=== PATIENT | female | born 1940 | race Caucasian/White ===

== ENCOUNTER 2018-01-09 10:56 | Inpatient (IN) | payer MEDICARE, OTHER ==
[2018-01-09] MEDS: Lactated Ringers 1,000 ML IV SCH ×2 (11:30→17:55)
--- NOTE | 2018-01-09 11:47 | PCM.PREANE ---
Preanesthetic Assessment - Anesthesia/Transfusion/Family Hx Anesthesia History: Prior Anesthesia Without Reaction Family History of Anesthesia Reaction: No Transfusion History: No Prior Transfusion(s) - Review of Systems General: No Symptoms Pulmonary: No Symptoms Cardiovascular: No Symptoms Gastrointestinal: No Symptoms Neurological: No Symptoms Other: Reports: None - Physical Assessment NPO Status Date: 01/08/18 Height: 1.55 m Weight: 71.668 kg ASA Class: 3 Mental Status: Alert & Oriented x3 Airway Class: Mallampati = 1 Dentition: Reports: Dentures ROM/Head Extension: Full Lungs: Clear to Auscultation, Normal Respiratory Effort Cardiovascular: Regular Rate, Regular Rhythm - Allergies Allergies/Adverse Reactions: Allergies Allergy/AdvReac Type Severity Reaction Status Date / Time amoxicillin trihydrate Allergy Rash Verified 01/02/18 15:57 [From Augmentin] ciprofloxacin [From Cipro] Allergy Rash Verified 01/02/18 15:57 ciprofloxacin HCl Allergy Rash Verified 01/02/18 15:57 [From Cipro] potassium clavulanate Allergy Rash Verified 01/02/18 15:57 [From Augmentin] Sulfa (Sulfonamide Allergy Rash Verified 01/02/18 15:57 Antibiotics) - Anesthesia Plan Pre-Op Medication Ordered: None - Acknowledgements Anesthesia Type Planned: MAC Pt an Appropriate Candidate for the Planned Anesthesia: Yes Alternatives and Risks of Anesthesia Discussed w Pt/Guardian: Yes Pt/Guardian Understands and Agrees with Anesthesia Plan: Yes Additional Comments: PMH:s/p R subclavian art stent 5-7 yr ago, on plavix, stopped6 days ago, hx of CVA, gout, HLD PreAnesthesia Questionnaire HEENT History: Reports: Cataract, Other (See Below) Other HEENT History: wears glasses, has upper and lower dentures Cardiovascular History: Reports: High Cholesterol, Hypertension Respiratory History: Reports: None Gastrointestinal History: Reports: Colon Polyp, Diverticulosis FLOORLEADER History: Reports: None Musculoskeletal History: Reports: Arthritis, Fracture, Gout Other Musculoskeletal History: hx of fx right wrist Neurological History: Reports: None Psychiatric History: Reports: None Endocrine/Metabolic History: Reports: None Hematologic History: Reports: Anticoagulation Therapy Immunologic History: Reports: None Oncologic (Cancer) History: Reports: Uterine Dermatologic History: Reports: None - Past Surgical History Head Surgeries/Procedures: Reports: None HEENT Surgical History: Reports: Cataract Surgery, Tonsillectomy Cardiovascular Surgical History: Reports: Other (See Below) Other Cardiovascular Surgeries/Procedures: has vascular stent in right upper arm GI Surgical History: Reports: Colonoscopy Female Surgical History: Reports: Hysterectomy Oncologic Surgical History: Reports: Other (See Below) Other Oncologic Surgeries/Procedures: hysterectomy - SUBSTANCE USE Smoking Status *Q: Former Smoker Tobacco Use Within Last Twelve Months: No Recreational Drug Use History: No - HOME MEDS Home Medications: Home Meds Clopidogrel [Plavix] 75 mg PO DAILY 10/20/15 [History] Simvastatin [Zocor] 20 mg PO BEDTIME 10/20/15 [History] Aspirin [Adult Low Dose Aspirin EC] 81 mg PO DAILY 01/02/18 [History] Losartan/Hydrochlorothiazide [Losartan-HCTZ 50-12.5 MG] 1 tab PO DAILY 01/02/18 [History] - CURRENT (IN HOUSE) MEDS Current Meds: Current Medications Lactated Ringer's (Ringers, Lactated) 1,000 mls @ 125 mls/hr IV ASDIRECTED [facility]
[2018-01-09] MEDS ORDERED: Ondansetron 4 MG/2 ML SDV ONE (12:46)
[2018-01-09] MEDS ORDERED: Propofol 200 MG/20 ML SDV ONE (12:46)
[2018-01-09] MEDS ORDERED: Midazolam 1 MG/ML 2 ML SDV ONE (12:46)
[2018-01-09] MEDS ORDERED: fentaNYL 100 MCG/2 ML SDV ONE ×2 (12:46→13:28)
[2018-01-09] MEDS ORDERED: Rocuronium 10 MG/ML 10 ML Syringe ONE (13:27)
[2018-01-09] MEDS ORDERED: HYDROmorphone 2 MG/ML SDV ONE (13:31)
[2018-01-09] MEDS ORDERED: Bupivacaine 0.5% 30 ML SDV ONE (13:41)
[2018-01-09] MEDS ORDERED: ceFAZolin 1 GM Vial ONE (14:17)
[2018-01-09] MEDS ORDERED: Hetastarch in NS 500 ML ONE (14:23)
[2018-01-09] MEDS ORDERED: Sugammadex Sodium 200 MG/2 ML VIAL ONE (14:52)
[2018-01-09] MEDS ORDERED: Ondansetron 4 MG/2 ML SDV IVPUSH PRN (15:30)
[2018-01-09] MEDS ORDERED: Morphine PF 30 MG/30 ML PCA Vial IV SCH ×2 (15:30→21:00)
[2018-01-09] MEDS ORDERED: Acetaminophen 325 MG Supp RECTAL PRN (15:33)
--- NOTE | 2018-01-09 15:42 | PCM.OPNOTE ---
- General Post-Op/Procedure Note Date of Surgery/Procedure: 01/09/18 Operative Procedure(s): Colonoscopy. Repair of iatrogenic colon perforation Findings: Rectosigmoid perforation Pancolonic diverticulosis Pre Op Diagnosis: Hx of colon polyps. Change in bowel habits. Decreased stool caliber. Iatrogenic perforation of rectosigmoid Post-Op Diagnosis: Pancolonic diverticulosis. Rectosigmoid perforation Anesthesia Technique: General ET Tube (ASA IIIE) Primary Surgeon: Luis Smith Haul Driver: Diane Velasquez Reason Haul Driver Was Necessary: Exposure and facilitate efficiency of procedure Fluid Replacement, Intraop: 1,100 (1100 crystalloid, 400 Hespan) Output, Urine Amount: 220 EBL in mLs: 100 Condition: Good Free Text/Narrative:: DICTATION 090766/[id number] CPT CODE 66711/00951
--- NOTE | 2018-01-09 15:47 | PCM.POSTAN ---
POST ANESTHESIA ASSESSMENT - MENTAL STATUS Mental Status: Alert, Oriented - RESPIRATORY Respiratory Status: Respiratory Rate WNL, Airway Patent, O2 Saturation Stable - CARDIOVASCULAR CV Status: Pulse Rate WNL, Blood Pressure Stable - GASTROINTESTINAL GI Status: No Symptoms - PAIN Pain Score: 3 - POST OP HYDRATION Hydration Status: Adequate & Stable
[2018-01-09] MEDS ORDERED: Morphine 4 MG/ML Syringe IVPUSH PRN (16:28)
[2018-01-09] MEDS ORDERED: Lactated Ringers 1,000 ML IV SCH (17:00)
[2018-01-09] MEDS: cefOXitin 1 GM in Premix Bag 1 BAG IV SCH ×2 (17:02→21:50)
[2018-01-09] MEDS: Metoclopramide 10 MG/2 ML SDV IV SCH ×2 (17:41→21:50)
[2018-01-09] MEDS ORDERED: LORazepam 2 MG/ML SDV IVPUSH ONE (20:18)
--- NOTE | 2018-01-09 20:37 | PCM.SN ---
- Free Text/Narrative Note: Awake and alert. c/o incisional pain only. 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 Wants to know when she can eat. Lungs clear. Ht RRR. BP 110-110 with HR 60's. Lungs clear. Abdomen soft and nontender. Minimal BS. ASSESSMENT: Stable post-op course to date. Labs ordered for am.
--- NOTE | 2018-01-09 22:00 | OR ---
SURGEON: Luis Smith M.D. DATE OF PROCEDURE: 01/09/2018 OPERATION PERFORMED: Colonoscopy to the cecum. ANESTHESIA: MAC. ASA CLASSIFICATION: III. PREOPERATIVE DIAGNOSIS: Personal history of colon polyps with change in bowel habits and decreased stool caliber. POSTOPERATIVE DIAGNOSES: 1. Mild pancolonic diverticulosis. 2. Colonoscopic perforation. DESCRIPTION OF PROCEDURE: The patient was taken to the endoscopy room and positioned on the endoscopy table in the left lateral decubitus position. Time-out was called for appropriate identification of the patient and procedure. Monitored anesthesia care was provided. The colonoscope was inserted into the rectum and was advanced to the cecum with minimal difficulty. There was no undue pressure, nor did there appear to be any loop or twist in the colon as the colonoscope was advanced. Despite multiple maneuvers, I was not able to retroflex the colonoscope in the cecum, and therefore, the colonoscope was slowly withdrawn. The patient did have mild diverticular changes scattered throughout the entire length of the colon. The cecum, ascending colon, hepatic flexure, transverse colon, splenic flexure, and descending colon showed no tumors, polyps, diverticula, or inflammatory bowel disease. As the colonoscope was further withdrawn through the sigmoid into the rectosigmoid, it was apparent that we were outside of the lumen. The procedure was then rapidly terminated, and the patient taken to the operating room for laparotomy and repair. While the patient was being prepped for surgery, consent was obtained from her . JORGE TANG /[id number]
[2018-01-10] MEDS ORDERED: Lactated Ringers 500 ML IV ONE (01:46)
[2018-01-10] MEDS: Metoclopramide 10 MG/2 ML SDV IV SCH ×4 (02:53→22:00)
[2018-01-10] MEDS: cefOXitin 1 GM in Premix Bag 1 BAG IV SCH ×2 (02:54→09:17)
[2018-01-10] MEDS ORDERED: Lactated Ringers 500 ML IV SCH ×2 (03:45→04:00)
[2018-01-10] MEDS: Lactated Ringers 1,000 ML IV SCH ×4 (04:46→17:54)
--- NOTE | 2018-01-10 08:14 | PCM.SURGPN ---
- General Info Date of Service: 01/10/18 POD#: 1 Post-Op Diagnosis: Iatrogenic colon perforation Functional Status: Reports: Pain Controlled, Ambulating - Review of Systems General: Reports: Fatigue. Denies: Fever, Weakness, Malaise, Chills HEENT: Reports: No Symptoms Pulmonary: Denies: Shortness of Breath, Cough Cardiovascular: Denies: Chest Pain Gastrointestinal: Reports: Abdominal Pain (incisional). Denies: Diarrhea, Difficulty Swallowing, Flatus, Nausea, Vomiting Genitourinary: Reports: No Symptoms Musculoskeletal: Denies: Neck Pain, Shoulder Pain Skin: Reports: No Symptoms Neurological: Denies: Confusion, Dizziness, Headache Psychiatric: Reports: No Symptoms - Patient Data Vitals - Most Recent: Last Vital Signs Temp 98.1 F 01/10/18 04:00 Pulse 58 L 01/09/18 18:00 Resp 24 H 01/10/18 07:00 BP 94/54 L 01/10/18 07:00 Pulse Ox 95 01/10/18 07:00 Weight - Most Recent: 164 lb 3.91 oz I&O - Last 24 Hours: Intake & Output 01/09/18 01/10/18 01/10/18 19:59 03:59 11:59 Intake Total 3600 1518 560 Output Total 220 240 Balance 3380 1518 320 Lab Results Last 24 Hrs: Laboratory Results - last 24 hr 01/10/18 01/10/18 Range/Units 06:18 06:18 WBC 6.84 (4.0-11.0) K/uL RBC 3.84 L (4.30-5.90) M/uL Hgb 12.0 (12.0-16.0) g/dL Hct 36.5 (36.0-46.0) % MCV 95.1 (80.0-98.0) fL MCH 31.3 (27.0-32.0) pg MCHC 32.9 (31.0-37.0) g/dL RDW Std Deviation 47.4 (28.0-62.0) fl RDW Coeff of Nilo 14 (11.0-15.0) % Plt Count 191 (150-400) K/uL MPV 11.10 (7.40-12.00) fL Neut % (Auto) 91.7 H (48.0-80.0) % Lymph % (Auto) 3.2 L (16.0-40.0) % [place] % (Auto) 5.1 (0.0-15.0) % Eos % (Auto) 0.0 (0.0-7.0) % Baso % (Auto) 0.0 (0.0-1.5) % Neut # (Auto) 6.3 H (1.4-5.7) K/uL Lymph # (Auto) 0.2 L (0.6-2.4) K/uL [place] # (Auto) 0.4 (0.0-0.8) K/uL Eos # (Auto) 0.0 (0.0-0.7) K/uL Baso # (Auto) 0.0 (0.0-0.1) K/uL Nucleated RBC % 0.0 /100WBC Nucleated RBCs # 0 K/uL Sodium 135 L (136-145) mmol/L Potassium 4.1 (3.5-5.1) mmol/L Chloride 104 (98-107) mmol/L Carbon Dioxide 27.7 (21.0-32.0) mmol/L BUN 16 (7.0-18.0) mg/dL Creatinine 1.3 H (0.6-1.0) mg/dL Est Cr Clr Drug Dosing 27.35 mL/min Estimated GFR (MDRD) 39.7 ml/min Glucose 131 H (74-106) mg/dL Calcium 8.2 L (8.5-10.1) mg/dL Med Orders - Current: Current Medications Acetaminophen (Tylenol) 325 mg RECTAL Q4H PRN PRN Reason: Temperature Cefoxitin Sodium 1 gm/ Premix 50 mls @ 100 mls/hr IV Q6H [facility] Stop: 01/10/18 09:59 Last Admin: 01/10/18 02:54 Dose: 100 mls/hr Lactated Ringer's (Ringers, Lactated) 1,000 mls @ 150 mls/hr IV ASDIRECTED [facility] Last Admin: 01/10/18 04:47 Dose: 125 mls/hr Lactated Ringer's (Ringers, Lactated) 1,000 mls @ 625 mls/hr IV ASDIRECTED [facility] Metoclopramide HCl (Reglan) 10 mg IV Q6H [facility] Last Admin: 01/10/18 02:53 Dose: 10 mg Morphine Sulfate (Morphine) 0 mg IVPUSH Q1H PRN PRN Reason: Pain (severe 7-10) Morphine Sulfate (Morphine Supervisor Forming Department 30 Mg In 30 Ml) 30 mg IV ASDIRECTED [facility]; Protocol Last Admin: 01/09/18 21:09 Dose: 30 mg Ondansetron HCl (Zofran) 4 mg IVPUSH Q6H PRN PRN Reason: Nausea/Vomiting Discontinued Medications Bupivacaine HCl (Marcaine 0.5%) Confirm Administered Dose 120 ml .ROUTE .STK- MED ONE Stop: 01/09/18 13:42 Cefazolin Sodium (Ancef) Confirm Administered Dose 1 gm .ROUTE .STK-MED ONE Stop: 01/09/18 14:18 Fentanyl (Sublimaze) Confirm Administered Dose 100 mcg .ROUTE .STK-MED ONE Stop: 01/09/18 12:47 Fentanyl (Sublimaze) Confirm Administered Dose 100 mcg .ROUTE .STK-MED ONE Stop: 01/09/18 13:29 Hydromorphone HCl (Dilaudid) Confirm Administered Dose 2 mg .ROUTE .STK-MED ONE Stop: 01/09/18 13:32 Lactated Ringer's (Ringers, Lactated) 1,000 mls @ 125 mls/hr IV ASDIRECTED [facility] Last Infusion: 01/10/18 01:55 Dose: Infused Hetastarch/Sodium Chloride (Hetastarch 6% In Normal Saline) Confirm Administered Dose 500 mls @ as directed .ROUTE .STK-MED ONE Stop: 01/09/18 14:24 Acetaminophen (Ofirmev) Confirm Administered Dose 100 mls @ as directed IV .STK- MED ONE Stop: 01/09/18 14:53 Lactated Ringer's (Ringers, Lactated) 500 mls @ 500 mls/hr IV .BOLUS ONE Stop: 01/10/18 02:45 Last Admin: 01/10/18 02:01 Dose: 500 mls/hr Lactated Ringer's (Ringers, Lactated) 500 mls @ 500 mls/hr IV BOLUS [facility] Stop: 01/10/18 04:45 Lactated Ringer's (Ringers, Lactated) 500 mls @ 500 mls/hr IV .BOLUS [facility] Stop: 01/10/18 05:01 Last Admin: 01/10/18 03:45 Dose: 500 mls/hr Lorazepam (Ativan) 0.5 mg IVPUSH ONETIME ONE Stop: 01/09/18 20:19 Last Admin: 01/09/18 20:36 Dose: Not Given Midazolam HCl (Versed 1 Mg/Ml) Confirm Administered Dose 2 mg .ROUTE .STK-MED ONE Stop: 01/09/18 12:47 Morphine Sulfate (Morphine Supervisor Forming Department 30 Mg In 30 Ml) 30 mg IV SEECOMMENT [facility] Ondansetron HCl (Zofran) Confirm Administered Dose 4 mg .ROUTE .STK-MED ONE Stop: 01/09/18 12:47 Propofol (Diprivan 20 Ml) Confirm Administered Dose 400 mg .ROUTE .STK-MED ONE Stop: 01/09/18 12:47 Rocuronium Randall (Zemuron) Confirm Administered Dose 100 mg .ROUTE .STK-MED ONE Stop: 01/09/18 13:28 Sugammadex Sodium (Bridion) Confirm Administered Dose 200 mg .ROUTE .STK-MED ONE Stop: 01/09/18 14:53 - Exam Wound/Incisions: Dressing Dry and Intact (On-Q in place) Quality Assessment: Supplemental Oxygen, Urine Catheter (clear yellow urine, > 20ml/hr) General: Cooperative, No Acute Distress HEENT: Pupils Equal, Pupils Reactive. No: Scleral Icterus Neck: Supple, Trachea Midline Lungs: Clear to Auscultation, Normal Respiratory Effort. No: Crackles, Rales Cardiovascular: Regular Rate, Regular Rhythm. No: Tachycardia GI/Abdominal Exam: Soft, Non-Tender, No Distention, Abnormal Bowel Sounds ( hypoactive but present). No: Guarding, Rigid, Rebound Extremities: Normal Inspection Skin: Warm, Dry, Intact Neurological: No New Focal Deficit Psy/Mental Status: Alert, Normal Affect, Normal Mood - Problem List & Annotations (1) Large bowel perforation SNOMED Code(s): 326100046 Code(s): K63.1 - PERFORATION OF INTESTINE (NONTRAUMATIC) Status: Acute Priority: High Current Visit: Yes - Problem List Review Problem List Initiated/Reviewed/Updated: Yes - My Orders Last 24 Hours: Active Orders 24 hr Category Date Time Status Admission Status [Patient Status] [ADT] Routine ADT 01/09/18 15:28 Active Leahy Catheter Insertion [Insert Urinary Catheter] [OM. Care 01/09/18 15:30 Ordered PC] Q24H Intake and Output [RC] Q12H Care 01/09/18 15:27 Active Oxygen Therapy [RC] PRN Care 01/09/18 08:00 Active Oxygen Therapy [RC] PRN Care 01/09/18 15:27 Active Pulse Oximetry [RC] INTERMITTENT Care 01/09/18 15:28 Active RT Incentive Spirometry [RC] Q1HWA Care 01/09/18 15:27 Active Up ad Lidia [RC] PER UNIT ROUTINE Care 01/09/18 15:27 Active Urinary Catheter Assessment [RC] Q4H Care 01/09/18 15:31 Active Vital Signs [RC] PER UNIT ROUTINE Care 01/09/18 15:27 Active Vital Signs [RC] Q1H Care 01/09/18 08:00 Active Nothing Per Oral Diet [DIET] Diet 01/09/18 Lunch Active Acetaminophen [Tylenol] Med 01/09/18 15:33 Active 325 mg RECTAL Q4H PRN Lactated Ringers [Ringers, Lactated] 1,000 ml Med 01/09/18 15:30 Active IV ASDIRECTED Lactated Ringers [Ringers, Lactated] 1,000 ml Med 01/09/18 17:00 Active IV ASDIRECTED Metoclopramide [Reglan] Med 01/09/18 15:30 Active 10 mg IV Q6H Morphine Med 01/09/18 16:28 Active See Dose Instructions IVPUSH Q1H PRN Morphine PF [Morphine PC ANALYST 30 MG in 30 ML] Med 01/09/18 21:00 Active 30 mg IV ASDIRECTED Ondansetron [Zofran] Med 01/09/18 15:30 Active 4 mg IVPUSH Q6H PRN cefOXitin [Mefoxin in Dextrose,Iso-Osm 1 GM/50 ML] 1 gm Med 01/09/18 15:30 Active Premix Bag 1 bag IV Q6H Antiembolic Hose [OM.PC] PER UNIT ROUTINE Oth 01/10/18 06:00 Ordered Sequential Compression Device [OM.PC] Routine Oth 01/09/18 15:28 Ordered Medication Orders Acetaminophen (Tylenol) 325 mg RECTAL Q4H PRN PRN Reason: Temperature Cefoxitin Sodium 1 gm/ Premix 50 mls @ 100 mls/hr IV Q6H [facility] Stop: 01/10/18 09:59 Last Admin: 01/10/18 02:54 Dose: 100 mls/hr Infusion: 01/09/18 22:20 Dose: 100 mls/hr Admin: 01/09/18 21:50 Dose: 100 mls/hr Admin: 01/09/18 17:02 Dose: Lactated Ringer's (Ringers, Lactated) 1,000 mls @ 150 mls/hr IV ASDIRECTED [facility] Last Admin: 01/10/18 04:47 Dose: 125 mls/hr Lactated Ringer's (Ringers, Lactated) 1,000 mls @ 625 mls/hr IV ASDIRECTED [facility] Metoclopramide HCl (Reglan) 10 mg IV Q6H [facility] Last Admin: 01/10/18 02:53 Dose: 10 mg Admin: 01/09/18 21:50 Dose: 10 mg Admin: 01/09/18 17:41 Dose: 10 mg Morphine Sulfate (Morphine) 0 mg IVPUSH Q1H PRN PRN Reason: Pain (severe 7-10) Morphine Sulfate (Morphine Supervisor Forming Department 30 Mg In 30 Ml) 30 mg IV ASDIRECTED [facility]; Protocol Last Admin: 01/09/18 21:09 Dose: 30 mg Ondansetron HCl (Zofran) 4 mg IVPUSH Q6H PRN PRN Reason: Nausea/Vomiting - Assessment Assessment (Free Text/Narrative):: Patient has had a good night. c/o incisional pain that is mild and back pain. No N/V. Hemodynamically stable--BP fluctuates from mid 80's to 110. Pulse 80's. Lungs clear to auscultation. Abdomen is soft with hypoactive BS. Labs reviewed. Overall patient has had a good night and is stable. Will increase activity today, leave Leahy in and keep her in ICU. - Plan Plan (Free Text/Narrative):: Increase activity today. Leave Leahy in. Keep in ICU today.
--- NOTE | 2018-01-10 18:49 | PCM48HPAN ---
Post Anesthesia Note - EVALUATION WITHIN 48HRS OF ANESTHETIC Vital Signs in Normal Range: Yes Patient Participated in Evaluation: No Respiratory Function Stable: Yes Airway Patent: Yes Cardiovascular Function Stable: Yes Hydration Status Stable: Yes Pain Control Satisfactory: Yes (Remains on BUYER TOBACCO HEAD but not using much medication according to RN) Nausea and Vomiting Control Satisfactory: Yes Mental Status Recovered: Yes Resp Rate: 25 - COMMENTS/OBSERVATIONS Free Text/Narrative:: BP still on the low side but ok for patient due to her low baseline according to RN. Dr. Smith has increased her fluids. Patient has been up walking 3 times today.
--- NOTE | 2018-01-10 19:11 | PCM.SN ---
- Free Text/Narrative Note: Patient has had a good day. Ambulated in ICU X3. No N/V. Incisional pain only. No flatus. OBJECTIVE: Tmax 99.9 Lungs clear. Ht RRR--101 now. BP fluctuates from 80s'- 110's. UO > 20ml/hr. Abdomen soft. Incisional tenderness. Minimal BS. Dressings dry and intact. IMPRESSION: Patient is hemodynamically stable. UO acceptable given age. Will continue in ICU tonight and possible transfer tomorrow. Possible d/c Leahy in morning.
[2018-01-11] MEDS: Lactated Ringers 1,000 ML IV SCH ×2 (00:20→06:36)
[2018-01-11] MEDS: Metoclopramide 10 MG/2 ML SDV IV SCH ×4 (04:41→22:10)
--- NOTE | 2018-01-11 08:15 | PCM.SURGPN ---
- General Info Date of Service: 01/11/18 Date of Surgery/Procedure: 01/09/18 POD#: 2 Post-Op Diagnosis: iatrogenic colon perforation at time of colonoscopy Functional Status: Reports: Pain Controlled, Ambulating - Review of Systems General: Reports: Fatigue. Denies: Fever, Weakness, Malaise, Chills HEENT: Reports: No Symptoms Pulmonary: Denies: Shortness of Breath, Cough, Wheezing Cardiovascular: Denies: Chest Pain Gastrointestinal: Reports: Abdominal Pain (incisional). Denies: Diarrhea, Flatus, Nausea, Vomiting Genitourinary: Reports: Other (Leahy in, will remove today). Denies: Dysuria, Frequency, Burning Musculoskeletal: Denies: Neck Pain, Shoulder Pain Skin: Denies: Cyanosis, Jaundice, Mottled Neurological: Reports: No Symptoms Psychiatric: Denies: Confusion, Depression, Mood Lability, Anxiety - Patient Data Vitals - Most Recent: Last Vital Signs Temp 99.0 F 01/11/18 04:00 Pulse 101 H 01/11/18 07:00 Resp 21 H 01/11/18 07:00 BP 115/55 L 01/11/18 07:00 Pulse Ox 94 L 01/11/18 07:00 Weight - Most Recent: 171 lb 15.369 oz I&O - Last 24 Hours: Intake & Output 01/10/18 01/11/18 01/11/18 19:59 03:59 11:59 Intake Total 1649 965 898 Output Total 170 135 190 Balance 1479 830 708 Med Orders - Current: Current Medications Acetaminophen (Tylenol) 325 mg RECTAL Q4H PRN PRN Reason: Temperature Lactated Ringer's (Ringers, Lactated) 1,000 mls @ 125 mls/hr IV ASDIRECTED [facility] Last Admin: 01/11/18 06:36 Dose: 150 mls/hr Lactated Ringer's (Ringers, Lactated) 1,000 mls @ 625 mls/hr IV ASDIRECTED [facility] Metoclopramide HCl (Reglan) 10 mg IV Q6H [facility] Last Admin: 01/11/18 04:41 Dose: 10 mg Morphine Sulfate (Morphine) 0 mg IVPUSH Q1H PRN PRN Reason: Pain (severe 7-10) Morphine Sulfate (Morphine Saw Man 30 Mg In 30 Ml) 30 mg IV ASDIRECTED [facility]; Protocol Last Admin: 01/09/18 21:09 Dose: 30 mg Ondansetron HCl (Zofran) 4 mg IVPUSH Q6H PRN PRN Reason: Nausea/Vomiting Discontinued Medications Bupivacaine HCl (Marcaine 0.5%) Confirm Administered Dose 120 ml .ROUTE .STK- MED ONE Stop: 01/09/18 13:42 Cefazolin Sodium (Ancef) Confirm Administered Dose 1 gm .ROUTE .STK-MED ONE Stop: 01/09/18 14:18 Fentanyl (Sublimaze) Confirm Administered Dose 100 mcg .ROUTE .STK-MED ONE Stop: 01/09/18 12:47 Fentanyl (Sublimaze) Confirm Administered Dose 100 mcg .ROUTE .STK-MED ONE Stop: 01/09/18 13:29 Hydromorphone HCl (Dilaudid) Confirm Administered Dose 2 mg .ROUTE .STK-MED ONE Stop: 01/09/18 13:32 Lactated Ringer's (Ringers, Lactated) 1,000 mls @ 125 mls/hr IV ASDIRECTED [facility] Last Infusion: 01/10/18 01:55 Dose: Infused Hetastarch/Sodium Chloride (Hetastarch 6% In Normal Saline) Confirm Administered Dose 500 mls @ as directed .ROUTE .STK-MED ONE Stop: 01/09/18 14:24 Acetaminophen (Ofirmev) Confirm Administered Dose 100 mls @ as directed IV .STK- MED ONE Stop: 01/09/18 14:53 Cefoxitin Sodium 1 gm/ Premix 50 mls @ 100 mls/hr IV Q6H [facility] Stop: 01/10/18 09:59 Last Admin: 01/10/18 09:17 Dose: 100 mls/hr Lactated Ringer's (Ringers, Lactated) 500 mls @ 500 mls/hr IV .BOLUS ONE Stop: 01/10/18 02:45 Last Admin: 01/10/18 02:01 Dose: 500 mls/hr Lactated Ringer's (Ringers, Lactated) 500 mls @ 500 mls/hr IV BOLUS [facility] Stop: 01/10/18 04:45 Lactated Ringer's (Ringers, Lactated) 500 mls @ 500 mls/hr IV .BOLUS [facility] Stop: 01/10/18 05:01 Last Admin: 01/10/18 03:45 Dose: 500 mls/hr Lorazepam (Ativan) 0.5 mg IVPUSH ONETIME ONE Stop: 01/09/18 20:19 Last Admin: 01/09/18 20:36 Dose: Not Given Midazolam HCl (Versed 1 Mg/Ml) Confirm Administered Dose 2 mg .ROUTE .STK-MED ONE Stop: 01/09/18 12:47 Morphine Sulfate (Morphine Saw Man 30 Mg In 30 Ml) 30 mg IV [facility]ECOMMENT [facility] Ondansetron HCl (Zofran) Confirm Administered Dose 4 mg .ROUTE .STK-MED ONE Stop: 01/09/18 12:47 Propofol (Diprivan 20 Ml) Confirm Administered Dose 400 mg .ROUTE .STK-MED ONE Stop: 01/09/18 12:47 Rocuronium [place] (Zemuron) Confirm Administered Dose 100 mg .ROUTE .STK-MED ONE Stop: 01/09/18 13:28 Sugammadex Sodium (Bridion) Confirm Administered Dose 200 mg .ROUTE .STK-MED ONE Stop: 01/09/18 14:53 - Exam Wound/Incisions: Healing Well (Dressing removed, incision clean & dry.), No Drainage Quality Assessment: Supplemental Oxygen (2L NC), Urine Catheter (remove today), DVT Prophylaxis (TEDS, SCDs) General: Alert, Oriented, Cooperative, No Acute Distress HEENT: Pupils Equal, Pupils Reactive, EOMI Neck: Supple, Trachea Midline, No JVD Lungs: Clear to Auscultation, Normal Respiratory Effort Cardiovascular: Regular Rate, Regular Rhythm (intermittent low grade tachycardia , BP 90s-110s) GI/Abdominal Exam: Soft, Non-Tender, No Distention, No Mass, Abnormal Bowel Sounds (hypoactive). No: Guarding, Rigid, Rebound Extremities: Normal Inspection, Normal Range of Motion, No Pedal Edema, Normal Capillary Refill Skin: Warm, Dry, Intact Neurological: No New Focal Deficit Psy/Mental Status: Alert, Normal Affect, Normal Mood - Problem List & Annotations (1) Large bowel perforation SNOMED Code(s): 277133211 Code(s): K63.1 - PERFORATION OF INTESTINE (NONTRAUMATIC) Status: Acute Priority: High Current Visit: Yes - Problem List Review Problem List Initiated/Reviewed/Updated: Yes - My Orders Last 24 Hours: Active Orders 24 hr Category Date Time Status Transfer Patient (Change bed) [ADT] Routine ADT 01/11/18 08:08 Ordered Up ad Lidia [RC] ASDIRECTED Care 01/10/18 08:15 Active BASIC METABOLIC PANEL,BMP [CHEM] AM Lab 01/12/18 05:11 Ordered CBC WITH AUTO DIFF [HEME] AM Lab 01/12/18 05:11 Ordered Medication Orders Acetaminophen (Tylenol) 325 mg RECTAL Q4H PRN PRN Reason: Temperature Lactated Ringer's (Ringers, Lactated) 1,000 mls @ 125 mls/hr IV ASDIRECTED [facility] Last Admin: 01/11/18 06:36 Dose: 150 mls/hr Infusion: 01/11/18 06:36 Dose: 150 mls/hr Admin: 01/11/18 00:20 Dose: 150 mls/hr Infusion: 01/11/18 00:20 Dose: 150 mls/hr Admin: 01/10/18 17:54 Dose: 150 mls/hr Infusion: 01/10/18 17:34 Dose: 150 mls/hr Infusion: 01/10/18 13:55 Dose: 150 mls/hr Infusion: 01/10/18 12:55 Dose: 400 mls/hr Admin: 01/10/18 12:34 Dose: 150 mls/hr Infusion: 01/10/18 12:00 Dose: 150 mls/hr Infusion: 01/10/18 08:00 Dose: 150 mls/hr Admin: 01/10/18 04:47 Dose: 125 mls/hr Lactated Ringer's (Ringers, Lactated) 1,000 mls @ 625 mls/hr IV ASDIRECTED [facility] Metoclopramide HCl (Reglan) 10 mg IV Q6H [facility] Last Admin: 01/11/18 04:41 Dose: 10 mg Admin: 01/10/18 22:00 Dose: 10 mg Admin: 01/10/18 15:37 Dose: 10 mg Admin: 01/10/18 09:17 Dose: 10 mg Admin: 01/10/18 02:53 Dose: 10 mg Admin: 01/09/18 21:50 Dose: 10 mg Admin: 01/09/18 17:41 Dose: 10 mg Morphine Sulfate (Morphine) 0 mg IVPUSH Q1H PRN PRN Reason: Pain (severe 7-10) Morphine Sulfate (Morphine Saw Man 30 Mg In 30 Ml) 30 mg IV ASDIRECTED [facility]; Protocol Last Admin: 01/09/18 21:09 Dose: 30 mg Ondansetron HCl (Zofran) 4 mg IVPUSH Q6H PRN PRN Reason: Nausea/Vomiting - Assessment Assessment (Free Text/Narrative):: Patient remains hemodynamically stable. Tmax 99.9. No flatus yet. BP still mildly labile. UO averaging about 20mls/hr. Dressing removed. Incision clean and dry. On-Q still infusing. - Plan Plan (Free Text/Narrative):: Transfer to Med-Surg. D/C Armond. Increase activity. Will remove ON-Q on rounds this evening. Recheck labs in am.
[2018-01-11] MEDS ORDERED: Lactated Ringers 1,000 ML IV SCH ×2 (13:30→13:41)
[2018-01-11] MEDS ORDERED: Albuterol/Ipratropium 3.0-0.5 MG/3 ML Neb Soln ONE (14:08)
[2018-01-11] MEDS ORDERED: Albuterol/Ipratropium 3.0-0.5 MG/3 ML Neb Soln NEB ONE (14:24)
[2018-01-11] MEDS ORDERED: Diltiazem 25 MG/5 ML SDV IVPUSH ONE (15:09)
[2018-01-11] MEDS ORDERED: Aspirin 325 MG Tab PO ONE (16:17)
[2018-01-11] MEDS ORDERED: Magnesium Sulfate/Water 2 GM in Premix Bag 1 BAG IV ONE (16:19)
--- NOTE | 2018-01-11 16:25 | PCM.CONS ---
H&P History of Present Illness - General Date of Service: 01/11/18 Admit Problem/Dx: Admission Diagnosis/Problem Admission Diagnosis/Problem Perforation of intestine - History of Present Illness Initial Comments - Free Text/Narative: 77 yo female with pmh of HTN, hyperlipidemia and is on plavix for stent in right arm who was admitted following perforation of intestine due to colonoscopy. Patient has been doing relatively well post op. She was given fluids yesterday with improvement in her urine output. She developed tachycardia with heart rate inthe 140s-80s with atrial fibrillation. She denies any history of heart disease, heart failure, or arrythmias. She does admit to a history of a murmer. She denies any chest pain or palpitations. Incisional Pain Score (Numeric/FACES): 4 - Related Data Allergies/Adverse Reactions: Allergies Allergy/AdvReac Type Severity Reaction Status Date / Time amoxicillin trihydrate Allergy Rash Verified 01/02/18 15:57 [From Augmentin] ciprofloxacin [From Cipro] Allergy Rash Verified 01/02/18 15:57 ciprofloxacin HCl Allergy Rash Verified 01/02/18 15:57 [From Cipro] potassium clavulanate Allergy Rash Verified 01/02/18 15:57 [From Augmentin] Sulfa (Sulfonamide Allergy Rash Verified 01/02/18 15:57 Antibiotics) Home Medications: Home Meds Clopidogrel [Plavix] 75 mg PO DAILY 10/20/15 [History] Simvastatin [Zocor] 20 mg PO BEDTIME 10/20/15 [History] Aspirin [Adult Low Dose Aspirin EC] 81 mg PO DAILY 01/02/18 [History] Losartan/Hydrochlorothiazide [Losartan-HCTZ 50-12.5 MG] 1 tab PO DAILY 01/02/18 [History] Past Medical History HEENT History: Reports: Cataract, Other (See Below) Other HEENT History: wears glasses, has upper and lower dentures Cardiovascular History: Reports: High Cholesterol, Hypertension Respiratory History: Reports: None Gastrointestinal History: Reports: Colon Polyp, Diverticulosis 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 Musculoskeletal History: Reports: Arthritis, Fracture, Gout Other Musculoskeletal History: hx of fx right wrist Neurological History: Reports: None Psychiatric History: Reports: None Endocrine/Metabolic History: Reports: None Hematologic History: Reports: Anticoagulation Therapy Immunologic History: Reports: None Oncologic (Cancer) History: Reports: Uterine Dermatologic History: Reports: None - Infectious Disease History Infectious Disease History: Reports: Chicken Pox - Past Surgical History Head Surgeries/Procedures: Reports: None HEENT Surgical History: Reports: Cataract Surgery, Tonsillectomy Cardiovascular Surgical History: Reports: Other (See Below) Other Cardiovascular Surgeries/Procedures: has vascular stent in right upper arm GI Surgical History: Reports: Colonoscopy Female Surgical History: Reports: Hysterectomy Oncologic Surgical History: Reports: Other (See Below) Other Oncologic Surgeries/Procedures: hysterectomy Social & Family History - Family History Family Medical History: Noncontributory - Tobacco Use Smoking Status *Q: Former Smoker Years of Tobacco use: 35 Packs/Tins Daily: 1 Tobacco Use Comment: quit 8 years ago - Recreational Drug Use Recreational Drug Use: No Drug Use in Last 12 Months: No H&P Review of Systems - Review of Systems: Review Of Systems: ROS reveals no pertinent complaints other than HPI. Exam - Exam Exam: See Below - Vital Signs Vital Signs: Last Vital Signs Temp 37.1 C 01/11/18 12:00 Pulse 94 01/11/18 08:00 Resp 25 H 01/11/18 12:00 BP 124/56 L 01/11/18 08:00 Pulse Ox 98 01/11/18 15:00 Weight: 78 kg - Exam General: Alert, Oriented HEENT: Mucosa Moist & [place] Lungs: Clear to Auscultation, Normal Respiratory Effort Cardiovascular: Irregular Rhythm, Tachycardia. No: Systolic Murmur, Diastolic Murmur GI/Abdominal Exam: Soft, Non-Tender Extremities: Non-Tender, No Pedal Edema Skin: Warm, Dry, Intact - Patient Data Lab Results Last 24 hrs: Laboratory Results - last 24 hr 01/11/18 01/11/18 Range/Units 14:27 14:27 WBC 14.39 H (4.0-11.0) K/uL RBC 3.75 L (4.30-5.90) M/uL Hgb 11.8 L (12.0-16.0) g/dL Hct 35.4 L (36.0-46.0) % MCV 94.4 (80.0-98.0) fL MCH 31.5 (27.0-32.0) pg MCHC 33.3 (31.0-37.0) g/dL RDW Std Deviation 48.8 (28.0-62.0) fl RDW Coeff of Nilo 14 (11.0-15.0) % Plt Count 176 (150-400) K/uL MPV 10.60 (7.40-12.00) fL Add Manual Diff YES Neutrophils % (Manual) 76 (48.0-80.0) % Band Neutrophils % 16 % Lymphocytes % (Manual) 4 L (16.0-40.0) % Monocytes % (Manual) 4 (0.0-15.0) % Nucleated RBC % 0.0 /100WBC Absolute Seg Neuts 10.9 H (1.4-5.7) Band Neutrophils # 2.3 Lymphocytes # (Manual) 0.6 (0.6-2.4) Monocytes # (Manual) 0.6 (0.0-0.8) Nucleated RBCs # 0 K/uL Sodium 135 L (136-145) mmol/L Potassium 4.5 (3.5-5.1) mmol/L Chloride 102 (98-107) mmol/L Carbon Dioxide 27.3 (21.0-32.0) mmol/L BUN 22 H (7.0-18.0) mg/dL Creatinine 1.3 H (0.6-1.0) mg/dL Est Cr Clr Drug Dosing 27.35 mL/min Estimated GFR (MDRD) 39.7 ml/min Glucose 95 (74-106) mg/dL Calcium 8.4 L (8.5-10.1) mg/dL Magnesium 1.5 L (1.8-2.4) mg/dL Total Bilirubin 0.6 (0.2-1.0) mg/dL AST 22 (15-37) IU/L ALT 16 (14-63) IU/L Alkaline Phosphatase 69 (46-116) U/L Troponin I 0.221 H* (0.000-0.056) ng/mL Total Protein 5.7 L (6.4-8.2) g/dL Albumin 2.3 L (3.4-5.0) g/dL Globulin 3.4 (2.0-3.5) g/dL Albumin/Globulin Ratio 0.7 L (1.3-2.8) Result Diagrams: 01/13/18 09:15 01/13/18 09:15 Consult PN Assessment/Plan Procedures: Procedures ASSAY THYROID STIM HORMONE (01/18/14) COMPLETE CBC W/AUTO DIFF WBC (01/18/14) COMPREHEN METABOLIC PANEL (01/18/14) EMERGENCY DEPT VISIT (10/20/15) LIPID PANEL (01/18/14) OFFICE/OUTPATIENT VISIT EST (01/18/14) OT EVALUATION (12/04/15) OT RE-EVALUATION (12/19/15) ROUTINE VENIPUNCTURE (01/18/14) THERAPEUTIC EXERCISES (12/19/15) URINALYSIS AUTO W/SCOPE (01/18/14) X-RAY EXAM OF WRIST (12/28/15) Problem List Initiated/Reviewed/Updated: Yes My Orders Last 24 Hours: My Active Orders 01/11/18 15:14 Transfer Patient (Change bed) [ADT] Routine 01/11/18 16:17 Aspirin 325 mg PO ONETIME ONE 01/11/18 16:19 Magnesium Sulfate/Water [Magnesium Sulfate 2 GM in Water 50 ML] 2 gm Premix Bag 1 bag IV ONETIME 01/11/18 16:30 Diltiazem 125 mg Sodium Chloride 0.9% [Normal Saline] 100 ml IV NOW 01/11/18 20:30 TROPONIN I [CHEM] Routine 01/12/18 02:30 TROPONIN I [CHEM] Routine Plan: 77 yo female s/p intestinal repair who has developed atrial fibrillation post op. Patient's troponin is mildly elevated but patient denies any chest pain and EKG does not show signs of ischemia. We will continue to trend troponin. Will place on diltiazem drip for better rate control. Will replace magnesium. CXR shows infiltrate and WBC is elevated so will place on vancomycin and cefepime for possible pneumonia.
[2018-01-11] MEDS: Diltiazem 125 MG in Sodium Chloride 0.9% 100 ML IV SCH (16:38)
[2018-01-11] MEDS: Cefepime 1 GM in Premix Bag 1 BAG IV SCH (16:54)
[2018-01-11] MEDS ORDERED: Aspirin 325 MG Tab ONE (16:57)
[2018-01-11] MEDS ORDERED: Digoxin 500 MCG/2 ML Amp IVPUSH ONE (17:02)
[2018-01-11] MEDS: Pantoprazole 40 MG Vial IVPUSH SCH (17:24)
--- NOTE | 2018-01-11 18:47 | PCM.SN ---
- Free Text/Narrative Note: Events of today reviewed. Patient appears to have intermittent atrial fibrillation. May partly be related to volume resuscitation. Denies chest pain or shortness of breath. SaO2 mid 90s on 2L nasal cannula O2. EXAMINATION: HEENT: PERRLA, no scleral icterus. CARDIORESPIRATORY: Lungs clear, Ht RRR tonight. Pulse 90s to low 100s. ABDOMEN: Abdomen is soft with minimal BS. Incision clean and dry. On-Q removed without incident. EXTREMITIES: No pedal edema. Strong pedal pulses. TEDS and SCDS in place. ASSESSMENT: New onset atrial fibrillation--may be partly related to volume resuscitation. GI tract appears stable. Note leucocytosis with normal lactate. May be pulmonary in origin as abdomen is soft and nontender. PLAN: Will continue to monitor in ICU and telemetry. Appreciate Dr. Valerio', Dr. Darby ' and EICU support. Recheck in am.
[2018-01-11] MEDS ORDERED: Furosemide 20 MG/2 ML VIAL IVPUSH ONE (21:50)
[2018-01-11] MEDS: Enoxaparin 30 MG/0.3 ML Syringe SUBCUT SCH (22:58)
[2018-01-12] MEDS: Cefepime 1 GM in Premix Bag 1 BAG IV SCH ×3 (01:12→18:09)
[2018-01-12] MEDS ORDERED: Furosemide 40 MG/4 ML VIAL IVPUSH ONE (02:20)
[2018-01-12] MEDS: Metoclopramide 10 MG/2 ML SDV IV SCH ×3 (03:26→18:05)
[2018-01-12] MEDS: Diltiazem 125 MG in Sodium Chloride 0.9% 100 ML IV SCH ×2 (03:30→14:14)
--- NOTE | 2018-01-12 08:06 | PCM.SURGPN ---
- General Info Date of Service: 01/12/18 Date of Surgery/Procedure: 01/09/18 POD#: 3 Post-Op Diagnosis: iatrogenic colon perforation Functional Status: Reports: Pain Controlled, Ambulating, Urinating, Incentive Spirometry - Review of Systems General: Reports: Appetite. Denies: Fever, Weakness, Fatigue, Malaise, Chills, Night Sweats HEENT: Reports: No Symptoms Pulmonary: Denies: Shortness of Breath, Cough, Sputum Cardiovascular: Reports: Other (paroxysmal atrial fibrillation). Denies: Chest Pain, Orthopnea, PND, Edema Gastrointestinal: Reports: Abdominal Pain (incisional). Denies: Decreased Appetite, Diarrhea, Difficulty Swallowing, Flatus, Nausea, Vomiting Genitourinary: Denies: Dysuria, Frequency, Burning, Pain, Urgency Musculoskeletal: Reports: No Symptoms Skin: Denies: Cyanosis, Jaundice, Mottled Neurological: Denies: Confusion, Dizziness Psychiatric: Denies: Depression, Anxiety - Patient Data Vitals - Most Recent: Last Vital Signs Temp 98.4 F 01/12/18 04:00 Pulse 102 H 01/12/18 07:00 Resp 17 01/12/18 07:00 BP 107/84 01/12/18 07:00 Pulse Ox 94 L 01/12/18 07:00 Weight - Most Recent: 173 lb 1.006 oz I&O - Last 24 Hours: Intake & Output 01/11/18 01/12/18 01/12/18 19:59 03:59 11:59 Intake Total 150 340 20 Output Total 350 400 950 Balance -200 -60 -930 Lab Results Last 24 Hrs: Laboratory Results - last 24 hr 01/11/18 01/11/18 01/11/18 Range/Units 14:27 14:27 17:25 WBC 14.39 H (4.0-11.0) K/uL RBC 3.75 L (4.30-5.90) M/uL Hgb 11.8 L (12.0-16.0) g/dL Hct 35.4 L (36.0-46.0) % MCV 94.4 (80.0-98.0) fL MCH 31.5 (27.0-32.0) pg MCHC 33.3 (31.0-37.0) g/dL RDW Std Deviation 48.8 (28.0-62.0) fl RDW Coeff of Nilo 14 (11.0-15.0) % Plt Count 176 (150-400) K/uL MPV 10.60 (7.40-12.00) fL Add Manual Diff YES Neutrophils % (Manual) 76 (48.0-80.0) % Band Neutrophils % 16 % Lymphocytes % (Manual) 4 L (16.0-40.0) % Monocytes % (Manual) 4 (0.0-15.0) % Eosinophils % (Manual) (0.0-7.0) % Nucleated RBC % 0.0 /100WBC Absolute Seg Neuts 10.9 H (1.4-5.7) Band Neutrophils # 2.3 Lymphocytes # (Manual) 0.6 (0.6-2.4) Monocytes # (Manual) 0.6 (0.0-0.8) Eosinophils # (Manual) (0.0-0.7) Nucleated RBCs # 0 K/uL Lactate (0.20-2.00) mmol/L Sodium 135 L (136-145) mmol/L Potassium 4.5 (3.5-5.1) mmol/L Chloride 102 (98-107) mmol/L Carbon Dioxide 27.3 (21.0-32.0) mmol/L BUN 22 H (7.0-18.0) mg/dL Creatinine 1.3 H (0.6-1.0) mg/dL Est Cr Clr Drug Dosing 27.35 mL/min Estimated GFR (MDRD) 39.7 ml/min Glucose 95 (74-106) mg/dL Calcium 8.4 L (8.5-10.1) mg/dL Magnesium 1.5 L (1.8-2.4) mg/dL Total Bilirubin 0.6 (0.2-1.0) mg/dL AST 22 (15-37) IU/L ALT 16 (14-63) IU/L Alkaline Phosphatase 69 (46-116) U/L Troponin I 0.221 H* 0.259 H* (0.000-0.056) ng/mL Total Protein 5.7 L (6.4-8.2) g/dL Albumin 2.3 L (3.4-5.0) g/dL Globulin 3.4 (2.0-3.5) g/dL Albumin/Globulin Ratio 0.7 L (1.3-2.8) Free T4 (0.76-1.46) ng/dL TSH 3rd Generation (0.36-3.74) uIU/mL 01/11/18 01/11/18 01/12/18 Range/Units 17:25 17:25 02:28 WBC 13.90 H (4.0-11.0) K/uL RBC 3.44 L (4.30-5.90) M/uL Hgb 10.9 L (12.0-16.0) g/dL Hct 32.7 L (36.0-46.0) % MCV 95.1 (80.0-98.0) fL MCH 31.7 (27.0-32.0) pg MCHC 33.3 (31.0-37.0) g/dL RDW Std Deviation 49.5 (28.0-62.0) fl RDW Coeff of Nilo 14 (11.0-15.0) % Plt Count 171 (150-400) K/uL MPV 10.40 (7.40-12.00) fL Add Manual Diff YES Neutrophils % (Manual) 80 (48.0-80.0) % Band Neutrophils % 12 % Lymphocytes % (Manual) 7 L (16.0-40.0) % Monocytes % (Manual) (0.0-15.0) % Eosinophils % (Manual) 1 (0.0-7.0) % Nucleated RBC % 0.0 /100WBC Absolute Seg Neuts 11.1 H (1.4-5.7) Band Neutrophils # 1.7 Lymphocytes # (Manual) 1.0 (0.6-2.4) Monocytes # (Manual) (0.0-0.8) Eosinophils # (Manual) 0.1 (0.0-0.7) Nucleated RBCs # 0 K/uL Lactate 1.1 (0.20-2.00) mmol/L Sodium (136-145) mmol/L Potassium (3.5-5.1) mmol/L Chloride (98-107) mmol/L Carbon Dioxide (21.0-32.0) mmol/L BUN (7.0-18.0) mg/dL Creatinine (0.6-1.0) mg/dL Est Cr Clr Drug Dosing mL/min Estimated GFR (MDRD) ml/min Glucose (74-106) mg/dL Calcium (8.5-10.1) mg/dL Magnesium (1.8-2.4) mg/dL Total Bilirubin (0.2-1.0) mg/dL AST (15-37) IU/L ALT (14-63) IU/L Alkaline Phosphatase (46-116) U/L Troponin I (0.000-0.056) ng/mL Total Protein (6.4-8.2) g/dL Albumin (3.4-5.0) g/dL Globulin (2.0-3.5) g/dL Albumin/Globulin Ratio (1.3-2.8) Free T4 1.23 (0.76-1.46) ng/dL TSH 3rd Generation 1.65 (0.36-3.74) uIU/mL 01/12/18 01/12/18 Range/Units 02:28 02:28 WBC (4.0-11.0) K/uL RBC (4.30-5.90) M/uL Hgb (12.0-16.0) g/dL Hct (36.0-46.0) % MCV (80.0-98.0) fL MCH (27.0-32.0) pg MCHC (31.0-37.0) g/dL RDW Std Deviation (28.0-62.0) fl RDW Coeff of Nilo (11.0-15.0) % Plt Count (150-400) K/uL MPV (7.40-12.00) fL Add Manual Diff Neutrophils % (Manual) (48.0-80.0) % Band Neutrophils % % Lymphocytes % (Manual) (16.0-40.0) % Monocytes % (Manual) (0.0-15.0) % Eosinophils % (Manual) (0.0-7.0) % Nucleated RBC % /100WBC Absolute Seg Neuts (1.4-5.7) Band Neutrophils # Lymphocytes # (Manual) (0.6-2.4) Monocytes # (Manual) (0.0-0.8) Eosinophils # (Manual) (0.0-0.7) Nucleated RBCs # K/uL Lactate (0.20-2.00) mmol/L Sodium 135 L (136-145) mmol/L Potassium 3.9 (3.5-5.1) mmol/L Chloride 102 (98-107) mmol/L Carbon Dioxide 25.2 (21.0-32.0) mmol/L BUN 24 H (7.0-18.0) mg/dL Creatinine 1.3 H (0.6-1.0) mg/dL Est Cr Clr Drug Dosing 27.35 mL/min Estimated GFR (MDRD) 39.7 ml/min Glucose 102 (74-106) mg/dL Calcium 8.6 (8.5-10.1) mg/dL Magnesium (1.8-2.4) mg/dL Total Bilirubin (0.2-1.0) mg/dL AST (15-37) IU/L ALT (14-63) IU/L Alkaline Phosphatase (46-116) U/L Troponin I 0.274 H* (0.000-0.056) ng/mL Total Protein (6.4-8.2) g/dL Albumin (3.4-5.0) g/dL Globulin (2.0-3.5) g/dL Albumin/Globulin Ratio (1.3-2.8) Free T4 (0.76-1.46) ng/dL TSH 3rd Generation (0.36-3.74) uIU/mL Med Orders - Current: Current Medications Acetaminophen (Tylenol) 325 mg RECTAL Q4H PRN PRN Reason: Temperature Enoxaparin Sodium (Lovenox) 30 mg SUBCUT Q24H [facility] Last Admin: 01/11/18 22:58 Dose: 30 mg Furosemide (Lasix) 20 mg IVPUSH Q8H [facility] Stop: 01/13/18 09:01 Diltiazem HCl 125 mg/ Sodium (Chloride) 125 mls @ 5 mls/hr IV ASDIRECTED [facility]; Protocol Last Titration: 01/12/18 04:30 Dose: 10 mg/hr, 10 mls/hr Cefepime HCl 1 gm/ Premix 50 mls @ 100 mls/hr IV Q8H [facility] Last Admin: 01/12/18 01:12 Dose: 100 mls/hr Vancomycin HCl 1 gm/ Sodium (Chloride) 250 mls @ 250 mls/hr IV Q24H [facility] Last Admin: 09/02/18 19:08 Dose: 250 mls/hr Metoclopramide HCl (Reglan) 10 mg IV Q6H [facility] Last Admin: 01/12/18 03:26 Dose: 10 mg Morphine Sulfate (Morphine) 0 mg IVPUSH Q1H PRN PRN Reason: Pain (severe 7-10) Morphine Sulfate (Morphine Media Reporter 30 Mg In 30 Ml) 30 mg IV ASDIRECTED [facility]; Protocol Last Admin: 01/09/18 21:09 Dose: 30 mg Ondansetron HCl (Zofran) 4 mg IVPUSH Q6H PRN PRN Reason: Nausea/Vomiting Pantoprazole Sodium (Protonix Iv) 40 mg IVPUSH DAILY [facility] Last Admin: 01/11/18 17:24 Dose: 40 mg Vancomycin HCl (Pharmacy To Dose - Vancomycin) 1 dose .XX ASDIRECTED [facility] Discontinued Medications Albuterol/Ipratropium (Duoneb 3.0-0.5 Mg/3 Ml) Confirm Administered Dose 3 ml .ROUTE .STK-MED ONE Stop: 01/11/18 14:09 Last Admin: 01/11/18 14:33 Dose: Not Given Albuterol/Ipratropium (Duoneb 3.0-0.5 Mg/3 Ml) 3 ml NEB ONETIME ONE Stop: 01/11/18 14:25 Last Admin: 01/11/18 15:46 Dose: Not Given Aspirin (Aspirin) 325 mg PO ONETIME ONE Stop: 01/11/18 16:18 Last Admin: 01/11/18 16:58 Dose: 325 mg Aspirin (Aspirin) Confirm Administered Dose 325 mg .ROUTE .STK-MED ONE Stop: 01/11/18 16:58 Last Admin: 01/11/18 17:03 Dose: Not Given Bupivacaine HCl (Marcaine 0.5%) Confirm Administered Dose 120 ml .ROUTE .STK- MED ONE Stop: 01/09/18 13:42 Cefazolin Sodium (Ancef) Confirm Administered Dose 1 gm .ROUTE .STK-MED ONE Stop: 01/09/18 14:18 Digoxin (Lanoxin) 250 mcg IVPUSH ONETIME ONE Stop: 01/11/18 17:03 Last Admin: 01/11/18 17:24 Dose: 250 mcg Diltiazem HCl (Diltiazem) 10 mg IVPUSH ONETIME ONE Stop: 01/11/18 15:10 Last Admin: 01/11/18 15:56 Dose: 10 mg Fentanyl (Sublimaze) Confirm Administered Dose 100 mcg .ROUTE .[facility] ONE Stop: 01/09/18 12:47 Fentanyl (Sublimaze) Confirm Administered Dose 100 mcg .ROUTE .[facility] ONE Stop: 01/09/18 13:29 Furosemide (Lasix) 20 mg IVPUSH NOW ONE Stop: 01/11/18 21:51 Last Admin: 01/11/18 22:14 Dose: 20 mg Furosemide (Lasix) 40 mg IVPUSH NOW ONE Stop: 01/12/18 02:21 Last Admin: 01/12/18 02:41 Dose: 40 mg Hydromorphone HCl (Dilaudid) Confirm Administered Dose 2 mg .ROUTE .[facility] ONE Stop: 01/09/18 13:32 Lactated Ringer's (Ringers, Lactated) 1,000 mls @ 125 mls/hr IV ASDIRECTED [facility] Last Infusion: 01/10/18 01:55 Dose: Infused Hetastarch/Sodium Chloride (Hetastarch 6% In Normal Saline) Confirm Administered Dose 500 mls @ as directed .ROUTE .[facility] ONE Stop: 01/09/18 14:24 Acetaminophen (Ofirmev) Confirm Administered Dose 100 mls @ as directed IV .[facility] ONE Stop: 01/09/18 14:53 Cefoxitin Sodium 1 gm/ Premix 50 mls @ 100 mls/hr IV Q6H [facility] Stop: 01/10/18 09:59 Last Admin: 01/10/18 09:17 Dose: 100 mls/hr Lactated Ringer's (Ringers, Lactated) 1,000 mls @ 125 mls/hr IV ASDIRECTED [facility] Last Infusion: 01/11/18 18:00 Dose: Infused Lactated Ringer's (Ringers, Lactated) 1,000 mls @ 625 mls/hr IV ASDIRECTED [facility] Lactated Ringer's (Ringers, Lactated) 500 mls @ 500 mls/hr IV .BOLUS ONE Stop: 01/10/18 02:45 Last Admin: 01/10/18 02:01 Dose: 500 mls/hr Lactated Ringer's (Ringers, Lactated) 500 mls @ 500 mls/hr IV BOLUS [facility] Stop: 01/10/18 04:45 Lactated Ringer's (Ringers, Lactated) 500 mls @ 500 mls/hr IV .BOLUS [facility] Stop: 01/10/18 05:01 Last Admin: 01/10/18 03:45 Dose: 500 mls/hr Lactated Ringer's (Ringers, Lactated) 1,000 mls @ 75 mls/hr IV ASDIRECTED [facility] Lactated Ringer's (Ringers, Lactated) 1,000 mls @ 50 mls/hr IV ASDIRECTED [facility] Magnesium Sulfate 2 gm/ Premix 50 mls @ 50 mls/hr IV ONETIME ONE Stop: 01/11/18 17:18 Last Admin: 01/11/18 16:39 Dose: 50 mls/hr Lorazepam (Ativan) 0.5 mg IVPUSH ONETIME ONE Stop: 01/09/18 20:19 Last Admin: 01/09/18 20:36 Dose: Not Given Midazolam HCl (Versed 1 Mg/Ml) Confirm Administered Dose 2 mg .ROUTE .STK-MED ONE Stop: 01/09/18 12:47 Morphine Sulfate (Morphine Media Reporter 30 Mg In 30 Ml) 30 mg IV SEECOMMENT [facility] Ondansetron HCl (Zofran) Confirm Administered Dose 4 mg .ROUTE .STK-MED ONE Stop: 01/09/18 12:47 Propofol (Diprivan 20 Ml) Confirm Administered Dose 400 mg .ROUTE .STK-MED ONE Stop: 01/09/18 12:47 Rocuronium [place] (Zemuron) Confirm Administered Dose 100 mg .ROUTE .STK-MED ONE Stop: 01/09/18 13:28 Sugammadex Sodium (Bridion) Confirm Administered Dose 200 mg .ROUTE .STK-MED ONE Stop: 01/09/18 14:53 - Exam Wound/Incisions: Healing Well. No: Erythema Quality Assessment: Supplemental Oxygen, DVT Prophylaxis General: Alert, Oriented, Cooperative, No Acute Distress HEENT: Pupils Equal, Pupils Reactive. No: Scleral Icterus Neck: Supple, No JVD, +2 Carotid Pulse wo Bruit Lungs: Clear to Auscultation, Crackles (scatterred in both bases). No: Rales, Wheezing Cardiovascular: No Murmurs, Irregular Rhythm (atrial fibrillation, rate controlled on Cardizem drip) GI/Abdominal Exam: Soft, Non-Tender, No Distention, No Mass, Abnormal Bowel Sounds (hypoactive but improving). No: Guarding, Rigid, Rebound Extremities: Normal Inspection, No Pedal Edema Skin: Warm, Dry, Intact Neurological: No New Focal Deficit Psy/Mental Status: Alert, Normal Affect, Normal Mood - Problem List & Annotations (1) Large bowel perforation SNOMED Code(s): 824333904 Code(s): K63.1 - PERFORATION OF INTESTINE (NONTRAUMATIC) Status: Acute Priority: High Current Visit: Yes (2) Atrial fibrillation SNOMED Code(s): 23743151 Code(s): I48.91 - UNSPECIFIED ATRIAL FIBRILLATION Status: Acute Priority : Medium Current Visit: Yes Qualifiers: Atrial fibrillation type: paroxysmal Qualified Code(s): I48.0 - Paroxysmal atrial fibrillation - Problem List Review Problem List Initiated/Reviewed/Updated: Yes - My Orders Last 24 Hours: Active Orders 24 hr Category Date Time Status Transfer Patient (Change bed) [ADT] Routine ADT 01/11/18 08:08 Ordered Transfer Patient (Change bed) [ADT] Routine ADT 01/11/18 15:14 Ordered Ambulate [RC] ASDIRECTED Care 01/11/18 08:16 Active EKG 12 Lead [EKG Documentation Completion] [RC] Care 01/12/18 08:00 Active ASDIRECTED RT Aerosol Therapy [RC] ASDIRECTED Care 01/11/18 14:24 Active Telemetry Monitoring [Cardiac Monitoring] [RC] Q8H Care 01/11/18 08:08 Active Consult to Physician [CONS] Routine Cons 01/11/18 14:22 Active Clear Liquid Diet [DIET] Diet 01/12/18 Lunch Ordered CXR [Chest 1V Frontal] [CR] Routine Exams 01/11/18 14:21 Taken Echo 2D wo Cont [US] Routine Exams 01/11/18 16:35 Ordered Venous Doppler Lwr Ext Bi [US] Routine Exams 01/11/18 19:52 Taken CULTURE BLOOD [BC] Stat Lab 01/11/18 17:25 Received CULTURE BLOOD [BC] Stat Lab 01/11/18 17:25 Received VANCOMYCIN TROUGH [CHEM] Routine Lab 01/14/18 17:00 Ordered Cefepime [Maxipime in D5W 1 GM/50 ML] 1 gm Med 01/11/18 16:30 Active Premix Bag 1 bag IV Q8H Diltiazem 125 mg Med 01/11/18 16:30 Active Sodium Chloride 0.9% [Normal Saline] 100 ml IV ASDIRECTED Enoxaparin [Lovenox] Med 01/11/18 22:00 Active 30 mg SUBCUT Q24H Furosemide [Lasix] Med 01/12/18 09:00 Active 20 mg IVPUSH Q8H Pantoprazole [ProTONIX IV] Med 01/11/18 17:30 Active 40 mg IVPUSH DAILY Vancomycin Pharmacy to Dose [Pharmacy to Dose - Med 01/11/18 16:30 Active Vancomycin] 1 dose .XX ASDIRECTED Vancomycin [Vancocin] 1 gm Med 01/11/18 18:00 Active Sodium Chloride 0.9% [Normal Saline] 250 ml IV Q24H Blood Culture x2 Reflex Set [OM.PC] Stat Oth 01/11/18 17:14 Ordered Medication Orders Acetaminophen (Tylenol) 325 mg RECTAL Q4H PRN PRN Reason: Temperature Enoxaparin Sodium (Lovenox) 30 mg SUBCUT Q24H [facility] Last Admin: 01/11/18 22:58 Dose: 30 mg Furosemide (Lasix) 20 mg IVPUSH Q8H [facility] Stop: 01/13/18 09:01 Diltiazem HCl 125 mg/ Sodium (Chloride) 125 mls @ 5 mls/hr IV ASDIRECTED [facility]; Protocol Last Titration: 01/12/18 04:30 Dose: 10 mg/hr, 10 mls/hr Admin: 01/12/18 03:30 Dose: 5 mg/hr, 5 mls/hr Cefepime HCl 1 gm/ Premix 50 mls @ 100 mls/hr IV Q8H [facility] Last Admin: 01/12/18 01:12 Dose: 100 mls/hr Infusion: 01/11/18 17:24 Dose: 100 mls/hr Admin: 01/11/18 16:54 Dose: 100 mls/hr Vancomycin HCl 1 gm/ Sodium (Chloride) 250 mls @ 250 mls/hr IV Q24H [facility] Last Admin: 01/11/18 19:08 Dose: 250 mls/hr Metoclopramide HCl (Reglan) 10 mg IV Q6H [facility] Last Admin: 01/12/18 03:26 Dose: 10 mg Admin: 01/11/18 22:10 Dose: 10 mg Admin: 01/11/18 16:38 Dose: 10 mg Admin: 01/11/18 10:00 Dose: 10 mg Admin: 01/11/18 04:41 Dose: 10 mg Admin: 01/10/18 22:00 Dose: 10 mg Admin: 01/10/18 15:37 Dose: 10 mg Admin: 01/10/18 09:17 Dose: 10 mg Admin: 01/10/18 02:53 Dose: 10 mg Admin: 01/09/18 21:50 Dose: 10 mg Admin: 01/09/18 17:41 Dose: 10 mg Morphine Sulfate (Morphine) 0 mg IVPUSH Q1H PRN PRN Reason: Pain (severe 7-10) Morphine Sulfate (Morphine Media Reporter 30 Mg In 30 Ml) 30 mg IV ASDIRECTED [facility]; Protocol Last Admin: 01/09/18 21:09 Dose: 30 mg Ondansetron HCl (Zofran) 4 mg IVPUSH Q6H PRN PRN Reason: Nausea/Vomiting Pantoprazole Sodium (Protonix Iv) 40 mg IVPUSH DAILY [facility] Last Admin: 01/11/18 17:24 Dose: 40 mg Vancomycin HCl (Pharmacy To Dose - Vancomycin) 1 dose .XX ASDIRECTED [facility] CARLOS - Assessment Assessment (Free Text/Narrative):: Patient continues to make slow progress. Being diuresed with Lasix. On Cardizem drip for atrial fibrillation rate control. Lungs with a few fine crackles in both bases. No rales or wheezing. Heart irregularly irregular. Abdominal incision clean and dry. Hypoactive bowel sounds but improving. - Plan Plan (Free Text/Narrative):: Appreciate IM and EICU support. Will start clear liquids today.
[2018-01-12] MEDS: Pantoprazole 40 MG Vial IVPUSH SCH (08:19)
[2018-01-12] MEDS: Furosemide 20 MG/2 ML VIAL IVPUSH SCH ×2 (08:23→18:00)
--- NOTE | 2018-01-12 13:58 | CR ---
EXAM DATE: 01/09/18 PATIENT'S AGE: 77 Patient: LALI CLEMENS Facility: [place], [place] Site . Site : 1940 Study: XRay Chest [id number] 2:43:59 PM Ordering Physician: Luis Smith Final Report: INDICATION: tachycardia TECHNIQUE: AP semi-upright portable chest film submitted. COMPARISON: None. FINDINGS: Small left pleural effusion with associated atelectasis at the left lung base. Minimal atelectasis at the right lung base and possible slight blunting of the right costophrenic angle. Heart size and pulmonary vasculature within normal limits. IMPRESSION: Mild bibasilar atelectasis, left greater than right. Small left pleural effusion and possible trace right pleural effusion. Borderline CHF would be a consideration. Pneumonitis cannot be excluded, particularly at the left base. Dictated by Pratik Loya MD @ 01/11/2018 2:54:39 PM Dictated by: Pratik Loya MD @ 01/11/2018 14:54:45 (Electronic Signature) Report Signed by Proxy. [facility]
[2018-01-12] MEDS: Metoprolol Tartrate 25 MG Tab PO SCH (14:06)
--- NOTE | 2018-01-12 14:15 | US ---
EXAM DATE: 01/09/18 PATIENT'S AGE: 77 Patient: LALI CLEMENS Facility: [place], [place] Site . Site : 1940 Study: US Lower Extremity Bilateral [id number]/2/[id number] 10:18:09 PM Ordering Physician: Luis Smith Final Report: INDICATION: RT LEG PAIN, PT DENIES SWELLING OR LT LEG PAIN TECHNIQUE: Ultrasound venous duplex lower extremity bilateral. Compression venous exam was performed using naranjo scale, color Doppler, and spectral Doppler imaging. COMPARISON: None. FINDINGS: Sonographic imaging demonstrates the common femoral, deep femoral, superficial femoral, popliteal, posterior tibial and greater saphenous veins to be fully compressible with normal color Doppler blood flow in both lower extremities. IMPRESSION: Normal bilateral lower extremity venous ultrasound, no sign of deep venous thrombosis. Dictated by: Yousuf Mendoza MD @ 01/11/2018 22:51:17 (Electronic Signature) Report Signed by Proxy. MIGUEL ANGEL
[2018-01-12] MEDS: Albuterol/Ipratropium 3.0-0.5 MG/3 ML Neb Soln NEB PRN (17:55)
[2018-01-12] MEDS: Enoxaparin 30 MG/0.3 ML Syringe SUBCUT SCH (22:58)
[2018-01-13] MEDS: Metoclopramide 10 MG/2 ML SDV IV SCH ×4 (01:15→18:20)
[2018-01-13] MEDS: Furosemide 20 MG/2 ML VIAL IVPUSH SCH ×2 (01:18→08:06)
[2018-01-13] MEDS: Metoprolol Tartrate 25 MG Tab PO SCH ×2 (01:31→12:30)
[2018-01-13] MEDS ORDERED: Cefepime 1 GM in Premix Bag 1 BAG IV SCH (02:00)
[2018-01-13] MEDS: Pantoprazole 40 MG Vial IVPUSH SCH (08:06)
--- NOTE | 2018-01-13 08:47 | PCM.SURGPN ---
- General Info Date of Service: 01/13/18 POD#: 4 Post-Op Diagnosis: colon perforation Functional Status: Reports: Pain Controlled, Tolerating Diet, Ambulating, Urinating, Incentive Spirometry - Review of Systems General: Denies: Fever, Weakness, Fatigue HEENT: Reports: No Symptoms Pulmonary: Denies: Shortness of Breath, Pleuritic Chest Pain, Cough Cardiovascular: Denies: Chest Pain Gastrointestinal: Reports: Abdominal Pain (incisional), Flatus. Denies: Diarrhea, Melena, Nausea, Vomiting Genitourinary: Denies: Dysuria, Frequency, Burning Musculoskeletal: Reports: No Symptoms Skin: Denies: Cyanosis, Jaundice Neurological: Reports: No Symptoms Psychiatric: Reports: No Symptoms - Patient Data Vitals - Most Recent: Last Vital Signs Temp 98.2 F 01/13/18 08:00 Pulse 91 01/13/18 07:00 Resp 20 01/13/18 08:00 BP 99/53 L 01/13/18 08:00 Pulse Ox 94 L 01/13/18 08:00 Weight - Most Recent: 175 lb 0.752 oz I&O - Last 24 Hours: Intake & Output 01/12/18 01/13/18 01/13/18 19:59 03:59 11:59 Intake Total 820 130 Output Total 300 450 Balance 520 -320 Lab Results Last 24 Hrs: Laboratory Results - last 24 hr 01/12/18 01/12/18 Range/Units 02:25 16:48 Magnesium 2.2 (1.8-2.4) mg/dL Troponin I 0.279 H* (0.000-0.056) ng/mL Shailesh Results Last 24 Hrs: Microbiology 01/11/18 17:25 Aerobic Blood Culture - Preliminary Blood - Venous - Lab Draw NO GROWTH AFTER 1 DAY Anaerobic Blood Culture - Preliminary NO GROWTH AFTER 1 DAY 01/11/18 17:25 Aerobic Blood Culture - Preliminary Blood - Venous NO GROWTH AFTER 1 DAY Anaerobic Blood Culture - Preliminary NO GROWTH AFTER 1 DAY Med Orders - Current: Current Medications Acetaminophen (Tylenol) 325 mg RECTAL Q4H PRN PRN Reason: Temperature Albuterol/Ipratropium (Duoneb 3.0-0.5 Mg/3 Ml) 3 ml NEB Q4HRRT PRN PRN Reason: SOB/wheezing Last Admin: 01/12/18 17:55 Dose: 3 ml Enoxaparin Sodium (Lovenox) 30 mg SUBCUT Q24H [facility] Last Admin: 01/12/18 22:58 Dose: 30 mg Furosemide (Lasix) 20 mg IVPUSH Q8H [facility] Stop: 01/13/18 09:01 Last Admin: 01/13/18 08:06 Dose: 20 mg Diltiazem HCl 125 mg/ Sodium (Chloride) 125 mls @ 5 mls/hr IV ASDIRECTED [facility]; Protocol Last Titration: 01/12/18 15:45 Dose: 0 mg/hr, 0 mls/hr Vancomycin HCl 1 gm/ Sodium (Chloride) 250 mls @ 250 mls/hr IV Q24H [facility] Cefepime HCl 2 gm/ Premix 50 mls @ 100 mls/hr IV Q24H [facility] Metoclopramide HCl (Reglan) 10 mg IV Q6H [facility] Last Admin: 01/13/18 06:34 Dose: 10 mg Metoprolol Tartrate (Lopressor) 25 mg PO Q12H [facility] Last Admin: 01/13/18 01:31 Dose: 25 mg Morphine Sulfate (Morphine) 0 mg IVPUSH Q1H PRN PRN Reason: Pain (severe 7-10) Morphine Sulfate (Morphine [employer] 30 Mg In 30 Ml) 30 mg IV ASDIRECTED [facility]; Protocol Last Admin: 01/09/18 21:09 Dose: 30 mg Ondansetron HCl (Zofran) 4 mg IVPUSH Q6H PRN PRN Reason: Nausea/Vomiting Pantoprazole Sodium (Protonix Iv) 40 mg IVPUSH DAILY [facility] Last Admin: 01/13/18 08:06 Dose: 40 mg Vancomycin HCl (Pharmacy To Dose - Vancomycin) 1 dose .XX ASDIRECTED [facility] Discontinued Medications Albuterol/Ipratropium (Duoneb 3.0-0.5 Mg/3 Ml) Confirm Administered Dose 3 ml .ROUTE .STK-MED ONE Stop: 01/11/18 14:09 Last Admin: 01/11/18 14:33 Dose: Not Given Albuterol/Ipratropium (Duoneb 3.0-0.5 Mg/3 Ml) 3 ml NEB ONETIME ONE Stop: 01/11/18 14:25 Last Admin: 01/11/18 15:46 Dose: Not Given Aspirin (Aspirin) 325 mg PO ONETIME ONE Stop: 01/11/18 16:18 Last Admin: 01/11/18 16:58 Dose: 325 mg Aspirin (Aspirin) Confirm Administered Dose 325 mg .ROUTE .STK-MED ONE Stop: 01/11/18 16:58 Last Admin: 01/11/18 17:03 Dose: Not Given Bupivacaine HCl (Marcaine 0.5%) Confirm Administered Dose 120 ml .ROUTE .STK- MED ONE Stop: 01/09/18 13:42 Cefazolin Sodium (Ancef) Confirm Administered Dose 1 gm .ROUTE .STK-MED ONE Stop: 01/09/18 14:18 Digoxin (Lanoxin) 250 mcg IVPUSH ONETIME ONE Stop: 01/11/18 17:03 Last Admin: 01/11/18 17:24 Dose: 250 mcg Diltiazem HCl (Diltiazem) 10 mg IVPUSH ONETIME ONE Stop: 01/11/18 15:10 Last Admin: 01/11/18 15:56 Dose: 10 mg Fentanyl (Sublimaze) Confirm Administered Dose 100 mcg .ROUTE .STK-MED ONE Stop: 01/09/18 12:47 Fentanyl (Sublimaze) Confirm Administered Dose 100 mcg .ROUTE .STK-MED ONE Stop: 01/09/18 13:29 Furosemide (Lasix) 20 mg IVPUSH NOW ONE Stop: 01/11/18 21:51 Last Admin: 01/11/18 22:14 Dose: 20 mg Furosemide (Lasix) 40 mg IVPUSH NOW ONE Stop: 01/12/18 02:21 Last Admin: 01/12/18 02:41 Dose: 40 mg Hydromorphone HCl (Dilaudid) Confirm Administered Dose 2 mg .ROUTE .STK-MED ONE Stop: 01/09/18 13:32 Lactated Ringer's (Ringers, Lactated) 1,000 mls @ 125 mls/hr IV ASDIRECTED [facility] Last Infusion: 01/10/18 01:55 Dose: Infused Hetastarch/Sodium Chloride (Hetastarch 6% In Normal Saline) Confirm Administered Dose 500 mls @ as directed .ROUTE .STK-MED ONE Stop: 01/09/18 14:24 Acetaminophen (Ofirmev) Confirm Administered Dose 100 mls @ as directed IV .STK- MED ONE Stop: 01/09/18 14:53 Cefoxitin Sodium 1 gm/ Premix 50 mls @ 100 mls/hr IV Q6H [facility] Stop: 01/10/18 09:59 Last Admin: 01/10/18 09:17 Dose: 100 mls/hr Lactated Ringer's (Ringers, Lactated) 1,000 mls @ 125 mls/hr IV ASDIRECTED [facility] Last Infusion: 01/11/18 18:00 Dose: Infused Lactated Ringer's (Ringers, Lactated) 1,000 mls @ 625 mls/hr IV ASDIRECTED [facility] Lactated Ringer's (Ringers, Lactated) 500 mls @ 500 mls/hr IV .BOLUS ONE Stop: 01/10/18 02:45 Last Admin: 01/10/18 02:01 Dose: 500 mls/hr Lactated Ringer's (Ringers, Lactated) 500 mls @ 500 mls/hr IV BOLUS [facility] Stop: 01/10/18 04:45 Lactated Ringer's (Ringers, Lactated) 500 mls @ 500 mls/hr IV .BOLUS [facility] Stop: 01/10/18 05:01 Last Admin: 01/10/18 03:45 Dose: 500 mls/hr Lactated Ringer's (Ringers, Lactated) 1,000 mls @ 75 mls/hr IV ASDIRECTED [facility] Lactated Ringer's (Ringers, Lactated) 1,000 mls @ 50 mls/hr IV ASDIRECTED [facility] Magnesium Sulfate 2 gm/ Premix 50 mls @ 50 mls/hr IV ONETIME ONE Stop: 01/11/18 17:18 Last Admin: 01/11/18 16:39 Dose: 50 mls/hr Cefepime HCl 1 gm/ Premix 50 mls @ 100 mls/hr IV Q8H [facility] Last Admin: 01/12/18 18:09 Dose: 100 mls/hr Vancomycin HCl 1 gm/ Sodium (Chloride) 250 mls @ 250 mls/hr IV Q24H [facility] Last Admin: 01/12/18 19:34 Dose: 250 mls/hr Cefepime HCl 1 gm/ Premix 50 mls @ 100 mls/hr IV Q8H [facility] Last Admin: 01/13/18 01:25 Dose: 100 mls/hr Lorazepam (Ativan) 0.5 mg IVPUSH ONETIME ONE Stop: 01/09/18 20:19 Last Admin: 01/09/18 20:36 Dose: Not Given Metoclopramide HCl (Reglan) 10 mg IV Q6H [facility] Last Admin: 01/12/18 18:05 Dose: 10 mg Midazolam HCl (Versed 1 Mg/Ml) Confirm Administered Dose 2 mg .ROUTE .STK-MED ONE Stop: 01/09/18 12:47 Morphine Sulfate (Morphine Education [employer]st 30 Mg In 30 Ml) 30 mg IV SEECOMMENT [facility] Ondansetron HCl (Zofran) Confirm Administered Dose 4 mg .ROUTE .STK-MED ONE Stop: 01/09/18 12:47 Propofol (Diprivan 20 Ml) Confirm Administered Dose 400 mg .ROUTE .STK-MED ONE Stop: 01/09/18 12:47 Rocuronium [place] (Zemuron) Confirm Administered Dose 100 mg .ROUTE .STK-MED ONE Stop: 01/09/18 13:28 Sugammadex Sodium (Bridion) Confirm Administered Dose 200 mg .ROUTE .STK-MED ONE Stop: 01/09/18 14:53 - Exam Wound/Incisions: Healing Well, No Drainage Quality Assessment: Supplemental Oxygen, DVT Prophylaxis. No: Central Line/PICC , Urine Catheter, Restraints General: Alert, Oriented, Cooperative, No Acute Distress HEENT: Pupils Equal, Pupils Reactive, EOMI. No: Scleral Icterus Neck: Supple Lungs: Clear to Auscultation, Normal Respiratory Effort. No: Crackles, Rales, Rhonchi Cardiovascular: Irregular Rhythm (atrial fibrillation, rate controlled). No: Bradycardia, Tachycardia, Murmurs GI/Abdominal Exam: Normal Bowel Sounds, Soft, Non-Tender, No Distention. No: Guarding, Rigid, Rebound Extremities: Normal Inspection, Non-Tender, No Pedal Edema Skin: Warm, Dry, Intact Neurological: No New Focal Deficit Psy/Mental Status: Alert, Normal Affect, Normal Mood - Problem List & Annotations (1) Large bowel perforation SNOMED Code(s): 625034449 Code(s): K63.1 - PERFORATION OF INTESTINE (NONTRAUMATIC) Status: Acute Priority: High Current Visit: Yes (2) Atrial fibrillation SNOMED Code(s): 08046650 Code(s): I48.91 - UNSPECIFIED ATRIAL FIBRILLATION Status: Acute Priority : Medium Current Visit: Yes Qualifiers: Atrial fibrillation type: paroxysmal Qualified Code(s): I48.0 - Paroxysmal atrial fibrillation - Problem List Review Problem List Initiated/Reviewed/Updated: Yes - My Orders Last 24 Hours: Active Orders 24 hr Category Date Time Status Transfer Patient (Change bed) [ADT] Routine ADT 01/13/18 08:42 Ordered RT Aerosol Therapy [RC] ASDIRECTED Care 01/12/18 17:30 Active Clear Liquid Diet [DIET] Diet 01/12/18 Lunch Active Full Liquid Diet [DIET] Diet 01/13/18 Lunch Ordered Echo Comp wo Cont [US] Routine Exams 01/13/18 16:35 Ordered VANCOMYCIN TROUGH [CHEM] Routine Lab 01/14/18 18:30 Ordered Albuterol/Ipratropium [DuoNeb 3.0-0.5 MG/3 ML] Med 01/12/18 17:29 Active 3 ml NEB Q4HRRT PRN Cefepime [Maxipime in D5W 2 GM/50 ML] 2 gm Med 01/13/18 14:00 Active Premix Bag 1 bag IV Q24H Furosemide [Lasix] Med 01/12/18 09:00 Active 20 mg IVPUSH Q8H Metoclopramide [Reglan] Med 01/13/18 00:00 Active 10 mg IV Q6H Metoprolol Tartrate [Lopressor] Med 01/12/18 13:30 Active 25 mg PO Q12H Vancomycin [Vancocin] 1 gm Med 01/13/18 19:30 Active Sodium Chloride 0.9% [Normal Saline] 250 ml IV Q24H Antiembolic Hose [OM.PC] PER UNIT ROUTINE Oth 01/14/18 06:00 Ordered Antiembolic Hose [OM.PC] PER UNIT ROUTINE Oth 01/15/18 06:00 Ordered Medication Orders Acetaminophen (Tylenol) 325 mg RECTAL Q4H PRN PRN Reason: Temperature Albuterol/Ipratropium (Duoneb 3.0-0.5 Mg/3 Ml) 3 ml NEB Q4HRRT PRN PRN Reason: SOB/wheezing Last Admin: 01/12/18 17:55 Dose: 3 ml Enoxaparin Sodium (Lovenox) 30 mg SUBCUT Q24H [facility] Last Admin: 01/12/18 22:58 Dose: 30 mg Admin: 01/11/18 22:58 Dose: 30 mg Furosemide (Lasix) 20 mg IVPUSH Q8H [facility] Stop: 01/13/18 09:01 Last Admin: 01/13/18 08:06 Dose: 20 mg Admin: 01/13/18 01:18 Dose: 20 mg Admin: 01/12/18 18:00 Dose: 20 mg Admin: 01/12/18 08:23 Dose: 20 mg Diltiazem HCl 125 mg/ Sodium (Chloride) 125 mls @ 5 mls/hr IV ASDIRECTED [facility]; Protocol Last Titration: 01/12/18 15:45 Dose: 0 mg/hr, 0 mls/hr Titration: 01/12/18 15:33 Dose: 5 mg/hr, 5 mls/hr Admin: 01/12/18 14:14 Dose: 10 mg/hr, 10 mls/hr Titration: 01/12/18 14:14 Dose: 10 mg/hr, 10 mls/hr Titration: 01/12/18 09:26 Dose: 10 mg/hr, 10 mls/hr Titration: 01/12/18 08:41 Dose: 5 mg/hr, 5 mls/hr Titration: 01/12/18 04:30 Dose: 10 mg/hr, 10 mls/hr Admin: 01/12/18 03:30 Dose: 5 mg/hr, 5 mls/hr Vancomycin HCl 1 gm/ Sodium (Chloride) 250 mls @ 250 mls/hr IV Q24H [facility] Cefepime HCl 2 gm/ Premix 50 mls @ 100 mls/hr IV Q24H [facility] Metoclopramide HCl (Reglan) 10 mg IV Q6H [facility] Last Admin: 01/13/18 06:34 Dose: 10 mg Admin: 01/13/18 01:15 Dose: 10 mg Metoprolol Tartrate (Lopressor) 25 mg PO Q12H [facility] Last Admin: 01/13/18 01:31 Dose: 25 mg Admin: 01/12/18 14:06 Dose: 25 mg Morphine Sulfate (Morphine) 0 mg IVPUSH Q1H PRN PRN Reason: Pain (severe 7-10) Morphine Sulfate (Morphine Education [employer]st 30 Mg In 30 Ml) 30 mg IV ASDIRECTED [facility]; Protocol Last Admin: 01/09/18 21:09 Dose: 30 mg Ondansetron HCl (Zofran) 4 mg IVPUSH Q6H PRN PRN Reason: Nausea/Vomiting Pantoprazole Sodium (Protonix Iv) 40 mg IVPUSH DAILY [facility] Last Admin: 01/13/18 08:06 Dose: 40 mg Admin: 01/12/18 08:19 Dose: 40 mg Admin: 01/11/18 17:24 Dose: 40 mg Vancomycin HCl (Pharmacy To Dose - Vancomycin) 1 dose .XX ASDIRECTED [facility] - Assessment Assessment (Free Text/Narrative):: Patient has had a good night. She has passed flatus and had a small bowel movement. LUNGS are clear to auscultation bilaterally. HEART is irregularly irregular with rate controlled atrial fibrillation. ABDOMEN is soft and nontender. Bowel sounds continue to improve. The midline incision is clean and dry, and shows no early hernia formation or infection. - Plan Plan (Free Text/Narrative):: Patient will be transferred to [facility] telemetry unit today. Her activity level will be increased. Her diet will be increased to full liquids.
--- NOTE | 2018-01-13 10:30 | OR ---
SURGEON: Luis Smith M.D. DATE OF PROCEDURE: 01/09/2018 OPERATION PERFORMED: Exploratory laparotomy with limited rectosigmoid resection and primary anastomosis. GAMBLING SUPERVISOR: Diane Velasquez MD ANESTHESIA: General endotracheal. ASA CLASSIFICATION: III E. PREOPERATIVE DIAGNOSIS: Perforated colon during colonoscopy. POSTOPERATIVE DIAGNOSIS: Perforated rectosigmoid during colonoscopy. ESTIMATED BLOOD LOSS: 100 mL. INTRAOPERATIVE FLUID REPLACEMENT: 1100 mL of crystalloid and 400 mL of Hespan. DESCRIPTION OF PROCEDURE: The patient was taken to the operating room emergently and placed on the operating table in the supine position. It was obvious she had a large pneumoperitoneum. Consent had been obtained from her . Time-out was called for appropriate identification of the patient and procedure. Thigh-high TEDs and sequential compression boots were placed. Following satisfactory attainment of general endotracheal anesthesia, a Leahy catheter was placed in the patient's urinary bladder. The abdomen was prepped with DuraPrep solution and sterile drapes were applied. The skin incision was marked out for possible colostomy in the right upper quadrant. Midline incision was then made and deepened through the subcutaneous tissue, obtaining hemostasis with the use of electrocautery. Using electrocautery, dissection was carried down to the fascia, which was opened sharply. There was prompt egress of a large amount of air. The midline incision was then extended from just above the umbilicus down to the symphysis pubis. With that accomplished, exploration of the abdomen revealed a large, more than 50% circumferential tear in the rectosigmoid with a smaller perforation approximately 3 inches above that. This area was nicely isolated and our attention was turned to the pelvis. No other pathology was identified. The small bowel was then packed out of the way and the skin and fascia retracted with the 6 bladed Ami. With that accomplished, the rectosigmoid colon was mobilized almost to the splenic flexure. This allowed for plenty of redundancy in the colon. With that accomplished, appropriate sites for resection, proximal and distal to the perforation were identified. The colon was then mobilized and noncrushing bowel clamps were placed proximal and distal to the injury site. The colon was then transected in the mesentery, taken down with the Harmonic scalpel. Small bleeding sites were electrocoagulated. Once that was accomplished, the injured specimen was removed. The wound was inspected for hemostasis and no further bleeding was noted from the colonic mesentery. There was good bleeding from both ends of the anastomosis. A standard 2-layer anastomosis was completed with a posterior row of interrupted 3-0 silk. Next layer was a posterior mucosal stitch with 3-0 Vicryl as a running locked stitch on the posterior row and then continued as a Gita suture along the anterior border. The clamps were then removed and the anastomosis completed with an anterior row of interrupted 3-0 silk sutures. Once that was accomplished, the anastomosis admitted my index finger tip and thumb. The wound was then inspected for hemostasis and small bleeding sites were electrocoagulated. Gloves were changed by all members of the operating team. The colonic mesentery was then reapproximated with interrupted 2-0 Vicryl. The wound was inspected for hemostasis, no other bleeding was noted. The pelvis was irrigated with 2 L of 1% Ancef solution and all fluid was aspirated. The colon was then returned to its anatomic location. The abdomen was then generally explored and no other pathology was noted. With that accomplished, closure of the abdomen was effected in the following fashion. The fascia was reapproximated with #1 looped PDS. On-Q catheter was placed in the subcutaneous tissue and the subcu was closed with running 3-0 Vicryl. The skin edges were reapproximated with skin clips. The On-Q catheter had been brought out through the left upper quadrant and this was secured with a Tegaderm. The incision was then dressed with 4 x 4s and ABDs, taped in place with Mefix. Sponge, needle, and instrument counts were all correct. The patient tolerated the procedure well and was taken to recovery room in stable condition. She will be transferred to the intensive care unit [facility] for further monitoring. JORGE / KITTY /[id number] MIGUEL ANGEL
--- NOTE | 2018-01-13 11:17 | PCM.CONSN ---
- General Info Date of Service: 01/13/18 Subjective Update: Patient appears to be stable from atrial fibrillation standpoint her rate is controlled. Patient did not complain of any breathing difficulties today. Patient was receiving a echocardiogram 1 assessment occurred. - Patient Data Vitals - Most Recent: Last Vital Signs Temp 36.8 C 01/13/18 08:00 Pulse 91 01/13/18 07:00 Resp 20 01/13/18 08:00 BP 99/53 L 01/13/18 08:00 Pulse Ox 94 L 01/13/18 08:00 Weight - Most Recent: 79.4 kg I&O - Last 24 Hours: Intake & Output 01/12/18 01/13/18 01/13/18 22:59 06:59 14:59 Intake Total 870 80 360 Output Total 450 300 350 Balance 420 -220 10 Lab Results Last 24 Hours: Laboratory Results - last 24 hr 01/12/18 01/12/18 01/13/18 Range/Units 02:25 16:48 09:15 WBC (4.0-11.0) K/uL RBC (4.30-5.90) M/uL Hgb (12.0-16.0) g/dL Hct (36.0-46.0) % MCV (80.0-98.0) fL MCH (27.0-32.0) pg MCHC (31.0-37.0) g/dL RDW Std Deviation (28.0-62.0) fl RDW Coeff of Nilo (11.0-15.0) % Plt Count (150-400) K/uL MPV (7.40-12.00) fL Neut % (Auto) (48.0-80.0) % Lymph % (Auto) (16.0-40.0) % [place] % (Auto) (0.0-15.0) % Eos % (Auto) (0.0-7.0) % Baso % (Auto) (0.0-1.5) % Neut # (Auto) (1.4-5.7) K/uL Lymph # (Auto) (0.6-2.4) K/uL [place] # (Auto) (0.0-0.8) K/uL Eos # (Auto) (0.0-0.7) K/uL Baso # (Auto) (0.0-0.1) K/uL Nucleated RBC % /100WBC Nucleated RBCs # K/uL Sodium (136-145) mmol/L Potassium (3.5-5.1) mmol/L Chloride (98-107) mmol/L Carbon Dioxide (21.0-32.0) mmol/L BUN (7.0-18.0) mg/dL Creatinine (0.6-1.0) mg/dL Est Cr Clr Drug Dosing mL/min Estimated GFR (MDRD) ml/min Glucose (74-106) mg/dL Calcium (8.5-10.1) mg/dL Magnesium 2.2 2.1 (1.8-2.4) mg/dL Total Bilirubin (0.2-1.0) mg/dL AST (15-37) IU/L ALT (14-63) IU/L Alkaline Phosphatase (46-116) U/L Troponin I 0.279 H* 0.211 H* (0.000-0.056) ng/mL Total Protein (6.4-8.2) g/dL Albumin (3.4-5.0) g/dL Globulin (2.0-3.5) g/dL Albumin/Globulin Ratio (1.3-2.8) 01/13/18 01/13/18 Range/Units 09:15 09:15 WBC 15.69 H (4.0-11.0) K/uL RBC 3.73 L (4.30-5.90) M/uL Hgb 11.7 L (12.0-16.0) g/dL Hct 35.0 L (36.0-46.0) % MCV 93.8 (80.0-98.0) fL MCH 31.4 (27.0-32.0) pg MCHC 33.4 (31.0-37.0) g/dL RDW Std Deviation 48.9 (28.0-62.0) fl RDW Coeff of Nilo 14 (11.0-15.0) % Plt Count 219 (150-400) K/uL MPV 10.20 (7.40-12.00) fL Neut % (Auto) 91.8 H (48.0-80.0) % Lymph % (Auto) 4.0 L (16.0-40.0) % [place] % (Auto) 3.3 (0.0-15.0) % Eos % (Auto) 0.8 (0.0-7.0) % Baso % (Auto) 0.1 (0.0-1.5) % Neut # (Auto) 14.4 H (1.4-5.7) K/uL Lymph # (Auto) 0.6 (0.6-2.4) K/uL [place] # (Auto) 0.5 (0.0-0.8) K/uL Eos # (Auto) 0.1 (0.0-0.7) K/uL Baso # (Auto) 0.0 (0.0-0.1) K/uL Nucleated RBC % 0.0 /100WBC Nucleated RBCs # 0 K/uL Sodium 139 (136-145) mmol/L Potassium 3.6 (3.5-5.1) mmol/L Chloride 103 (98-107) mmol/L Carbon Dioxide 26.3 (21.0-32.0) mmol/L BUN 34 H (7.0-18.0) mg/dL Creatinine 1.5 H (0.6-1.0) mg/dL Est Cr Clr Drug Dosing 23.70 mL/min Estimated GFR (MDRD) 33.7 ml/min Glucose 112 H (74-106) mg/dL Calcium 8.3 L (8.5-10.1) mg/dL Magnesium (1.8-2.4) mg/dL Total Bilirubin 0.4 (0.2-1.0) mg/dL AST 12 L (15-37) IU/L ALT 14 (14-63) IU/L Alkaline Phosphatase 81 (46-116) U/L Troponin I (0.000-0.056) ng/mL Total Protein 4.9 L (6.4-8.2) g/dL Albumin 1.9 L (3.4-5.0) g/dL Globulin 3.0 (2.0-3.5) g/dL Albumin/Globulin Ratio 0.6 L (1.3-2.8) Shailesh Results Last 24 Hours: Microbiology 01/11/18 17:25 Aerobic Blood Culture - Preliminary Blood - Venous - Lab Draw NO GROWTH AFTER 1 DAY Anaerobic Blood Culture - Preliminary NO GROWTH AFTER 1 DAY 01/11/18 17:25 Aerobic Blood Culture - Preliminary Blood - Venous NO GROWTH AFTER 1 DAY Anaerobic Blood Culture - Preliminary NO GROWTH AFTER 1 DAY Med Orders - Current: Current Medications Acetaminophen (Tylenol) 325 mg RECTAL Q4H PRN PRN Reason: Temperature Albuterol/Ipratropium (Duoneb 3.0-0.5 Mg/3 Ml) 3 ml NEB Q4HRRT PRN PRN Reason: SOB/wheezing Last Admin: 01/12/18 17:55 Dose: 3 ml Enoxaparin Sodium (Lovenox) 30 mg SUBCUT Q24H [facility] Last Admin: 01/12/18 22:58 Dose: 30 mg Diltiazem HCl 125 mg/ Sodium (Chloride) 125 mls @ 5 mls/hr IV ASDIRECTED [facility]; Protocol Last Titration: 01/12/18 15:45 Dose: 0 mg/hr, 0 mls/hr Vancomycin HCl 1 gm/ Sodium (Chloride) 250 mls @ 250 mls/hr IV Q24H [facility] Cefepime HCl 2 gm/ Premix 50 mls @ 100 mls/hr IV Q24H [facility] Metoclopramide HCl (Reglan) 10 mg IV Q6H [facility] Last Admin: 01/13/18 06:34 Dose: 10 mg Metoprolol Tartrate (Lopressor) 25 mg PO Q12H [facility] Last Admin: 01/13/18 01:31 Dose: 25 mg Morphine Sulfate (Morphine) 0 mg IVPUSH Q1H PRN PRN Reason: Pain (severe 7-10) Morphine Sulfate (Morphine Production Machinist 30 Mg In 30 Ml) 30 mg IV ASDIRECTED [facility]; Protocol Last Admin: 01/09/18 21:09 Dose: 30 mg Ondansetron HCl (Zofran) 4 mg IVPUSH Q6H PRN PRN Reason: Nausea/Vomiting Pantoprazole Sodium (Protonix Iv) 40 mg IVPUSH DAILY [facility] Last Admin: 01/13/18 08:06 Dose: 40 mg Vancomycin HCl (Pharmacy To Dose - Vancomycin) 1 dose .XX ASDIRECTED [facility] Discontinued Medications Albuterol/Ipratropium (Duoneb 3.0-0.5 Mg/3 Ml) Confirm Administered Dose 3 ml .ROUTE .STK-MED ONE Stop: 01/11/18 14:09 Last Admin: 01/11/18 14:33 Dose: Not Given Albuterol/Ipratropium (Duoneb 3.0-0.5 Mg/3 Ml) 3 ml NEB ONETIME ONE Stop: 01/11/18 14:25 Last Admin: 01/11/18 15:46 Dose: Not Given Aspirin (Aspirin) 325 mg PO ONETIME ONE Stop: 01/11/18 16:18 Last Admin: 01/11/18 16:58 Dose: 325 mg Aspirin (Aspirin) Confirm Administered Dose 325 mg .ROUTE .STK-MED ONE Stop: 01/11/18 16:58 Last Admin: 01/11/18 17:03 Dose: Not Given Bupivacaine HCl (Marcaine 0.5%) Confirm Administered Dose 120 ml .ROUTE .STK- MED ONE Stop: 01/09/18 13:42 Cefazolin Sodium (Ancef) Confirm Administered Dose 1 gm .ROUTE .STK-MED ONE Stop: 01/09/18 14:18 Digoxin (Lanoxin) 250 mcg IVPUSH ONETIME ONE Stop: 01/11/18 17:03 Last Admin: 01/11/18 17:24 Dose: 250 mcg Diltiazem HCl (Diltiazem) 10 mg IVPUSH ONETIME ONE Stop: 01/11/18 15:10 Last Admin: 01/11/18 15:56 Dose: 10 mg Fentanyl (Sublimaze) Confirm Administered Dose 100 mcg .ROUTE .STK-MED ONE Stop: 01/09/18 12:47 Fentanyl (Sublimaze) Confirm Administered Dose 100 mcg .ROUTE .STK-MED ONE Stop: 01/09/18 13:29 Furosemide (Lasix) 20 mg IVPUSH NOW ONE Stop: 01/11/18 21:51 Last Admin: 01/11/18 22:14 Dose: 20 mg Furosemide (Lasix) 40 mg IVPUSH NOW ONE Stop: 01/12/18 02:21 Last Admin: 01/12/18 02:41 Dose: 40 mg Furosemide (Lasix) 20 mg IVPUSH Q8H [facility] Stop: 01/13/18 09:01 Last Admin: 01/13/18 08:06 Dose: 20 mg Hydromorphone HCl (Dilaudid) Confirm Administered Dose 2 mg .ROUTE .STK-MED ONE Stop: 01/09/18 13:32 Lactated Ringer's (Ringers, Lactated) 1,000 mls @ 125 mls/hr IV ASDIRECTED [facility] Last Infusion: 01/10/18 01:55 Dose: Infused Hetastarch/Sodium Chloride (Hetastarch 6% In Normal Saline) Confirm Administered Dose 500 mls @ as directed .ROUTE .STK-MED ONE Stop: 01/09/18 14:24 Acetaminophen (Ofirmev) Confirm Administered Dose 100 mls @ as directed IV .STK- MED ONE Stop: 01/09/18 14:53 Cefoxitin Sodium 1 gm/ Premix 50 mls @ 100 mls/hr IV Q6H [facility] Stop: 01/10/18 09:59 Last Admin: 01/10/18 09:17 Dose: 100 mls/hr Lactated Ringer's (Ringers, Lactated) 1,000 mls @ 125 mls/hr IV ASDIRECTED [facility] Last Infusion: 01/11/18 18:00 Dose: Infused Lactated Ringer's (Ringers, Lactated) 1,000 mls @ 625 mls/hr IV ASDIRECTED [facility] Lactated Ringer's (Ringers, Lactated) 500 mls @ 500 mls/hr IV .BOLUS ONE Stop: 01/10/18 02:45 Last Admin: 01/10/18 02:01 Dose: 500 mls/hr Lactated Ringer's (Ringers, Lactated) 500 mls @ 500 mls/hr IV BOLUS [facility] Stop: 01/10/18 04:45 Lactated Ringer's (Ringers, Lactated) 500 mls @ 500 mls/hr IV .BOLUS [facility] Stop: 01/10/18 05:01 Last Admin: 01/10/18 03:45 Dose: 500 mls/hr Lactated Ringer's (Ringers, Lactated) 1,000 mls @ 75 mls/hr IV ASDIRECTED [facility] Lactated Ringer's (Ringers, Lactated) 1,000 mls @ 50 mls/hr IV ASDIRECTED [facility] Magnesium Sulfate 2 gm/ Premix 50 mls @ 50 mls/hr IV ONETIME ONE Stop: 01/11/18 17:18 Last Admin: 01/11/18 16:39 Dose: 50 mls/hr Cefepime HCl 1 gm/ Premix 50 mls @ 100 mls/hr IV Q8H [facility] Last Admin: 01/12/18 18:09 Dose: 100 mls/hr Vancomycin HCl 1 gm/ Sodium (Chloride) 250 mls @ 250 mls/hr IV Q24H [facility] Last Admin: 01/12/18 19:34 Dose: 250 mls/hr Cefepime HCl 1 gm/ Premix 50 mls @ 100 mls/hr IV Q8H [facility] Last Admin: 01/13/18 01:25 Dose: 100 mls/hr Lorazepam (Ativan) 0.5 mg IVPUSH ONETIME ONE Stop: 01/09/18 20:19 Last Admin: 01/09/18 20:36 Dose: Not Given Metoclopramide HCl (Reglan) 10 mg IV Q6H [facility] Last Admin: 01/12/18 18:05 Dose: 10 mg Midazolam HCl (Versed 1 Mg/Ml) Confirm Administered Dose 2 mg .ROUTE .STK-MED ONE Stop: 01/09/18 12:47 Morphine Sulfate (Morphine Production Machinist 30 Mg In 30 Ml) 30 mg IV SEECOMMENT [facility] Ondansetron HCl (Zofran) Confirm Administered Dose 4 mg .ROUTE .STK-MED ONE Stop: 01/09/18 12:47 Propofol (Diprivan 20 Ml) Confirm Administered Dose 400 mg .ROUTE .STK-MED ONE Stop: 01/09/18 12:47 Rocuronium [place] (Zemuron) Confirm Administered Dose 100 mg .ROUTE .STK-MED ONE Stop: 01/09/18 13:28 Sugammadex Sodium (Bridion) Confirm Administered Dose 200 mg .ROUTE .STK-MED ONE Stop: 01/09/18 14:53 - Exam General: Alert, Oriented, Cooperative Lungs: Clear to Auscultation, Normal Respiratory Effort Cardiovascular: Irregular Rhythm Consult PN Assessment/Plan Procedures: Procedures ASSAY THYROID STIM HORMONE (01/18/14) COMPLETE CBC W/AUTO DIFF WBC (01/18/14) COMPREHEN METABOLIC PANEL (01/18/14) EMERGENCY DEPT VISIT (10/20/15) LIPID PANEL (01/18/14) OFFICE/OUTPATIENT VISIT EST (01/18/14) OT EVALUATION (12/04/15) OT RE-EVALUATION (12/19/15) ROUTINE VENIPUNCTURE (01/18/14) THERAPEUTIC EXERCISES (12/19/15) URINALYSIS AUTO W/SCOPE (01/18/14) X-RAY EXAM OF WRIST (12/28/15) Problem List Initiated/Reviewed/Updated: Yes Plan: [id number] female admitted under Gen. surgery for intestinal perforation for which we have been consulted for assessment of her atrial fibrillation medical management. -Patient's A. fib is under control from a rate standpoint, she still is in A. fib but her rate is in the 70s to 90s, continue with medical management with Lopressor. -We'll need to touch base with Gen. surgery in terms of starting the patient on aspirin and Plavix From a possible pneumonia standpoint based on chest x-ray done yesterday patient does not appear to have a pneumonia type infection will need to touch his with general surgery in regards to antibiotic coverage and de-escalation of antibiotics.
[2018-01-13] MEDS: Cefepime 2 GM in Premix Bag 1 BAG IV SCH (13:11)
[2018-01-13] MEDS: Albuterol/Ipratropium 3.0-0.5 MG/3 ML Neb Soln NEB PRN (13:59)
--- NOTE | 2018-01-13 17:52 | PCM.SN ---
- Free Text/Narrative Note: Patient has had a relatively good day. More tired today but has been up walking. Patient remains afebrile with stable vital signs. Still in rate controlled atrial fibrillation. No N/V. Denies abdominal pain other than incisional. Did pass gas and have a small BM earlier today. EXAMINATION: Lungs are clear to auscultation. Ht irreg irreg. Abdomen is slightly distended with hypoactive BS. Incision remain clean and dry. Mild erythema inferiorly. Labs reviewed--note WBC 15K today. ASSESSMENT: Patient continues to show slow but steady improvement. Will continue to trend WBC. Okay to start Aspirin but would prefer Plavix be held until discharge.
--- NOTE | 2018-01-13 18:32 | PCM.SN ---
- Free Text/Narrative Note: update: After speaking with Dr. Smith this afternoon, he has stated that he is all right with the patient receiving aspirin however he would like for Plavix to be held up until the patient is discharged. From a antibiotic standpoint he would asked that we continue the current regimen as the patient'sleukocytosis did come slightly back up from yesterday and since it is still elevated he would like for the antibiotics to be continued.
[2018-01-13] MEDS ORDERED: Furosemide 20 MG/2 ML VIAL IVPUSH ONE (19:48)
[2018-01-13] MEDS: Enoxaparin 30 MG/0.3 ML Syringe SUBCUT SCH (21:15)
[2018-01-14] MEDS: Metoclopramide 10 MG/2 ML SDV IV SCH ×5 (00:05→23:56)
[2018-01-14] MEDS: Metoprolol Tartrate 25 MG Tab PO SCH ×2 (00:37→21:17)
[2018-01-14] MEDS: Pantoprazole 40 MG Vial IVPUSH SCH (08:05)
--- NOTE | 2018-01-14 08:14 | PCM.SURGPN ---
- General Info Date of Service: 01/14/18 POD#: 5 Functional Status: Reports: Pain Controlled, Tolerating Diet, Ambulating, Urinating, Incentive Spirometry. Denies: New Symptoms - Review of Systems General: Reports: Weakness, Fatigue, Appetite. Denies: Fever, Malaise, Chills, Night Sweats HEENT: Reports: No Symptoms Pulmonary: Reports: Wheezing. Denies: Shortness of Breath, Cough Cardiovascular: Denies: Chest Pain Gastrointestinal: Reports: Flatus. Denies: Abdominal Pain, Constipation, Decreased Appetite, Diarrhea, Nausea, Vomiting Genitourinary: Reports: No Symptoms Musculoskeletal: Reports: No Symptoms Skin: Denies: Cyanosis, Jaundice, Pallor, Diaphoresis Neurological: Denies: Confusion, Dizziness, Headache Psychiatric: Denies: Confusion, Depression, Anxiety - Patient Data Vitals - Most Recent: Last Vital Signs Temp 98.6 F 01/14/18 04:00 Pulse 98 01/14/18 04:00 Resp 19 01/14/18 04:00 BP 109/58 L 01/14/18 04:00 Pulse Ox 95 01/14/18 04:00 Weight - Most Recent: 169 lb 1.513 oz I&O - Last 24 Hours: Intake & Output 01/13/18 01/14/18 01/14/18 19:59 03:59 11:59 Intake Total 290 250 250 Output Total 325 550 Balance -35 -300 250 Lab Results Last 24 Hrs: Laboratory Results - last 24 hr 01/13/18 01/13/18 01/13/18 Range/Units 09:15 09:15 09:15 WBC 15.69 H (4.0-11.0) K/uL RBC 3.73 L (4.30-5.90) M/uL Hgb 11.7 L (12.0-16.0) g/dL Hct 35.0 L (36.0-46.0) % MCV 93.8 (80.0-98.0) fL MCH 31.4 (27.0-32.0) pg MCHC 33.4 (31.0-37.0) g/dL RDW Std Deviation 48.9 (28.0-62.0) fl RDW Coeff of Nilo 14 (11.0-15.0) % Plt Count 219 (150-400) K/uL MPV 10.20 (7.40-12.00) fL Neut % (Auto) 91.8 H (48.0-80.0) % Lymph % (Auto) 4.0 L (16.0-40.0) % Lamar % (Auto) 3.3 (0.0-15.0) % Eos % (Auto) 0.8 (0.0-7.0) % Baso % (Auto) 0.1 (0.0-1.5) % Neut # (Auto) 14.4 H (1.4-5.7) K/uL Lymph # (Auto) 0.6 (0.6-2.4) K/uL Lamar # (Auto) 0.5 (0.0-0.8) K/uL Eos # (Auto) 0.1 (0.0-0.7) K/uL Baso # (Auto) 0.0 (0.0-0.1) K/uL Nucleated RBC % 0.0 /100WBC Nucleated RBCs # 0 K/uL Sodium 139 (136-145) mmol/L Potassium 3.6 (3.5-5.1) mmol/L Chloride 103 (98-107) mmol/L Carbon Dioxide 26.3 (21.0-32.0) mmol/L BUN 34 H (7.0-18.0) mg/dL Creatinine 1.5 H (0.6-1.0) mg/dL Est Cr Clr Drug Dosing 23.70 mL/min Estimated GFR (MDRD) 33.7 ml/min Glucose 112 H (74-106) mg/dL Calcium 8.3 L (8.5-10.1) mg/dL Magnesium 2.1 (1.8-2.4) mg/dL Total Bilirubin 0.4 (0.2-1.0) mg/dL AST 12 L (15-37) IU/L ALT 14 (14-63) IU/L Alkaline Phosphatase 81 (46-116) U/L Troponin I 0.211 H* (0.000-0.056) ng/mL Total Protein 4.9 L (6.4-8.2) g/dL Albumin 1.9 L (3.4-5.0) g/dL Globulin 3.0 (2.0-3.5) g/dL Albumin/Globulin Ratio 0.6 L (1.3-2.8) 01/14/18 01/14/18 Range/Units 04:35 04:35 WBC 9.78 (4.0-11.0) K/uL RBC 3.65 L (4.30-5.90) M/uL Hgb 11.3 L (12.0-16.0) g/dL Hct 34.1 L (36.0-46.0) % MCV 93.4 (80.0-98.0) fL MCH 31.0 (27.0-32.0) pg MCHC 33.1 (31.0-37.0) g/dL RDW Std Deviation 48.9 (28.0-62.0) fl RDW Coeff of Nilo 14 (11.0-15.0) % Plt Count 235 (150-400) K/uL MPV 10.40 (7.40-12.00) fL Neut % (Auto) 85.3 H (48.0-80.0) % Lymph % (Auto) 5.5 L (16.0-40.0) % Lamar % (Auto) 7.3 (0.0-15.0) % Eos % (Auto) 1.7 (0.0-7.0) % Baso % (Auto) 0.2 (0.0-1.5) % Neut # (Auto) 8.3 H (1.4-5.7) K/uL Lymph # (Auto) 0.5 L (0.6-2.4) K/uL Lamar # (Auto) 0.7 (0.0-0.8) K/uL Eos # (Auto) 0.2 (0.0-0.7) K/uL Baso # (Auto) 0.0 (0.0-0.1) K/uL Nucleated RBC % 0.0 /100WBC Nucleated RBCs # 0 K/uL Sodium 139 (136-145) mmol/L Potassium 3.6 (3.5-5.1) mmol/L Chloride 105 (98-107) mmol/L Carbon Dioxide 30.2 (21.0-32.0) mmol/L BUN 32 H (7.0-18.0) mg/dL Creatinine 1.2 H (0.6-1.0) mg/dL Est Cr Clr Drug Dosing 29.63 mL/min Estimated GFR (MDRD) 43.6 ml/min Glucose 98 (74-106) mg/dL Calcium 8.2 L (8.5-10.1) mg/dL Magnesium (1.8-2.4) mg/dL Total Bilirubin 0.3 (0.2-1.0) mg/dL AST 8 L (15-37) IU/L ALT 10 L (14-63) IU/L Alkaline Phosphatase 73 (46-116) U/L Troponin I (0.000-0.056) ng/mL Total Protein 5.1 L (6.4-8.2) g/dL Albumin 1.6 L (3.4-5.0) g/dL Globulin 3.5 (2.0-3.5) g/dL Albumin/Globulin Ratio 0.5 L (1.3-2.8) Shailesh Results Last 24 Hrs: Microbiology 01/11/18 17:25 Aerobic Blood Culture - Preliminary Blood - Venous - Lab Draw NO GROWTH AFTER 2 DAYS Anaerobic Blood Culture - Preliminary NO GROWTH AFTER 2 DAYS 01/11/18 17:25 Aerobic Blood Culture - Preliminary Blood - Venous NO GROWTH AFTER 2 DAYS Anaerobic Blood Culture - Preliminary NO GROWTH AFTER 2 DAYS Med Orders - Current: Current Medications Acetaminophen (Tylenol) 325 mg RECTAL Q4H PRN PRN Reason: Temperature Albuterol/Ipratropium (Duoneb 3.0-0.5 Mg/3 Ml) 3 ml NEB Q4HRRT PRN PRN Reason: SOB/wheezing Last Admin: 01/13/18 13:59 Dose: 3 ml Enoxaparin Sodium (Lovenox) 30 mg SUBCUT Q24H [facility] Last Admin: 01/13/18 21:15 Dose: 30 mg Diltiazem HCl 125 mg/ Sodium (Chloride) 125 mls @ 5 mls/hr IV ASDIRECTED [facility]; Protocol Last Titration: 01/12/18 15:45 Dose: 0 mg/hr, 0 mls/hr Vancomycin HCl 1 gm/ Sodium (Chloride) 250 mls @ 250 mls/hr IV Q24H [facility] Last Admin: 01/13/18 19:44 Dose: 250 mls/hr Cefepime HCl 2 gm/ Premix 50 mls @ 100 mls/hr IV Q24H [facility] Last Admin: 01/13/18 13:11 Dose: 100 mls/hr Metoclopramide HCl (Reglan) 10 mg IV Q6H [facility] Last Admin: 01/14/18 06:21 Dose: 10 mg Metoprolol Tartrate (Lopressor) 25 mg PO Q12H [facility] Last Admin: 01/14/18 00:37 Dose: 25 mg Morphine Sulfate (Morphine) 0 mg IVPUSH Q1H PRN PRN Reason: Pain (severe 7-10) Ondansetron HCl (Zofran) 4 mg IVPUSH Q6H PRN PRN Reason: Nausea/Vomiting Pantoprazole Sodium (Protonix Iv) 40 mg IVPUSH DAILY [facility] Last Admin: 01/14/18 08:05 Dose: 40 mg Vancomycin HCl (Pharmacy To Dose - Vancomycin) 1 dose .XX ASDIRECTED [facility] Discontinued Medications Albuterol/Ipratropium (Duoneb 3.0-0.5 Mg/3 Ml) Confirm Administered Dose 3 ml .ROUTE .STK-MED ONE Stop: 01/11/18 14:09 Last Admin: 01/11/18 14:33 Dose: Not Given Albuterol/Ipratropium (Duoneb 3.0-0.5 Mg/3 Ml) 3 ml NEB ONETIME ONE Stop: 01/11/18 14:25 Last Admin: 01/11/18 15:46 Dose: Not Given Aspirin (Aspirin) 325 mg PO ONETIME ONE Stop: 01/11/18 16:18 Last Admin: 01/11/18 16:58 Dose: 325 mg Aspirin (Aspirin) Confirm Administered Dose 325 mg .ROUTE .STK-MED ONE Stop: 01/11/18 16:58 Last Admin: 01/11/18 17:03 Dose: Not Given Bupivacaine HCl (Marcaine 0.5%) Confirm Administered Dose 120 ml .ROUTE .STK- MED ONE Stop: 01/09/18 13:42 Cefazolin Sodium (Ancef) Confirm Administered Dose 1 gm .ROUTE .STK-MED ONE Stop: 01/09/18 14:18 Digoxin (Lanoxin) 250 mcg IVPUSH ONETIME ONE Stop: 01/11/18 17:03 Last Admin: 01/11/18 17:24 Dose: 250 mcg Diltiazem HCl (Diltiazem) 10 mg IVPUSH ONETIME ONE Stop: 01/11/18 15:10 Last Admin: 01/11/18 15:56 Dose: 10 mg Fentanyl (Sublimaze) Confirm Administered Dose 100 mcg .ROUTE .[facility] ONE Stop: 01/09/18 12:47 Fentanyl (Sublimaze) Confirm Administered Dose 100 mcg .ROUTE .[facility] ONE Stop: 01/09/18 13:29 Furosemide (Lasix) 20 mg IVPUSH NOW ONE Stop: 01/11/18 21:51 Last Admin: 01/11/18 22:14 Dose: 20 mg Furosemide (Lasix) 40 mg IVPUSH NOW ONE Stop: 01/12/18 02:21 Last Admin: 01/12/18 02:41 Dose: 40 mg Furosemide (Lasix) 20 mg IVPUSH Q8H [facility] Stop: 01/13/18 09:01 Last Admin: 01/13/18 08:06 Dose: 20 mg Furosemide (Lasix) 20 mg IVPUSH NOW ONE Stop: 01/13/18 19:49 Last Admin: 01/13/18 19:55 Dose: Not Given Hydromorphone HCl (Dilaudid) Confirm Administered Dose 2 mg .ROUTE .[facility] ONE Stop: 01/09/18 13:32 Lactated Ringer's (Ringers, Lactated) 1,000 mls @ 125 mls/hr IV ASDIRECTED [facility] Last Infusion: 01/10/18 01:55 Dose: Infused Hetastarch/Sodium Chloride (Hetastarch 6% In Normal Saline) Confirm Administered Dose 500 mls @ as directed .ROUTE .[facility] ONE Stop: 01/09/18 14:24 Acetaminophen (Ofirmev) Confirm Administered Dose 100 mls @ as directed IV .[facility] ONE Stop: 01/09/18 14:53 Cefoxitin Sodium 1 gm/ Premix 50 mls @ 100 mls/hr IV Q6H [facility] Stop: 01/10/18 09:59 Last Admin: 01/10/18 09:17 Dose: 100 mls/hr Lactated Ringer's (Ringers, Lactated) 1,000 mls @ 125 mls/hr IV ASDIRECTED [facility] Last Infusion: 01/11/18 18:00 Dose: Infused Lactated Ringer's (Ringers, Lactated) 1,000 mls @ 625 mls/hr IV ASDIRECTED [facility] Lactated Ringer's (Ringers, Lactated) 500 mls @ 500 mls/hr IV .[facility] ONE Stop: 01/10/18 02:45 Last Admin: 01/10/18 02:01 Dose: 500 mls/hr Lactated Ringer's (Ringers, Lactated) 500 mls @ 500 mls/hr IV [facility] Stop: 01/10/18 04:45 Lactated Ringer's (Ringers, Lactated) 500 mls @ 500 mls/hr IV .[facility] Stop: 01/10/18 05:01 Last Admin: 01/10/18 03:45 Dose: 500 mls/hr Lactated Ringer's (Ringers, Lactated) 1,000 mls @ 75 mls/hr IV ASDIRECTED [facility] Lactated Ringer's (Ringers, Lactated) 1,000 mls @ 50 mls/hr IV ASDIRECTED [facility] Magnesium Sulfate 2 gm/ Premix 50 mls @ 50 mls/hr IV ONETIME ONE Stop: 01/11/18 17:18 Last Admin: 01/11/18 16:39 Dose: 50 mls/hr Cefepime HCl 1 gm/ Premix 50 mls @ 100 mls/hr IV Q8H [facility] Last Admin: 01/12/18 18:09 Dose: 100 mls/hr Vancomycin HCl 1 gm/ Sodium (Chloride) 250 mls @ 250 mls/hr IV Q24H [facility] Last Admin: 01/12/18 19:34 Dose: 250 mls/hr Cefepime HCl 1 gm/ Premix 50 mls @ 100 mls/hr IV Q8H [facility] Last Admin: 01/13/18 01:25 Dose: 100 mls/hr Lorazepam (Ativan) 0.5 mg IVPUSH ONETIME ONE Stop: 01/09/18 20:19 Last Admin: 01/09/18 20:36 Dose: Not Given Metoclopramide HCl (Reglan) 10 mg IV Q6H [facility] Last Admin: 01/12/18 18:05 Dose: 10 mg Midazolam HCl (Versed 1 Mg/Ml) Confirm Administered Dose 2 mg .ROUTE .STK-MED ONE Stop: 01/09/18 12:47 Morphine Sulfate (Morphine Concentrator Operator 30 Mg In 30 Ml) 30 mg IV SEECOMMENT [facility] Morphine Sulfate (Morphine Concentrator Operator 30 Mg In 30 Ml) 30 mg IV ASDIRECTED [facility]; Protocol Last Admin: 01/09/18 21:09 Dose: 30 mg Ondansetron HCl (Zofran) Confirm Administered Dose 4 mg .ROUTE .STK-MED ONE Stop: 01/09/18 12:47 Propofol (Diprivan 20 Ml) Confirm Administered Dose 400 mg .ROUTE .STK-MED ONE Stop: 01/09/18 12:47 Rocuronium [place] (Zemuron) Confirm Administered Dose 100 mg .ROUTE .STK-MED ONE Stop: 01/09/18 13:28 Sugammadex Sodium (Bridion) Confirm Administered Dose 200 mg .ROUTE .STK-MED ONE Stop: 01/09/18 14:53 - Exam Wound/Incisions: Healing Well, No Drainage, Erythema Quality Assessment: Supplemental Oxygen, DVT Prophylaxis. No: Central Line/PICC , Urine Catheter, Skin Breakdown General: Alert, Oriented, Cooperative, No Acute Distress HEENT: Pupils Equal, Pupils Reactive, EOMI. No: Scleral Icterus Neck: Supple, Trachea Midline Lungs: Clear to Auscultation, Normal Respiratory Effort, Wheezing. No: Crackles , Rales Cardiovascular: No Murmurs, Irregular Rhythm GI/Abdominal Exam: Normal Bowel Sounds, Soft, Non-Tender. No: Guarding, Rigid, Rebound Extremities: Normal Inspection, Normal Range of Motion, Non-Tender, No Pedal Edema Skin: Warm, Dry, Intact Neurological: No New Focal Deficit Psy/Mental Status: Alert, Normal Affect, Normal Mood - Problem List & Annotations (1) Large bowel perforation SNOMED Code(s): 905499317 Code(s): K63.1 - PERFORATION OF INTESTINE (NONTRAUMATIC) Status: Acute Priority: High Current Visit: Yes (2) Atrial fibrillation SNOMED Code(s): 47942707 Code(s): I48.91 - UNSPECIFIED ATRIAL FIBRILLATION Status: Acute Priority : Medium Current Visit: Yes Qualifiers: Atrial fibrillation type: paroxysmal Qualified Code(s): I48.0 - Paroxysmal atrial fibrillation - Problem List Review Problem List Initiated/Reviewed/Updated: Yes - My Orders Last 24 Hours: Active Orders 24 hr Category Date Time Status Transfer Patient (Change bed) [ADT] Routine ADT 01/13/18 08:42 Ordered Consult to Land Leasing Information Clerk [CONS] Routine Cons 01/14/18 08:09 Ordered Full Liquid Diet [DIET] Diet 01/13/18 Lunch Active Echo Comp wo Cont [US] Routine Exams 01/13/18 16:35 Taken VANCOMYCIN TROUGH [CHEM] Routine Lab 01/14/18 18:30 Ordered Cefepime [Maxipime in D5W 2 GM/50 ML] 2 gm Med 01/13/18 14:00 Active Premix Bag 1 bag IV Q24H Vancomycin [Vancocin] 1 gm Med 01/13/18 19:30 Active Sodium Chloride 0.9% [Normal Saline] 250 ml IV Q24H Antiembolic Hose [OM.PC] PER UNIT ROUTINE Oth 01/14/18 06:00 Ordered Antiembolic Hose [OM.PC] PER UNIT ROUTINE Oth 01/15/18 06:00 Ordered Medication Orders Acetaminophen (Tylenol) 325 mg RECTAL Q4H PRN PRN Reason: Temperature Albuterol/Ipratropium (Duoneb 3.0-0.5 Mg/3 Ml) 3 ml NEB Q4HRRT PRN PRN Reason: SOB/wheezing Last Admin: 01/13/18 13:59 Dose: 3 ml Admin: 01/12/18 17:55 Dose: 3 ml Enoxaparin Sodium (Lovenox) 30 mg SUBCUT Q24H [facility] Last Admin: 01/13/18 21:15 Dose: 30 mg Admin: 01/12/18 22:58 Dose: 30 mg Admin: 01/11/18 22:58 Dose: 30 mg Diltiazem HCl 125 mg/ Sodium (Chloride) 125 mls @ 5 mls/hr IV ASDIRECTED [facility]; Protocol Last Titration: 01/12/18 15:45 Dose: 0 mg/hr, 0 mls/hr Titration: 01/12/18 15:33 Dose: 5 mg/hr, 5 mls/hr Admin: 01/12/18 14:14 Dose: 10 mg/hr, 10 mls/hr Titration: 01/12/18 14:14 Dose: 10 mg/hr, 10 mls/hr Titration: 01/12/18 09:26 Dose: 10 mg/hr, 10 mls/hr Titration: 01/12/18 08:41 Dose: 5 mg/hr, 5 mls/hr Titration: 01/12/18 04:30 Dose: 10 mg/hr, 10 mls/hr Admin: 01/12/18 03:30 Dose: 5 mg/hr, 5 mls/hr Vancomycin HCl 1 gm/ Sodium (Chloride) 250 mls @ 250 mls/hr IV Q24H [facility] Last Admin: 01/13/18 19:44 Dose: 250 mls/hr Cefepime HCl 2 gm/ Premix 50 mls @ 100 mls/hr IV Q24H [facility] Last Admin: 01/13/18 13:11 Dose: 100 mls/hr Metoclopramide HCl (Reglan) 10 mg IV Q6H [facility] Last Admin: 01/14/18 06:21 Dose: 10 mg Admin: 01/14/18 00:05 Dose: 10 mg Admin: 01/13/18 18:20 Dose: 10 mg Admin: 01/13/18 12:29 Dose: 10 mg Admin: 01/13/18 06:34 Dose: 10 mg Admin: 01/13/18 01:15 Dose: 10 mg Metoprolol Tartrate (Lopressor) 25 mg PO Q12H [facility] Last Admin: 01/14/18 00:37 Dose: 25 mg Admin: 01/13/18 12:30 Dose: 25 mg Admin: 01/13/18 01:31 Dose: 25 mg Admin: 01/12/18 14:06 Dose: 25 mg Morphine Sulfate (Morphine) 0 mg IVPUSH Q1H PRN PRN Reason: Pain (severe 7-10) Ondansetron HCl (Zofran) 4 mg IVPUSH Q6H PRN PRN Reason: Nausea/Vomiting Pantoprazole Sodium (Protonix Iv) 40 mg IVPUSH DAILY [facility] Last Admin: 01/14/18 08:05 Dose: 40 mg Admin: 01/13/18 08:06 Dose: 40 mg Admin: 01/12/18 08:19 Dose: 40 mg Admin: 01/11/18 17:24 Dose: 40 mg Vancomycin HCl (Pharmacy To Dose - Vancomycin) 1 dose .XX ASDIRECTED [facility] - Assessment Assessment (Free Text/Narrative):: Patient continues to improve. Energy level improving. Requesting more to eat. Passing flatus. - Plan Plan (Free Text/Narrative):: Increase activity. Soft diet with protein supplements. D/C TRAINING MGR and telemetry.
[2018-01-14] MEDS ORDERED: Morphine 2 MG/ML Syringe IVPUSH PRN (08:15)
--- NOTE | 2018-01-14 08:43 | PCM.PN ---
- General Info Date of Service: 01/14/18 Subjective Update: Patient is improving, no major complaints, shall be progressing diet to soft. WBC trending downwards and Afib rate controlled. - Patient Data Vitals - Most Recent: Last Vital Signs Temp 36.7 C 01/14/18 08:00 Pulse 98 01/14/18 04:00 Resp 18 01/14/18 08:00 BP 115/68 01/14/18 08:00 Pulse Ox 94 L 01/14/18 08:00 Weight - Most Recent: 76.7 kg I&O - Last 24 Hours: Intake & Output 01/13/18 01/14/18 01/14/18 22:59 06:59 14:59 Intake Total 250 250 Output Total 250 300 Balance 0 -50 Lab Results Last 24 Hours: Laboratory Results - last 24 hr 01/13/18 01/13/18 01/13/18 Range/Units 09:15 09:15 09:15 WBC 15.69 H (4.0-11.0) K/uL RBC 3.73 L (4.30-5.90) M/uL Hgb 11.7 L (12.0-16.0) g/dL Hct 35.0 L (36.0-46.0) % MCV 93.8 (80.0-98.0) fL MCH 31.4 (27.0-32.0) pg MCHC 33.4 (31.0-37.0) g/dL RDW Std Deviation 48.9 (28.0-62.0) fl RDW Coeff of Niol 14 (11.0-15.0) % Plt Count 219 (150-400) K/uL MPV 10.20 (7.40-12.00) fL Neut % (Auto) 91.8 H (48.0-80.0) % Lymph % (Auto) 4.0 L (16.0-40.0) % Chambers % (Auto) 3.3 (0.0-15.0) % Eos % (Auto) 0.8 (0.0-7.0) % Baso % (Auto) 0.1 (0.0-1.5) % Neut # (Auto) 14.4 H (1.4-5.7) K/uL Lymph # (Auto) 0.6 (0.6-2.4) K/uL Chambers # (Auto) 0.5 (0.0-0.8) K/uL Eos # (Auto) 0.1 (0.0-0.7) K/uL Baso # (Auto) 0.0 (0.0-0.1) K/uL Nucleated RBC % 0.0 /100WBC Nucleated RBCs # 0 K/uL Sodium 139 (136-145) mmol/L Potassium 3.6 (3.5-5.1) mmol/L Chloride 103 (98-107) mmol/L Carbon Dioxide 26.3 (21.0-32.0) mmol/L BUN 34 H (7.0-18.0) mg/dL Creatinine 1.5 H (0.6-1.0) mg/dL Est Cr Clr Drug Dosing 23.70 mL/min Estimated GFR (MDRD) 33.7 ml/min Glucose 112 H (74-106) mg/dL Calcium 8.3 L (8.5-10.1) mg/dL Magnesium 2.1 (1.8-2.4) mg/dL Total Bilirubin 0.4 (0.2-1.0) mg/dL AST 12 L (15-37) IU/L ALT 14 (14-63) IU/L Alkaline Phosphatase 81 (46-116) U/L Troponin I 0.211 H* (0.000-0.056) ng/mL Total Protein 4.9 L (6.4-8.2) g/dL Albumin 1.9 L (3.4-5.0) g/dL Globulin 3.0 (2.0-3.5) g/dL Albumin/Globulin Ratio 0.6 L (1.3-2.8) 01/14/18 01/14/18 Range/Units 04:35 04:35 WBC 9.78 (4.0-11.0) K/uL RBC 3.65 L (4.30-5.90) M/uL Hgb 11.3 L (12.0-16.0) g/dL Hct 34.1 L (36.0-46.0) % MCV 93.4 (80.0-98.0) fL MCH 31.0 (27.0-32.0) pg MCHC 33.1 (31.0-37.0) g/dL RDW Std Deviation 48.9 (28.0-62.0) fl RDW Coeff of Nilo 14 (11.0-15.0) % Plt Count 235 (150-400) K/uL MPV 10.40 (7.40-12.00) fL Neut % (Auto) 85.3 H (48.0-80.0) % Lymph % (Auto) 5.5 L (16.0-40.0) % Chambers % (Auto) 7.3 (0.0-15.0) % Eos % (Auto) 1.7 (0.0-7.0) % Baso % (Auto) 0.2 (0.0-1.5) % Neut # (Auto) 8.3 H (1.4-5.7) K/uL Lymph # (Auto) 0.5 L (0.6-2.4) K/uL Chambers # (Auto) 0.7 (0.0-0.8) K/uL Eos # (Auto) 0.2 (0.0-0.7) K/uL Baso # (Auto) 0.0 (0.0-0.1) K/uL Nucleated RBC % 0.0 /100WBC Nucleated RBCs # 0 K/uL Sodium 139 (136-145) mmol/L Potassium 3.6 (3.5-5.1) mmol/L Chloride 105 (98-107) mmol/L Carbon Dioxide 30.2 (21.0-32.0) mmol/L BUN 32 H (7.0-18.0) mg/dL Creatinine 1.2 H (0.6-1.0) mg/dL Est Cr Clr Drug Dosing 29.63 mL/min Estimated GFR (MDRD) 43.6 ml/min Glucose 98 (74-106) mg/dL Calcium 8.2 L (8.5-10.1) mg/dL Magnesium (1.8-2.4) mg/dL Total Bilirubin 0.3 (0.2-1.0) mg/dL AST 8 L (15-37) IU/L ALT 10 L (14-63) IU/L Alkaline Phosphatase 73 (46-116) U/L Troponin I (0.000-0.056) ng/mL Total Protein 5.1 L (6.4-8.2) g/dL Albumin 1.6 L (3.4-5.0) g/dL Globulin 3.5 (2.0-3.5) g/dL Albumin/Globulin Ratio 0.5 L (1.3-2.8) Shailesh Results Last 24 Hours: Microbiology 01/11/18 17:25 Aerobic Blood Culture - Preliminary Blood - Venous - Lab Draw NO GROWTH AFTER 2 DAYS Anaerobic Blood Culture - Preliminary NO GROWTH AFTER 2 DAYS 01/11/18 17:25 Aerobic Blood Culture - Preliminary Blood - Venous NO GROWTH AFTER 2 DAYS Anaerobic Blood Culture - Preliminary NO GROWTH AFTER 2 DAYS Med Orders - Current: Current Medications Acetaminophen (Tylenol) 325 mg RECTAL Q4H PRN PRN Reason: Temperature Hydrocodone Bitart/Acetaminophen ([place] 325-5 Mg) 1 tab PO Q6H PRN PRN Reason: Pain (moderate 4-6) Albuterol/Ipratropium (Duoneb 3.0-0.5 Mg/3 Ml) 3 ml NEB Q4HRRT PRN PRN Reason: SOB/wheezing Last Admin: 01/13/18 13:59 Dose: 3 ml Enoxaparin Sodium (Lovenox) 30 mg SUBCUT Q24H [facility] Last Admin: 01/13/18 21:15 Dose: 30 mg Diltiazem HCl 125 mg/ Sodium (Chloride) 125 mls @ 5 mls/hr IV ASDIRECTED [facility]; Protocol Last Titration: 01/12/18 15:45 Dose: 0 mg/hr, 0 mls/hr Vancomycin HCl 1 gm/ Sodium (Chloride) 250 mls @ 250 mls/hr IV Q24H [facility] Last Admin: 01/13/18 19:44 Dose: 250 mls/hr Cefepime HCl 2 gm/ Premix 50 mls @ 100 mls/hr IV Q24H [facility] Last Admin: 01/13/18 13:11 Dose: 100 mls/hr Metoclopramide HCl (Reglan) 10 mg IV Q6H [facility] Last Admin: 01/14/18 06:21 Dose: 10 mg Metoprolol Tartrate (Lopressor) 25 mg PO Q12H [facility] Last Admin: 01/14/18 00:37 Dose: 25 mg Morphine Sulfate (Morphine) 0 mg IVPUSH Q1H PRN PRN Reason: Pain (severe 7-10) Morphine Sulfate (Morphine) 0 mg IVPUSH Q1H PRN PRN Reason: Pain (severe 7-10) Ondansetron HCl (Zofran) 4 mg IVPUSH Q6H PRN PRN Reason: Nausea/Vomiting Pantoprazole Sodium (Protonix Iv) 40 mg IVPUSH DAILY [facility] Last Admin: 01/14/18 08:05 Dose: 40 mg Vancomycin HCl (Pharmacy To Dose - Vancomycin) 1 dose .XX ASDIRECTED [facility] Discontinued Medications Albuterol/Ipratropium (Duoneb 3.0-0.5 Mg/3 Ml) Confirm Administered Dose 3 ml .ROUTE .STK-MED ONE Stop: 01/11/18 14:09 Last Admin: 01/11/18 14:33 Dose: Not Given Albuterol/Ipratropium (Duoneb 3.0-0.5 Mg/3 Ml) 3 ml NEB ONETIME ONE Stop: 01/11/18 14:25 Last Admin: 01/11/18 15:46 Dose: Not Given Aspirin (Aspirin) 325 mg PO ONETIME ONE Stop: 01/11/18 16:18 Last Admin: 01/11/18 16:58 Dose: 325 mg Aspirin (Aspirin) Confirm Administered Dose 325 mg .ROUTE .STK-MED ONE Stop: 01/11/18 16:58 Last Admin: 01/11/18 17:03 Dose: Not Given Bupivacaine HCl (Marcaine 0.5%) Confirm Administered Dose 120 ml .ROUTE .STK- MED ONE Stop: 01/09/18 13:42 Cefazolin Sodium (Ancef) Confirm Administered Dose 1 gm .ROUTE .STK-MED ONE Stop: 01/09/18 14:18 Digoxin (Lanoxin) 250 mcg IVPUSH ONETIME ONE Stop: 01/11/18 17:03 Last Admin: 01/11/18 17:24 Dose: 250 mcg Diltiazem HCl (Diltiazem) 10 mg IVPUSH ONETIME ONE Stop: 01/11/18 15:10 Last Admin: 01/11/18 15:56 Dose: 10 mg Fentanyl (Sublimaze) Confirm Administered Dose 100 mcg .ROUTE .STK-MED ONE Stop: 01/09/18 12:47 Fentanyl (Sublimaze) Confirm Administered Dose 100 mcg .ROUTE .STK-MED ONE Stop: 01/09/18 13:29 Furosemide (Lasix) 20 mg IVPUSH NOW ONE Stop: 01/11/18 21:51 Last Admin: 01/11/18 22:14 Dose: 20 mg Furosemide (Lasix) 40 mg IVPUSH NOW ONE Stop: 01/12/18 02:21 Last Admin: 01/12/18 02:41 Dose: 40 mg Furosemide (Lasix) 20 mg IVPUSH Q8H [facility] Stop: 01/13/18 09:01 Last Admin: 01/13/18 08:06 Dose: 20 mg Furosemide (Lasix) 20 mg IVPUSH NOW ONE Stop: 01/13/18 19:49 Last Admin: 01/13/18 19:55 Dose: Not Given Hydromorphone HCl (Dilaudid) Confirm Administered Dose 2 mg .ROUTE .STK-MED ONE Stop: 01/09/18 13:32 Lactated Ringer's (Ringers, Lactated) 1,000 mls @ 125 mls/hr IV ASDIRECTED [facility] Last Infusion: 01/10/18 01:55 Dose: Infused Hetastarch/Sodium Chloride (Hetastarch 6% In Normal Saline) Confirm Administered Dose 500 mls @ as directed .ROUTE .STK-MED ONE Stop: 01/09/18 14:24 Acetaminophen (Ofirmev) Confirm Administered Dose 100 mls @ as directed IV .STK- MED ONE Stop: 01/09/18 14:53 Cefoxitin Sodium 1 gm/ Premix 50 mls @ 100 mls/hr IV Q6H [facility] Stop: 01/10/18 09:59 Last Admin: 01/10/18 09:17 Dose: 100 mls/hr Lactated Ringer's (Ringers, Lactated) 1,000 mls @ 125 mls/hr IV ASDIRECTED [facility] Last Infusion: 01/11/18 18:00 Dose: Infused Lactated Ringer's (Ringers, Lactated) 1,000 mls @ 625 mls/hr IV ASDIRECTED [facility] Lactated Ringer's (Ringers, Lactated) 500 mls @ 500 mls/hr IV .BOLUS ONE Stop: 01/10/18 02:45 Last Admin: 01/10/18 02:01 Dose: 500 mls/hr Lactated Ringer's (Ringers, Lactated) 500 mls @ 500 mls/hr IV BOLUS [facility] Stop: 01/10/18 04:45 Lactated Ringer's (Ringers, Lactated) 500 mls @ 500 mls/hr IV .BOLUS [facility] Stop: 01/10/18 05:01 Last Admin: 01/10/18 03:45 Dose: 500 mls/hr Lactated Ringer's (Ringers, Lactated) 1,000 mls @ 75 mls/hr IV ASDIRECTED [facility] Lactated Ringer's (Ringers, Lactated) 1,000 mls @ 50 mls/hr IV ASDIRECTED [facility] Magnesium Sulfate 2 gm/ Premix 50 mls @ 50 mls/hr IV ONETIME ONE Stop: 01/11/18 17:18 Last Admin: 01/11/18 16:39 Dose: 50 mls/hr Cefepime HCl 1 gm/ Premix 50 mls @ 100 mls/hr IV Q8H [facility] Last Admin: 01/12/18 18:09 Dose: 100 mls/hr Vancomycin HCl 1 gm/ Sodium (Chloride) 250 mls @ 250 mls/hr IV Q24H [facility] Last Admin: 01/12/18 19:34 Dose: 250 mls/hr Cefepime HCl 1 gm/ Premix 50 mls @ 100 mls/hr IV Q8H [facility] Last Admin: 01/13/18 01:25 Dose: 100 mls/hr Lorazepam (Ativan) 0.5 mg IVPUSH ONETIME ONE Stop: 01/09/18 20:19 Last Admin: 01/09/18 20:36 Dose: Not Given Metoclopramide HCl (Reglan) 10 mg IV Q6H [facility] Last Admin: 01/12/18 18:05 Dose: 10 mg Midazolam HCl (Versed 1 Mg/Ml) Confirm Administered Dose 2 mg .ROUTE .STK-MED ONE Stop: 01/09/18 12:47 Morphine Sulfate (Morphine Elevated [employer] Platform [employer] 30 Mg In 30 Ml) 30 mg IV SEECOMMENT [facility] Morphine Sulfate (Morphine Elevated Work Platform Operator 30 Mg In 30 Ml) 30 mg IV ASDIRECTED [facility]; Protocol Last Admin: 01/09/18 21:09 Dose: 30 mg Ondansetron HCl (Zofran) Confirm Administered Dose 4 mg .ROUTE .STK-MED ONE Stop: 01/09/18 12:47 Propofol (Diprivan 20 Ml) Confirm Administered Dose 400 mg .ROUTE .STK-MED ONE Stop: 01/09/18 12:47 Rocuronium [place] (Zemuron) Confirm Administered Dose 100 mg .ROUTE .STK-MED ONE Stop: 01/09/18 13:28 Sugammadex Sodium (Bridion) Confirm Administered Dose 200 mg .ROUTE .STK-MED ONE Stop: 01/09/18 14:53 - Exam General: Alert, Oriented, Cooperative HEENT: Pupils Equal Lungs: Rales, Rhonchi, Wheezing Cardiovascular: Irregular Rhythm - Problem List Review Problem List Initiated/Reviewed/Updated: Yes - My Orders Last 24 Hours: My Active Orders 01/14/18 08:39 TROPONIN I [CHEM] Stat - Assessment Assessment:: #1 Afib- Controlled via rate control medications, stable patient on ASA. #2. WBC coming down, shall leave antibiotic regimen to Gen Surgery. #3. Rales and Ronchi likely due to fluid retention in lungs -20mg Lasix iv dose and shall reevaluated.
[2018-01-14] MEDS ORDERED: Furosemide 20 MG/2 ML VIAL IVPUSH ONE (08:55)
[2018-01-14] MEDS: Acetaminophen/HYDROcodone 325-5 MG Tab PO PRN ×2 (09:52→17:00)
[2018-01-14] MEDS ORDERED: Metoprolol Tartrate 25 MG Tab PO SCH (12:00)
[2018-01-14] MEDS: Cefepime 2 GM in Premix Bag 1 BAG IV SCH (13:06)
[2018-01-14] MEDS ORDERED: Vancomycin 1.5 GM in Sodium Chloride 0.9% 500 ML IV SCH (21:00)
[2018-01-14] MEDS: Enoxaparin 30 MG/0.3 ML Syringe SUBCUT SCH (21:16)
[2018-01-15] MEDS: Metoclopramide 10 MG/2 ML SDV IV SCH ×4 (06:46→23:33)
[2018-01-15] MEDS: Metoprolol Tartrate 25 MG Tab PO SCH (08:00)
[2018-01-15] MEDS: Pantoprazole 40 MG Vial IVPUSH SCH (08:02)
[2018-01-15] MEDS: Acetaminophen/HYDROcodone 325-5 MG Tab PO PRN ×3 (08:03→23:40)
[2018-01-15] MEDS: Albuterol/Ipratropium 3.0-0.5 MG/3 ML Neb Soln NEB PRN (08:16)
[2018-01-15] MEDS: Furosemide 20 MG Tab PO SCH ×2 (08:42→13:01)
--- NOTE | 2018-01-15 09:04 | PCM.SURGPN ---
- General Info Date of Service: 01/15/18 POD#: 6 Functional Status: Reports: Pain Controlled, Tolerating Diet, Ambulating, Urinating, Incentive Spirometry - Review of Systems General: Reports: Weakness, Fatigue. Denies: Fever, Malaise, Chills HEENT: Reports: No Symptoms Pulmonary: Reports: Wheezing. Denies: Shortness of Breath, Cough Cardiovascular: Denies: Chest Pain, Palpitations Gastrointestinal: Reports: Flatus. Denies: Abdominal Pain, Nausea, Vomiting Genitourinary: Denies: Dysuria, Frequency, Burning Musculoskeletal: Reports: No Symptoms Skin: Denies: Cyanosis, Jaundice Neurological: Denies: Confusion, Dizziness Psychiatric: Denies: Depression, Anxiety - Patient Data Vitals - Most Recent: Last Vital Signs Temp 97.0 F 01/15/18 08:00 Pulse 130 H 01/15/18 08:00 Resp 20 01/15/18 08:00 BP 112/59 L 01/15/18 08:00 Pulse Ox 93 L 01/15/18 08:00 Weight - Most Recent: 166 lb 3.657 oz I&O - Last 24 Hours: Intake & Output 01/14/18 01/15/18 01/15/18 19:59 03:59 11:59 Intake Total 470 700 Output Total 375 300 250 Balance 95 400 -250 Lab Results Last 24 Hrs: Laboratory Results - last 24 hr 01/14/18 01/14/18 01/15/18 Range/Units 04:35 18:36 04:55 WBC 8.85 (4.0-11.0) K/uL RBC 3.63 L (4.30-5.90) M/uL Hgb 11.1 L (12.0-16.0) g/dL Hct 34.0 L (36.0-46.0) % MCV 93.7 (80.0-98.0) fL MCH 30.6 (27.0-32.0) pg MCHC 32.6 (31.0-37.0) g/dL RDW Std Deviation 49.7 (28.0-62.0) fl RDW Coeff of Nilo 14 (11.0-15.0) % Plt Count 232 (150-400) K/uL MPV 10.10 (7.40-12.00) fL Neut % (Auto) 83.4 H (48.0-80.0) % Lymph % (Auto) 7.6 L (16.0-40.0) % Warren % (Auto) 7.7 (0.0-15.0) % Eos % (Auto) 1.1 (0.0-7.0) % Baso % (Auto) 0.2 (0.0-1.5) % Neut # (Auto) 7.4 H (1.4-5.7) K/uL Lymph # (Auto) 0.7 (0.6-2.4) K/uL Warren # (Auto) 0.7 (0.0-0.8) K/uL Eos # (Auto) 0.1 (0.0-0.7) K/uL Baso # (Auto) 0.0 (0.0-0.1) K/uL Nucleated RBC % 0.0 /100WBC Nucleated RBCs # 0 K/uL Sodium (136-145) mmol/L Potassium (3.5-5.1) mmol/L Chloride (98-107) mmol/L Carbon Dioxide (21.0-32.0) mmol/L BUN (7.0-18.0) mg/dL Creatinine (0.6-1.0) mg/dL Est Cr Clr Drug Dosing mL/min Estimated GFR (MDRD) ml/min Glucose (74-106) mg/dL Calcium (8.5-10.1) mg/dL Troponin I 0.150 H* (0.000-0.056) ng/mL Vancomycin Trough 6.6 (5.0-10.0) ug/mL 01/15/18 Range/Units 04:55 WBC (4.0-11.0) K/uL RBC (4.30-5.90) M/uL Hgb (12.0-16.0) g/dL Hct (36.0-46.0) % MCV (80.0-98.0) fL MCH (27.0-32.0) pg MCHC (31.0-37.0) g/dL RDW Std Deviation (28.0-62.0) fl RDW Coeff of Nilo (11.0-15.0) % Plt Count (150-400) K/uL MPV (7.40-12.00) fL Neut % (Auto) (48.0-80.0) % Lymph % (Auto) (16.0-40.0) % Warren % (Auto) (0.0-15.0) % Eos % (Auto) (0.0-7.0) % Baso % (Auto) (0.0-1.5) % Neut # (Auto) (1.4-5.7) K/uL Lymph # (Auto) (0.6-2.4) K/uL Warren # (Auto) (0.0-0.8) K/uL Eos # (Auto) (0.0-0.7) K/uL Baso # (Auto) (0.0-0.1) K/uL Nucleated RBC % /100WBC Nucleated RBCs # K/uL Sodium 140 (136-145) mmol/L Potassium 3.7 (3.5-5.1) mmol/L Chloride 106 (98-107) mmol/L Carbon Dioxide 30.1 (21.0-32.0) mmol/L BUN 31 H (7.0-18.0) mg/dL Creatinine 1.1 H (0.6-1.0) mg/dL Est Cr Clr Drug Dosing 32.32 mL/min Estimated GFR (MDRD) 48.2 ml/min Glucose 106 (74-106) mg/dL Calcium 8.6 (8.5-10.1) mg/dL Troponin I (0.000-0.056) ng/mL Vancomycin Trough (5.0-10.0) ug/mL Shailesh Results Last 24 Hrs: Microbiology 01/11/18 17:25 Aerobic Blood Culture - Preliminary Blood - Venous - Lab Draw NO GROWTH AFTER 3 DAYS Anaerobic Blood Culture - Preliminary NO GROWTH AFTER 3 DAYS 01/11/18 17:25 Aerobic Blood Culture - Preliminary Blood - Venous NO GROWTH AFTER 3 DAYS Anaerobic Blood Culture - Preliminary NO GROWTH AFTER 3 DAYS Med Orders - Current: Current Medications Acetaminophen (Tylenol) 325 mg RECTAL Q4H PRN PRN Reason: Temperature Hydrocodone Bitart/Acetaminophen ([place] 325-5 Mg) 1 tab PO Q6H PRN PRN Reason: Pain (moderate 4-6) Last Admin: 01/15/18 08:03 Dose: 1 tab Albuterol/Ipratropium (Duoneb 3.0-0.5 Mg/3 Ml) 3 ml NEB Q4HRRT PRN PRN Reason: SOB/wheezing Last Admin: 01/15/18 08:16 Dose: 3 ml Enoxaparin Sodium (Lovenox) 30 mg SUBCUT Q24H [facility] Last Admin: 01/14/18 21:16 Dose: 30 mg Furosemide (Lasix) 20 mg PO BIDDIURETIC [facility] Last Admin: 01/15/18 08:42 Dose: 20 mg Diltiazem HCl 125 mg/ Sodium (Chloride) 125 mls @ 5 mls/hr IV ASDIRECTED [facility]; Protocol Last Titration: 01/12/18 15:45 Dose: 0 mg/hr, 0 mls/hr Cefepime HCl 2 gm/ Premix 50 mls @ 100 mls/hr IV Q24H [facility] Last Admin: 01/14/18 13:06 Dose: 100 mls/hr Vancomycin HCl 1.5 gm/ Sodium (Chloride) 500 mls @ 333.333 mls/hr IV Q24H [facility] Last Admin: 01/14/18 21:17 Dose: 333.333 mls/hr Metoclopramide HCl (Reglan) 10 mg IV Q6H [facility] Last Admin: 01/15/18 06:46 Dose: 10 mg Metoprolol Tartrate (Lopressor) 25 mg PO Q12H [facility] Last Admin: 01/15/18 08:00 Dose: 25 mg Morphine Sulfate (Morphine) 0 mg IVPUSH Q1H PRN PRN Reason: Pain (severe 7-10) Morphine Sulfate (Morphine) 0 mg IVPUSH Q1H PRN PRN Reason: Pain (severe 7-10) Ondansetron HCl (Zofran) 4 mg IVPUSH Q6H PRN PRN Reason: Nausea/Vomiting Pantoprazole Sodium (Protonix Iv) 40 mg IVPUSH DAILY [facility] Last Admin: 01/15/18 08:02 Dose: 40 mg Vancomycin HCl (Pharmacy To Dose - Vancomycin) 1 dose .XX ASDIRECTED [facility] Discontinued Medications Albuterol/Ipratropium (Duoneb 3.0-0.5 Mg/3 Ml) Confirm Administered Dose 3 ml .ROUTE .STK-MED ONE Stop: 01/11/18 14:09 Last Admin: 01/11/18 14:33 Dose: Not Given Albuterol/Ipratropium (Duoneb 3.0-0.5 Mg/3 Ml) 3 ml NEB ONETIME ONE Stop: 01/11/18 14:25 Last Admin: 01/11/18 15:46 Dose: Not Given Aspirin (Aspirin) 325 mg PO ONETIME ONE Stop: 01/11/18 16:18 Last Admin: 01/11/18 16:58 Dose: 325 mg Aspirin (Aspirin) Confirm Administered Dose 325 mg .ROUTE .STK-MED ONE Stop: 01/11/18 16:58 Last Admin: 01/11/18 17:03 Dose: Not Given Bupivacaine HCl (Marcaine 0.5%) Confirm Administered Dose 120 ml .ROUTE .STK- MED ONE Stop: 01/09/18 13:42 Cefazolin Sodium (Ancef) Confirm Administered Dose 1 gm .ROUTE .STK-MED ONE Stop: 01/09/18 14:18 Digoxin (Lanoxin) 250 mcg IVPUSH ONETIME ONE Stop: 01/11/18 17:03 Last Admin: 01/11/18 17:24 Dose: 250 mcg Diltiazem HCl (Diltiazem) 10 mg IVPUSH ONETIME ONE Stop: 01/11/18 15:10 Last Admin: 01/11/18 15:56 Dose: 10 mg Fentanyl (Sublimaze) Confirm Administered Dose 100 mcg .ROUTE .STK-MED ONE Stop: 01/09/18 12:47 Fentanyl (Sublimaze) Confirm Administered Dose 100 mcg .ROUTE .STK-MED ONE Stop: 01/09/18 13:29 Furosemide (Lasix) 20 mg IVPUSH NOW ONE Stop: 01/11/18 21:51 Last Admin: 01/11/18 22:14 Dose: 20 mg Furosemide (Lasix) 40 mg IVPUSH NOW ONE Stop: 01/12/18 02:21 Last Admin: 01/12/18 02:41 Dose: 40 mg Furosemide (Lasix) 20 mg IVPUSH Q8H [facility] Stop: 01/13/18 09:01 Last Admin: 01/13/18 08:06 Dose: 20 mg Furosemide (Lasix) 20 mg IVPUSH NOW ONE Stop: 01/13/18 19:49 Last Admin: 01/13/18 19:55 Dose: Not Given Furosemide (Lasix) 20 mg IVPUSH NOW ONE Stop: 01/14/18 08:56 Last Admin: 01/14/18 09:14 Dose: 20 mg Hydromorphone HCl (Dilaudid) Confirm Administered Dose 2 mg .ROUTE .STK-MED ONE Stop: 01/09/18 13:32 Lactated Ringer's (Ringers, Lactated) 1,000 mls @ 125 mls/hr IV ASDIRECTED [facility] Last Infusion: 01/10/18 01:55 Dose: Infused Hetastarch/Sodium Chloride (Hetastarch 6% In Normal Saline) Confirm Administered Dose 500 mls @ as directed .ROUTE .STK-MED ONE Stop: 01/09/18 14:24 Acetaminophen (Ofirmev) Confirm Administered Dose 100 mls @ as directed IV .STK- MED ONE Stop: 01/09/18 14:53 Cefoxitin Sodium 1 gm/ Premix 50 mls @ 100 mls/hr IV Q6H [facility] Stop: 01/10/18 09:59 Last Admin: 01/10/18 09:17 Dose: 100 mls/hr Lactated Ringer's (Ringers, Lactated) 1,000 mls @ 125 mls/hr IV ASDIRECTED [facility] Last Infusion: 01/11/18 18:00 Dose: Infused Lactated Ringer's (Ringers, Lactated) 1,000 mls @ 625 mls/hr IV ASDIRECTED [facility] Lactated Ringer's (Ringers, Lactated) 500 mls @ 500 mls/hr IV .BOLUS ONE Stop: 01/10/18 02:45 Last Admin: 01/10/18 02:01 Dose: 500 mls/hr Lactated Ringer's (Ringers, Lactated) 500 mls @ 500 mls/hr IV BOLUS [facility] Stop: 01/10/18 04:45 Lactated Ringer's (Ringers, Lactated) 500 mls @ 500 mls/hr IV .BOLUS [facility] Stop: 01/10/18 05:01 Last Admin: 01/10/18 03:45 Dose: 500 mls/hr Lactated Ringer's (Ringers, Lactated) 1,000 mls @ 75 mls/hr IV ASDIRECTED [facility] Lactated Ringer's (Ringers, Lactated) 1,000 mls @ 50 mls/hr IV ASDIRECTED [facility] Magnesium Sulfate 2 gm/ Premix 50 mls @ 50 mls/hr IV ONETIME ONE Stop: 01/11/18 17:18 Last Admin: 01/11/18 16:39 Dose: 50 mls/hr Cefepime HCl 1 gm/ Premix 50 mls @ 100 mls/hr IV Q8H [facility] Last Admin: 01/12/18 18:09 Dose: 100 mls/hr Vancomycin HCl 1 gm/ Sodium (Chloride) 250 mls @ 250 mls/hr IV Q24H [facility] Last Admin: 01/12/18 19:34 Dose: 250 mls/hr Cefepime HCl 1 gm/ Premix 50 mls @ 100 mls/hr IV Q8H [facility] Last Admin: 01/13/18 01:25 Dose: 100 mls/hr Vancomycin HCl 1 gm/ Sodium (Chloride) 250 mls @ 250 mls/hr IV Q24H [facility] Last Admin: 01/14/18 20:56 Dose: Not Given Lorazepam (Ativan) 0.5 mg IVPUSH ONETIME ONE Stop: 01/09/18 20:19 Last Admin: 01/09/18 20:36 Dose: Not Given Metoclopramide HCl (Reglan) 10 mg IV Q6H [facility] Last Admin: 01/12/18 18:05 Dose: 10 mg Metoprolol Tartrate (Lopressor) 25 mg PO Q12H [facility] Last Admin: 01/14/18 00:37 Dose: 25 mg Metoprolol Tartrate (Lopressor) 25 mg PO Q12H [facility] Last Admin: 01/14/18 12:01 Dose: 25 mg Midazolam HCl (Versed 1 Mg/Ml) Confirm Administered Dose 2 mg .ROUTE .STK-MED ONE Stop: 01/09/18 12:47 Morphine Sulfate (Morphine [employer] 30 Mg In 30 Ml) 30 mg IV SEECOMMENT [facility] Morphine Sulfate (Morphine [employer] 30 Mg In 30 Ml) 30 mg IV ASDIRECTED [facility]; Protocol Last Admin: 01/09/18 21:09 Dose: 30 mg Ondansetron HCl (Zofran) Confirm Administered Dose 4 mg .ROUTE .STK-MED ONE Stop: 01/09/18 12:47 Propofol (Diprivan 20 Ml) Confirm Administered Dose 400 mg .ROUTE .STK-MED ONE Stop: 01/09/18 12:47 Rocuronium [place] (Zemuron) Confirm Administered Dose 100 mg .ROUTE .STK-MED ONE Stop: 01/09/18 13:28 Sugammadex Sodium (Bridion) Confirm Administered Dose 200 mg .ROUTE .STK-MED ONE Stop: 01/09/18 14:53 - Exam Wound/Incisions: Healing Well, No Drainage, Erythema Quality Assessment: Supplemental Oxygen, DVT Prophylaxis. No: Central Line/PICC , Urine Catheter, Skin Breakdown General: Alert, Oriented, Cooperative, No Acute Distress HEENT: Pupils Equal, Pupils Reactive. No: Scleral Icterus Neck: Supple, Trachea Midline Lungs: Normal Respiratory Effort, Crackles, Wheezing Cardiovascular: Irregular Rhythm, Tachycardia. No: Murmurs, Gallops, Rubs GI/Abdominal Exam: Normal Bowel Sounds, Soft, Non-Tender, No Mass. No: Guarding , Rigid, Rebound Extremities: Normal Inspection, Non-Tender. No: Pedal Edema, Kevin's Sign Skin: Warm, Dry, Intact Neurological: No New Focal Deficit Psy/Mental Status: Alert, Normal Affect, Normal Mood - Problem List & Annotations (1) Large bowel perforation SNOMED Code(s): 641568484 Code(s): K63.1 - PERFORATION OF INTESTINE (NONTRAUMATIC) Status: Acute Priority: High Current Visit: Yes (2) Atrial fibrillation SNOMED Code(s): 42459638 Code(s): I48.91 - UNSPECIFIED ATRIAL FIBRILLATION Status: Acute Priority : Medium Current Visit: Yes Qualifiers: Atrial fibrillation type: paroxysmal Qualified Code(s): I48.0 - Paroxysmal atrial fibrillation - Problem List Review Problem List Initiated/Reviewed/Updated: Yes - My Orders Last 24 Hours: Active Orders 24 hr Category Date Time 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 [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] Routine Cons 01/14/18 08:09 Active Soft Diet [DIET] Diet 01/14/18 Lunch Active VANCOMYCIN TROUGH [CHEM] Timed Lab 01/17/18 20:30 Ordered Acetaminophen/HYDROcodone [[place] 325-5 MG] Med 01/14/18 08:15 Active 1 tab PO Q6H PRN Furosemide [Lasix] Med 01/15/18 09:00 Active 20 mg PO BIDDIURETIC Metoprolol Tartrate [Lopressor] Med 01/14/18 21:00 Active 25 mg PO Q12H Morphine Med 01/14/18 08:15 Active See Dose Instructions IVPUSH Q1H PRN Vancomycin 1.5 gm Med 01/14/18 21:00 Active Sodium Chloride 0.9% [Normal Saline] 500 ml IV Q24H Antiembolic Hose [OM.PC] PER UNIT ROUTINE Oth 01/15/18 06:00 Ordered Medication Orders Acetaminophen (Tylenol) 325 mg RECTAL Q4H PRN PRN Reason: Temperature Hydrocodone Bitart/Acetaminophen ([place] 325-5 Mg) 1 tab PO Q6H PRN PRN Reason: Pain (moderate 4-6) Last Admin: 01/15/18 08:03 Dose: 1 tab Admin: 01/14/18 17:00 Dose: 1 tab Admin: 01/14/18 09:52 Dose: 1 tab Albuterol/Ipratropium (Duoneb 3.0-0.5 Mg/3 Ml) 3 ml NEB Q4HRRT PRN PRN Reason: SOB/wheezing Last Admin: 01/15/18 08:16 Dose: 3 ml Admin: 01/13/18 13:59 Dose: 3 ml Admin: 01/12/18 17:55 Dose: 3 ml Enoxaparin Sodium (Lovenox) 30 mg SUBCUT Q24H [facility] Last Admin: 01/14/18 21:16 Dose: 30 mg Admin: 01/13/18 21:15 Dose: 30 mg Admin: 01/12/18 22:58 Dose: 30 mg Admin: 01/11/18 22:58 Dose: 30 mg Furosemide (Lasix) 20 mg PO BIDDIURETIC [facility] Last Admin: 01/15/18 08:42 Dose: 20 mg Diltiazem HCl 125 mg/ Sodium (Chloride) 125 mls @ 5 mls/hr IV ASDIRECTED [facility]; Protocol Last Titration: 01/12/18 15:45 Dose: 0 mg/hr, 0 mls/hr Titration: 01/12/18 15:33 Dose: 5 mg/hr, 5 mls/hr Admin: 01/12/18 14:14 Dose: 10 mg/hr, 10 mls/hr Titration: 01/12/18 14:14 Dose: 10 mg/hr, 10 mls/hr Titration: 01/12/18 09:26 Dose: 10 mg/hr, 10 mls/hr Titration: 01/12/18 08:41 Dose: 5 mg/hr, 5 mls/hr Titration: 01/12/18 04:30 Dose: 10 mg/hr, 10 mls/hr Admin: 01/12/18 03:30 Dose: 5 mg/hr, 5 mls/hr Cefepime HCl 2 gm/ Premix 50 mls @ 100 mls/hr IV Q24H [facility] Last Admin: 01/14/18 13:06 Dose: 100 mls/hr Infusion: 01/13/18 13:41 Dose: 100 mls/hr Admin: 01/13/18 13:11 Dose: 100 mls/hr Vancomycin HCl 1.5 gm/ Sodium (Chloride) 500 mls @ 333.333 mls/hr IV Q24H [facility] Last Admin: 01/14/18 21:17 Dose: 333.333 mls/hr Metoclopramide HCl (Reglan) 10 mg IV Q6H [facility] Last Admin: 01/15/18 06:46 Dose: 10 mg Admin: 01/14/18 23:56 Dose: 10 mg Admin: 01/14/18 17:00 Dose: 10 mg Admin: 01/14/18 12:13 Dose: 10 mg Admin: 01/14/18 06:21 Dose: 10 mg Admin: 01/14/18 00:05 Dose: 10 mg Admin: 01/13/18 18:20 Dose: 10 mg Admin: 01/13/18 12:29 Dose: 10 mg Admin: 01/13/18 06:34 Dose: 10 mg Admin: 01/13/18 01:15 Dose: 10 mg Metoprolol Tartrate (Lopressor) 25 mg PO Q12H [facility] Last Admin: 01/15/18 08:00 Dose: 25 mg Admin: 01/14/18 21:17 Dose: 25 mg Morphine Sulfate (Morphine) 0 mg IVPUSH Q1H PRN PRN Reason: Pain (severe 7-10) Morphine Sulfate (Morphine) 0 mg IVPUSH Q1H PRN PRN Reason: Pain (severe 7-10) Ondansetron HCl (Zofran) 4 mg IVPUSH Q6H PRN PRN Reason: Nausea/Vomiting Pantoprazole Sodium (Protonix Iv) 40 mg IVPUSH DAILY [facility] Last Admin: 01/15/18 08:02 Dose: 40 mg Admin: 01/14/18 08:05 Dose: 40 mg Admin: 01/13/18 08:06 Dose: 40 mg Admin: 01/12/18 08:19 Dose: 40 mg Admin: 01/11/18 17:24 Dose: 40 mg Vancomycin HCl (Pharmacy To Dose - Vancomycin) 1 dose .XX ASDIRECTED [facility] - Assessment Assessment (Free Text/Narrative):: Continues to be in atrial fibrillation. HR as high as 140 during the night. Now 100-120s. Lungs with few crackles and wheezes. Abdomen is soft with hypoactive BS. Continues to pass flatus. No BM today. Tolerating po diet-- comfortable with a soft diet. - Plan Plan (Free Text/Narrative):: When cardiac status is stable per hospitalist service, patient can be discharged. Will defer decisions on diuretics to hospitalist service.
[2018-01-15] MEDS ORDERED: Metoprolol Tartrate 25 MG Tab PO ONE (09:18)
--- NOTE | 2018-01-15 10:09 | PCM.CONSN ---
- General Info Date of Service: 01/15/18 Subjective Update: Patient is improving, no major complaints, tolerating soft diet. WBC normal. Is having my breathing issues shall require small dose of lasix and Afib rate now in the 130-140s this am shall increase rate control medication. - Patient Data Vitals - Most Recent: Last Vital Signs Temp 36.1 C 01/15/18 08:00 Pulse 121 H 01/15/18 09:25 Resp 20 01/15/18 08:00 BP 116/47 L 01/15/18 09:25 Pulse Ox 93 L 01/15/18 08:00 Weight - Most Recent: 75.4 kg I&O - Last 24 Hours: Intake & Output 01/14/18 01/15/18 01/15/18 22:59 06:59 14:59 Intake Total 860 200 Output Total 300 250 Balance 860 -100 -250 Lab Results Last 24 Hours: Laboratory Results - last 24 hr 01/14/18 01/15/18 01/15/18 Range/Units 18:36 04:55 04:55 WBC 8.85 (4.0-11.0) K/uL RBC 3.63 L (4.30-5.90) M/uL Hgb 11.1 L (12.0-16.0) g/dL Hct 34.0 L (36.0-46.0) % MCV 93.7 (80.0-98.0) fL MCH 30.6 (27.0-32.0) pg MCHC 32.6 (31.0-37.0) g/dL RDW Std Deviation 49.7 (28.0-62.0) fl RDW Coeff of Nilo 14 (11.0-15.0) % Plt Count 232 (150-400) K/uL MPV 10.10 (7.40-12.00) fL Neut % (Auto) 83.4 H (48.0-80.0) % Lymph % (Auto) 7.6 L (16.0-40.0) % [place] % (Auto) 7.7 (0.0-15.0) % Eos % (Auto) 1.1 (0.0-7.0) % Baso % (Auto) 0.2 (0.0-1.5) % Neut # (Auto) 7.4 H (1.4-5.7) K/uL Lymph # (Auto) 0.7 (0.6-2.4) K/uL [place] # (Auto) 0.7 (0.0-0.8) K/uL Eos # (Auto) 0.1 (0.0-0.7) K/uL Baso # (Auto) 0.0 (0.0-0.1) K/uL Nucleated RBC % 0.0 /100WBC Nucleated RBCs # 0 K/uL Sodium 140 (136-145) mmol/L Potassium 3.7 (3.5-5.1) mmol/L Chloride 106 (98-107) mmol/L Carbon Dioxide 30.1 (21.0-32.0) mmol/L BUN 31 H (7.0-18.0) mg/dL Creatinine 1.1 H (0.6-1.0) mg/dL Est Cr Clr Drug Dosing 32.32 mL/min Estimated GFR (MDRD) 48.2 ml/min Glucose 106 (74-106) mg/dL Calcium 8.6 (8.5-10.1) mg/dL Vancomycin Trough 6.6 (5.0-10.0) ug/mL Shailesh Results Last 24 Hours: Microbiology 01/11/18 17:25 Aerobic Blood Culture - Preliminary Blood - Venous - Lab Draw NO GROWTH AFTER 3 DAYS Anaerobic Blood Culture - Preliminary NO GROWTH AFTER 3 DAYS 01/11/18 17:25 Aerobic Blood Culture - Preliminary Blood - Venous NO GROWTH AFTER 3 DAYS Anaerobic Blood Culture - Preliminary NO GROWTH AFTER 3 DAYS Med Orders - Current: Current Medications Acetaminophen (Tylenol) 325 mg RECTAL Q4H PRN PRN Reason: Temperature Hydrocodone Bitart/Acetaminophen ([place] 325-5 Mg) 1 tab PO Q6H PRN PRN Reason: Pain (moderate 4-6) Last Admin: 01/15/18 08:03 Dose: 1 tab Albuterol/Ipratropium (Duoneb 3.0-0.5 Mg/3 Ml) 3 ml NEB Q4HRRT PRN PRN Reason: SOB/wheezing Last Admin: 01/15/18 08:16 Dose: 3 ml Enoxaparin Sodium (Lovenox) 30 mg SUBCUT Q24H [facility] Last Admin: 01/14/18 21:16 Dose: 30 mg Furosemide (Lasix) 20 mg PO BIDDIURETIC [facility] Last Admin: 01/15/18 08:42 Dose: 20 mg Diltiazem HCl 125 mg/ Sodium (Chloride) 125 mls @ 5 mls/hr IV ASDIRECTED [facility]; Protocol Last Titration: 01/12/18 15:45 Dose: 0 mg/hr, 0 mls/hr Cefepime HCl 2 gm/ Premix 50 mls @ 100 mls/hr IV Q24H [facility] Last Admin: 01/14/18 13:06 Dose: 100 mls/hr Vancomycin HCl 1.5 gm/ Sodium (Chloride) 500 mls @ 333.333 mls/hr IV Q24H [facility] Last Admin: 01/14/18 21:17 Dose: 333.333 mls/hr Metoclopramide HCl (Reglan) 10 mg IV Q6H [facility] Last Admin: 01/15/18 06:46 Dose: 10 mg Metoprolol Tartrate (Lopressor) 50 mg PO Q12H [facility] Morphine Sulfate (Morphine) 0 mg IVPUSH Q1H PRN PRN Reason: Pain (severe 7-10) Morphine Sulfate (Morphine) 0 mg IVPUSH Q1H PRN PRN Reason: Pain (severe 7-10) Ondansetron HCl (Zofran) 4 mg IVPUSH Q6H PRN PRN Reason: Nausea/Vomiting Pantoprazole Sodium (Protonix Iv) 40 mg IVPUSH DAILY [facility] Last Admin: 01/15/18 08:02 Dose: 40 mg Vancomycin HCl (Pharmacy To Dose - Vancomycin) 1 dose .XX ASDIRECTED [facility] Discontinued Medications Albuterol/Ipratropium (Duoneb 3.0-0.5 Mg/3 Ml) Confirm Administered Dose 3 ml .ROUTE .STK-MED ONE Stop: 01/11/18 14:09 Last Admin: 01/11/18 14:33 Dose: Not Given Albuterol/Ipratropium (Duoneb 3.0-0.5 Mg/3 Ml) 3 ml NEB ONETIME ONE Stop: 01/11/18 14:25 Last Admin: 01/11/18 15:46 Dose: Not Given Aspirin (Aspirin) 325 mg PO ONETIME ONE Stop: 01/11/18 16:18 Last Admin: 01/11/18 16:58 Dose: 325 mg Aspirin (Aspirin) Confirm Administered Dose 325 mg .ROUTE .STK-MED ONE Stop: 01/11/18 16:58 Last Admin: 01/11/18 17:03 Dose: Not Given Bupivacaine HCl (Marcaine 0.5%) Confirm Administered Dose 120 ml .ROUTE .STK- MED ONE Stop: 01/09/18 13:42 Cefazolin Sodium (Ancef) Confirm Administered Dose 1 gm .ROUTE .STK-MED ONE Stop: 01/09/18 14:18 Digoxin (Lanoxin) 250 mcg IVPUSH ONETIME ONE Stop: 01/11/18 17:03 Last Admin: 01/11/18 17:24 Dose: 250 mcg Diltiazem HCl (Diltiazem) 10 mg IVPUSH ONETIME ONE Stop: 01/11/18 15:10 Last Admin: 01/11/18 15:56 Dose: 10 mg Fentanyl (Sublimaze) Confirm Administered Dose 100 mcg .ROUTE .STK-MED ONE Stop: 01/09/18 12:47 Fentanyl (Sublimaze) Confirm Administered Dose 100 mcg .ROUTE .[facility]-MED ONE Stop: 01/09/18 13:29 Furosemide (Lasix) 20 mg IVPUSH NOW ONE Stop: 01/11/18 21:51 Last Admin: 01/11/18 22:14 Dose: 20 mg Furosemide (Lasix) 40 mg IVPUSH NOW ONE Stop: 01/12/18 02:21 Last Admin: 01/12/18 02:41 Dose: 40 mg Furosemide (Lasix) 20 mg IVPUSH Q8H [facility] Stop: 01/13/18 09:01 Last Admin: 01/13/18 08:06 Dose: 20 mg Furosemide (Lasix) 20 mg IVPUSH NOW ONE Stop: 01/13/18 19:49 Last Admin: 01/13/18 19:55 Dose: Not Given Furosemide (Lasix) 20 mg IVPUSH NOW ONE Stop: 01/14/18 08:56 Last Admin: 01/14/18 09:14 Dose: 20 mg Hydromorphone HCl (Dilaudid) Confirm Administered Dose 2 mg .ROUTE .STK-MED ONE Stop: 01/09/18 13:32 Lactated Ringer's (Ringers, Lactated) 1,000 mls @ 125 mls/hr IV ASDIRECTED [facility] Last Infusion: 01/10/18 01:55 Dose: Infused Hetastarch/Sodium Chloride (Hetastarch 6% In Normal Saline) Confirm Administered Dose 500 mls @ as directed .ROUTE .STK-MED ONE Stop: 01/09/18 14:24 Acetaminophen (Ofirmev) Confirm Administered Dose 100 mls @ as directed IV .STK- MED ONE Stop: 01/09/18 14:53 Cefoxitin Sodium 1 gm/ Premix 50 mls @ 100 mls/hr IV Q6H [facility] Stop: 01/10/18 09:59 Last Admin: 01/10/18 09:17 Dose: 100 mls/hr Lactated Ringer's (Ringers, Lactated) 1,000 mls @ 125 mls/hr IV ASDIRECTED [facility] Last Infusion: 01/11/18 18:00 Dose: Infused Lactated Ringer's (Ringers, Lactated) 1,000 mls @ 625 mls/hr IV ASDIRECTED [facility] Lactated Ringer's (Ringers, Lactated) 500 mls @ 500 mls/hr IV .BOLUS ONE Stop: 01/10/18 02:45 Last Admin: 01/10/18 02:01 Dose: 500 mls/hr Lactated Ringer's (Ringers, Lactated) 500 mls @ 500 mls/hr IV BOLUS [facility] Stop: 01/10/18 04:45 Lactated Ringer's (Ringers, Lactated) 500 mls @ 500 mls/hr IV .BOLUS [facility] Stop: 01/10/18 05:01 Last Admin: 01/10/18 03:45 Dose: 500 mls/hr Lactated Ringer's (Ringers, Lactated) 1,000 mls @ 75 mls/hr IV ASDIRECTED [facility] Lactated Ringer's (Ringers, Lactated) 1,000 mls @ 50 mls/hr IV ASDIRECTED [facility] Magnesium Sulfate 2 gm/ Premix 50 mls @ 50 mls/hr IV ONETIME ONE Stop: 01/11/18 17:18 Last Admin: 01/11/18 16:39 Dose: 50 mls/hr Cefepime HCl 1 gm/ Premix 50 mls @ 100 mls/hr IV Q8H [facility] Last Admin: 01/12/18 18:09 Dose: 100 mls/hr Vancomycin HCl 1 gm/ Sodium (Chloride) 250 mls @ 250 mls/hr IV Q24H [facility] Last Admin: 01/12/18 19:34 Dose: 250 mls/hr Cefepime HCl 1 gm/ Premix 50 mls @ 100 mls/hr IV Q8H [facility] Last Admin: 01/13/18 01:25 Dose: 100 mls/hr Vancomycin HCl 1 gm/ Sodium (Chloride) 250 mls @ 250 mls/hr IV Q24H [facility] Last Admin: 01/14/18 20:56 Dose: Not Given Lorazepam (Ativan) 0.5 mg IVPUSH ONETIME ONE Stop: 01/09/18 20:19 Last Admin: 01/09/18 20:36 Dose: Not Given Metoclopramide HCl (Reglan) 10 mg IV Q6H [facility] Last Admin: 01/12/18 18:05 Dose: 10 mg Metoprolol Tartrate (Lopressor) 25 mg PO Q12H [facility] Last Admin: 01/14/18 00:37 Dose: 25 mg Metoprolol Tartrate (Lopressor) 25 mg PO Q12H [facility] Last Admin: 01/14/18 12:01 Dose: 25 mg Metoprolol Tartrate (Lopressor) 25 mg PO Q12H [facility] Last Admin: 01/15/18 08:00 Dose: 25 mg Metoprolol Tartrate (Lopressor) 25 mg PO ONETIME ONE Stop: 01/15/18 09:19 Last Admin: 01/15/18 09:25 Dose: 25 mg Midazolam HCl (Versed 1 Mg/Ml) Confirm Administered Dose 2 mg .ROUTE .STK-MED ONE Stop: 01/09/18 12:47 Morphine Sulfate (Morphine Director Of Publications 30 Mg In 30 Ml) 30 mg IV SEECOMMENT [facility] Morphine Sulfate (Morphine Director Of Publications 30 Mg In 30 Ml) 30 mg IV ASDIRECTED [facility]; Protocol Last Admin: 01/09/18 21:09 Dose: 30 mg Ondansetron HCl (Zofran) Confirm Administered Dose 4 mg .ROUTE .STK-MED ONE Stop: 01/09/18 12:47 Propofol (Diprivan 20 Ml) Confirm Administered Dose 400 mg .ROUTE .STK-MED ONE Stop: 01/09/18 12:47 Rocuronium [place] (Zemuron) Confirm Administered Dose 100 mg .ROUTE .STK-MED ONE Stop: 01/09/18 13:28 Sugammadex Sodium (Bridion) Confirm Administered Dose 200 mg .ROUTE .STK-MED ONE Stop: 01/09/18 14:53 - Exam Quality Assessment: Supplemental Oxygen General: Alert, Oriented, Cooperative HEENT: Pupils Equal Neck: Supple Lungs: Normal Respiratory Effort, Crackles, Rales Cardiovascular: Irregular Rhythm, Tachycardia GI/Abdominal Exam: Normal Bowel Sounds Extremities: Non-Tender Consult PN Assessment/Plan Procedures: Procedures ASSAY THYROID STIM HORMONE (01/18/14) COMPLETE CBC W/AUTO DIFF WBC (01/18/14) COMPREHEN METABOLIC PANEL (01/18/14) EMERGENCY DEPT VISIT (10/20/15) LIPID PANEL (01/18/14) OFFICE/OUTPATIENT VISIT EST (01/18/14) OT EVALUATION (12/04/15) OT RE-EVALUATION (12/19/15) ROUTINE VENIPUNCTURE (01/18/14) THERAPEUTIC EXERCISES (12/19/15) URINALYSIS AUTO W/SCOPE (01/18/14) X-RAY EXAM OF WRIST (12/28/15) Problem List Initiated/Reviewed/Updated: Yes My Orders Last 24 Hours: My Active Orders 01/15/18 09:00 Furosemide [Lasix] 20 mg PO BIDDIURETIC 01/15/18 21:00 Metoprolol Tartrate [Lopressor] 50 mg PO Q12H Plan: 77-year-old female admitted under Gen. surgery for intestinal perforation for which we have been consulted for assessment of her atrial fibrillation medical management. -Patient's A. fib is currently in the 130's we shall increase her Metropolol to 50mg bid and see if this controls her rate, if not shall consider dig. -Patients WBC has normalized for past 2 days and is stable shall D/c antibotics - Patient has wet sounding lungs shall give Lasix 20mg IV bid to help with SOB aspect. -Shall keep overnight to ensure Afib under better control. -Patient shall require apt with Cardiology outpatient. -Continue with ASA and hold plavix till D/c.
[2018-01-15] MEDS: Aspirin 81 MG Tab.Chew PO SCH (13:01)
[2018-01-15] MEDS ORDERED: Digoxin 500 MCG/2 ML Amp IVPUSH ONE (19:04)
[2018-01-15] MEDS ORDERED: Metoprolol Tartrate 25 MG Tab PO SCH (21:00)
[2018-01-15] MEDS: Enoxaparin 30 MG/0.3 ML Syringe SUBCUT SCH (21:18)
[2018-01-16] MEDS: Metoclopramide 10 MG/2 ML SDV IV SCH ×3 (06:24→17:43)
[2018-01-16] MEDS: Acetaminophen/HYDROcodone 325-5 MG Tab PO PRN ×3 (07:30→21:54)
[2018-01-16] MEDS: Aspirin 81 MG Tab.Chew PO SCH (08:24)
[2018-01-16] MEDS: Furosemide 20 MG Tab PO SCH ×2 (08:25→13:13)
[2018-01-16] MEDS ORDERED: Digoxin 500 MCG/2 ML Amp IVPUSH ONE (08:42)
[2018-01-16] MEDS: Pantoprazole 40 MG Tab.CR PO SCH (08:52)
[2018-01-16] MEDS: Metoprolol Tartrate 50 MG Tab PO SCH ×2 (10:07→17:47)
--- NOTE | 2018-01-16 11:59 | PCM.CONSN ---
- General Info Date of Service: 01/16/18 Subjective Update: Patient currently stable, we have not gotten her CBC back as of yet, her atrial fibrillation is still in the 130s to 140s, we will digitalize her again and give her repeat dose of metoprolol 50 mg. - Patient Data Vitals - Most Recent: Last Vital Signs Temp 36.7 C 01/16/18 08:00 Pulse 97 01/16/18 10:00 Resp 20 01/16/18 08:00 BP 87/45 L 01/16/18 10:00 Pulse Ox 93 L 01/16/18 08:00 Weight - Most Recent: 75.2 kg I&O - Last 24 Hours: Intake & Output 01/15/18 01/16/18 01/16/18 22:59 06:59 14:59 Intake Total 240 400 Output Total 525 Balance -285 400 Lab Results Last 24 Hours: Laboratory Results - last 24 hr 01/16/18 01/16/18 Range/Units 09:30 09:30 WBC 13.08 H (4.0-11.0) K/uL RBC 3.61 L (4.30-5.90) M/uL Hgb 11.2 L (12.0-16.0) g/dL Hct 33.7 L (36.0-46.0) % MCV 93.4 (80.0-98.0) fL MCH 31.0 (27.0-32.0) pg MCHC 33.2 (31.0-37.0) g/dL RDW Std Deviation 50.0 (28.0-62.0) fl RDW Coeff of Nilo 15 (11.0-15.0) % Plt Count 247 (150-400) K/uL MPV 9.70 (7.40-12.00) fL Add Manual Diff YES Neutrophils % (Manual) 66 (48.0-80.0) % Band Neutrophils % 21 % Lymphocytes % (Manual) 7 L (16.0-40.0) % Monocytes % (Manual) 1 (0.0-15.0) % Eosinophils % (Manual) 3 (0.0-7.0) % Basophils % (Manual) 2 H (0.0-1.5) % Nucleated RBC % 0.0 /100WBC Absolute Seg Neuts 8.6 H (1.4-5.7) Band Neutrophils # 2.7 Lymphocytes # (Manual) 0.9 (0.6-2.4) Monocytes # (Manual) 0.1 (0.0-0.8) Eosinophils # (Manual) 0.4 (0.0-0.7) Basophils # (Manual) 0.3 H (0.0-0.1) Nucleated RBCs # 0 K/uL Sodium 138 (136-145) mmol/L Potassium 3.5 (3.5-5.1) mmol/L Chloride 103 (98-107) mmol/L Carbon Dioxide 30.1 (21.0-32.0) mmol/L BUN 32 H (7.0-18.0) mg/dL Creatinine 1.2 H (0.6-1.0) mg/dL Est Cr Clr Drug Dosing 29.63 mL/min Estimated GFR (MDRD) 43.6 ml/min Glucose 139 H (74-106) mg/dL Calcium 8.7 (8.5-10.1) mg/dL Total Bilirubin 0.3 (0.2-1.0) mg/dL AST 10 L (15-37) IU/L ALT 11 L (14-63) IU/L Alkaline Phosphatase 70 (46-116) U/L Total Protein 5.5 L (6.4-8.2) g/dL Albumin 1.7 L (3.4-5.0) g/dL Globulin 3.8 H (2.0-3.5) g/dL Albumin/Globulin Ratio 0.5 L (1.3-2.8) Shailesh Results Last 24 Hours: Microbiology 01/11/18 17:25 Aerobic Blood Culture - Preliminary Blood - Venous - Lab Draw NO GROWTH AFTER 4 DAYS Anaerobic Blood Culture - Preliminary NO GROWTH AFTER 4 DAYS 01/11/18 17:25 Aerobic Blood Culture - Preliminary Blood - Venous NO GROWTH AFTER 4 DAYS Anaerobic Blood Culture - Preliminary NO GROWTH AFTER 4 DAYS Med Orders - Current: Current Medications Acetaminophen (Tylenol) 325 mg RECTAL Q4H PRN PRN Reason: Temperature Hydrocodone Bitart/Acetaminophen ([place] 325-5 Mg) 1 tab PO Q6H PRN PRN Reason: Pain (moderate 4-6) Last Admin: 01/16/18 07:30 Dose: 1 tab Albuterol/Ipratropium (Duoneb 3.0-0.5 Mg/3 Ml) 3 ml NEB Q4HRRT PRN PRN Reason: SOB/wheezing Last Admin: 01/15/18 08:16 Dose: 3 ml Aspirin (Aspirin) 81 mg PO DAILY [facility] Last Admin: 01/16/18 08:24 Dose: 81 mg Enoxaparin Sodium (Lovenox) 30 mg SUBCUT Q24H [facility] Last Admin: 01/15/18 21:18 Dose: 30 mg Furosemide (Lasix) 20 mg PO BIDDIURETIC [facility] Last Admin: 01/16/18 08:25 Dose: 20 mg Metoclopramide HCl (Reglan) 10 mg IV Q6H [facility] Last Admin: 01/16/18 06:24 Dose: 10 mg Metoprolol Tartrate (Lopressor) 50 mg PO BIDMEALS [facility] Last Admin: 01/16/18 10:07 Dose: Not Given Morphine Sulfate (Morphine) 0 mg IVPUSH Q1H PRN PRN Reason: Pain (severe 7-10) Morphine Sulfate (Morphine) 0 mg IVPUSH Q1H PRN PRN Reason: Pain (severe 7-10) Ondansetron HCl (Zofran) 4 mg IVPUSH Q6H PRN PRN Reason: Nausea/Vomiting Pantoprazole Sodium (Protonix) 40 mg PO DAILY [facility] Last Admin: 01/16/18 08:52 Dose: 40 mg Discontinued Medications Albuterol/Ipratropium (Duoneb 3.0-0.5 Mg/3 Ml) Confirm Administered Dose 3 ml .ROUTE .STK-MED ONE Stop: 01/11/18 14:09 Last Admin: 01/11/18 14:33 Dose: Not Given Albuterol/Ipratropium (Duoneb 3.0-0.5 Mg/3 Ml) 3 ml NEB ONETIME ONE Stop: 01/11/18 14:25 Last Admin: 01/11/18 15:46 Dose: Not Given Aspirin (Aspirin) 325 mg PO ONETIME ONE Stop: 01/11/18 16:18 Last Admin: 01/11/18 16:58 Dose: 325 mg Aspirin (Aspirin) Confirm Administered Dose 325 mg .ROUTE .STK-MED ONE Stop: 01/11/18 16:58 Last Admin: 01/11/18 17:03 Dose: Not Given Bupivacaine HCl (Marcaine 0.5%) Confirm Administered Dose 120 ml .ROUTE .STK- MED ONE Stop: 01/09/18 13:42 Cefazolin Sodium (Ancef) Confirm Administered Dose 1 gm .ROUTE .STK-MED ONE Stop: 01/09/18 14:18 Digoxin (Lanoxin) 250 mcg IVPUSH ONETIME ONE Stop: 01/11/18 17:03 Last Admin: 01/11/18 17:24 Dose: 250 mcg Digoxin (Lanoxin) 250 mcg IVPUSH ONETIME ONE Stop: 01/15/18 19:05 Last Admin: 01/15/18 19:11 Dose: 250 mcg Digoxin (Lanoxin) 250 mcg IVPUSH ONETIME ONE Stop: 01/16/18 08:43 Last Admin: 01/16/18 08:51 Dose: 250 mcg Diltiazem HCl (Diltiazem) 10 mg IVPUSH ONETIME ONE Stop: 01/11/18 15:10 Last Admin: 01/11/18 15:56 Dose: 10 mg Fentanyl (Sublimaze) Confirm Administered Dose 100 mcg .ROUTE .STK-MED ONE Stop: 01/09/18 12:47 Fentanyl (Sublimaze) Confirm Administered Dose 100 mcg .ROUTE .STK-MED ONE Stop: 01/09/18 13:29 Furosemide (Lasix) 20 mg IVPUSH NOW ONE Stop: 01/11/18 21:51 Last Admin: 01/11/18 22:14 Dose: 20 mg Furosemide (Lasix) 40 mg IVPUSH NOW ONE Stop: 01/12/18 02:21 Last Admin: 01/12/18 02:41 Dose: 40 mg Furosemide (Lasix) 20 mg IVPUSH Q8H [facility] Stop: 01/13/18 09:01 Last Admin: 01/13/18 08:06 Dose: 20 mg Furosemide (Lasix) 20 mg IVPUSH NOW ONE Stop: 01/13/18 19:49 Last Admin: 01/13/18 19:55 Dose: Not Given Furosemide (Lasix) 20 mg IVPUSH NOW ONE Stop: 01/14/18 08:56 Last Admin: 01/14/18 09:14 Dose: 20 mg Hydromorphone HCl (Dilaudid) Confirm Administered Dose 2 mg .ROUTE .STK-MED ONE Stop: 01/09/18 13:32 Lactated Ringer's (Ringers, Lactated) 1,000 mls @ 125 mls/hr IV ASDIRECTED [facility] Last Infusion: 01/10/18 01:55 Dose: Infused Hetastarch/Sodium Chloride (Hetastarch 6% In Normal Saline) Confirm Administered Dose 500 mls @ as directed .ROUTE .STK-MED ONE Stop: 01/09/18 14:24 Acetaminophen (Ofirmev) Confirm Administered Dose 100 mls @ as directed IV .STK- MED ONE Stop: 01/09/18 14:53 Cefoxitin Sodium 1 gm/ Premix 50 mls @ 100 mls/hr IV Q6H [facility] Stop: 01/10/18 09:59 Last Admin: 01/10/18 09:17 Dose: 100 mls/hr Lactated Ringer's (Ringers, Lactated) 1,000 mls @ 125 mls/hr IV ASDIRECTED [facility] Last Infusion: 01/11/18 18:00 Dose: Infused Lactated Ringer's (Ringers, Lactated) 1,000 mls @ 625 mls/hr IV ASDIRECTED [facility] Lactated Ringer's (Ringers, Lactated) 500 mls @ 500 mls/hr IV .BOLUS ONE Stop: 01/10/18 02:45 Last Admin: 01/10/18 02:01 Dose: 500 mls/hr Lactated Ringer's (Ringers, Lactated) 500 mls @ 500 mls/hr IV BOLUS [facility] Stop: 01/10/18 04:45 Lactated Ringer's (Ringers, Lactated) 500 mls @ 500 mls/hr IV .BOLUS [facility] Stop: 01/10/18 05:01 Last Admin: 01/10/18 03:45 Dose: 500 mls/hr Lactated Ringer's (Ringers, Lactated) 1,000 mls @ 75 mls/hr IV ASDIRECTED [facility] Lactated Ringer's (Ringers, Lactated) 1,000 mls @ 50 mls/hr IV ASDIRECTED [facility] Diltiazem HCl 125 mg/ Sodium (Chloride) 125 mls @ 5 mls/hr IV ASDIRECTED [facility]; Protocol Last Titration: 01/12/18 15:45 Dose: 0 mg/hr, 0 mls/hr Magnesium Sulfate 2 gm/ Premix 50 mls @ 50 mls/hr IV ONETIME ONE Stop: 01/11/18 17:18 Last Admin: 01/11/18 16:39 Dose: 50 mls/hr Cefepime HCl 1 gm/ Premix 50 mls @ 100 mls/hr IV Q8H [facility] Last Admin: 01/12/18 18:09 Dose: 100 mls/hr Vancomycin HCl 1 gm/ Sodium (Chloride) 250 mls @ 250 mls/hr IV Q24H [facility] Last Admin: 01/12/18 19:34 Dose: 250 mls/hr Cefepime HCl 1 gm/ Premix 50 mls @ 100 mls/hr IV Q8H [facility] Last Admin: 01/13/18 01:25 Dose: 100 mls/hr Vancomycin HCl 1 gm/ Sodium (Chloride) 250 mls @ 250 mls/hr IV Q24H [facility] Last Admin: 01/14/18 20:56 Dose: Not Given Cefepime HCl 2 gm/ Premix 50 mls @ 100 mls/hr IV Q24H [facility] Last Admin: 01/14/18 13:06 Dose: 100 mls/hr Vancomycin HCl 1.5 gm/ Sodium (Chloride) 500 mls @ 333.333 mls/hr IV Q24H [facility] Last Admin: 01/14/18 21:17 Dose: 333.333 mls/hr Lorazepam (Ativan) 0.5 mg IVPUSH ONETIME ONE Stop: 01/09/18 20:19 Last Admin: 01/09/18 20:36 Dose: Not Given Metoclopramide HCl (Reglan) 10 mg IV Q6H [facility] Last Admin: 01/12/18 18:05 Dose: 10 mg Metoprolol Tartrate (Lopressor) 25 mg PO Q12H [facility] Last Admin: 01/14/18 00:37 Dose: 25 mg Metoprolol Tartrate (Lopressor) 25 mg PO Q12H [facility] Last Admin: 01/14/18 12:01 Dose: 25 mg Metoprolol Tartrate (Lopressor) 25 mg PO Q12H [facility] Last Admin: 01/15/18 08:00 Dose: 25 mg Metoprolol Tartrate (Lopressor) 25 mg PO ONETIME ONE Stop: 01/15/18 09:19 Last Admin: 01/15/18 09:25 Dose: 25 mg Metoprolol Tartrate (Lopressor) 50 mg PO Q12H [facility] Last Admin: 01/15/18 20:05 Dose: 50 mg Midazolam HCl (Versed 1 Mg/Ml) Confirm Administered Dose 2 mg .ROUTE .STK-MED ONE Stop: 01/09/18 12:47 Morphine Sulfate (Morphine Locomotive Oiler 30 Mg In 30 Ml) 30 mg IV SEECOMMENT [facility] Morphine Sulfate (Morphine Locomotive Oiler 30 Mg In 30 Ml) 30 mg IV ASDIRECTED [facility]; Protocol Last Admin: 01/09/18 21:09 Dose: 30 mg Ondansetron HCl (Zofran) Confirm Administered Dose 4 mg .ROUTE .STK-MED ONE Stop: 01/09/18 12:47 Pantoprazole Sodium (Protonix Iv) 40 mg IVPUSH DAILY [facility] Last Admin: 01/15/18 08:02 Dose: 40 mg Propofol (Diprivan 20 Ml) Confirm Administered Dose 400 mg .ROUTE .STK-MED ONE Stop: 01/09/18 12:47 Rocuronium [place] (Zemuron) Confirm Administered Dose 100 mg .ROUTE .STK-MED ONE Stop: 01/09/18 13:28 Sugammadex Sodium ([place]) Confirm Administered Dose 200 mg .ROUTE .STK-MED ONE Stop: 01/09/18 14:53 Vancomycin HCl (Pharmacy To Dose - Vancomycin) 1 dose .XX ASDIRECTED ROBERTO CARLOS - Exam Quality Assessment: Supplemental Oxygen General: Alert, Oriented, Cooperative, Mild Distress Lungs: Crackles, Rales Cardiovascular: Irregular Rhythm, Tachycardia Consult PN Assessment/Plan Procedures: Procedures ASSAY THYROID STIM HORMONE (01/18/14) COMPLETE CBC W/AUTO DIFF WBC (01/18/14) COMPREHEN METABOLIC PANEL (01/18/14) EMERGENCY DEPT VISIT (10/20/15) LIPID PANEL (01/18/14) OFFICE/OUTPATIENT VISIT EST (01/18/14) OT EVALUATION (12/04/15) OT RE-EVALUATION (12/19/15) ROUTINE VENIPUNCTURE (01/18/14) THERAPEUTIC EXERCISES (12/19/15) URINALYSIS AUTO W/SCOPE (01/18/14) X-RAY EXAM OF WRIST (12/28/15) Problem List Initiated/Reviewed/Updated: Yes My Orders Last 24 Hours: My Active Orders 01/15/18 13:00 Aspirin 81 mg PO DAILY 01/16/18 08:00 Metoprolol Tartrate [Lopressor] 50 mg PO BIDMEALS 01/16/18 09:00 Pantoprazole [ProTONIX] 40 mg PO DAILY Plan: 77-year-old female admitted under Gen. surgery for intestinal perforation for which we have been consulted for assessment of her atrial fibrillation medical management. -Patient's A. fib is currently in the 130's to 140s Metroprolol is at 50 mg twice a day, patient shall be digitized with a dose of 0.25 g and shall reassess the patient in the evening to see if her rate is controlled -Patients awaiting patient's WBC/CBC results - Patient still having mild crackles in the lungs continue with the Lasix 20 mg by mouth twice a day -Shall get in touch with Gen. surgery for discharge planning of this patient. -Patient shall require apt with Cardiology outpatient. -Continue with ASA and hold plavix till D/c.
[2018-01-16] MEDS: Albuterol/Ipratropium 3.0-0.5 MG/3 ML Neb Soln NEB PRN ×2 (12:09→17:45)
--- NOTE | 2018-01-16 14:18 | PCM.SURGPN ---
- General Info Date of Service: 01/16/18 Date of Surgery/Procedure: 01/09/18 POD#: 7 Post-Op Diagnosis: Colon perforation. Wound abscess Functional Status: Reports: Pain Controlled, Tolerating Diet, Ambulating - Review of Systems General: Reports: Weakness, Fatigue. Denies: Fever, Malaise, Chills HEENT: Reports: No Symptoms Pulmonary: Denies: Shortness of Breath, Pleuritic Chest Pain, Cough Cardiovascular: Reports: Palpitations. Denies: Chest Pain, Dyspnea on Exertion , Orthopnea, PND, Edema Gastrointestinal: Reports: Abdominal Pain (Incisional), Flatus. Denies: Constipation, Diarrhea, Nausea, Vomiting Genitourinary: Denies: Dysuria, Frequency, Burning Musculoskeletal: Reports: No Symptoms Skin: Denies: Cyanosis, Jaundice Neurological: Denies: Confusion, Dizziness Psychiatric: Reports: No Symptoms - Patient Data Vitals - Most Recent: Last Vital Signs Temp 98.1 F 01/16/18 12:00 Pulse 87 01/16/18 12:00 Resp 20 01/16/18 12:00 BP 92/44 L 01/16/18 12:00 Pulse Ox 94 L 01/16/18 12:00 Weight - Most Recent: 165 lb 12.602 oz I&O - Last 24 Hours: Intake & Output 01/16/18 01/16/18 01/16/18 03:59 11:59 19:59 Intake Total 400 Output Total 275 Balance -275 400 Lab Results Last 24 Hrs: Laboratory Results - last 24 hr 01/16/18 01/16/18 Range/Units 09:30 09:30 WBC 13.08 H (4.0-11.0) K/uL RBC 3.61 L (4.30-5.90) M/uL Hgb 11.2 L (12.0-16.0) g/dL Hct 33.7 L (36.0-46.0) % MCV 93.4 (80.0-98.0) fL MCH 31.0 (27.0-32.0) pg MCHC 33.2 (31.0-37.0) g/dL RDW Std Deviation 50.0 (28.0-62.0) fl RDW Coeff of Nilo 15 (11.0-15.0) % Plt Count 247 (150-400) K/uL MPV 9.70 (7.40-12.00) fL Add Manual Diff YES Neutrophils % (Manual) 66 (48.0-80.0) % Band Neutrophils % 21 % Lymphocytes % (Manual) 7 L (16.0-40.0) % Monocytes % (Manual) 1 (0.0-15.0) % Eosinophils % (Manual) 3 (0.0-7.0) % Basophils % (Manual) 2 H (0.0-1.5) % Nucleated RBC % 0.0 /100WBC Absolute Seg Neuts 8.6 H (1.4-5.7) Band Neutrophils # 2.7 Lymphocytes # (Manual) 0.9 (0.6-2.4) Monocytes # (Manual) 0.1 (0.0-0.8) Eosinophils # (Manual) 0.4 (0.0-0.7) Basophils # (Manual) 0.3 H (0.0-0.1) Nucleated RBCs # 0 K/uL Sodium 138 (136-145) mmol/L Potassium 3.5 (3.5-5.1) mmol/L Chloride 103 (98-107) mmol/L Carbon Dioxide 30.1 (21.0-32.0) mmol/L BUN 32 H (7.0-18.0) mg/dL Creatinine 1.2 H (0.6-1.0) mg/dL Est Cr Clr Drug Dosing 29.63 mL/min Estimated GFR (MDRD) 43.6 ml/min Glucose 139 H (74-106) mg/dL Calcium 8.7 (8.5-10.1) mg/dL Total Bilirubin 0.3 (0.2-1.0) mg/dL AST 10 L (15-37) IU/L ALT 11 L (14-63) IU/L Alkaline Phosphatase 70 (46-116) U/L Total Protein 5.5 L (6.4-8.2) g/dL Albumin 1.7 L (3.4-5.0) g/dL Globulin 3.8 H (2.0-3.5) g/dL Albumin/Globulin Ratio 0.5 L (1.3-2.8) Shailesh Results Last 24 Hrs: Microbiology 01/11/18 17:25 Aerobic Blood Culture - Preliminary Blood - Venous - Lab Draw NO GROWTH AFTER 4 DAYS Anaerobic Blood Culture - Preliminary NO GROWTH AFTER 4 DAYS 01/11/18 17:25 Aerobic Blood Culture - Preliminary Blood - Venous NO GROWTH AFTER 4 DAYS Anaerobic Blood Culture - Preliminary NO GROWTH AFTER 4 DAYS Med Orders - Current: Current Medications Acetaminophen (Tylenol) 325 mg RECTAL Q4H PRN PRN Reason: Temperature Hydrocodone Bitart/Acetaminophen ([place] 325-5 Mg) 1 tab PO Q6H PRN PRN Reason: Pain (moderate 4-6) Last Admin: 01/16/18 13:14 Dose: 1 tab Albuterol/Ipratropium (Duoneb 3.0-0.5 Mg/3 Ml) 3 ml NEB Q4HRRT PRN PRN Reason: SOB/wheezing Last Admin: 01/16/18 12:09 Dose: 3 ml Aspirin (Aspirin) 81 mg PO DAILY [facility] Last Admin: 01/16/18 08:24 Dose: 81 mg Enoxaparin Sodium (Lovenox) 30 mg SUBCUT Q24H [facility] Last Admin: 01/15/18 21:18 Dose: 30 mg Furosemide (Lasix) 20 mg PO BIDDIURETIC [facility] Last Admin: 01/16/18 13:13 Dose: 20 mg Metoclopramide HCl (Reglan) 10 mg IV Q6H [facility] Last Admin: 01/16/18 12:09 Dose: 10 mg Metoprolol Tartrate (Lopressor) 50 mg PO BIDMEALS [facility] Last Admin: 01/16/18 10:07 Dose: Not Given Morphine Sulfate (Morphine) 0 mg IVPUSH Q1H PRN PRN Reason: Pain (severe 7-10) Morphine Sulfate (Morphine) 0 mg IVPUSH Q1H PRN PRN Reason: Pain (severe 7-10) Ondansetron HCl (Zofran) 4 mg IVPUSH Q6H PRN PRN Reason: Nausea/Vomiting Pantoprazole Sodium (Protonix) 40 mg PO DAILY [facility] Last Admin: 01/16/18 08:52 Dose: 40 mg Discontinued Medications Albuterol/Ipratropium (Duoneb 3.0-0.5 Mg/3 Ml) Confirm Administered Dose 3 ml .ROUTE .STK-MED ONE Stop: 01/11/18 14:09 Last Admin: 01/11/18 14:33 Dose: Not Given Albuterol/Ipratropium (Duoneb 3.0-0.5 Mg/3 Ml) 3 ml NEB ONETIME ONE Stop: 01/11/18 14:25 Last Admin: 01/11/18 15:46 Dose: Not Given Aspirin (Aspirin) 325 mg PO ONETIME ONE Stop: 01/11/18 16:18 Last Admin: 01/11/18 16:58 Dose: 325 mg Aspirin (Aspirin) Confirm Administered Dose 325 mg .ROUTE .STK-MED ONE Stop: 01/11/18 16:58 Last Admin: 01/11/18 17:03 Dose: Not Given Bupivacaine HCl (Marcaine 0.5%) Confirm Administered Dose 120 ml .ROUTE .STK- MED ONE Stop: 01/09/18 13:42 Cefazolin Sodium (Ancef) Confirm Administered Dose 1 gm .ROUTE .STK-MED ONE Stop: 01/09/18 14:18 Digoxin (Lanoxin) 250 mcg IVPUSH ONETIME ONE Stop: 01/11/18 17:03 Last Admin: 01/11/18 17:24 Dose: 250 mcg Digoxin (Lanoxin) 250 mcg IVPUSH ONETIME ONE Stop: 01/15/18 19:05 Last Admin: 01/15/18 19:11 Dose: 250 mcg Digoxin (Lanoxin) 250 mcg IVPUSH ONETIME ONE Stop: 01/16/18 08:43 Last Admin: 01/16/18 08:51 Dose: 250 mcg Diltiazem HCl (Diltiazem) 10 mg IVPUSH ONETIME ONE Stop: 01/11/18 15:10 Last Admin: 01/11/18 15:56 Dose: 10 mg Fentanyl (Sublimaze) Confirm Administered Dose 100 mcg .ROUTE .STK-MED ONE Stop: 01/09/18 12:47 Fentanyl (Sublimaze) Confirm Administered Dose 100 mcg .ROUTE .STK-MED ONE Stop: 01/09/18 13:29 Furosemide (Lasix) 20 mg IVPUSH NOW ONE Stop: 01/11/18 21:51 Last Admin: 01/11/18 22:14 Dose: 20 mg Furosemide (Lasix) 40 mg IVPUSH NOW ONE Stop: 01/12/18 02:21 Last Admin: 01/12/18 02:41 Dose: 40 mg Furosemide (Lasix) 20 mg IVPUSH Q8H [facility] Stop: 01/13/18 09:01 Last Admin: 01/13/18 08:06 Dose: 20 mg Furosemide (Lasix) 20 mg IVPUSH NOW ONE Stop: 01/13/18 19:49 Last Admin: 01/13/18 19:55 Dose: Not Given Furosemide (Lasix) 20 mg IVPUSH NOW ONE Stop: 01/14/18 08:56 Last Admin: 01/14/18 09:14 Dose: 20 mg Hydromorphone HCl (Dilaudid) Confirm Administered Dose 2 mg .ROUTE .STK-MED ONE Stop: 01/09/18 13:32 Lactated Ringer's (Ringers, Lactated) 1,000 mls @ 125 mls/hr IV ASDIRECTED [facility] Last Infusion: 01/10/18 01:55 Dose: Infused Hetastarch/Sodium Chloride (Hetastarch 6% In Normal Saline) Confirm Administered Dose 500 mls @ as directed .ROUTE .STK-MED ONE Stop: 01/09/18 14:24 Acetaminophen (Ofirmev) Confirm Administered Dose 100 mls @ as directed IV .STK- MED ONE Stop: 01/09/18 14:53 Cefoxitin Sodium 1 gm/ Premix 50 mls @ 100 mls/hr IV Q6H [facility] Stop: 01/10/18 09:59 Last Admin: 01/10/18 09:17 Dose: 100 mls/hr Lactated Ringer's (Ringers, Lactated) 1,000 mls @ 125 mls/hr IV ASDIRECTED [facility] Last Infusion: 01/11/18 18:00 Dose: Infused Lactated Ringer's (Ringers, Lactated) 1,000 mls @ 625 mls/hr IV ASDIRECTED [facility] Lactated Ringer's (Ringers, Lactated) 500 mls @ 500 mls/hr IV .BOLUS ONE Stop: 01/10/18 02:45 Last Admin: 01/10/18 02:01 Dose: 500 mls/hr Lactated Ringer's (Ringers, Lactated) 500 mls @ 500 mls/hr IV BOLUS [facility] Stop: 01/10/18 04:45 Lactated Ringer's (Ringers, Lactated) 500 mls @ 500 mls/hr IV .BOLUS [facility] Stop: 01/10/18 05:01 Last Admin: 01/10/18 03:45 Dose: 500 mls/hr Lactated Ringer's (Ringers, Lactated) 1,000 mls @ 75 mls/hr IV ASDIRECTED [facility] Lactated Ringer's (Ringers, Lactated) 1,000 mls @ 50 mls/hr IV ASDIRECTED [facility] Diltiazem HCl 125 mg/ Sodium (Chloride) 125 mls @ 5 mls/hr IV ASDIRECTED [facility]; Protocol Last Titration: 01/12/18 15:45 Dose: 0 mg/hr, 0 mls/hr Magnesium Sulfate 2 gm/ Premix 50 mls @ 50 mls/hr IV ONETIME ONE Stop: 01/11/18 17:18 Last Admin: 01/11/18 16:39 Dose: 50 mls/hr Cefepime HCl 1 gm/ Premix 50 mls @ 100 mls/hr IV Q8H [facility] Last Admin: 01/12/18 18:09 Dose: 100 mls/hr Vancomycin HCl 1 gm/ Sodium (Chloride) 250 mls @ 250 mls/hr IV Q24H [facility] Last Admin: 01/12/18 19:34 Dose: 250 mls/hr Cefepime HCl 1 gm/ Premix 50 mls @ 100 mls/hr IV Q8H [facility] Last Admin: 01/13/18 01:25 Dose: 100 mls/hr Vancomycin HCl 1 gm/ Sodium (Chloride) 250 mls @ 250 mls/hr IV Q24H [facility] Last Admin: 01/14/18 20:56 Dose: Not Given Cefepime HCl 2 gm/ Premix 50 mls @ 100 mls/hr IV Q24H [facility] Last Admin: 01/14/18 13:06 Dose: 100 mls/hr Vancomycin HCl 1.5 gm/ Sodium (Chloride) 500 mls @ 333.333 mls/hr IV Q24H [facility] Last Admin: 01/14/18 21:17 Dose: 333.333 mls/hr Lorazepam (Ativan) 0.5 mg IVPUSH ONETIME ONE Stop: 01/09/18 20:19 Last Admin: 01/09/18 20:36 Dose: Not Given Metoclopramide HCl (Reglan) 10 mg IV Q6H [facility] Last Admin: 01/12/18 18:05 Dose: 10 mg Metoprolol Tartrate (Lopressor) 25 mg PO Q12H [facility] Last Admin: 01/14/18 00:37 Dose: 25 mg Metoprolol Tartrate (Lopressor) 25 mg PO Q12H [facility] Last Admin: 01/14/18 12:01 Dose: 25 mg Metoprolol Tartrate (Lopressor) 25 mg PO Q12H [facility] Last Admin: 01/15/18 08:00 Dose: 25 mg Metoprolol Tartrate (Lopressor) 25 mg PO ONETIME ONE Stop: 01/15/18 09:19 Last Admin: 01/15/18 09:25 Dose: 25 mg Metoprolol Tartrate (Lopressor) 50 mg PO Q12H [facility] Last Admin: 01/15/18 20:05 Dose: 50 mg Midazolam HCl (Versed 1 Mg/Ml) Confirm Administered Dose 2 mg .ROUTE .STK-MED ONE Stop: 01/09/18 12:47 Morphine Sulfate (Morphine [employer] 30 Mg In 30 Ml) 30 mg IV SEECOMMENT [facility] Morphine Sulfate (Morphine [employer] 30 Mg In 30 Ml) 30 mg IV ASDIRECTED [facility]; Protocol Last Admin: 01/09/18 21:09 Dose: 30 mg Ondansetron HCl (Zofran) Confirm Administered Dose 4 mg .ROUTE .STK-MED ONE Stop: 01/09/18 12:47 Pantoprazole Sodium (Protonix Iv) 40 mg IVPUSH DAILY [facility] Last Admin: 01/15/18 08:02 Dose: 40 mg Propofol (Diprivan 20 Ml) Confirm Administered Dose 400 mg .ROUTE .STK-MED ONE Stop: 01/09/18 12:47 Rocuronium [place] (Zemuron) Confirm Administered Dose 100 mg .ROUTE .K-MED ONE Stop: 01/09/18 13:28 Sugammadex Sodium ([place]) Confirm Administered Dose 200 mg .ROUTE .K-MED ONE Stop: 01/09/18 14:53 Vancomycin HCl (Pharmacy To Dose - Vancomycin) 1 dose .XX ASDIRECTED [facility] - Exam Wound/Incisions: Drainage, Erythema, Other (Wound has become more erythematous in the last 12 hours. Spontaneous drainage today. Incision opened with approximately 75 ml of purulent fluid. Cultures obtained. Wound packed open with sterile saline moistened gauze.) Quality Assessment: Supplemental Oxygen, DVT Prophylaxis. No: Central Line/PICC , Urine Catheter, Skin Breakdown General: Alert, Oriented, Cooperative, No Acute Distress HEENT: Pupils Equal, Pupils Reactive. No: Scleral Icterus Neck: Supple, Trachea Midline Lungs: Clear to Auscultation Cardiovascular: Irregular Rhythm. No: Murmurs GI/Abdominal Exam: Normal Bowel Sounds, Soft, No Distention, Other (Wound abscess lower portion of midline incision. Packed open today.). No: Guarding, Rigid, Rebound Extremities: Normal Inspection, Normal Range of Motion Skin: Warm, Dry, Intact Neurological: No New Focal Deficit Psy/Mental Status: Alert, Normal Affect, Normal Mood - Problem List & Annotations (1) Large bowel perforation SNOMED Code(s): 100812944 Code(s): K63.1 - PERFORATION OF INTESTINE (NONTRAUMATIC) Status: Acute Priority: High Current Visit: Yes (2) Atrial fibrillation SNOMED Code(s): 59530537 Code(s): I48.91 - UNSPECIFIED ATRIAL FIBRILLATION Status: Acute Priority : Medium Current Visit: Yes Qualifiers: Atrial fibrillation type: paroxysmal Qualified Code(s): I48.0 - Paroxysmal atrial fibrillation (3) Abscess of postoperative wound of abdominal wall SNOMED Code(s): 522735570 Code(s): T81.4XXA - INFECTION FOLLOWING A PROCEDURE, INITIAL ENCOUNTER Status: Acute Priority: High Current Visit: Yes Qualifiers: Encounter type: initial encounter Qualified Code(s): T81.4XXA - Infection following a procedure, initial encounter - Problem List Review Problem List Initiated/Reviewed/Updated: Yes - My Orders Last 24 Hours: Active Orders 24 hr Category Date Time Status Dressing Change [Wound Care] [RC] DAILY Care 01/16/18 13:29 Active CULTURE WOUND [RM] Routine Lab 01/16/18 13:25 Received VANCOMYCIN TROUGH [CHEM] Timed Lab 01/17/18 20:30 Ordered Metoprolol Tartrate [Lopressor] Med 01/16/18 08:00 Active 50 mg PO BIDMEALS Pantoprazole [ProTONIX] Med 01/16/18 09:00 Active 40 mg PO DAILY Medication Orders Acetaminophen (Tylenol) 325 mg RECTAL Q4H PRN PRN Reason: Temperature Hydrocodone Bitart/Acetaminophen ([place] 325-5 Mg) 1 tab PO Q6H PRN PRN Reason: Pain (moderate 4-6) Last Admin: 01/16/18 13:14 Dose: 1 tab Admin: 01/16/18 07:30 Dose: 1 tab Admin: 01/15/18 23:40 Dose: 1 tab Admin: 01/15/18 16:33 Dose: 1 tab Admin: 01/15/18 08:03 Dose: 1 tab Admin: 01/14/18 17:00 Dose: 1 tab Admin: 01/14/18 09:52 Dose: 1 tab Albuterol/Ipratropium (Duoneb 3.0-0.5 Mg/3 Ml) 3 ml NEB Q4HRRT PRN PRN Reason: SOB/wheezing Last Admin: 01/16/18 12:09 Dose: 3 ml Admin: 01/15/18 08:16 Dose: 3 ml Admin: 01/13/18 13:59 Dose: 3 ml Admin: 01/12/18 17:55 Dose: 3 ml Aspirin (Aspirin) 81 mg PO DAILY [facility] Last Admin: 01/16/18 08:24 Dose: 81 mg Admin: 01/15/18 13:01 Dose: 81 mg Enoxaparin Sodium (Lovenox) 30 mg SUBCUT Q24H [facility] Last Admin: 01/15/18 21:18 Dose: 30 mg Admin: 01/14/18 21:16 Dose: 30 mg Admin: 01/13/18 21:15 Dose: 30 mg Admin: 01/12/18 22:58 Dose: 30 mg Admin: 01/11/18 22:58 Dose: 30 mg Furosemide (Lasix) 20 mg PO BIDDIURETIC [facility] Last Admin: 01/16/18 13:13 Dose: 20 mg Admin: 01/16/18 08:25 Dose: 20 mg Admin: 01/15/18 13:01 Dose: 20 mg Admin: 01/15/18 08:42 Dose: 20 mg Metoclopramide HCl (Reglan) 10 mg IV Q6H [facility] Last Admin: 01/16/18 12:09 Dose: 10 mg Admin: 01/16/18 06:24 Dose: 10 mg Admin: 01/15/18 23:33 Dose: 10 mg Admin: 01/15/18 17:23 Dose: 10 mg Admin: 01/15/18 11:52 Dose: 10 mg Admin: 01/15/18 06:46 Dose: 10 mg Admin: 01/14/18 23:56 Dose: 10 mg Admin: 01/14/18 17:00 Dose: 10 mg Admin: 01/14/18 12:13 Dose: 10 mg Admin: 01/14/18 06:21 Dose: 10 mg Admin: 01/14/18 00:05 Dose: 10 mg Admin: 01/13/18 18:20 Dose: 10 mg Admin: 01/13/18 12:29 Dose: 10 mg Admin: 01/13/18 06:34 Dose: 10 mg Admin: 01/13/18 01:15 Dose: 10 mg Metoprolol Tartrate (Lopressor) 50 mg PO BIDMEALS [facility] Last Admin: 01/16/18 10:07 Dose: Not Given Morphine Sulfate (Morphine) 0 mg IVPUSH Q1H PRN PRN Reason: Pain (severe 7-10) Morphine Sulfate (Morphine) 0 mg IVPUSH Q1H PRN PRN Reason: Pain (severe 7-10) Ondansetron HCl (Zofran) 4 mg IVPUSH Q6H PRN PRN Reason: Nausea/Vomiting Pantoprazole Sodium (Protonix) 40 mg PO DAILY [facility] Last Admin: 01/16/18 08:52 Dose: 40 mg - Assessment Assessment (Free Text/Narrative):: Patient has developed an abscess in the midline incision. The clips were removed, the abscess drained and culture and sensitivity obtained. The incision was packed open. - Plan Plan (Free Text/Narrative):: BID packing changes with NS moistened Henry. Continue po diet. Recheck labs in am. Continue in hospital today.
[2018-01-16] MEDS ORDERED: Metoprolol Tartrate 5 MG in Sodium Chloride 0.9% 50 ML IV STA (18:42)
[2018-01-16] MEDS ORDERED: Metoprolol Tartrate 5 MG/5 ML SDV IVPUSH ONE (18:46)
[2018-01-16] MEDS: Enoxaparin 30 MG/0.3 ML Syringe SUBCUT SCH (21:47)
[2018-01-17] MEDS: Metoclopramide 10 MG/2 ML SDV IV SCH ×4 (00:07→17:32)
--- NOTE | 2018-01-17 09:12 | PCM.SURGPN ---
- General Info Date of Service: 01/17/18 Date of Surgery/Procedure: 01/09/18 POD#: 8 Functional Status: Reports: Pain Controlled, Tolerating Diet, Ambulating, Urinating. Denies: New Symptoms - Review of Systems General: Reports: Weakness, Fatigue, Appetite. Denies: Fever, Malaise, Chills, Night Sweats HEENT: Reports: No Symptoms Pulmonary: Denies: Shortness of Breath, Pleuritic Chest Pain Cardiovascular: Denies: Chest Pain, Palpitations Gastrointestinal: Reports: Abdominal Pain, Flatus. Denies: Nausea, Vomiting Genitourinary: Reports: No Symptoms Musculoskeletal: Denies: Neck Pain, Shoulder Pain, Arm Pain Skin: Denies: Cyanosis, Jaundice Neurological: Denies: Confusion, Dizziness Psychiatric: Denies: Confusion, Depression - Patient Data Vitals - Most Recent: Last Vital Signs Temp 97.9 F 01/17/18 04:00 Pulse 78 01/17/18 04:00 Resp 17 01/17/18 04:00 BP 91/39 L 01/17/18 04:00 Pulse Ox 93 L 01/17/18 04:00 Weight - Most Recent: 168 lb 3.403 oz I&O - Last 24 Hours: Intake & Output 01/16/18 01/17/18 01/17/18 19:59 03:59 11:59 Intake Total 600 100 150 Output Total 450 200 Balance 150 -100 150 Lab Results Last 24 Hrs: Laboratory Results - last 24 hr 01/16/18 01/16/18 01/16/18 Range/Units 09:30 09:30 18:30 WBC 13.08 H (4.0-11.0) K/uL RBC 3.61 L (4.30-5.90) M/uL Hgb 11.2 L (12.0-16.0) g/dL Hct 33.7 L (36.0-46.0) % MCV 93.4 (80.0-98.0) fL MCH 31.0 (27.0-32.0) pg MCHC 33.2 (31.0-37.0) g/dL RDW Std Deviation 50.0 (28.0-62.0) fl RDW Coeff of Nilo 15 (11.0-15.0) % Plt Count 247 (150-400) K/uL MPV 9.70 (7.40-12.00) fL Add Manual Diff YES Neutrophils % (Manual) 66 (48.0-80.0) % Band Neutrophils % 21 % Lymphocytes % (Manual) 7 L (16.0-40.0) % Monocytes % (Manual) 1 (0.0-15.0) % Eosinophils % (Manual) 3 (0.0-7.0) % Basophils % (Manual) 2 H (0.0-1.5) % Nucleated RBC % 0.0 /100WBC Absolute Seg Neuts 8.6 H (1.4-5.7) Band Neutrophils # 2.7 Lymphocytes # (Manual) 0.9 (0.6-2.4) Monocytes # (Manual) 0.1 (0.0-0.8) Eosinophils # (Manual) 0.4 (0.0-0.7) Basophils # (Manual) 0.3 H (0.0-0.1) Nucleated RBCs # 0 K/uL VBG pH 7.45 H (7.31-7.41) VBG pCO2 48 H (35-45) mmHG VBG pO2 17 L (30-40) mmHG VBG HCO3 33 H (22-30) mEq/L VBG Total CO2 31 L (41-51) mmol/L VBG Base Excess 8.0 H (-3.0-3.0) Lactate (0.20-2.00) mmol/L Sodium 138 (136-145) mmol/L Potassium 3.5 (3.5-5.1) mmol/L Chloride 103 (98-107) mmol/L Carbon Dioxide 30.1 (21.0-32.0) mmol/L BUN 32 H (7.0-18.0) mg/dL Creatinine 1.2 H (0.6-1.0) mg/dL Est Cr Clr Drug Dosing 29.63 mL/min Estimated GFR (MDRD) 43.6 ml/min Glucose 139 H (74-106) mg/dL Calcium 8.7 (8.5-10.1) mg/dL Total Bilirubin 0.3 (0.2-1.0) mg/dL AST 10 L (15-37) IU/L ALT 11 L (14-63) IU/L Alkaline Phosphatase 70 (46-116) U/L Total Protein 5.5 L (6.4-8.2) g/dL Albumin 1.7 L (3.4-5.0) g/dL Globulin 3.8 H (2.0-3.5) g/dL Albumin/Globulin Ratio 0.5 L (1.3-2.8) 01/16/18 01/16/18 01/17/18 Range/Units 18:30 18:30 05:53 WBC 14.34 H 13.97 H (4.0-11.0) K/uL RBC 3.62 L 3.24 L (4.30-5.90) M/uL Hgb 11.4 L 10.0 L (12.0-16.0) g/dL Hct 33.8 L 30.0 L (36.0-46.0) % MCV 93.4 92.6 (80.0-98.0) fL MCH 31.5 30.9 (27.0-32.0) pg MCHC 33.7 33.3 (31.0-37.0) g/dL RDW Std Deviation 50.6 50.0 (28.0-62.0) fl RDW Coeff of Nilo 15 15 (11.0-15.0) % Plt Count 246 251 (150-400) K/uL MPV 9.50 9.50 (7.40-12.00) fL Add Manual Diff Neutrophils % (Manual) 75 73 (48.0-80.0) % Band Neutrophils % 19 14 % Lymphocytes % (Manual) 5 L 10 L (16.0-40.0) % Monocytes % (Manual) 1 2 (0.0-15.0) % Eosinophils % (Manual) 1 (0.0-7.0) % Basophils % (Manual) (0.0-1.5) % Nucleated RBC % 0.0 0.0 /100WBC Absolute Seg Neuts 10.8 H 10.2 H (1.4-5.7) Band Neutrophils # 2.7 2.0 Lymphocytes # (Manual) 0.7 1.4 (0.6-2.4) Monocytes # (Manual) 0.1 0.3 (0.0-0.8) Eosinophils # (Manual) 0.1 0.1 (0.0-0.7) Basophils # (Manual) (0.0-0.1) Nucleated RBCs # K/uL VBG pH (7.31-7.41) VBG pCO2 (35-45) mmHG VBG pO2 (30-40) mmHG VBG HCO3 (22-30) mEq/L VBG Total CO2 (41-51) mmol/L VBG Base Excess (-3.0-3.0) Lactate 1.2 (0.20-2.00) mmol/L Sodium (136-145) mmol/L Potassium (3.5-5.1) mmol/L Chloride (98-107) mmol/L Carbon Dioxide (21.0-32.0) mmol/L BUN (7.0-18.0) mg/dL Creatinine (0.6-1.0) mg/dL Est Cr Clr Drug Dosing mL/min Estimated GFR (MDRD) ml/min Glucose (74-106) mg/dL Calcium (8.5-10.1) mg/dL Total Bilirubin (0.2-1.0) mg/dL AST (15-37) IU/L ALT (14-63) IU/L Alkaline Phosphatase (46-116) U/L Total Protein (6.4-8.2) g/dL Albumin (3.4-5.0) g/dL Globulin (2.0-3.5) g/dL Albumin/Globulin Ratio (1.3-2.8) 01/17/18 Range/Units 05:53 WBC (4.0-11.0) K/uL RBC (4.30-5.90) M/uL Hgb (12.0-16.0) g/dL Hct (36.0-46.0) % MCV (80.0-98.0) fL MCH (27.0-32.0) pg MCHC (31.0-37.0) g/dL RDW Std Deviation (28.0-62.0) fl RDW Coeff of Nilo (11.0-15.0) % Plt Count (150-400) K/uL MPV (7.40-12.00) fL Add Manual Diff Neutrophils % (Manual) (48.0-80.0) % Band Neutrophils % % Lymphocytes % (Manual) (16.0-40.0) % Monocytes % (Manual) (0.0-15.0) % Eosinophils % (Manual) (0.0-7.0) % Basophils % (Manual) (0.0-1.5) % Nucleated RBC % /100WBC Absolute Seg Neuts (1.4-5.7) Band Neutrophils # Lymphocytes # (Manual) (0.6-2.4) Monocytes # (Manual) (0.0-0.8) Eosinophils # (Manual) (0.0-0.7) Basophils # (Manual) (0.0-0.1) Nucleated RBCs # K/uL VBG pH (7.31-7.41) VBG pCO2 (35-45) mmHG VBG pO2 (30-40) mmHG VBG HCO3 (22-30) mEq/L VBG Total CO2 (41-51) mmol/L VBG Base Excess (-3.0-3.0) Lactate (0.20-2.00) mmol/L Sodium 139 (136-145) mmol/L Potassium 3.6 (3.5-5.1) mmol/L Chloride 102 (98-107) mmol/L Carbon Dioxide 29.4 (21.0-32.0) mmol/L BUN 35 H (7.0-18.0) mg/dL Creatinine 1.3 H (0.6-1.0) mg/dL Est Cr Clr Drug Dosing 27.35 mL/min Estimated GFR (MDRD) 39.7 ml/min Glucose 96 (74-106) mg/dL Calcium 8.5 (8.5-10.1) mg/dL Total Bilirubin 0.3 (0.2-1.0) mg/dL AST 12 L (15-37) IU/L ALT 14 (14-63) IU/L Alkaline Phosphatase 70 (46-116) U/L Total Protein 5.1 L (6.4-8.2) g/dL Albumin 1.5 L (3.4-5.0) g/dL Globulin 3.6 H (2.0-3.5) g/dL Albumin/Globulin Ratio 0.4 L (1.3-2.8) Shailesh Results Last 24 Hrs: Microbiology 01/11/18 17:25 Aerobic Blood Culture - Final Blood - Venous - Lab Draw NO GROWTH AFTER 5 DAYS Anaerobic Blood Culture - Final NO GROWTH AFTER 5 DAYS 01/11/18 17:25 Aerobic Blood Culture - Final Blood - Venous NO GROWTH AFTER 5 DAYS Anaerobic Blood Culture - Final NO GROWTH AFTER 5 DAYS Med Orders - Current: Current Medications Acetaminophen (Tylenol) 325 mg RECTAL Q4H PRN PRN Reason: Temperature Hydrocodone Bitart/Acetaminophen (Carney 325-5 Mg) 1 tab PO Q6H PRN PRN Reason: Pain (moderate 4-6) Last Admin: 01/16/18 21:54 Dose: 1 tab Albuterol/Ipratropium (Duoneb 3.0-0.5 Mg/3 Ml) 3 ml NEB Q4HRRT PRN PRN Reason: SOB/wheezing Last Admin: 01/16/18 17:45 Dose: 3 ml Aspirin (Aspirin) 81 mg PO DAILY [facility] Last Admin: 01/16/18 08:24 Dose: 81 mg Enoxaparin Sodium (Lovenox) 30 mg SUBCUT Q24H [facility] Last Admin: 01/16/18 21:47 Dose: 30 mg Furosemide (Lasix) 20 mg PO BIDDIURETIC [facility] Last Admin: 01/16/18 13:13 Dose: 20 mg Metoclopramide HCl (Reglan) 10 mg IV Q6H [facility] Last Admin: 01/17/18 05:18 Dose: 10 mg Metoprolol Tartrate (Lopressor) 50 mg PO BIDMEALS [facility] Last Admin: 01/16/18 17:47 Dose: Not Given Morphine Sulfate (Morphine) 0 mg IVPUSH Q1H PRN PRN Reason: Pain (severe 7-10) Morphine Sulfate (Morphine) 0 mg IVPUSH Q1H PRN PRN Reason: Pain (severe 7-10) Ondansetron HCl (Zofran) 4 mg IVPUSH Q6H PRN PRN Reason: Nausea/Vomiting Pantoprazole Sodium (Protonix) 40 mg PO DAILY [facility] Last Admin: 01/16/18 08:52 Dose: 40 mg Discontinued Medications Albuterol/Ipratropium (Duoneb 3.0-0.5 Mg/3 Ml) Confirm Administered Dose 3 ml .ROUTE .STK-MED ONE Stop: 01/11/18 14:09 Last Admin: 01/11/18 14:33 Dose: Not Given Albuterol/Ipratropium (Duoneb 3.0-0.5 Mg/3 Ml) 3 ml NEB ONETIME ONE Stop: 01/11/18 14:25 Last Admin: 01/11/18 15:46 Dose: Not Given Aspirin (Aspirin) 325 mg PO ONETIME ONE Stop: 01/11/18 16:18 Last Admin: 01/11/18 16:58 Dose: 325 mg Aspirin (Aspirin) Confirm Administered Dose 325 mg .ROUTE .STK-MED ONE Stop: 01/11/18 16:58 Last Admin: 01/11/18 17:03 Dose: Not Given Bupivacaine HCl (Marcaine 0.5%) Confirm Administered Dose 120 ml .ROUTE .STK- MED ONE Stop: 01/09/18 13:42 Cefazolin Sodium (Ancef) Confirm Administered Dose 1 gm .ROUTE .STK-MED ONE Stop: 01/09/18 14:18 Digoxin (Lanoxin) 250 mcg IVPUSH ONETIME ONE Stop: 01/11/18 17:03 Last Admin: 01/11/18 17:24 Dose: 250 mcg Digoxin (Lanoxin) 250 mcg IVPUSH ONETIME ONE Stop: 01/15/18 19:05 Last Admin: 01/15/18 19:11 Dose: 250 mcg Digoxin (Lanoxin) 250 mcg IVPUSH ONETIME ONE Stop: 01/16/18 08:43 Last Admin: 01/16/18 08:51 Dose: 250 mcg Diltiazem HCl (Diltiazem) 10 mg IVPUSH ONETIME ONE Stop: 01/11/18 15:10 Last Admin: 01/11/18 15:56 Dose: 10 mg Fentanyl (Sublimaze) Confirm Administered Dose 100 mcg .ROUTE .STK-MED ONE Stop: 01/09/18 12:47 Fentanyl (Sublimaze) Confirm Administered Dose 100 mcg .ROUTE .STK-MED ONE Stop: 01/09/18 13:29 Furosemide (Lasix) 20 mg IVPUSH NOW ONE Stop: 01/11/18 21:51 Last Admin: 01/11/18 22:14 Dose: 20 mg Furosemide (Lasix) 40 mg IVPUSH NOW ONE Stop: 01/12/18 02:21 Last Admin: 01/12/18 02:41 Dose: 40 mg Furosemide (Lasix) 20 mg IVPUSH Q8H [facility] Stop: 01/13/18 09:01 Last Admin: 01/13/18 08:06 Dose: 20 mg Furosemide (Lasix) 20 mg IVPUSH NOW ONE Stop: 01/13/18 19:49 Last Admin: 01/13/18 19:55 Dose: Not Given Furosemide (Lasix) 20 mg IVPUSH NOW ONE Stop: 01/14/18 08:56 Last Admin: 01/14/18 09:14 Dose: 20 mg Hydromorphone HCl (Dilaudid) Confirm Administered Dose 2 mg .ROUTE .[facility] ONE Stop: 01/09/18 13:32 Lactated Ringer's (Ringers, Lactated) 1,000 mls @ 125 mls/hr IV ASDIRECTED [facility] Last Infusion: 01/10/18 01:55 Dose: Infused Hetastarch/Sodium Chloride (Hetastarch 6% In Normal Saline) Confirm Administered Dose 500 mls @ as directed .ROUTE .[facility] ONE Stop: 01/09/18 14:24 Acetaminophen (Ofirmev) Confirm Administered Dose 100 mls @ as directed IV .[facility] ONE Stop: 01/09/18 14:53 Cefoxitin Sodium 1 gm/ Premix 50 mls @ 100 mls/hr IV Q6H [facility] Stop: 01/10/18 09:59 Last Admin: 01/10/18 09:17 Dose: 100 mls/hr Lactated Ringer's (Ringers, Lactated) 1,000 mls @ 125 mls/hr IV ASDIRECTED [facility] Last Infusion: 01/11/18 18:00 Dose: Infused Lactated Ringer's (Ringers, Lactated) 1,000 mls @ 625 mls/hr IV ASDIRECTED [facility] Lactated Ringer's (Ringers, Lactated) 500 mls @ 500 mls/hr IV .BOLUS ONE Stop: 01/10/18 02:45 Last Admin: 01/10/18 02:01 Dose: 500 mls/hr Lactated Ringer's (Ringers, Lactated) 500 mls @ 500 mls/hr IV BOLUS [facility] Stop: 01/10/18 04:45 Lactated Ringer's (Ringers, Lactated) 500 mls @ 500 mls/hr IV .BOLUS [facility] Stop: 01/10/18 05:01 Last Admin: 01/10/18 03:45 Dose: 500 mls/hr Lactated Ringer's (Ringers, Lactated) 1,000 mls @ 75 mls/hr IV ASDIRECTED [facility] Lactated Ringer's (Ringers, Lactated) 1,000 mls @ 50 mls/hr IV ASDIRECTED [facility] Diltiazem HCl 125 mg/ Sodium (Chloride) 125 mls @ 5 mls/hr IV ASDIRECTED [facility]; Protocol Last Titration: 01/12/18 15:45 Dose: 0 mg/hr, 0 mls/hr Magnesium Sulfate 2 gm/ Premix 50 mls @ 50 mls/hr IV ONETIME ONE Stop: 01/11/18 17:18 Last Admin: 01/11/18 16:39 Dose: 50 mls/hr Cefepime HCl 1 gm/ Premix 50 mls @ 100 mls/hr IV Q8H [facility] Last Admin: 01/12/18 18:09 Dose: 100 mls/hr Vancomycin HCl 1 gm/ Sodium (Chloride) 250 mls @ 250 mls/hr IV Q24H [facility] Last Admin: 01/12/18 19:34 Dose: 250 mls/hr Cefepime HCl 1 gm/ Premix 50 mls @ 100 mls/hr IV Q8H [facility] Last Admin: 01/13/18 01:25 Dose: 100 mls/hr Vancomycin HCl 1 gm/ Sodium (Chloride) 250 mls @ 250 mls/hr IV Q24H [facility] Last Admin: 01/14/18 20:56 Dose: Not Given Cefepime HCl 2 gm/ Premix 50 mls @ 100 mls/hr IV Q24H [facility] Last Admin: 01/14/18 13:06 Dose: 100 mls/hr Vancomycin HCl 1.5 gm/ Sodium (Chloride) 500 mls @ 333.333 mls/hr IV Q24H [facility] Last Admin: 01/14/18 21:17 Dose: 333.333 mls/hr Lorazepam (Ativan) 0.5 mg IVPUSH ONETIME ONE Stop: 01/09/18 20:19 Last Admin: 01/09/18 20:36 Dose: Not Given Metoclopramide HCl (Reglan) 10 mg IV Q6H [facility] Last Admin: 01/12/18 18:05 Dose: 10 mg Metoprolol Tartrate (Lopressor) 25 mg PO Q12H [facility] Last Admin: 01/14/18 00:37 Dose: 25 mg Metoprolol Tartrate (Lopressor) 25 mg PO Q12H [facility] Last Admin: 01/14/18 12:01 Dose: 25 mg Metoprolol Tartrate (Lopressor) 25 mg PO Q12H [facility] Last Admin: 01/15/18 08:00 Dose: 25 mg Metoprolol Tartrate (Lopressor) 25 mg PO ONETIME ONE Stop: 01/15/18 09:19 Last Admin: 01/15/18 09:25 Dose: 25 mg Metoprolol Tartrate (Lopressor) 50 mg PO Q12H [facility] Last Admin: 01/15/18 20:05 Dose: 50 mg Metoprolol Tartrate (Lopressor) 5 mg IVPUSH ONETIME ONE Stop: 01/16/18 18:47 Last Admin: 01/16/18 19:04 Dose: 5 mg Midazolam HCl (Versed 1 Mg/Ml) Confirm Administered Dose 2 mg .ROUTE .STK-MED ONE Stop: 01/09/18 12:47 Morphine Sulfate (Morphine Print Inspector 30 Mg In 30 Ml) 30 mg IV SEECOMMENT [facility] Morphine Sulfate (Morphine Print Inspector 30 Mg In 30 Ml) 30 mg IV ASDIRECTED [facility]; Protocol Last Admin: 01/09/18 21:09 Dose: 30 mg Ondansetron HCl (Zofran) Confirm Administered Dose 4 mg .ROUTE .STK-MED ONE Stop: 01/09/18 12:47 Pantoprazole Sodium (Protonix Iv) 40 mg IVPUSH DAILY [facility] Last Admin: 01/15/18 08:02 Dose: 40 mg Propofol (Diprivan 20 Ml) Confirm Administered Dose 400 mg .ROUTE .STK-MED ONE Stop: 01/09/18 12:47 Rocuronium Laporte (Zemuron) Confirm Administered Dose 100 mg .ROUTE .STK-MED ONE Stop: 01/09/18 13:28 Sugammadex Sodium (Bridion) Confirm Administered Dose 200 mg .ROUTE .STK-MED ONE Stop: 01/09/18 14:53 Vancomycin HCl (Pharmacy To Dose - Vancomycin) 1 dose .XX ASDIRECTED [facility] - Exam Wound/Incisions: Drainage, Erythema Improving, Other (still some purulent drainage from lowest portion of incision.) Quality Assessment: Supplemental Oxygen General: Alert, Oriented, Cooperative, No Acute Distress HEENT: Pupils Equal, Pupils Reactive. No: Scleral Icterus Neck: Supple Lungs: Clear to Auscultation, Normal Respiratory Effort Cardiovascular: Regular Rate, Regular Rhythm. No: Tachycardia GI/Abdominal Exam: Normal Bowel Sounds, Soft, Non-Tender, No Distention. No: Guarding, Rigid, Rebound, Hernia Extremities: Normal Inspection. No: Pedal Edema Skin: Warm, Dry, Intact Neurological: No New Focal Deficit Psy/Mental Status: Alert, Normal Affect, Normal Mood - Problem List & Annotations (1) Large bowel perforation SNOMED Code(s): 256538726 Code(s): K63.1 - PERFORATION OF INTESTINE (NONTRAUMATIC) Status: Acute Priority: High Current Visit: Yes (2) Atrial fibrillation SNOMED Code(s): 64636710 Code(s): I48.91 - UNSPECIFIED ATRIAL FIBRILLATION Status: Acute Priority : Medium Current Visit: Yes Qualifiers: Atrial fibrillation type: paroxysmal Qualified Code(s): I48.0 - Paroxysmal atrial fibrillation (3) Abscess of postoperative wound of abdominal wall SNOMED Code(s): 761508003 Code(s): T81.4XXA - INFECTION FOLLOWING A PROCEDURE, INITIAL ENCOUNTER Status: Acute Priority: High Current Visit: Yes Qualifiers: Encounter type: subsequent encounter Qualified Code(s): T81.4XXD - Infection following a procedure, subsequent encounter - Problem List Review Problem List Initiated/Reviewed/Updated: Yes - My Orders Last 24 Hours: Active Orders 24 hr Category Date Time Status Dressing Change [Wound Care] [RC] Q12H Care 01/16/18 14:20 Active CULTURE WOUND [RM] Routine Lab 01/16/18 13:25 Received VANCOMYCIN TROUGH [CHEM] Routine Lab 01/17/18 20:30 Ordered Pantoprazole [ProTONIX] Med 01/16/18 09:00 Active 40 mg PO DAILY Medication Orders Acetaminophen (Tylenol) 325 mg RECTAL Q4H PRN PRN Reason: Temperature Hydrocodone Bitart/Acetaminophen (Carney 325-5 Mg) 1 tab PO Q6H PRN PRN Reason: Pain (moderate 4-6) Last Admin: 01/16/18 21:54 Dose: 1 tab Admin: 01/16/18 13:14 Dose: 1 tab Admin: 01/16/18 07:30 Dose: 1 tab Admin: 01/15/18 23:40 Dose: 1 tab Admin: 01/15/18 16:33 Dose: 1 tab Admin: 01/15/18 08:03 Dose: 1 tab Admin: 01/14/18 17:00 Dose: 1 tab Admin: 01/14/18 09:52 Dose: 1 tab Albuterol/Ipratropium (Duoneb 3.0-0.5 Mg/3 Ml) 3 ml NEB Q4HRRT PRN PRN Reason: SOB/wheezing Last Admin: 01/16/18 17:45 Dose: 3 ml Admin: 01/16/18 12:09 Dose: 3 ml Admin: 01/15/18 08:16 Dose: 3 ml Admin: 01/13/18 13:59 Dose: 3 ml Admin: 01/12/18 17:55 Dose: 3 ml Aspirin (Aspirin) 81 mg PO DAILY [facility] Last Admin: 01/16/18 08:24 Dose: 81 mg Admin: 01/15/18 13:01 Dose: 81 mg Enoxaparin Sodium (Lovenox) 30 mg SUBCUT Q24H [facility] Last Admin: 01/16/18 21:47 Dose: 30 mg Admin: 01/15/18 21:18 Dose: 30 mg Admin: 01/14/18 21:16 Dose: 30 mg Admin: 01/13/18 21:15 Dose: 30 mg Admin: 01/12/18 22:58 Dose: 30 mg Admin: 01/11/18 22:58 Dose: 30 mg Furosemide (Lasix) 20 mg PO BIDDIURETIC [facility] Last Admin: 01/16/18 13:13 Dose: 20 mg Admin: 01/16/18 08:25 Dose: 20 mg Admin: 01/15/18 13:01 Dose: 20 mg Admin: 01/15/18 08:42 Dose: 20 mg Metoclopramide HCl (Reglan) 10 mg IV Q6H [facility] Last Admin: 01/17/18 05:18 Dose: 10 mg Admin: 01/17/18 00:07 Dose: 10 mg Admin: 01/16/18 17:43 Dose: 10 mg Admin: 01/16/18 12:09 Dose: 10 mg Admin: 01/16/18 06:24 Dose: 10 mg Admin: 01/15/18 23:33 Dose: 10 mg Admin: 01/15/18 17:23 Dose: 10 mg Admin: 01/15/18 11:52 Dose: 10 mg Admin: 01/15/18 06:46 Dose: 10 mg Admin: 01/14/18 23:56 Dose: 10 mg Admin: 01/14/18 17:00 Dose: 10 mg Admin: 01/14/18 12:13 Dose: 10 mg Admin: 01/14/18 06:21 Dose: 10 mg Admin: 01/14/18 00:05 Dose: 10 mg Admin: 01/13/18 18:20 Dose: 10 mg Admin: 01/13/18 12:29 Dose: 10 mg Admin: 01/13/18 06:34 Dose: 10 mg Admin: 01/13/18 01:15 Dose: 10 mg Metoprolol Tartrate (Lopressor) 50 mg PO BIDMEALS [facility] Last Admin: 01/16/18 17:47 Dose: Not Given Admin: 01/16/18 10:07 Dose: Not Given Morphine Sulfate (Morphine) 0 mg IVPUSH Q1H PRN PRN Reason: Pain (severe 7-10) Morphine Sulfate (Morphine) 0 mg IVPUSH Q1H PRN PRN Reason: Pain (severe 7-10) Ondansetron HCl (Zofran) 4 mg IVPUSH Q6H PRN PRN Reason: Nausea/Vomiting Pantoprazole Sodium (Protonix) 40 mg PO DAILY [facility] Last Admin: 01/16/18 08:52 Dose: 40 mg - Assessment Assessment (Free Text/Narrative):: Still has a small amount of drainage from the lowest portion of the incision. Erythema improving. Tolerating po diet well. - Plan Plan (Free Text/Narrative):: Continue BID packing changes. Awaiting culture reports. Will hold on antibiotics until reports are back. May need Home Health on discharge.
[2018-01-17] MEDS: Aspirin 81 MG Tab.Chew PO SCH (09:33)
[2018-01-17] MEDS: Furosemide 20 MG Tab PO SCH ×2 (09:33→13:42)
[2018-01-17] MEDS: Pantoprazole 40 MG Tab.CR PO SCH (09:33)
[2018-01-17] MEDS: Metoprolol Tartrate 50 MG Tab PO SCH ×2 (09:34→17:32)
[2018-01-17] MEDS: Acetaminophen/HYDROcodone 325-5 MG Tab PO PRN ×3 (09:35→21:54)
--- NOTE | 2018-01-17 16:13 | PCM.CONSN ---
- General Info Date of Service: 01/17/18 Subjective Update: Patient is hemodynamically stable, her rate has not converted to normal sinus rhythm. Not complaining of respiratory difficulty at the present moment. - Patient Data Vitals - Most Recent: Last Vital Signs Temp 36.6 C 01/17/18 13:00 Pulse 70 01/17/18 13:00 Resp 20 01/17/18 13:00 BP 119/46 L 01/17/18 13:00 Pulse Ox 94 L 01/17/18 14:28 Weight - Most Recent: 76.3 kg I&O - Last 24 Hours: Intake & Output 01/17/18 01/17/18 01/17/18 06:59 14:59 22:59 Intake Total 250 Output Total 200 Balance 50 Lab Results Last 24 Hours: Laboratory Results - last 24 hr 01/16/18 01/16/18 01/16/18 Range/Units 18:30 18:30 18:30 WBC 14.34 H (4.0-11.0) K/uL RBC 3.62 L (4.30-5.90) M/uL Hgb 11.4 L (12.0-16.0) g/dL Hct 33.8 L (36.0-46.0) % MCV 93.4 (80.0-98.0) fL MCH 31.5 (27.0-32.0) pg MCHC 33.7 (31.0-37.0) g/dL RDW Std Deviation 50.6 (28.0-62.0) fl RDW Coeff of Nilo 15 (11.0-15.0) % Plt Count 246 (150-400) K/uL MPV 9.50 (7.40-12.00) fL Neutrophils % (Manual) 75 (48.0-80.0) % Band Neutrophils % 19 % Lymphocytes % (Manual) 5 L (16.0-40.0) % Monocytes % (Manual) 1 (0.0-15.0) % Eosinophils % (Manual) (0.0-7.0) % Nucleated RBC % 0.0 /100WBC Absolute Seg Neuts 10.8 H (1.4-5.7) Band Neutrophils # 2.7 Lymphocytes # (Manual) 0.7 (0.6-2.4) Monocytes # (Manual) 0.1 (0.0-0.8) Eosinophils # (Manual) 0.1 (0.0-0.7) VBG pH 7.45 H (7.31-7.41) VBG pCO2 48 H (35-45) mmHG VBG pO2 17 L (30-40) mmHG VBG HCO3 33 H (22-30) mEq/L VBG Total CO2 31 L (41-51) mmol/L VBG Base Excess 8.0 H (-3.0-3.0) Lactate 1.2 (0.20-2.00) mmol/L Sodium (136-145) mmol/L Potassium (3.5-5.1) mmol/L Chloride (98-107) mmol/L Carbon Dioxide (21.0-32.0) mmol/L BUN (7.0-18.0) mg/dL Creatinine (0.6-1.0) mg/dL Est Cr Clr Drug Dosing mL/min Estimated GFR (MDRD) ml/min Glucose (74-106) mg/dL Calcium (8.5-10.1) mg/dL Total Bilirubin (0.2-1.0) mg/dL AST (15-37) IU/L ALT (14-63) IU/L Alkaline Phosphatase (46-116) U/L Total Protein (6.4-8.2) g/dL Albumin (3.4-5.0) g/dL Globulin (2.0-3.5) g/dL Albumin/Globulin Ratio (1.3-2.8) 01/17/18 01/17/18 Range/Units 05:53 05:53 WBC 13.97 H (4.0-11.0) K/uL RBC 3.24 L (4.30-5.90) M/uL Hgb 10.0 L (12.0-16.0) g/dL Hct 30.0 L (36.0-46.0) % MCV 92.6 (80.0-98.0) fL MCH 30.9 (27.0-32.0) pg MCHC 33.3 (31.0-37.0) g/dL RDW Std Deviation 50.0 (28.0-62.0) fl RDW Coeff of Nilo 15 (11.0-15.0) % Plt Count 251 (150-400) K/uL MPV 9.50 (7.40-12.00) fL Neutrophils % (Manual) 73 (48.0-80.0) % Band Neutrophils % 14 % Lymphocytes % (Manual) 10 L (16.0-40.0) % Monocytes % (Manual) 2 (0.0-15.0) % Eosinophils % (Manual) 1 (0.0-7.0) % Nucleated RBC % 0.0 /100WBC Absolute Seg Neuts 10.2 H (1.4-5.7) Band Neutrophils # 2.0 Lymphocytes # (Manual) 1.4 (0.6-2.4) Monocytes # (Manual) 0.3 (0.0-0.8) Eosinophils # (Manual) 0.1 (0.0-0.7) VBG pH (7.31-7.41) VBG pCO2 (35-45) mmHG VBG pO2 (30-40) mmHG VBG HCO3 (22-30) mEq/L VBG Total CO2 (41-51) mmol/L VBG Base Excess (-3.0-3.0) Lactate (0.20-2.00) mmol/L Sodium 139 (136-145) mmol/L Potassium 3.6 (3.5-5.1) mmol/L Chloride 102 (98-107) mmol/L Carbon Dioxide 29.4 (21.0-32.0) mmol/L BUN 35 H (7.0-18.0) mg/dL Creatinine 1.3 H (0.6-1.0) mg/dL Est Cr Clr Drug Dosing 27.35 mL/min Estimated GFR (MDRD) 39.7 ml/min Glucose 96 (74-106) mg/dL Calcium 8.5 (8.5-10.1) mg/dL Total Bilirubin 0.3 (0.2-1.0) mg/dL AST 12 L (15-37) IU/L ALT 14 (14-63) IU/L Alkaline Phosphatase 70 (46-116) U/L Total Protein 5.1 L (6.4-8.2) g/dL Albumin 1.5 L (3.4-5.0) g/dL Globulin 3.6 H (2.0-3.5) g/dL Albumin/Globulin Ratio 0.4 L (1.3-2.8) Shailesh Results Last 24 Hours: Microbiology 01/11/18 17:25 Aerobic Blood Culture - Final Blood - Venous - Lab Draw NO GROWTH AFTER 5 DAYS Anaerobic Blood Culture - Final NO GROWTH AFTER 5 DAYS 01/11/18 17:25 Aerobic Blood Culture - Final Blood - Venous NO GROWTH AFTER 5 DAYS Anaerobic Blood Culture - Final NO GROWTH AFTER 5 DAYS Med Orders - Current: Current Medications Acetaminophen (Tylenol) 325 mg RECTAL Q4H PRN PRN Reason: Temperature Hydrocodone Bitart/Acetaminophen ([place] 325-5 Mg) 1 tab PO Q6H PRN PRN Reason: Pain (moderate 4-6) Last Admin: 01/17/18 15:40 Dose: 1 tab Albuterol/Ipratropium (Duoneb 3.0-0.5 Mg/3 Ml) 3 ml NEB Q4HRRT PRN PRN Reason: SOB/wheezing Last Admin: 01/16/18 17:45 Dose: 3 ml Aspirin (Aspirin) 81 mg PO DAILY [facility] Last Admin: 01/17/18 09:33 Dose: 81 mg Enoxaparin Sodium (Lovenox) 30 mg SUBCUT Q24H [facility] Last Admin: 01/16/18 21:47 Dose: 30 mg Furosemide (Lasix) 20 mg PO BIDDIURETIC [facility] Last Admin: 01/17/18 13:42 Dose: 20 mg Metoclopramide HCl (Reglan) 10 mg IV Q6H [facility] Last Admin: 01/17/18 13:42 Dose: 10 mg Metoprolol Tartrate (Lopressor) 50 mg PO BIDMEALS [facility] Last Admin: 01/17/18 09:34 Dose: 50 mg Morphine Sulfate (Morphine) 0 mg IVPUSH Q1H PRN PRN Reason: Pain (severe 7-10) Morphine Sulfate (Morphine) 0 mg IVPUSH Q1H PRN PRN Reason: Pain (severe 7-10) Ondansetron HCl (Zofran) 4 mg IVPUSH Q6H PRN PRN Reason: Nausea/Vomiting Pantoprazole Sodium (Protonix) 40 mg PO DAILY [facility] Last Admin: 01/17/18 09:33 Dose: 40 mg Discontinued Medications Albuterol/Ipratropium (Duoneb 3.0-0.5 Mg/3 Ml) Confirm Administered Dose 3 ml .ROUTE .STK-MED ONE Stop: 01/11/18 14:09 Last Admin: 01/11/18 14:33 Dose: Not Given Albuterol/Ipratropium (Duoneb 3.0-0.5 Mg/3 Ml) 3 ml NEB ONETIME ONE Stop: 01/11/18 14:25 Last Admin: 01/11/18 15:46 Dose: Not Given Aspirin (Aspirin) 325 mg PO ONETIME ONE Stop: 01/11/18 16:18 Last Admin: 01/11/18 16:58 Dose: 325 mg Aspirin (Aspirin) Confirm Administered Dose 325 mg .ROUTE .STK-MED ONE Stop: 01/11/18 16:58 Last Admin: 01/11/18 17:03 Dose: Not Given Bupivacaine HCl (Marcaine 0.5%) Confirm Administered Dose 120 ml .ROUTE .STK- MED ONE Stop: 01/09/18 13:42 Cefazolin Sodium (Ancef) Confirm Administered Dose 1 gm .ROUTE .STK-MED ONE Stop: 01/09/18 14:18 Digoxin (Lanoxin) 250 mcg IVPUSH ONETIME ONE Stop: 01/11/18 17:03 Last Admin: 01/11/18 17:24 Dose: 250 mcg Digoxin (Lanoxin) 250 mcg IVPUSH ONETIME ONE Stop: 01/15/18 19:05 Last Admin: 01/15/18 19:11 Dose: 250 mcg Digoxin (Lanoxin) 250 mcg IVPUSH ONETIME ONE Stop: 01/16/18 08:43 Last Admin: 01/16/18 08:51 Dose: 250 mcg Diltiazem HCl (Diltiazem) 10 mg IVPUSH ONETIME ONE Stop: 01/11/18 15:10 Last Admin: 01/11/18 15:56 Dose: 10 mg Fentanyl (Sublimaze) Confirm Administered Dose 100 mcg .ROUTE .STK-MED ONE Stop: 01/09/18 12:47 Fentanyl (Sublimaze) Confirm Administered Dose 100 mcg .ROUTE .STK-MED ONE Stop: 01/09/18 13:29 Furosemide (Lasix) 20 mg IVPUSH NOW ONE Stop: 01/11/18 21:51 Last Admin: 01/11/18 22:14 Dose: 20 mg Furosemide (Lasix) 40 mg IVPUSH NOW ONE Stop: 01/12/18 02:21 Last Admin: 01/12/18 02:41 Dose: 40 mg Furosemide (Lasix) 20 mg IVPUSH Q8H ROBERTO CARLOS Stop: 01/13/18 09:01 Last Admin: 01/13/18 08:06 Dose: 20 mg Furosemide (Lasix) 20 mg IVPUSH NOW ONE Stop: 01/13/18 19:49 Last Admin: 01/13/18 19:55 Dose: Not Given Furosemide (Lasix) 20 mg IVPUSH NOW ONE Stop: 01/14/18 08:56 Last Admin: 01/14/18 09:14 Dose: 20 mg Hydromorphone HCl (Dilaudid) Confirm Administered Dose 2 mg .ROUTE .STK-MED ONE Stop: 01/09/18 13:32 Lactated Ringer's (Ringers, Lactated) 1,000 mls @ 125 mls/hr IV ASDIRECTED [facility] Last Infusion: 01/10/18 01:55 Dose: Infused Hetastarch/Sodium Chloride (Hetastarch 6% In Normal Saline) Confirm Administered Dose 500 mls @ as directed .ROUTE .STK-MED ONE Stop: 01/09/18 14:24 Acetaminophen (Ofirmev) Confirm Administered Dose 100 mls @ as directed IV .STK- MED ONE Stop: 01/09/18 14:53 Cefoxitin Sodium 1 gm/ Premix 50 mls @ 100 mls/hr IV Q6H ROBERTO CARLOS Stop: 01/10/18 09:59 Last Admin: 01/10/18 09:17 Dose: 100 mls/hr Lactated Ringer's (Ringers, Lactated) 1,000 mls @ 125 mls/hr IV ASDIRECTED [facility] Last Infusion: 01/11/18 18:00 Dose: Infused Lactated Ringer's (Ringers, Lactated) 1,000 mls @ 625 mls/hr IV ASDIRECTED ROBERTO CARLOS Lactated Ringer's (Ringers, Lactated) 500 mls @ 500 mls/hr IV .BOLUS ONE Stop: 01/10/18 02:45 Last Admin: 01/10/18 02:01 Dose: 500 mls/hr Lactated Ringer's (Ringers, Lactated) 500 mls @ 500 mls/hr IV BOLUS ROBERTO CARLOS Stop: 01/10/18 04:45 Lactated Ringer's (Ringers, Lactated) 500 mls @ 500 mls/hr IV .BOLUS ROBERTO CARLOS Stop: 01/10/18 05:01 Last Admin: 01/10/18 03:45 Dose: 500 mls/hr Lactated Ringer's (Ringers, Lactated) 1,000 mls @ 75 mls/hr IV ASDIRECTED ROBERTO CARLOS Lactated Ringer's (Ringers, Lactated) 1,000 mls @ 50 mls/hr IV ASDIRECTED ROBERTO CARLOS Diltiazem HCl 125 mg/ Sodium (Chloride) 125 mls @ 5 mls/hr IV ASDIRECTED ROBERTO CARLOS; Protocol Last Titration: 01/12/18 15:45 Dose: 0 mg/hr, 0 mls/hr Magnesium Sulfate 2 gm/ Premix 50 mls @ 50 mls/hr IV ONETIME ONE Stop: 01/11/18 17:18 Last Admin: 01/11/18 16:39 Dose: 50 mls/hr Cefepime HCl 1 gm/ Premix 50 mls @ 100 mls/hr IV Q8H [facility] Last Admin: 01/12/18 18:09 Dose: 100 mls/hr Vancomycin HCl 1 gm/ Sodium (Chloride) 250 mls @ 250 mls/hr IV Q24H [facility] Last Admin: 01/12/18 19:34 Dose: 250 mls/hr Cefepime HCl 1 gm/ Premix 50 mls @ 100 mls/hr IV Q8H [facility] Last Admin: 01/13/18 01:25 Dose: 100 mls/hr Vancomycin HCl 1 gm/ Sodium (Chloride) 250 mls @ 250 mls/hr IV Q24H [facility] Last Admin: 01/14/18 20:56 Dose: Not Given Cefepime HCl 2 gm/ Premix 50 mls @ 100 mls/hr IV Q24H [facility] Last Admin: 01/14/18 13:06 Dose: 100 mls/hr Vancomycin HCl 1.5 gm/ Sodium (Chloride) 500 mls @ 333.333 mls/hr IV Q24H [facility] Last Admin: 01/14/18 21:17 Dose: 333.333 mls/hr Lorazepam (Ativan) 0.5 mg IVPUSH ONETIME ONE Stop: 01/09/18 20:19 Last Admin: 01/09/18 20:36 Dose: Not Given Metoclopramide HCl (Reglan) 10 mg IV Q6H [facility] Last Admin: 01/12/18 18:05 Dose: 10 mg Metoprolol Tartrate (Lopressor) 25 mg PO Q12H [facility] Last Admin: 01/14/18 00:37 Dose: 25 mg Metoprolol Tartrate (Lopressor) 25 mg PO Q12H [facility] Last Admin: 01/14/18 12:01 Dose: 25 mg Metoprolol Tartrate (Lopressor) 25 mg PO Q12H [facility] Last Admin: 01/15/18 08:00 Dose: 25 mg Metoprolol Tartrate (Lopressor) 25 mg PO ONETIME ONE Stop: 01/15/18 09:19 Last Admin: 01/15/18 09:25 Dose: 25 mg Metoprolol Tartrate (Lopressor) 50 mg PO Q12H [facility] Last Admin: 01/15/18 20:05 Dose: 50 mg Metoprolol Tartrate (Lopressor) 5 mg IVPUSH ONETIME ONE Stop: 01/16/18 18:47 Last Admin: 01/16/18 19:04 Dose: 5 mg Midazolam HCl (Versed 1 Mg/Ml) Confirm Administered Dose 2 mg .ROUTE .STK-MED ONE Stop: 01/09/18 12:47 Morphine Sulfate (Morphine Customer Experience Associate 30 Mg In 30 Ml) 30 mg IV SEECOMMENT [facility] Morphine Sulfate (Morphine Customer Experience Associate 30 Mg In 30 Ml) 30 mg IV ASDIRECTED [facility]; Protocol Last Admin: 01/09/18 21:09 Dose: 30 mg Ondansetron HCl (Zofran) Confirm Administered Dose 4 mg .ROUTE .STK-MED ONE Stop: 01/09/18 12:47 Pantoprazole Sodium (Protonix Iv) 40 mg IVPUSH DAILY [facility] Last Admin: 01/15/18 08:02 Dose: 40 mg Propofol (Diprivan 20 Ml) Confirm Administered Dose 400 mg .ROUTE .STK-MED ONE Stop: 01/09/18 12:47 Rocuronium [place] (Zemuron) Confirm Administered Dose 100 mg .ROUTE .STK-MED ONE Stop: 01/09/18 13:28 Sugammadex Sodium (Bridion) Confirm Administered Dose 200 mg .ROUTE .STK-MED ONE Stop: 01/09/18 14:53 Vancomycin HCl (Pharmacy To Dose - Vancomycin) 1 dose .XX ASDIRECTED [facility] - Exam Quality Assessment: Supplemental Oxygen General: Alert, Oriented, Cooperative Lungs: Normal Respiratory Effort Cardiovascular: Regular Rate, Regular Rhythm Extremities: Normal Inspection Consult PN Assessment/Plan Procedures: Procedures ASSAY THYROID STIM HORMONE (01/18/14) COMPLETE CBC W/AUTO DIFF WBC (01/18/14) COMPREHEN METABOLIC PANEL (01/18/14) EMERGENCY DEPT VISIT (10/20/15) LIPID PANEL (01/18/14) OFFICE/OUTPATIENT VISIT EST (01/18/14) OT EVALUATION (12/04/15) OT RE-EVALUATION (12/19/15) ROUTINE VENIPUNCTURE (01/18/14) THERAPEUTIC EXERCISES (12/19/15) URINALYSIS AUTO W/SCOPE (01/18/14) X-RAY EXAM OF WRIST (12/28/15) Problem List Initiated/Reviewed/Updated: Yes Plan: 77-year-old female admitted under Gen. surgery for intestinal perforation for which we have been consulted for assessment of her atrial fibrillation medical management. -Patient's atrial fibrillation has converted to normal sinus rhythm continue with metoprolol at the current dose - Dr. Smith and I spoke in regards to the patient's incision site, he after conducting the procedure previous day had gotten wound cultures and wants to wait until culture sensitivities come back prior to starting antibiotics. The patient does not have a elevated lactic acid level, her WBC count has slightly come down from her previous one done in the evening. -Shall continue to follow the patient and give recommendations as needed.
--- NOTE | 2018-01-17 18:44 | PCM.SN ---
- Free Text/Narrative Note: Patient has had a good day. No N/V. Minimal discomfort. Drainage decreasing. Did shower today. Still passing gas but no BM yet. Drainage reportedly serosanguineous. Lungs clear. Ht irreg irreg but rate better controlled. Abdomen soft and nontender. Hypoactive BS. Will recheck CBC in the am. Wound cultures pending. Will change dressing and repack in the morning.
[2018-01-17] MEDS: Albuterol/Ipratropium 3.0-0.5 MG/3 ML Neb Soln NEB PRN (19:39)
[2018-01-17] MEDS: Enoxaparin 30 MG/0.3 ML Syringe SUBCUT SCH (21:00)
[2018-01-18] MEDS: Metoclopramide 10 MG/2 ML SDV IV SCH ×4 (00:30→19:41)
[2018-01-18] MEDS: Acetaminophen/HYDROcodone 325-5 MG Tab PO PRN ×3 (07:26→21:20)
[2018-01-18] MEDS: Furosemide 20 MG Tab PO SCH (07:27)
--- NOTE | 2018-01-18 08:15 | PCM.CONSN ---
- General Info Date of Service: 01/18/18 Admission Dx/Problem (Free Text): Admission Diagnosis/Problem Admission Diagnosis/Problem Perforation of intestine Subjective Update: Patient is a 77 year old female originally admitted for intestinal perforation admitted by Dr. Smith. He recently opened up her incision and drained an abscess. It is producing serosaginous fluid at this time. The medical team was consulted for management of Afib. The patient converted and is back in sinus rhythm at this time. She denies any chest pain or shortness of breath. She does endorse some abdominal pain around the incision site. - Review of Systems General: Reports: No Symptoms HEENT: Reports: No Symptoms Pulmonary: Reports: No Symptoms Cardiovascular: Reports: No Symptoms Gastrointestinal: Reports: Abdominal Pain Genitourinary: Reports: No Symptoms Musculoskeletal: Reports: No Symptoms Skin: Reports: No Symptoms Neurological: Reports: No Symptoms Psychiatric: Reports: No Symptoms - Patient Data Vitals - Most Recent: Last Vital Signs Temp 98.4 F 01/18/18 07:30 Pulse 71 01/18/18 07:30 Resp 18 01/18/18 07:30 BP 93/45 L 01/18/18 07:30 Pulse Ox 94 L 01/18/18 07:30 Weight - Most Recent: 77.2 kg I&O - Last 24 Hours: Intake & Output 01/17/18 01/18/18 01/18/18 22:59 06:59 14:59 Intake Total 540 200 Output Total 660 Balance -120 200 Lab Results Last 24 Hours: Laboratory Results - last 24 hr 01/18/18 01/18/18 Range/Units 05:52 05:52 WBC 12.51 H (4.0-11.0) K/uL RBC 3.01 L (4.30-5.90) M/uL Hgb 9.3 L (12.0-16.0) g/dL Hct 27.8 L (36.0-46.0) % MCV 92.4 (80.0-98.0) fL MCH 30.9 (27.0-32.0) pg MCHC 33.5 (31.0-37.0) g/dL RDW Std Deviation 49.3 (28.0-62.0) fl RDW Coeff of Nilo 15 (11.0-15.0) % Plt Count 259 (150-400) K/uL MPV 9.20 (7.40-12.00) fL Add Manual Diff YES Neutrophils % (Manual) 74 (48.0-80.0) % Band Neutrophils % 10 % Lymphocytes % (Manual) 14 L (16.0-40.0) % Monocytes % (Manual) 2 (0.0-15.0) % Nucleated RBC % 0.0 /100WBC Absolute Seg Neuts 9.3 H (1.4-5.7) Band Neutrophils # 1.3 Lymphocytes # (Manual) 1.8 (0.6-2.4) Monocytes # (Manual) 0.3 (0.0-0.8) Nucleated RBCs # 0 K/uL Sodium 138 (136-145) mmol/L Potassium 3.8 (3.5-5.1) mmol/L Chloride 103 (98-107) mmol/L Carbon Dioxide 28.9 (21.0-32.0) mmol/L BUN 43 H (7.0-18.0) mg/dL Creatinine 1.3 H (0.6-1.0) mg/dL Est Cr Clr Drug Dosing 27.35 mL/min Estimated GFR (MDRD) 39.7 ml/min Glucose 93 (74-106) mg/dL Calcium 8.4 L (8.5-10.1) mg/dL Med Orders - Current: Current Medications Acetaminophen (Tylenol) 325 mg RECTAL Q4H PRN PRN Reason: Temperature Hydrocodone Bitart/Acetaminophen ([place] 325-5 Mg) 1 tab PO Q6H PRN PRN Reason: Pain (moderate 4-6) Last Admin: 01/18/18 07:26 Dose: 1 tab Albuterol/Ipratropium (Duoneb 3.0-0.5 Mg/3 Ml) 3 ml NEB Q4HRRT PRN PRN Reason: SOB/wheezing Last Admin: 01/17/18 19:39 Dose: 3 ml Aspirin (Aspirin) 81 mg PO DAILY [facility] Last Admin: 01/17/18 09:33 Dose: 81 mg Enoxaparin Sodium (Lovenox) 30 mg SUBCUT Q24H [facility] Last Admin: 01/17/18 21:00 Dose: 30 mg Furosemide (Lasix) 20 mg PO BIDDIURETIC [facility] Last Admin: 01/18/18 07:27 Dose: 20 mg Metoclopramide HCl (Reglan) 10 mg IV Q6H [facility] Last Admin: 01/18/18 05:54 Dose: 10 mg Metoprolol Tartrate (Lopressor) 50 mg PO BIDMEALS [facility] Last Admin: 01/17/18 17:32 Dose: 50 mg Morphine Sulfate (Morphine) 0 mg IVPUSH Q1H PRN PRN Reason: Pain (severe 7-10) Morphine Sulfate (Morphine) 0 mg IVPUSH Q1H PRN PRN Reason: Pain (severe 7-10) Ondansetron HCl (Zofran) 4 mg IVPUSH Q6H PRN PRN Reason: Nausea/Vomiting Pantoprazole Sodium (Protonix) 40 mg PO DAILY [facility] Last Admin: 01/17/18 09:33 Dose: 40 mg Discontinued Medications Albuterol/Ipratropium (Duoneb 3.0-0.5 Mg/3 Ml) Confirm Administered Dose 3 ml .ROUTE .STK-MED ONE Stop: 01/11/18 14:09 Last Admin: 01/11/18 14:33 Dose: Not Given Albuterol/Ipratropium (Duoneb 3.0-0.5 Mg/3 Ml) 3 ml NEB ONETIME ONE Stop: 01/11/18 14:25 Last Admin: 01/11/18 15:46 Dose: Not Given Aspirin (Aspirin) 325 mg PO ONETIME ONE Stop: 01/11/18 16:18 Last Admin: 01/11/18 16:58 Dose: 325 mg Aspirin (Aspirin) Confirm Administered Dose 325 mg .ROUTE .STK-MED ONE Stop: 01/11/18 16:58 Last Admin: 01/11/18 17:03 Dose: Not Given Bupivacaine HCl (Marcaine 0.5%) Confirm Administered Dose 120 ml .ROUTE .STK- MED ONE Stop: 01/09/18 13:42 Cefazolin Sodium (Ancef) Confirm Administered Dose 1 gm .ROUTE .STK-MED ONE Stop: 01/09/18 14:18 Digoxin (Lanoxin) 250 mcg IVPUSH ONETIME ONE Stop: 01/11/18 17:03 Last Admin: 01/11/18 17:24 Dose: 250 mcg Digoxin (Lanoxin) 250 mcg IVPUSH ONETIME ONE Stop: 01/15/18 19:05 Last Admin: 01/15/18 19:11 Dose: 250 mcg Digoxin (Lanoxin) 250 mcg IVPUSH ONETIME ONE Stop: 01/16/18 08:43 Last Admin: 01/16/18 08:51 Dose: 250 mcg Diltiazem HCl (Diltiazem) 10 mg IVPUSH ONETIME ONE Stop: 01/11/18 15:10 Last Admin: 01/11/18 15:56 Dose: 10 mg Fentanyl (Sublimaze) Confirm Administered Dose 100 mcg .ROUTE .STK-MED ONE Stop: 01/09/18 12:47 Fentanyl (Sublimaze) Confirm Administered Dose 100 mcg .ROUTE .STK-MED ONE Stop: 01/09/18 13:29 Furosemide (Lasix) 20 mg IVPUSH NOW ONE Stop: 01/11/18 21:51 Last Admin: 01/11/18 22:14 Dose: 20 mg Furosemide (Lasix) 40 mg IVPUSH NOW ONE Stop: 01/12/18 02:21 Last Admin: 01/12/18 02:41 Dose: 40 mg Furosemide (Lasix) 20 mg IVPUSH Q8H [facility] Stop: 01/13/18 09:01 Last Admin: 01/13/18 08:06 Dose: 20 mg Furosemide (Lasix) 20 mg IVPUSH NOW ONE Stop: 01/13/18 19:49 Last Admin: 01/13/18 19:55 Dose: Not Given Furosemide (Lasix) 20 mg IVPUSH NOW ONE Stop: 01/14/18 08:56 Last Admin: 01/14/18 09:14 Dose: 20 mg Hydromorphone HCl (Dilaudid) Confirm Administered Dose 2 mg .ROUTE .STK-MED ONE Stop: 01/09/18 13:32 Lactated Ringer's (Ringers, Lactated) 1,000 mls @ 125 mls/hr IV ASDIRECTED [facility] Last Infusion: 01/10/18 01:55 Dose: Infused Hetastarch/Sodium Chloride (Hetastarch 6% In Normal Saline) Confirm Administered Dose 500 mls @ as directed .ROUTE .STK-MED ONE Stop: 01/09/18 14:24 Acetaminophen (Ofirmev) Confirm Administered Dose 100 mls @ as directed IV .STK- MED ONE Stop: 01/09/18 14:53 Cefoxitin Sodium 1 gm/ Premix 50 mls @ 100 mls/hr IV Q6H [facility] Stop: 01/10/18 09:59 Last Admin: 01/10/18 09:17 Dose: 100 mls/hr Lactated Ringer's (Ringers, Lactated) 1,000 mls @ 125 mls/hr IV ASDIRECTED [facility] Last Infusion: 01/11/18 18:00 Dose: Infused Lactated Ringer's (Ringers, Lactated) 1,000 mls @ 625 mls/hr IV ASDIRECTED [facility] Lactated Ringer's (Ringers, Lactated) 500 mls @ 500 mls/hr IV .BOLUS ONE Stop: 01/10/18 02:45 Last Admin: 01/10/18 02:01 Dose: 500 mls/hr Lactated Ringer's (Ringers, Lactated) 500 mls @ 500 mls/hr IV BOLUS [facility] Stop: 01/10/18 04:45 Lactated Ringer's (Ringers, Lactated) 500 mls @ 500 mls/hr IV .BOLUS [facility] Stop: 01/10/18 05:01 Last Admin: 01/10/18 03:45 Dose: 500 mls/hr Lactated Ringer's (Ringers, Lactated) 1,000 mls @ 75 mls/hr IV ASDIRECTED [facility] Lactated Ringer's (Ringers, Lactated) 1,000 mls @ 50 mls/hr IV ASDIRECTED [facility] Diltiazem HCl 125 mg/ Sodium (Chloride) 125 mls @ 5 mls/hr IV ASDIRECTED [facility]; Protocol Last Titration: 01/12/18 15:45 Dose: 0 mg/hr, 0 mls/hr Magnesium Sulfate 2 gm/ Premix 50 mls @ 50 mls/hr IV ONETIME ONE Stop: 01/11/18 17:18 Last Admin: 01/11/18 16:39 Dose: 50 mls/hr Cefepime HCl 1 gm/ Premix 50 mls @ 100 mls/hr IV Q8H [facility] Last Admin: 01/12/18 18:09 Dose: 100 mls/hr Vancomycin HCl 1 gm/ Sodium (Chloride) 250 mls @ 250 mls/hr IV Q24H [facility] Last Admin: 01/12/18 19:34 Dose: 250 mls/hr Cefepime HCl 1 gm/ Premix 50 mls @ 100 mls/hr IV Q8H [facility] Last Admin: 01/13/18 01:25 Dose: 100 mls/hr Vancomycin HCl 1 gm/ Sodium (Chloride) 250 mls @ 250 mls/hr IV Q24H [facility] Last Admin: 01/14/18 20:56 Dose: Not Given Cefepime HCl 2 gm/ Premix 50 mls @ 100 mls/hr IV Q24H [facility] Last Admin: 01/14/18 13:06 Dose: 100 mls/hr Vancomycin HCl 1.5 gm/ Sodium (Chloride) 500 mls @ 333.333 mls/hr IV Q24H [facility] Last Admin: 01/14/18 21:17 Dose: 333.333 mls/hr Lorazepam (Ativan) 0.5 mg IVPUSH ONETIME ONE Stop: 01/09/18 20:19 Last Admin: 01/09/18 20:36 Dose: Not Given Metoclopramide HCl (Reglan) 10 mg IV Q6H [facility] Last Admin: 01/12/18 18:05 Dose: 10 mg Metoprolol Tartrate (Lopressor) 25 mg PO Q12H [facility] Last Admin: 01/14/18 00:37 Dose: 25 mg Metoprolol Tartrate (Lopressor) 25 mg PO Q12H [facility] Last Admin: 01/14/18 12:01 Dose: 25 mg Metoprolol Tartrate (Lopressor) 25 mg PO Q12H [facility] Last Admin: 01/15/18 08:00 Dose: 25 mg Metoprolol Tartrate (Lopressor) 25 mg PO ONETIME ONE Stop: 01/15/18 09:19 Last Admin: 01/15/18 09:25 Dose: 25 mg Metoprolol Tartrate (Lopressor) 50 mg PO Q12H [facility] Last Admin: 01/15/18 20:05 Dose: 50 mg Metoprolol Tartrate (Lopressor) 5 mg IVPUSH ONETIME ONE Stop: 01/16/18 18:47 Last Admin: 01/16/18 19:04 Dose: 5 mg Midazolam HCl (Versed 1 Mg/Ml) Confirm Administered Dose 2 mg .ROUTE .STK-MED ONE Stop: 01/09/18 12:47 Morphine Sulfate (Morphine [employer] 30 Mg In 30 Ml) 30 mg IV SEECOMMENT [facility] Morphine Sulfate (Morphine [employer] Aide 30 Mg In 30 Ml) 30 mg IV ASDIRECTED [facility]; Protocol Last Admin: 01/09/18 21:09 Dose: 30 mg Ondansetron HCl (Zofran) Confirm Administered Dose 4 mg .ROUTE .STK-MED ONE Stop: 01/09/18 12:47 Pantoprazole Sodium (Protonix Iv) 40 mg IVPUSH DAILY [facility] Last Admin: 01/15/18 08:02 Dose: 40 mg Propofol (Diprivan 20 Ml) Confirm Administered Dose 400 mg .ROUTE .STK-MED ONE Stop: 01/09/18 12:47 Rocuronium [place] (Zemuron) Confirm Administered Dose 100 mg .ROUTE .STK-MED ONE Stop: 01/09/18 13:28 Sugammadex Sodium (Bridion) Confirm Administered Dose 200 mg .ROUTE .STK-MED ONE Stop: 01/09/18 14:53 Vancomycin HCl (Pharmacy To Dose - Vancomycin) 1 dose .XX ASDIRECTED [facility] - Exam General: Alert, Oriented, Cooperative, No Acute Distress Lungs: Clear to Auscultation, Normal Respiratory Effort Cardiovascular: Regular Rate, Regular Rhythm GI/Abdominal Exam: Normal Bowel Sounds, Soft, Tender (around incision site with packed wound and erythema) Extremities: Normal Inspection, No Pedal Edema Skin: Warm, Dry Wound/Incisions: Drainage, Erythema Neurological: No New Focal Deficit Psy/Mental Status: Alert, Normal Affect, Normal Mood Consult PN Assessment/Plan Procedures: Procedures ASSAY THYROID STIM HORMONE (01/18/14) COMPLETE CBC W/AUTO DIFF WBC (01/18/14) COMPREHEN METABOLIC PANEL (01/18/14) EMERGENCY DEPT VISIT (10/20/15) LIPID PANEL (01/18/14) OFFICE/OUTPATIENT VISIT EST (01/18/14) OT EVALUATION (12/04/15) OT RE-EVALUATION (12/19/15) ROUTINE VENIPUNCTURE (01/18/14) THERAPEUTIC EXERCISES (12/19/15) URINALYSIS AUTO W/SCOPE (01/18/14) X-RAY EXAM OF WRIST (12/28/15) Problem List Initiated/Reviewed/Updated: Yes Plan: 1. Afib converted to NSR- stop metoprolol because the patient is no longer in Afib, and she has been slightly hypotensive. Continue on telemetry. 2. Intestional perforation s/p repair- Dr. Smith is managing this. He recently open her incision and drained an abscess. He is waiting on culture results before starting any antibiotics. Her white count is slowly improving daily. He has instructed packing changes BID. We will continue to follow Dr. Smith's patient and give recommendations as needed. 3. DEMETRIUS- hold lasix and recheck labs in AM.
[2018-01-18] MEDS: Pantoprazole 40 MG Tab.CR PO SCH (08:32)
[2018-01-18] MEDS: Aspirin 81 MG Tab.Chew PO SCH (08:33)
--- NOTE | 2018-01-18 09:29 | PCM.SURGPN ---
- General Info Date of Service: 01/18/18 Date of Surgery/Procedure: 01/09/18 POD#: 9 Post-Op Diagnosis: Perforated colon, wound abscess Functional Status: Reports: Pain Controlled, Tolerating Diet, Ambulating, Urinating - Review of Systems General: Denies: Fever, Weakness, Fatigue, Malaise HEENT: Reports: No Symptoms Pulmonary: Denies: Shortness of Breath, Pleuritic Chest Pain, Cough Gastrointestinal: Reports: Abdominal Pain, Flatus. Denies: Constipation, Decreased Appetite, Diarrhea, Nausea, Vomiting Genitourinary: Denies: Dysuria, Frequency, Burning, Pain, Urgency Musculoskeletal: Reports: No Symptoms Skin: Denies: Cyanosis, Jaundice Neurological: Denies: Confusion Psychiatric: Denies: Confusion, Depression, Mood Lability, Anxiety - Patient Data Vitals - Most Recent: Last Vital Signs Temp 98.4 F 01/18/18 07:30 Pulse 71 01/18/18 07:30 Resp 18 01/18/18 07:30 BP 93/45 L 01/18/18 07:30 Pulse Ox 94 L 01/18/18 07:30 Weight - Most Recent: 170 lb 3.15 oz I&O - Last 24 Hours: Intake & Output 01/17/18 01/18/18 01/18/18 19:59 03:59 11:59 Intake Total 540 200 Output Total 360 300 310 Balance 180 -300 -110 Lab Results Last 24 Hrs: Laboratory Results - last 24 hr 01/18/18 01/18/18 Range/Units 05:52 05:52 WBC 12.51 H (4.0-11.0) K/uL RBC 3.01 L (4.30-5.90) M/uL Hgb 9.3 L (12.0-16.0) g/dL Hct 27.8 L (36.0-46.0) % MCV 92.4 (80.0-98.0) fL MCH 30.9 (27.0-32.0) pg MCHC 33.5 (31.0-37.0) g/dL RDW Std Deviation 49.3 (28.0-62.0) fl RDW Coeff of Nilo 15 (11.0-15.0) % Plt Count 259 (150-400) K/uL MPV 9.20 (7.40-12.00) fL Add Manual Diff YES Neutrophils % (Manual) 74 (48.0-80.0) % Band Neutrophils % 10 % Lymphocytes % (Manual) 14 L (16.0-40.0) % Monocytes % (Manual) 2 (0.0-15.0) % Nucleated RBC % 0.0 /100WBC Absolute Seg Neuts 9.3 H (1.4-5.7) Band Neutrophils # 1.3 Lymphocytes # (Manual) 1.8 (0.6-2.4) Monocytes # (Manual) 0.3 (0.0-0.8) Nucleated RBCs # 0 K/uL Sodium 138 (136-145) mmol/L Potassium 3.8 (3.5-5.1) mmol/L Chloride 103 (98-107) mmol/L Carbon Dioxide 28.9 (21.0-32.0) mmol/L BUN 43 H (7.0-18.0) mg/dL Creatinine 1.3 H (0.6-1.0) mg/dL Est Cr Clr Drug Dosing 27.35 mL/min Estimated GFR (MDRD) 39.7 ml/min Glucose 93 (74-106) mg/dL Calcium 8.4 L (8.5-10.1) mg/dL Med Orders - Current: Current Medications Acetaminophen (Tylenol) 325 mg RECTAL Q4H PRN PRN Reason: Temperature Hydrocodone Bitart/Acetaminophen (Addison 325-5 Mg) 1 tab PO Q6H PRN PRN Reason: Pain (moderate 4-6) Last Admin: 01/18/18 07:26 Dose: 1 tab Albuterol/Ipratropium (Duoneb 3.0-0.5 Mg/3 Ml) 3 ml NEB Q4HRRT PRN PRN Reason: SOB/wheezing Last Admin: 01/17/18 19:39 Dose: 3 ml Aspirin (Aspirin) 81 mg PO DAILY [facility] Last Admin: 01/18/18 08:33 Dose: 81 mg Enoxaparin Sodium (Lovenox) 30 mg SUBCUT Q24H [facility] Last Admin: 01/17/18 21:00 Dose: 30 mg Furosemide (Lasix) 20 mg PO BIDDIURETIC [facility] Last Admin: 01/18/18 07:27 Dose: 20 mg Metoclopramide HCl (Reglan) 10 mg IV Q6H [facility] Last Admin: 01/18/18 05:54 Dose: 10 mg Metoprolol Tartrate (Lopressor) 50 mg PO BIDMEALS [facility] Last Admin: 01/17/18 17:32 Dose: 50 mg Morphine Sulfate (Morphine) 0 mg IVPUSH Q1H PRN PRN Reason: Pain (severe 7-10) Morphine Sulfate (Morphine) 0 mg IVPUSH Q1H PRN PRN Reason: Pain (severe 7-10) Ondansetron HCl (Zofran) 4 mg IVPUSH Q6H PRN PRN Reason: Nausea/Vomiting Pantoprazole Sodium (Protonix) 40 mg PO DAILY [facility] Last Admin: 01/18/18 08:32 Dose: 40 mg Discontinued Medications Albuterol/Ipratropium (Duoneb 3.0-0.5 Mg/3 Ml) Confirm Administered Dose 3 ml .ROUTE .STK-MED ONE Stop: 01/11/18 14:09 Last Admin: 01/11/18 14:33 Dose: Not Given Albuterol/Ipratropium (Duoneb 3.0-0.5 Mg/3 Ml) 3 ml NEB ONETIME ONE Stop: 01/11/18 14:25 Last Admin: 01/11/18 15:46 Dose: Not Given Aspirin (Aspirin) 325 mg PO ONETIME ONE Stop: 01/11/18 16:18 Last Admin: 01/11/18 16:58 Dose: 325 mg Aspirin (Aspirin) Confirm Administered Dose 325 mg .ROUTE .STK-MED ONE Stop: 01/11/18 16:58 Last Admin: 01/11/18 17:03 Dose: Not Given Bupivacaine HCl (Marcaine 0.5%) Confirm Administered Dose 120 ml .ROUTE .STK- MED ONE Stop: 01/09/18 13:42 Cefazolin Sodium (Ancef) Confirm Administered Dose 1 gm .ROUTE .STK-MED ONE Stop: 01/09/18 14:18 Digoxin (Lanoxin) 250 mcg IVPUSH ONETIME ONE Stop: 01/11/18 17:03 Last Admin: 01/11/18 17:24 Dose: 250 mcg Digoxin (Lanoxin) 250 mcg IVPUSH ONETIME ONE Stop: 01/15/18 19:05 Last Admin: 01/15/18 19:11 Dose: 250 mcg Digoxin (Lanoxin) 250 mcg IVPUSH ONETIME ONE Stop: 01/16/18 08:43 Last Admin: 01/16/18 08:51 Dose: 250 mcg Diltiazem HCl (Diltiazem) 10 mg IVPUSH ONETIME ONE Stop: 01/11/18 15:10 Last Admin: 01/11/18 15:56 Dose: 10 mg Fentanyl (Sublimaze) Confirm Administered Dose 100 mcg .ROUTE .STK-MED ONE Stop: 01/09/18 12:47 Fentanyl (Sublimaze) Confirm Administered Dose 100 mcg .ROUTE .STK-MED ONE Stop: 01/09/18 13:29 Furosemide (Lasix) 20 mg IVPUSH NOW ONE Stop: 01/11/18 21:51 Last Admin: 01/11/18 22:14 Dose: 20 mg Furosemide (Lasix) 40 mg IVPUSH NOW ONE Stop: 01/12/18 02:21 Last Admin: 01/12/18 02:41 Dose: 40 mg Furosemide (Lasix) 20 mg IVPUSH Q8H [facility] Stop: 01/13/18 09:01 Last Admin: 01/13/18 08:06 Dose: 20 mg Furosemide (Lasix) 20 mg IVPUSH NOW ONE Stop: 01/13/18 19:49 Last Admin: 01/13/18 19:55 Dose: Not Given Furosemide (Lasix) 20 mg IVPUSH NOW ONE Stop: 01/14/18 08:56 Last Admin: 01/14/18 09:14 Dose: 20 mg Hydromorphone HCl (Dilaudid) Confirm Administered Dose 2 mg .ROUTE .STK-MED ONE Stop: 01/09/18 13:32 Lactated Ringer's (Ringers, Lactated) 1,000 mls @ 125 mls/hr IV ASDIRECTED [facility] Last Infusion: 01/10/18 01:55 Dose: Infused Hetastarch/Sodium Chloride (Hetastarch 6% In Normal Saline) Confirm Administered Dose 500 mls @ as directed .ROUTE .STK-MED ONE Stop: 01/09/18 14:24 Acetaminophen (Ofirmev) Confirm Administered Dose 100 mls @ as directed IV .STK- MED ONE Stop: 01/09/18 14:53 Cefoxitin Sodium 1 gm/ Premix 50 mls @ 100 mls/hr IV Q6H [facility] Stop: 01/10/18 09:59 Last Admin: 01/10/18 09:17 Dose: 100 mls/hr Lactated Ringer's (Ringers, Lactated) 1,000 mls @ 125 mls/hr IV ASDIRECTED [facility] Last Infusion: 01/11/18 18:00 Dose: Infused Lactated Ringer's (Ringers, Lactated) 1,000 mls @ 625 mls/hr IV ASDIRECTED [facility] Lactated Ringer's (Ringers, Lactated) 500 mls @ 500 mls/hr IV .BOLUS ONE Stop: 01/10/18 02:45 Last Admin: 01/10/18 02:01 Dose: 500 mls/hr Lactated Ringer's (Ringers, Lactated) 500 mls @ 500 mls/hr IV BOLUS [facility] Stop: 01/10/18 04:45 Lactated Ringer's (Ringers, Lactated) 500 mls @ 500 mls/hr IV .BOLUS [facility] Stop: 01/10/18 05:01 Last Admin: 01/10/18 03:45 Dose: 500 mls/hr Lactated Ringer's (Ringers, Lactated) 1,000 mls @ 75 mls/hr IV ASDIRECTED [facility] Lactated Ringer's (Ringers, Lactated) 1,000 mls @ 50 mls/hr IV ASDIRECTED [facility] Diltiazem HCl 125 mg/ Sodium (Chloride) 125 mls @ 5 mls/hr IV ASDIRECTED [facility]; Protocol Last Titration: 01/12/18 15:45 Dose: 0 mg/hr, 0 mls/hr Magnesium Sulfate 2 gm/ Premix 50 mls @ 50 mls/hr IV ONETIME ONE Stop: 01/11/18 17:18 Last Admin: 01/11/18 16:39 Dose: 50 mls/hr Cefepime HCl 1 gm/ Premix 50 mls @ 100 mls/hr IV Q8H [facility] Last Admin: 01/12/18 18:09 Dose: 100 mls/hr Vancomycin HCl 1 gm/ Sodium (Chloride) 250 mls @ 250 mls/hr IV Q24H [facility] Last Admin: 01/12/18 19:34 Dose: 250 mls/hr Cefepime HCl 1 gm/ Premix 50 mls @ 100 mls/hr IV Q8H [facility] Last Admin: 01/13/18 01:25 Dose: 100 mls/hr Vancomycin HCl 1 gm/ Sodium (Chloride) 250 mls @ 250 mls/hr IV Q24H [facility] Last Admin: 01/14/18 20:56 Dose: Not Given Cefepime HCl 2 gm/ Premix 50 mls @ 100 mls/hr IV Q24H [facility] Last Admin: 01/14/18 13:06 Dose: 100 mls/hr Vancomycin HCl 1.5 gm/ Sodium (Chloride) 500 mls @ 333.333 mls/hr IV Q24H [facility] Last Admin: 01/14/18 21:17 Dose: 333.333 mls/hr Lorazepam (Ativan) 0.5 mg IVPUSH ONETIME ONE Stop: 01/09/18 20:19 Last Admin: 01/09/18 20:36 Dose: Not Given Metoclopramide HCl (Reglan) 10 mg IV Q6H [facility] Last Admin: 01/12/18 18:05 Dose: 10 mg Metoprolol Tartrate (Lopressor) 25 mg PO Q12H [facility] Last Admin: 01/14/18 00:37 Dose: 25 mg Metoprolol Tartrate (Lopressor) 25 mg PO Q12H [facility] Last Admin: 01/14/18 12:01 Dose: 25 mg Metoprolol Tartrate (Lopressor) 25 mg PO Q12H [facility] Last Admin: 01/15/18 08:00 Dose: 25 mg Metoprolol Tartrate (Lopressor) 25 mg PO ONETIME ONE Stop: 01/15/18 09:19 Last Admin: 01/15/18 09:25 Dose: 25 mg Metoprolol Tartrate (Lopressor) 50 mg PO Q12H [facility] Last Admin: 01/15/18 20:05 Dose: 50 mg Metoprolol Tartrate (Lopressor) 5 mg IVPUSH ONETIME ONE Stop: 01/16/18 18:47 Last Admin: 01/16/18 19:04 Dose: 5 mg Midazolam HCl (Versed 1 Mg/Ml) Confirm Administered Dose 2 mg .ROUTE .STK-MED ONE Stop: 01/09/18 12:47 Morphine Sulfate (Morphine [employer] 30 Mg In 30 Ml) 30 mg IV SEECOMMENT [facility] Morphine Sulfate (Morphine [employer] 30 Mg In 30 Ml) 30 mg IV ASDIRECTED [facility]; Protocol Last Admin: 01/09/18 21:09 Dose: 30 mg Ondansetron HCl (Zofran) Confirm Administered Dose 4 mg .ROUTE .STK-MED ONE Stop: 01/09/18 12:47 Pantoprazole Sodium (Protonix Iv) 40 mg IVPUSH DAILY [facility] Last Admin: 01/15/18 08:02 Dose: 40 mg Propofol (Diprivan 20 Ml) Confirm Administered Dose 400 mg .ROUTE .STK-MED ONE Stop: 01/09/18 12:47 Rocuronium [place] (Zemuron) Confirm Administered Dose 100 mg .ROUTE .STK-MED ONE Stop: 01/09/18 13:28 Sugammadex Sodium (Bridion) Confirm Administered Dose 200 mg .ROUTE .STK-MED ONE Stop: 01/09/18 14:53 Vancomycin HCl (Pharmacy To Dose - Vancomycin) 1 dose .XX ASDIRECTED [facility] - Exam Wound/Incisions: Drainage, Erythema Improving Quality Assessment: Supplemental Oxygen, DVT Prophylaxis General: Alert, Cooperative, No Acute Distress HEENT: Pupils Equal, Pupils Reactive. No: Scleral Icterus Neck: Supple Lungs: Clear to Auscultation, Normal Respiratory Effort Cardiovascular: Regular Rate, Regular Rhythm GI/Abdominal Exam: Normal Bowel Sounds, Soft, Tender (around incision). No: No Distention, Guarding, Rigid, Rebound, Hernia, Mass Extremities: Normal Inspection Skin: Warm, Dry, Intact Neurological: No New Focal Deficit Psy/Mental Status: Alert, Normal Affect, Normal Mood - Problem List & Annotations (1) Large bowel perforation SNOMED Code(s): 549664042 Code(s): K63.1 - PERFORATION OF INTESTINE (NONTRAUMATIC) Status: Acute Priority: High Current Visit: Yes (2) Atrial fibrillation SNOMED Code(s): 76412275 Code(s): I48.91 - UNSPECIFIED ATRIAL FIBRILLATION Status: Acute Priority : Medium Current Visit: Yes Qualifiers: Atrial fibrillation type: paroxysmal Qualified Code(s): I48.0 - Paroxysmal atrial fibrillation (3) Abscess of postoperative wound of abdominal wall SNOMED Code(s): 101776248 Code(s): T81.4XXA - INFECTION FOLLOWING A PROCEDURE, INITIAL ENCOUNTER Status: Acute Priority: High Current Visit: Yes Qualifiers: Encounter type: subsequent encounter Qualified Code(s): T81.4XXD - Infection following a procedure, subsequent encounter - Problem List Review Problem List Initiated/Reviewed/Updated: Yes - My Orders Last 24 Hours: Active Orders 24 hr Category Date Time Status May Shower [RC] ASDIRECTED Care 01/17/18 11:18 Active Medication Orders Acetaminophen (Tylenol) 325 mg RECTAL Q4H PRN PRN Reason: Temperature Hydrocodone Bitart/Acetaminophen (Addison 325-5 Mg) 1 tab PO Q6H PRN PRN Reason: Pain (moderate 4-6) Last Admin: 01/18/18 07:26 Dose: 1 tab Admin: 01/17/18 21:54 Dose: 1 tab Admin: 01/17/18 15:40 Dose: 1 tab Admin: 01/17/18 09:35 Dose: 1 tab Admin: 01/16/18 21:54 Dose: 1 tab Admin: 01/16/18 13:14 Dose: 1 tab Admin: 01/16/18 07:30 Dose: 1 tab Admin: 01/15/18 23:40 Dose: 1 tab Admin: 01/15/18 16:33 Dose: 1 tab Admin: 01/15/18 08:03 Dose: 1 tab Admin: 01/14/18 17:00 Dose: 1 tab Admin: 01/14/18 09:52 Dose: 1 tab Albuterol/Ipratropium (Duoneb 3.0-0.5 Mg/3 Ml) 3 ml NEB Q4HRRT PRN PRN Reason: SOB/wheezing Last Admin: 01/17/18 19:39 Dose: 3 ml Admin: 01/16/18 17:45 Dose: 3 ml Admin: 01/16/18 12:09 Dose: 3 ml Admin: 01/15/18 08:16 Dose: 3 ml Admin: 01/13/18 13:59 Dose: 3 ml Admin: 01/12/18 17:55 Dose: 3 ml Aspirin (Aspirin) 81 mg PO DAILY [facility] Last Admin: 01/18/18 08:33 Dose: 81 mg Admin: 01/17/18 09:33 Dose: 81 mg Admin: 01/16/18 08:24 Dose: 81 mg Admin: 01/15/18 13:01 Dose: 81 mg Enoxaparin Sodium (Lovenox) 30 mg SUBCUT Q24H [facility] Last Admin: 01/17/18 21:00 Dose: 30 mg Admin: 01/16/18 21:47 Dose: 30 mg Admin: 01/15/18 21:18 Dose: 30 mg Admin: 01/14/18 21:16 Dose: 30 mg Admin: 01/13/18 21:15 Dose: 30 mg Admin: 01/12/18 22:58 Dose: 30 mg Admin: 01/11/18 22:58 Dose: 30 mg Furosemide (Lasix) 20 mg PO BIDDIURETIC [facility] Last Admin: 01/18/18 07:27 Dose: 20 mg Admin: 01/17/18 13:42 Dose: 20 mg Admin: 01/17/18 09:33 Dose: 20 mg Admin: 01/16/18 13:13 Dose: 20 mg Admin: 01/16/18 08:25 Dose: 20 mg Admin: 01/15/18 13:01 Dose: 20 mg Admin: 01/15/18 08:42 Dose: 20 mg Metoclopramide HCl (Reglan) 10 mg IV Q6H [facility] Last Admin: 01/18/18 05:54 Dose: 10 mg Admin: 01/18/18 00:30 Dose: 10 mg Admin: 01/17/18 17:32 Dose: 10 mg Admin: 01/17/18 13:42 Dose: 10 mg Admin: 01/17/18 05:18 Dose: 10 mg Admin: 01/17/18 00:07 Dose: 10 mg Admin: 01/16/18 17:43 Dose: 10 mg Admin: 01/16/18 12:09 Dose: 10 mg Admin: 01/16/18 06:24 Dose: 10 mg Admin: 01/15/18 23:33 Dose: 10 mg Admin: 01/15/18 17:23 Dose: 10 mg Admin: 01/15/18 11:52 Dose: 10 mg Admin: 01/15/18 06:46 Dose: 10 mg Admin: 01/14/18 23:56 Dose: 10 mg Admin: 01/14/18 17:00 Dose: 10 mg Admin: 01/14/18 12:13 Dose: 10 mg Admin: 01/14/18 06:21 Dose: 10 mg Admin: 01/14/18 00:05 Dose: 10 mg Admin: 01/13/18 18:20 Dose: 10 mg Admin: 01/13/18 12:29 Dose: 10 mg Admin: 01/13/18 06:34 Dose: 10 mg Admin: 01/13/18 01:15 Dose: 10 mg Metoprolol Tartrate (Lopressor) 50 mg PO BIDMEALS [facility] Last Admin: 01/17/18 17:32 Dose: 50 mg Admin: 01/17/18 09:34 Dose: 50 mg Admin: 01/16/18 17:47 Dose: Not Given Admin: 01/16/18 10:07 Dose: Not Given Morphine Sulfate (Morphine) 0 mg IVPUSH Q1H PRN PRN Reason: Pain (severe 7-10) Morphine Sulfate (Morphine) 0 mg IVPUSH Q1H PRN PRN Reason: Pain (severe 7-10) Ondansetron HCl (Zofran) 4 mg IVPUSH Q6H PRN PRN Reason: Nausea/Vomiting Pantoprazole Sodium (Protonix) 40 mg PO DAILY [facility] Last Admin: 01/18/18 08:32 Dose: 40 mg Admin: 01/17/18 09:33 Dose: 40 mg Admin: 01/16/18 08:52 Dose: 40 mg - Assessment Assessment (Free Text/Narrative):: Incision repacked. Still having serosanguineous/purulent drainage. Cultures not back yet. WBC slowly improving. - Plan Plan (Free Text/Narrative):: Continue BID/PRN packing changes. Awaiting C&S results before starting antibiotics. Will require Home Health upon discharge.
[2018-01-18] MEDS: Metoprolol Tartrate 50 MG Tab PO SCH (11:03)
[2018-01-18] MEDS: Simvastatin 20 MG Tab PO SCH (21:08)
[2018-01-18] MEDS: Enoxaparin 30 MG/0.3 ML Syringe SUBCUT SCH (21:09)
[2018-01-18] MEDS: Albuterol/Ipratropium 3.0-0.5 MG/3 ML Neb Soln NEB PRN (22:48)
[2018-01-19] MEDS: Metoclopramide 10 MG/2 ML SDV IV SCH ×6 (00:22→23:01)
[2018-01-19] MEDS: Acetaminophen/HYDROcodone 325-5 MG Tab PO PRN ×3 (07:40→23:00)
[2018-01-19] MEDS: Pantoprazole 40 MG Tab.CR PO SCH (09:53)
[2018-01-19] MEDS: Aspirin 81 MG Tab.Chew PO SCH (09:53)
--- NOTE | 2018-01-19 10:16 | PCM.CONSN ---
- General Info Date of Service: 01/19/18 Subjective Update: Patient states that she is doing well does not have any major complaints or concerns. 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 - Patient Data Vitals - Most Recent: Last Vital Signs Temp 37.5 C 01/19/18 07:54 Pulse 74 01/19/18 07:54 Resp 20 01/19/18 07:54 BP 124/46 L 01/19/18 07:54 Pulse Ox 93 L 01/19/18 07:54 Weight - Most Recent: 77.1 kg I&O - Last 24 Hours: Intake & Output 01/18/18 01/19/18 01/19/18 22:59 06:59 14:59 Intake Total 710 450 Output Total 650 200 Balance 60 250 Lab Results Last 24 Hours: Laboratory Results - last 24 hr 01/19/18 01/19/18 01/19/18 Range/Units 04:55 04:55 09:30 WBC 13.65 H (4.0-11.0) K/uL RBC 2.99 L (4.30-5.90) M/uL Hgb 9.4 L (12.0-16.0) g/dL Hct 27.7 L (36.0-46.0) % MCV 92.6 (80.0-98.0) fL MCH 31.4 (27.0-32.0) pg MCHC 33.9 (31.0-37.0) g/dL RDW Std Deviation 50.1 (28.0-62.0) fl RDW Coeff of Nilo 15 (11.0-15.0) % Plt Count 306 (150-400) K/uL MPV 9.20 (7.40-12.00) fL Neut % (Auto) 84.4 H (48.0-80.0) % Lymph % (Auto) 5.8 L (16.0-40.0) % Garfield % (Auto) 8.7 (0.0-15.0) % Eos % (Auto) 1.0 (0.0-7.0) % Baso % (Auto) 0.1 (0.0-1.5) % Neut # (Auto) 11.5 H (1.4-5.7) K/uL Lymph # (Auto) 0.8 (0.6-2.4) K/uL Garfield # (Auto) 1.2 H (0.0-0.8) K/uL Eos # (Auto) 0.1 (0.0-0.7) K/uL Baso # (Auto) 0.0 (0.0-0.1) K/uL Nucleated RBC % 0.0 /100WBC Nucleated RBCs # 0 K/uL Sodium 139 (136-145) mmol/L Potassium 4.1 (3.5-5.1) mmol/L Chloride 104 (98-107) mmol/L Carbon Dioxide 29.5 (21.0-32.0) mmol/L BUN 41 H (7.0-18.0) mg/dL Creatinine 1.2 H (0.6-1.0) mg/dL Est Cr Clr Drug Dosing 29.63 mL/min Estimated GFR (MDRD) 43.6 ml/min Glucose 116 H (74-106) mg/dL Calcium 8.4 L (8.5-10.1) mg/dL Urine Color YELLOW Urine Appearance CLEAR Urine pH 6.0 (5.0-8.0) Ur Specific [place] 1.015 (1.001-1.035) Urine Protein NEGATIVE (NEGATIVE) mg/dL Urine Glucose (UA) NEGATIVE (NEGATIVE) mg/dL Urine Ketones NEGATIVE (NEGATIVE) mg/dL Urine Occult Blood NEGATIVE (NEGATIVE) Urine Nitrite NEGATIVE (NEGATIVE) Urine Bilirubin SMALL H (NEGATIVE) Urine Ictotest NEGATIVE Urine Urobilinogen 0.2 (<2.0) EU/dL Ur Leukocyte Esterase NEGATIVE (NEGATIVE) Urine RBC 0-2 (0-2/HPF) Urine WBC 0-2 (0-5/HPF) Ur Epithelial Cells FEW (NONE-FEW) Urine Bacteria FEW (NEGATIVE) Shailesh Results Last 24 Hours: Microbiology 01/16/18 13:25 Wound Culture - Final Abdomen - Incision Enterobacter Cloacae#2 Pseudomonas Aeruginosa Med Orders - Current: Current Medications Acetaminophen (Tylenol) 325 mg RECTAL Q4H PRN PRN Reason: Temperature Hydrocodone Bitart/Acetaminophen ([place] 325-5 Mg) 1 tab PO Q6H PRN PRN Reason: Pain (moderate 4-6) Last Admin: 01/19/18 07:40 Dose: 1 tab Albuterol/Ipratropium (Duoneb 3.0-0.5 Mg/3 Ml) 3 ml NEB Q4HRRT PRN PRN Reason: SOB/wheezing Last Admin: 01/18/18 22:48 Dose: 3 ml Aspirin (Aspirin) 81 mg PO DAILY COUNT INCLUDES THE [facility] Last Admin: 01/19/18 09:53 Dose: 81 mg Enoxaparin Sodium (Lovenox) 30 mg SUBCUT Q24H COUNT INCLUDES THE [facility] Last Admin: 01/18/18 21:09 Dose: 30 mg Meropenem 1 gm/ Sodium (Chloride) 100 mls @ 200 mls/hr IV Q8H COUNT INCLUDES THE [facility] Metoclopramide HCl (Reglan) 10 mg IV Q6H COUNT INCLUDES THE [facility] Last Admin: 01/19/18 06:16 Dose: 10 mg Morphine Sulfate (Morphine) 0 mg IVPUSH Q1H PRN PRN Reason: Pain (severe 7-10) Morphine Sulfate (Morphine) 0 mg IVPUSH Q1H PRN PRN Reason: Pain (severe 7-10) Ondansetron HCl (Zofran) 4 mg IVPUSH Q6H PRN PRN Reason: Nausea/Vomiting Pantoprazole Sodium (Protonix) 40 mg PO DAILY COUNT INCLUDES THE [facility] Last Admin: 01/19/18 09:53 Dose: 40 mg Simvastatin (Zocor) 20 mg PO BEDTIME COUNT INCLUDES THE [facility] Last Admin: 01/18/18 21:08 Dose: 20 mg Discontinued Medications Albuterol/Ipratropium (Duoneb 3.0-0.5 Mg/3 Ml) Confirm Administered Dose 3 ml .ROUTE .STK-MED ONE Stop: 01/11/18 14:09 Last Admin: 01/11/18 14:33 Dose: Not Given Albuterol/Ipratropium (Duoneb 3.0-0.5 Mg/3 Ml) 3 ml NEB ONETIME ONE Stop: 01/11/18 14:25 Last Admin: 01/11/18 15:46 Dose: Not Given Aspirin (Aspirin) 325 mg PO ONETIME ONE Stop: 01/11/18 16:18 Last Admin: 01/11/18 16:58 Dose: 325 mg Aspirin (Aspirin) Confirm Administered Dose 325 mg .ROUTE .STK-MED ONE Stop: 01/11/18 16:58 Last Admin: 01/11/18 17:03 Dose: Not Given Bupivacaine HCl (Marcaine 0.5%) Confirm Administered Dose 120 ml .ROUTE .STK- MED ONE Stop: 01/09/18 13:42 Cefazolin Sodium (Ancef) Confirm Administered Dose 1 gm .ROUTE .STK-MED ONE Stop: 01/09/18 14:18 Digoxin (Lanoxin) 250 mcg IVPUSH ONETIME ONE Stop: 01/11/18 17:03 Last Admin: 01/11/18 17:24 Dose: 250 mcg Digoxin (Lanoxin) 250 mcg IVPUSH ONETIME ONE Stop: 01/15/18 19:05 Last Admin: 01/15/18 19:11 Dose: 250 mcg Digoxin (Lanoxin) 250 mcg IVPUSH ONETIME ONE Stop: 01/16/18 08:43 Last Admin: 01/16/18 08:51 Dose: 250 mcg Diltiazem HCl (Diltiazem) 10 mg IVPUSH ONETIME ONE Stop: 01/11/18 15:10 Last Admin: 01/11/18 15:56 Dose: 10 mg Fentanyl (Sublimaze) Confirm Administered Dose 100 mcg .ROUTE .STK-MED ONE Stop: 01/09/18 12:47 Fentanyl (Sublimaze) Confirm Administered Dose 100 mcg .ROUTE .STK-MED ONE Stop: 01/09/18 13:29 Furosemide (Lasix) 20 mg IVPUSH NOW ONE Stop: 01/11/18 21:51 Last Admin: 01/11/18 22:14 Dose: 20 mg Furosemide (Lasix) 40 mg IVPUSH NOW ONE Stop: 01/12/18 02:21 Last Admin: 01/12/18 02:41 Dose: 40 mg Furosemide (Lasix) 20 mg IVPUSH Q8H COUNT INCLUDES THE [facility] Stop: 01/13/18 09:01 Last Admin: 01/13/18 08:06 Dose: 20 mg Furosemide (Lasix) 20 mg IVPUSH NOW ONE Stop: 01/13/18 19:49 Last Admin: 01/13/18 19:55 Dose: Not Given Furosemide (Lasix) 20 mg IVPUSH NOW ONE Stop: 01/14/18 08:56 Last Admin: 01/14/18 09:14 Dose: 20 mg Furosemide (Lasix) 20 mg PO BIDDIURETIC ROBERTO CARLOS Last Admin: 01/18/18 07:27 Dose: 20 mg Hydromorphone HCl (Dilaudid) Confirm Administered Dose 2 mg .ROUTE .STK-MED ONE Stop: 01/09/18 13:32 Lactated Ringer's (Ringers, Lactated) 1,000 mls @ 125 mls/hr IV ASDIRECTED ROBERTO CARLOS Last Infusion: 01/10/18 01:55 Dose: Infused Hetastarch/Sodium Chloride (Hetastarch 6% In Normal Saline) Confirm Administered Dose 500 mls @ as directed .ROUTE .K-MED ONE Stop: 01/09/18 14:24 Acetaminophen (Ofirmev) Confirm Administered Dose 100 mls @ as directed IV .STK- MED ONE Stop: 01/09/18 14:53 Cefoxitin Sodium 1 gm/ Premix 50 mls @ 100 mls/hr IV Q6H ROBERTO CARLOS Stop: 01/10/18 09:59 Last Admin: 01/10/18 09:17 Dose: 100 mls/hr Lactated Ringer's (Ringers, Lactated) 1,000 mls @ 125 mls/hr IV ASDIRECTED ROBERTO CARLOS Last Infusion: 01/11/18 18:00 Dose: Infused Lactated Ringer's (Ringers, Lactated) 1,000 mls @ 625 mls/hr IV ASDIRECTED ROBERTO CARLOS Lactated Ringer's (Ringers, Lactated) 500 mls @ 500 mls/hr IV .BOLUS ONE Stop: 01/10/18 02:45 Last Admin: 01/10/18 02:01 Dose: 500 mls/hr Lactated Ringer's (Ringers, Lactated) 500 mls @ 500 mls/hr IV BOLUS ROBERTO CARLOS Stop: 01/10/18 04:45 Lactated Ringer's (Ringers, Lactated) 500 mls @ 500 mls/hr IV .BOLUS ROBERTO CARLOS Stop: 01/10/18 05:01 Last Admin: 01/10/18 03:45 Dose: 500 mls/hr Lactated Ringer's (Ringers, Lactated) 1,000 mls @ 75 mls/hr IV ASDIRECTED ROBERTO CARLOS Lactated Ringer's (Ringers, Lactated) 1,000 mls @ 50 mls/hr IV ASDIRECTED ROBERTO CARLOS Diltiazem HCl 125 mg/ Sodium (Chloride) 125 mls @ 5 mls/hr IV ASDIRECTED COUNT INCLUDES THE [facility]; Protocol Last Titration: 01/12/18 15:45 Dose: 0 mg/hr, 0 mls/hr Magnesium Sulfate 2 gm/ Premix 50 mls @ 50 mls/hr IV ONETIME ONE Stop: 01/11/18 17:18 Last Admin: 01/11/18 16:39 Dose: 50 mls/hr Cefepime HCl 1 gm/ Premix 50 mls @ 100 mls/hr IV Q8H COUNT INCLUDES THE [facility] Last Admin: 01/12/18 18:09 Dose: 100 mls/hr Vancomycin HCl 1 gm/ Sodium (Chloride) 250 mls @ 250 mls/hr IV Q24H COUNT INCLUDES THE [facility] Last Admin: 01/12/18 19:34 Dose: 250 mls/hr Cefepime HCl 1 gm/ Premix 50 mls @ 100 mls/hr IV Q8H COUNT INCLUDES THE [facility] Last Admin: 01/13/18 01:25 Dose: 100 mls/hr Vancomycin HCl 1 gm/ Sodium (Chloride) 250 mls @ 250 mls/hr IV Q24H COUNT INCLUDES THE [facility] Last Admin: 01/14/18 20:56 Dose: Not Given Cefepime HCl 2 gm/ Premix 50 mls @ 100 mls/hr IV Q24H COUNT INCLUDES THE [facility] Last Admin: 01/14/18 13:06 Dose: 100 mls/hr Vancomycin HCl 1.5 gm/ Sodium (Chloride) 500 mls @ 333.333 mls/hr IV Q24H COUNT INCLUDES THE [facility] Last Admin: 01/14/18 21:17 Dose: 333.333 mls/hr Lorazepam (Ativan) 0.5 mg IVPUSH ONETIME ONE Stop: 01/09/18 20:19 Last Admin: 01/09/18 20:36 Dose: Not Given Metoclopramide HCl (Reglan) 10 mg IV Q6H COUNT INCLUDES THE [facility] Last Admin: 01/12/18 18:05 Dose: 10 mg Metoprolol Tartrate (Lopressor) 25 mg PO Q12H COUNT INCLUDES THE [facility] Last Admin: 01/14/18 00:37 Dose: 25 mg Metoprolol Tartrate (Lopressor) 25 mg PO Q12H COUNT INCLUDES THE [facility] Last Admin: 01/14/18 12:01 Dose: 25 mg Metoprolol Tartrate (Lopressor) 25 mg PO Q12H COUNT INCLUDES THE [facility] Last Admin: 01/15/18 08:00 Dose: 25 mg Metoprolol Tartrate (Lopressor) 25 mg PO ONETIME ONE Stop: 01/15/18 09:19 Last Admin: 01/15/18 09:25 Dose: 25 mg Metoprolol Tartrate (Lopressor) 50 mg PO Q12H COUNT INCLUDES THE [facility] Last Admin: 01/15/18 20:05 Dose: 50 mg Metoprolol Tartrate (Lopressor) 50 mg PO BIDMEALS COUNT INCLUDES THE [facility] Last Admin: 01/18/18 11:03 Dose: Not Given Metoprolol Tartrate (Lopressor) 5 mg IVPUSH ONETIME ONE Stop: 01/16/18 18:47 Last Admin: 01/16/18 19:04 Dose: 5 mg Midazolam HCl (Versed 1 Mg/Ml) Confirm Administered Dose 2 mg .ROUTE .STK-MED ONE Stop: 01/09/18 12:47 Morphine Sulfate (Morphine Spray I Painter 30 Mg In 30 Ml) 30 mg IV SEECOMMENT ROBERTO CARLOS Morphine Sulfate (Morphine Spray I Painter 30 Mg In 30 Ml) 30 mg IV ASDIRECTED COUNT INCLUDES THE [facility]; Protocol Last Admin: 01/09/18 21:09 Dose: 30 mg Ondansetron HCl (Zofran) Confirm Administered Dose 4 mg .ROUTE .STK-MED ONE Stop: 01/09/18 12:47 Pantoprazole Sodium (Protonix Iv) 40 mg IVPUSH DAILY COUNT INCLUDES THE [facility] Last Admin: 01/15/18 08:02 Dose: 40 mg Propofol (Diprivan 20 Ml) Confirm Administered Dose 400 mg .ROUTE .STK-MED ONE Stop: 01/09/18 12:47 Rocuronium [place] (Zemuron) Confirm Administered Dose 100 mg .ROUTE .STK-MED ONE Stop: 01/09/18 13:28 Sugammadex Sodium (Bridion) Confirm Administered Dose 200 mg .ROUTE .STK-MED ONE Stop: 01/09/18 14:53 Vancomycin HCl (Pharmacy To Dose - Vancomycin) 1 dose .XX ASDIRECTED COUNT INCLUDES THE [facility] - Exam Quality Assessment: Supplemental Oxygen General: Alert, Oriented, Cooperative Lungs: Normal Respiratory Effort, Crackles Cardiovascular: Regular Rate, Regular Rhythm GI/Abdominal Exam: Tender (tender at the lower aspects of her incision site) Extremities: Normal Inspection, Normal Range of Motion Consult PN Assessment/Plan Procedures: Procedures ASSAY THYROID STIM HORMONE (01/18/14) COMPLETE CBC W/AUTO DIFF WBC (01/18/14) COMPREHEN METABOLIC PANEL (01/18/14) EMERGENCY DEPT VISIT (10/20/15) LIPID PANEL (01/18/14) OFFICE/OUTPATIENT VISIT EST (01/18/14) OT EVALUATION (12/04/15) OT RE-EVALUATION (12/19/15) ROUTINE VENIPUNCTURE (01/18/14) THERAPEUTIC EXERCISES (12/19/15) URINALYSIS AUTO W/SCOPE (01/18/14) X-RAY EXAM OF WRIST (12/28/15) (1) Abscess of postoperative wound of abdominal wall SNOMED Code(s): 319000583 Code(s): T81.4XXA - INFECTION FOLLOWING A PROCEDURE, INITIAL ENCOUNTER Priority: High Current Visit: Yes Qualifiers: Encounter type: subsequent encounter Qualified Code(s): T81.4XXD - Infection following a procedure, subsequent encounter (2) Atrial fibrillation SNOMED Code(s): 77131410 Code(s): I48.91 - UNSPECIFIED ATRIAL FIBRILLATION Priority: Medium Current Visit: Yes Qualifiers: Atrial fibrillation type: paroxysmal Qualified Code(s): I48.0 - Paroxysmal atrial fibrillation (3) Large bowel perforation SNOMED Code(s): 681318064 Code(s): K63.1 - PERFORATION OF INTESTINE (NONTRAUMATIC) Priority: High Current Visit: Yes Problem List Initiated/Reviewed/Updated: Yes My Orders Last 24 Hours: My Active Orders 01/19/18 09:00 Meropenem [Merrem] 1 gm Sodium Chloride 0.9% [Normal Saline] 100 ml IV Q8H 01/19/18 09:30 UA W/MICROSCOPIC [URIN] Routine Plan: 77-year-old female admitted under Gen. surgery for intestinal perforation for which we have been consulted for assessment of her atrial fibrillation medical management. -Patient's atrial fibrillation has converted to normal sinus rhythm - patient's wound culture has come back and she is growing Pseudomonas as well as Enterobacter unfortunately she does have multiple antibiotic allergies including fluoroquinolones and sulfa medication, as such based upon her M.I.C. sensitivities nd given that the source of infection is a surgical site I will start her on meropenem 1 g every 8 hours. -Shall continue to follow the patient and give recommendations as needed.
[2018-01-19] MEDS: Meropenem 1 GM in Sodium Chloride 0.9% 100 ML IV SCH ×2 (10:56→12:55)
[2018-01-19] MEDS ORDERED: Ertapenem 1 GM in Sodium Chloride 0.9% 50 ML IV SCH ×2 (12:30→13:00)
[2018-01-19] MEDS: Carboxymethylcellulose Sodium 0.5% Ophth Soln 0.4 ML UD Box of 30 EYEBOTH PRN (13:03)
--- NOTE | 2018-01-19 15:15 | PCM.SURGPN ---
- General Info Date of Service: 01/19/18 POD#: 10 Post-Op Diagnosis: Perforated recto-sigmoid with wound abscess. Functional Status: Reports: Pain Controlled, Tolerating Diet, Ambulating, Urinating. Denies: New Symptoms - Review of Systems General: Reports: Weakness, Fatigue, Appetite (slowly improving). Denies: Fever , Malaise, Chills, Night Sweats HEENT: Reports: No Symptoms Pulmonary: Denies: Shortness of Breath, Pleuritic Chest Pain, Cough Cardiovascular: Denies: Chest Pain, Palpitations, Dyspnea on Exertion, Orthopnea Gastrointestinal: Reports: Abdominal Pain (incisional), Decreased Appetite, Flatus. Denies: Constipation, Diarrhea, Hematochezia, Melena, Nausea, Vomiting , Other (is passing gas and starting to have small BMs) Genitourinary: Denies: Dysuria, Frequency, Burning Musculoskeletal: Reports: No Symptoms Skin: Denies: Cyanosis, Jaundice Neurological: Reports: No Symptoms Psychiatric: Reports: No Symptoms - Patient Data Vitals - Most Recent: Last Vital Signs Temp 99.5 F 01/19/18 07:54 Pulse 74 01/19/18 07:54 Resp 20 01/19/18 07:54 BP 124/46 L 01/19/18 07:54 Pulse Ox 93 L 01/19/18 07:54 Weight - Most Recent: 169 lb 15.622 oz I&O - Last 24 Hours: Intake & Output 01/19/18 01/19/18 01/19/18 03:59 11:59 19:59 Intake Total 650 Output Total 200 Balance -200 650 Lab Results Last 24 Hrs: Laboratory Results - last 24 hr 01/19/18 01/19/18 01/19/18 Range/Units 04:55 04:55 09:30 WBC 13.65 H (4.0-11.0) K/uL RBC 2.99 L (4.30-5.90) M/uL Hgb 9.4 L (12.0-16.0) g/dL Hct 27.7 L (36.0-46.0) % MCV 92.6 (80.0-98.0) fL MCH 31.4 (27.0-32.0) pg MCHC 33.9 (31.0-37.0) g/dL RDW Std Deviation 50.1 (28.0-62.0) fl RDW Coeff of Nilo 15 (11.0-15.0) % Plt Count 306 (150-400) K/uL MPV 9.20 (7.40-12.00) fL Neut % (Auto) 84.4 H (48.0-80.0) % Lymph % (Auto) 5.8 L (16.0-40.0) % [place] % (Auto) 8.7 (0.0-15.0) % Eos % (Auto) 1.0 (0.0-7.0) % Baso % (Auto) 0.1 (0.0-1.5) % Neut # (Auto) 11.5 H (1.4-5.7) K/uL Lymph # (Auto) 0.8 (0.6-2.4) K/uL [place] # (Auto) 1.2 H (0.0-0.8) K/uL Eos # (Auto) 0.1 (0.0-0.7) K/uL Baso # (Auto) 0.0 (0.0-0.1) K/uL Nucleated RBC % 0.0 /100WBC Nucleated RBCs # 0 K/uL Sodium 139 (136-145) mmol/L Potassium 4.1 (3.5-5.1) mmol/L Chloride 104 (98-107) mmol/L Carbon Dioxide 29.5 (21.0-32.0) mmol/L BUN 41 H (7.0-18.0) mg/dL Creatinine 1.2 H (0.6-1.0) mg/dL Est Cr Clr Drug Dosing 29.63 mL/min Estimated GFR (MDRD) 43.6 ml/min Glucose 116 H (74-106) mg/dL Calcium 8.4 L (8.5-10.1) mg/dL Urine Color YELLOW Urine Appearance CLEAR Urine pH 6.0 (5.0-8.0) Ur Specific [place] 1.015 (1.001-1.035) Urine Protein NEGATIVE (NEGATIVE) mg/dL Urine Glucose (UA) NEGATIVE (NEGATIVE) mg/dL Urine Ketones NEGATIVE (NEGATIVE) mg/dL Urine Occult Blood NEGATIVE (NEGATIVE) Urine Nitrite NEGATIVE (NEGATIVE) Urine Bilirubin SMALL H (NEGATIVE) Urine Ictotest NEGATIVE Urine Urobilinogen 0.2 (<2.0) EU/dL Ur Leukocyte Esterase NEGATIVE (NEGATIVE) Urine RBC 0-2 (0-2/HPF) Urine WBC 0-2 (0-5/HPF) Ur Epithelial Cells FEW (NONE-FEW) Urine Bacteria FEW (NEGATIVE) Shailesh Results Last 24 Hrs: Microbiology 01/16/18 13:25 Wound Culture - Final Abdomen - Incision Enterobacter Cloacae#2 Pseudomonas Aeruginosa Med Orders - Current: Current Medications Acetaminophen (Tylenol) 325 mg RECTAL Q4H PRN PRN Reason: Temperature Hydrocodone Bitart/Acetaminophen ([place] 325-5 Mg) 1 tab PO Q6H PRN PRN Reason: Pain (moderate 4-6) Last Admin: 01/19/18 07:40 Dose: 1 tab Albuterol/Ipratropium (Duoneb 3.0-0.5 Mg/3 Ml) 3 ml NEB Q4HRRT PRN PRN Reason: SOB/wheezing Last Admin: 01/18/18 22:48 Dose: 3 ml Artificial Tears (Refresh Plus 0.5%) 1 each EYEBOTH ASDIRECTED PRN PRN Reason: Dry Eyes Last Admin: 01/19/18 13:03 Dose: 1 drop Aspirin (Aspirin) 81 mg PO DAILY [facility] Last Admin: 01/19/18 09:53 Dose: 81 mg Enoxaparin Sodium (Lovenox) 30 mg SUBCUT Q24H [facility] Last Admin: 01/18/18 21:09 Dose: 30 mg Ertapenem 1 gm/ Sodium (Chloride) 50 mls @ 100 mls/hr IV Q24H [facility] Last Admin: 01/19/18 13:01 Dose: 100 mls/hr Metoclopramide HCl (Reglan) 10 mg IV Q6H [facility] Last Admin: 01/19/18 11:51 Dose: 10 mg Morphine Sulfate (Morphine) 0 mg IVPUSH Q1H PRN PRN Reason: Pain (severe 7-10) Morphine Sulfate (Morphine) 0 mg IVPUSH Q1H PRN PRN Reason: Pain (severe 7-10) Ondansetron HCl (Zofran) 4 mg IVPUSH Q6H PRN PRN Reason: Nausea/Vomiting Pantoprazole Sodium (Protonix) 40 mg PO DAILY [facility] Last Admin: 01/19/18 09:53 Dose: 40 mg Simvastatin (Zocor) 20 mg PO BEDTIME [facility] Last Admin: 01/18/18 21:08 Dose: 20 mg Discontinued Medications Albuterol/Ipratropium (Duoneb 3.0-0.5 Mg/3 Ml) Confirm Administered Dose 3 ml .ROUTE .STK-MED ONE Stop: 01/11/18 14:09 Last Admin: 01/11/18 14:33 Dose: Not Given Albuterol/Ipratropium (Duoneb 3.0-0.5 Mg/3 Ml) 3 ml NEB ONETIME ONE Stop: 01/11/18 14:25 Last Admin: 01/11/18 15:46 Dose: Not Given Aspirin (Aspirin) 325 mg PO ONETIME ONE Stop: 01/11/18 16:18 Last Admin: 01/11/18 16:58 Dose: 325 mg Aspirin (Aspirin) Confirm Administered Dose 325 mg .ROUTE .STK-MED ONE Stop: 01/11/18 16:58 Last Admin: 01/11/18 17:03 Dose: Not Given Bupivacaine HCl (Marcaine 0.5%) Confirm Administered Dose 120 ml .ROUTE .STK- MED ONE Stop: 01/09/18 13:42 Cefazolin Sodium (Ancef) Confirm Administered Dose 1 gm .ROUTE .STK-MED ONE Stop: 01/09/18 14:18 Digoxin (Lanoxin) 250 mcg IVPUSH ONETIME ONE Stop: 01/11/18 17:03 Last Admin: 01/11/18 17:24 Dose: 250 mcg Digoxin (Lanoxin) 250 mcg IVPUSH ONETIME ONE Stop: 01/15/18 19:05 Last Admin: 01/15/18 19:11 Dose: 250 mcg Digoxin (Lanoxin) 250 mcg IVPUSH ONETIME ONE Stop: 01/16/18 08:43 Last Admin: 01/16/18 08:51 Dose: 250 mcg Diltiazem HCl (Diltiazem) 10 mg IVPUSH ONETIME ONE Stop: 01/11/18 15:10 Last Admin: 01/11/18 15:56 Dose: 10 mg Fentanyl (Sublimaze) Confirm Administered Dose 100 mcg .ROUTE .STK-MED ONE Stop: 01/09/18 12:47 Fentanyl (Sublimaze) Confirm Administered Dose 100 mcg .ROUTE .STK-MED ONE Stop: 01/09/18 13:29 Furosemide (Lasix) 20 mg IVPUSH NOW ONE Stop: 01/11/18 21:51 Last Admin: 01/11/18 22:14 Dose: 20 mg Furosemide (Lasix) 40 mg IVPUSH NOW ONE Stop: 01/12/18 02:21 Last Admin: 01/12/18 02:41 Dose: 40 mg Furosemide (Lasix) 20 mg IVPUSH Q8H [facility] Stop: 01/13/18 09:01 Last Admin: 01/13/18 08:06 Dose: 20 mg Furosemide (Lasix) 20 mg IVPUSH NOW ONE Stop: 01/13/18 19:49 Last Admin: 01/13/18 19:55 Dose: Not Given Furosemide (Lasix) 20 mg IVPUSH NOW ONE Stop: 01/14/18 08:56 Last Admin: 01/14/18 09:14 Dose: 20 mg Furosemide (Lasix) 20 mg PO BIDDIURETIC [facility] Last Admin: 01/18/18 07:27 Dose: 20 mg Hydromorphone HCl (Dilaudid) Confirm Administered Dose 2 mg .ROUTE .ST-MED ONE Stop: 01/09/18 13:32 Lactated Ringer's (Ringers, Lactated) 1,000 mls @ 125 mls/hr IV ASDIRECTED [facility] Last Infusion: 01/10/18 01:55 Dose: Infused Hetastarch/Sodium Chloride (Hetastarch 6% In Normal Saline) Confirm Administered Dose 500 mls @ as directed .ROUTE .STK-MED ONE Stop: 01/09/18 14:24 Acetaminophen (Ofirmev) Confirm Administered Dose 100 mls @ as directed IV .STK- MED ONE Stop: 01/09/18 14:53 Cefoxitin Sodium 1 gm/ Premix 50 mls @ 100 mls/hr IV Q6H [facility] Stop: 01/10/18 09:59 Last Admin: 01/10/18 09:17 Dose: 100 mls/hr Lactated Ringer's (Ringers, Lactated) 1,000 mls @ 125 mls/hr IV ASDIRECTED [facility] Last Infusion: 01/11/18 18:00 Dose: Infused Lactated Ringer's (Ringers, Lactated) 1,000 mls @ 625 mls/hr IV ASDIRECTED ROBERTO CARLOS Lactated Ringer's (Ringers, Lactated) 500 mls @ 500 mls/hr IV .BOLUS ONE Stop: 01/10/18 02:45 Last Admin: 01/10/18 02:01 Dose: 500 mls/hr Lactated Ringer's (Ringers, Lactated) 500 mls @ 500 mls/hr IV BOLUS [facility] Stop: 01/10/18 04:45 Lactated Ringer's (Ringers, Lactated) 500 mls @ 500 mls/hr IV .BOLUS [facility] Stop: 01/10/18 05:01 Last Admin: 01/10/18 03:45 Dose: 500 mls/hr Lactated Ringer's (Ringers, Lactated) 1,000 mls @ 75 mls/hr IV ASDIRECTED [facility] Lactated Ringer's (Ringers, Lactated) 1,000 mls @ 50 mls/hr IV ASDIRECTED [facility] CAR[facility] Diltiazem HCl 125 mg/ Sodium (Chloride) 125 mls @ 5 mls/hr IV ASDIRECTED [facility]ERT[facility] CARLOS; Protocol Last Titration: 01/12/18 15:45 Dose: 0 mg/hr, 0 mls/hr Magnesium Sulfate 2 gm/ Premix 50 mls @ 50 mls/hr IV ONETIME ONE Stop: 01/11/18 17:18 Last Admin: 01/11/18 16:39 Dose: 50 mls/hr Cefepime HCl 1 gm/ Premix 50 mls @ 100 mls/hr IV Q8H [facility] Last Admin: 01/12/18 18:09 Dose: 100 mls/hr Vancomycin HCl 1 gm/ Sodium (Chloride) 250 mls @ 250 mls/hr IV Q24H [facility] Last Admin: 01/12/18 19:34 Dose: 250 mls/hr Cefepime HCl 1 gm/ Premix 50 mls @ 100 mls/hr IV Q8H [facility] Last Admin: 01/13/18 01:25 Dose: 100 mls/hr Vancomycin HCl 1 gm/ Sodium (Chloride) 250 mls @ 250 mls/hr IV Q24H [facility] Last Admin: 01/14/18 20:56 Dose: Not Given Cefepime HCl 2 gm/ Premix 50 mls @ 100 mls/hr IV Q24H [facility] Last Admin: 01/14/18 13:06 Dose: 100 mls/hr Vancomycin HCl 1.5 gm/ Sodium (Chloride) 500 mls @ 333.333 mls/hr IV Q24H [facility] Last Admin: 01/14/18 21:17 Dose: 333.333 mls/hr Meropenem 1 gm/ Sodium (Chloride) 100 mls @ 200 mls/hr IV Q8H [facility] Last Admin: 01/19/18 12:55 Dose: Not Given Lorazepam (Ativan) 0.5 mg IVPUSH ONETIME ONE Stop: 01/09/18 20:19 Last Admin: 01/09/18 20:36 Dose: Not Given Metoclopramide HCl (Reglan) 10 mg IV Q6H [facility] Last Admin: 01/12/18 18:05 Dose: 10 mg Metoprolol Tartrate (Lopressor) 25 mg PO Q12H [facility] Last Admin: 01/14/18 00:37 Dose: 25 mg Metoprolol Tartrate (Lopressor) 25 mg PO Q12H [facility] Last Admin: 01/14/18 12:01 Dose: 25 mg Metoprolol Tartrate (Lopressor) 25 mg PO Q12H [facility] Last Admin: 01/15/18 08:00 Dose: 25 mg Metoprolol Tartrate (Lopressor) 25 mg PO ONETIME ONE Stop: 01/15/18 09:19 Last Admin: 01/15/18 09:25 Dose: 25 mg Metoprolol Tartrate (Lopressor) 50 mg PO Q12H [facility] Last Admin: 01/15/18 20:05 Dose: 50 mg Metoprolol Tartrate (Lopressor) 50 mg PO BIDMEALS [facility] Last Admin: 01/18/18 11:03 Dose: Not Given Metoprolol Tartrate (Lopressor) 5 mg IVPUSH ONETIME ONE Stop: 01/16/18 18:47 Last Admin: 01/16/18 19:04 Dose: 5 mg Midazolam HCl (Versed 1 Mg/Ml) Confirm Administered Dose 2 mg .ROUTE .STK-MED ONE Stop: 01/09/18 12:47 Morphine Sulfate (Morphine Licensed Architect 30 Mg In 30 Ml) 30 mg IV SEECOMMENT [facility] Morphine Sulfate (Morphine Licensed Architect 30 Mg In 30 Ml) 30 mg IV ASDIRECTED [facility]; Protocol Last Admin: 01/09/18 21:09 Dose: 30 mg Ondansetron HCl (Zofran) Confirm Administered Dose 4 mg .ROUTE .STK-MED ONE Stop: 01/09/18 12:47 Pantoprazole Sodium (Protonix Iv) 40 mg IVPUSH DAILY [facility] Last Admin: 01/15/18 08:02 Dose: 40 mg Propofol (Diprivan 20 Ml) Confirm Administered Dose 400 mg .ROUTE .STK-MED ONE Stop: 01/09/18 12:47 Rocuronium [place] (Zemuron) Confirm Administered Dose 100 mg .ROUTE .STK-MED ONE Stop: 01/09/18 13:28 Sugammadex Sodium (Bridion) Confirm Administered Dose 200 mg .ROUTE .STK-MED ONE Stop: 01/09/18 14:53 Vancomycin HCl (Pharmacy To Dose - Vancomycin) 1 dose .XX ASDIRECTED [facility] - Exam Wound/Incisions: Drainage, Erythema Improving Quality Assessment: Supplemental Oxygen, Central Line/PICC ( will be getting PICC line today), DVT Prophylaxis. No: Urine Catheter, Skin Breakdown General: Alert, Oriented, Cooperative, Mild Distress HEENT: Pupils Equal, Pupils Reactive. No: Scleral Icterus Neck: Supple Lungs: Clear to Auscultation, Normal Respiratory Effort. No: Crackles Cardiovascular: Regular Rate, Regular Rhythm, No Murmurs GI/Abdominal Exam: Normal Bowel Sounds, Soft, No Distention, Tender (around incision), Other (Still has purulent drainage from incision. C&S back and Abx ordered per hospitalist service.). No: Guarding, Rigid, Rebound Extremities: Normal Inspection, Normal Range of Motion Skin: Warm, Dry, Intact Neurological: No New Focal Deficit Psy/Mental Status: Alert, Normal Affect, Normal Mood - Problem List & Annotations (1) Large bowel perforation SNOMED Code(s): 556306869 Code(s): K63.1 - PERFORATION OF INTESTINE (NONTRAUMATIC) Status: Acute Priority: High Current Visit: Yes (2) Atrial fibrillation SNOMED Code(s): 78132306 Code(s): I48.91 - UNSPECIFIED ATRIAL FIBRILLATION Status: Acute Priority : Medium Current Visit: Yes Qualifiers: Atrial fibrillation type: paroxysmal Qualified Code(s): I48.0 - Paroxysmal atrial fibrillation (3) Abscess of postoperative wound of abdominal wall SNOMED Code(s): 834332429 Code(s): T81.4XXA - INFECTION FOLLOWING A PROCEDURE, INITIAL ENCOUNTER Status: Acute Priority: High Current Visit: Yes Qualifiers: Encounter type: subsequent encounter Qualified Code(s): T81.4XXD - Infection following a procedure, subsequent encounter - Problem List Review Problem List Initiated/Reviewed/Updated: Yes - My Orders Last 24 Hours: Active Orders 24 hr Category Date Time Status PICC Line Insertion [CR] Routine Exams 01/19/18 14:37 Ordered UA W/MICROSCOPIC [URIN] Routine Lab 01/19/18 09:30 Ordered Carboxymethylcellulose Sodium [Refresh Plus 0.5%] Med 01/19/18 11:03 Active 1 each EYEBOTH ASDIRECTED PRN Ertapenem [INVanz] 1 gm Med 01/19/18 13:00 Active Sodium Chloride 0.9% [Normal Saline] 50 ml IV Q24H Simvastatin [Zocor] Med 01/18/18 21:00 Active 20 mg PO BEDTIME Medication Orders Acetaminophen (Tylenol) 325 mg RECTAL Q4H PRN PRN Reason: Temperature Hydrocodone Bitart/Acetaminophen ([place] 325-5 Mg) 1 tab PO Q6H PRN PRN Reason: Pain (moderate 4-6) Last Admin: 01/19/18 07:40 Dose: 1 tab Admin: 01/18/18 21:20 Dose: 1 tab Admin: 01/18/18 13:42 Dose: 1 tab Admin: 01/18/18 07:26 Dose: 1 tab Admin: 01/17/18 21:54 Dose: 1 tab Admin: 01/17/18 15:40 Dose: 1 tab Admin: 01/17/18 09:35 Dose: 1 tab Admin: 01/16/18 21:54 Dose: 1 tab Admin: 01/16/18 13:14 Dose: 1 tab Admin: 01/16/18 07:30 Dose: 1 tab Admin: 01/15/18 23:40 Dose: 1 tab Admin: 01/15/18 16:33 Dose: 1 tab Admin: 01/15/18 08:03 Dose: 1 tab Admin: 01/14/18 17:00 Dose: 1 tab Admin: 01/14/18 09:52 Dose: 1 tab Albuterol/Ipratropium (Duoneb 3.0-0.5 Mg/3 Ml) 3 ml NEB Q4HRRT PRN PRN Reason: SOB/wheezing Last Admin: 01/18/18 22:48 Dose: 3 ml Admin: 01/17/18 19:39 Dose: 3 ml Admin: 01/16/18 17:45 Dose: 3 ml Admin: 01/16/18 12:09 Dose: 3 ml Admin: 01/15/18 08:16 Dose: 3 ml Admin: 01/13/18 13:59 Dose: 3 ml Admin: 01/12/18 17:55 Dose: 3 ml Artificial Tears (Refresh Plus 0.5%) 1 each EYEBOTH ASDIRECTED PRN PRN Reason: Dry Eyes Last Admin: 01/19/18 13:03 Dose: 1 drop Aspirin (Aspirin) 81 mg PO DAILY [facility] Last Admin: 01/19/18 09:53 Dose: 81 mg Admin: 01/18/18 08:33 Dose: 81 mg Admin: 01/17/18 09:33 Dose: 81 mg Admin: 01/16/18 08:24 Dose: 81 mg Admin: 01/15/18 13:01 Dose: 81 mg Enoxaparin Sodium (Lovenox) 30 mg SUBCUT Q24H [facility] Last Admin: 01/18/18 21:09 Dose: 30 mg Admin: 01/17/18 21:00 Dose: 30 mg Admin: 01/16/18 21:47 Dose: 30 mg Admin: 01/15/18 21:18 Dose: 30 mg Admin: 01/14/18 21:16 Dose: 30 mg Admin: 01/13/18 21:15 Dose: 30 mg Admin: 01/12/18 22:58 Dose: 30 mg Admin: 01/11/18 22:58 Dose: 30 mg Ertapenem 1 gm/ Sodium (Chloride) 50 mls @ 100 mls/hr IV Q24H [facility] Last Admin: 01/19/18 13:01 Dose: 100 mls/hr Metoclopramide HCl (Reglan) 10 mg IV Q6H [facility] Last Admin: 01/19/18 11:51 Dose: 10 mg Admin: 01/19/18 06:16 Dose: 10 mg Admin: 01/19/18 00:22 Dose: 10 mg Admin: 01/18/18 19:41 Dose: 10 mg Admin: 01/18/18 11:08 Dose: 10 mg Admin: 01/18/18 05:54 Dose: 10 mg Admin: 01/18/18 00:30 Dose: 10 mg Admin: 01/17/18 17:32 Dose: 10 mg Admin: 01/17/18 13:42 Dose: 10 mg Admin: 01/17/18 05:18 Dose: 10 mg Admin: 01/17/18 00:07 Dose: 10 mg Admin: 01/16/18 17:43 Dose: 10 mg Admin: 01/16/18 12:09 Dose: 10 mg Admin: 01/16/18 06:24 Dose: 10 mg Admin: 01/15/18 23:33 Dose: 10 mg Admin: 01/15/18 17:23 Dose: 10 mg Admin: 01/15/18 11:52 Dose: 10 mg Admin: 01/15/18 06:46 Dose: 10 mg Admin: 01/14/18 23:56 Dose: 10 mg Admin: 01/14/18 17:00 Dose: 10 mg Admin: 01/14/18 12:13 Dose: 10 mg Admin: 01/14/18 06:21 Dose: 10 mg Admin: 01/14/18 00:05 Dose: 10 mg Admin: 01/13/18 18:20 Dose: 10 mg Admin: 01/13/18 12:29 Dose: 10 mg Admin: 01/13/18 06:34 Dose: 10 mg Admin: 01/13/18 01:15 Dose: 10 mg Morphine Sulfate (Morphine) 0 mg IVPUSH Q1H PRN PRN Reason: Pain (severe 7-10) Morphine Sulfate (Morphine) 0 mg IVPUSH Q1H PRN PRN Reason: Pain (severe 7-10) Ondansetron HCl (Zofran) 4 mg IVPUSH Q6H PRN PRN Reason: Nausea/Vomiting Pantoprazole Sodium (Protonix) 40 mg PO DAILY [facility] Last Admin: 01/19/18 09:53 Dose: 40 mg Admin: 01/18/18 08:32 Dose: 40 mg Admin: 01/17/18 09:33 Dose: 40 mg Admin: 01/16/18 08:52 Dose: 40 mg Simvastatin (Zocor) 20 mg PO BEDTIME [facility] Last Admin: 01/18/18 21:08 Dose: 20 mg - Assessment Assessment (Free Text/Narrative):: Showing slow improvement. Still has purulent drainage from lower end of incision. Erythema starting to resolve. C&S results back showing a Pseudomonas and an Enterobacteriae, both sensitive to Ertapenem. - Plan Plan (Free Text/Narrative):: PICC line today as patient has poor veins and will need OP antibiotics when discharged. Ertapenem started today. Will change dressing and examine wound tomorrow.
--- NOTE | 2018-01-19 15:36 | PCM.SN ---
- Free Text/Narrative Note: Anesthesia Note: Called for difficult IV placement with multiple sticks and ongoing antibiotics. Pt will receive a PICC line tomorrow and just needs something to get her thru the night. 22 GA placed to L shoulder (superficial vein) and flushes easily. Secured and RN present to start antibiotics.
[2018-01-19] MEDS: Simvastatin 20 MG Tab PO SCH (20:17)
[2018-01-19] MEDS: Enoxaparin 30 MG/0.3 ML Syringe SUBCUT SCH (22:58)
[2018-01-20] MEDS: Carboxymethylcellulose Sodium 0.5% Ophth Soln 0.4 ML UD Box of 30 EYEBOTH PRN (06:03)
[2018-01-20] MEDS: Metoclopramide 10 MG/2 ML SDV IV SCH (06:03)
[2018-01-20] MEDS: Acetaminophen/HYDROcodone 325-5 MG Tab PO PRN ×3 (07:58→22:25)
[2018-01-20] MEDS: Pantoprazole 40 MG Tab.CR PO SCH ×2 (08:02→08:40)
[2018-01-20] MEDS: Aspirin 81 MG Tab.Chew PO SCH (08:03)
--- NOTE | 2018-01-20 08:55 | PCM.SURGPN ---
- General Info Date of Service: 01/20/18 POD#: other (11) Functional Status: Reports: Pain Controlled, Tolerating Diet, Ambulating, Urinating. Denies: New Symptoms - Review of Systems General: Denies: Fever, Weakness, Fatigue HEENT: Reports: No Symptoms Pulmonary: Denies: Shortness of Breath, Pleuritic Chest Pain, Cough Cardiovascular: Denies: Chest Pain, Palpitations, Lightheadedness Gastrointestinal: Reports: Abdominal Pain (incisional), Flatus. Denies: Constipation, Diarrhea, Difficulty Swallowing, Nausea, Vomiting Genitourinary: Denies: Dysuria, Frequency Musculoskeletal: Reports: No Symptoms Skin: Denies: Cyanosis, Jaundice Neurological: Reports: No Symptoms Psychiatric: Reports: No Symptoms - Patient Data Vitals - Most Recent: Last Vital Signs Temp 98.6 F 01/20/18 08:00 Pulse 68 01/20/18 04:00 Resp 18 01/20/18 08:00 BP 102/36 L 01/20/18 08:00 Pulse Ox 96 01/20/18 08:00 Weight - Most Recent: 169 lb 5.04 oz I&O - Last 24 Hours: Intake & Output 01/19/18 01/20/18 01/20/18 19:59 03:59 11:59 Intake Total 725 400 Output Total 650 250 400 Balance 75 -250 0 Lab Results Last 24 Hrs: Laboratory Results - last 24 hr 01/19/18 01/20/18 01/20/18 Range/Units 09:30 05:15 05:15 WBC 13.13 H (4.0-11.0) K/uL RBC 2.89 L (4.30-5.90) M/uL Hgb 9.0 L (12.0-16.0) g/dL Hct 26.8 L (36.0-46.0) % MCV 92.7 (80.0-98.0) fL MCH 31.1 (27.0-32.0) pg MCHC 33.6 (31.0-37.0) g/dL RDW Std Deviation 50.3 (28.0-62.0) fl RDW Coeff of Nilo 15 (11.0-15.0) % Plt Count 333 (150-400) K/uL MPV 9.20 (7.40-12.00) fL Nucleated RBC % 0.0 /100WBC Nucleated RBCs # 0 K/uL INR 1.00 Sodium (136-145) mmol/L Potassium (3.5-5.1) mmol/L Chloride (98-107) mmol/L Carbon Dioxide (21.0-32.0) mmol/L BUN (7.0-18.0) mg/dL Creatinine (0.6-1.0) mg/dL Est Cr Clr Drug Dosing mL/min Estimated GFR (MDRD) ml/min Glucose (74-106) mg/dL Calcium (8.5-10.1) mg/dL Urine Color YELLOW Urine Appearance CLEAR Urine pH 6.0 (5.0-8.0) Ur Specific [place] 1.015 (1.001-1.035) Urine Protein NEGATIVE (NEGATIVE) mg/dL Urine Glucose (UA) NEGATIVE (NEGATIVE) mg/dL Urine Ketones NEGATIVE (NEGATIVE) mg/dL Urine Occult Blood NEGATIVE (NEGATIVE) Urine Nitrite NEGATIVE (NEGATIVE) Urine Bilirubin SMALL H (NEGATIVE) Urine Ictotest NEGATIVE Urine Urobilinogen 0.2 (<2.0) EU/dL Ur Leukocyte Esterase NEGATIVE (NEGATIVE) Urine RBC 0-2 (0-2/HPF) Urine WBC 0-2 (0-5/HPF) Ur Epithelial Cells FEW (NONE-FEW) Urine Bacteria FEW (NEGATIVE) 01/20/18 Range/Units 05:15 WBC (4.0-11.0) K/uL RBC (4.30-5.90) M/uL Hgb (12.0-16.0) g/dL Hct (36.0-46.0) % MCV (80.0-98.0) fL MCH (27.0-32.0) pg MCHC (31.0-37.0) g/dL RDW Std Deviation (28.0-62.0) fl RDW Coeff of Nilo (11.0-15.0) % Plt Count (150-400) K/uL MPV (7.40-12.00) fL Nucleated RBC % /100WBC Nucleated RBCs # K/uL INR Sodium 139 (136-145) mmol/L Potassium 3.9 (3.5-5.1) mmol/L Chloride 104 (98-107) mmol/L Carbon Dioxide 30.3 (21.0-32.0) mmol/L BUN 40 H (7.0-18.0) mg/dL Creatinine 1.3 H (0.6-1.0) mg/dL Est Cr Clr Drug Dosing 27.35 mL/min Estimated GFR (MDRD) 39.7 ml/min Glucose 101 (74-106) mg/dL Calcium 8.0 L (8.5-10.1) mg/dL Urine Color Urine Appearance Urine pH (5.0-8.0) Ur Specific [place] (1.001-1.035) Urine Protein (NEGATIVE) mg/dL Urine Glucose (UA) (NEGATIVE) mg/dL Urine Ketones (NEGATIVE) mg/dL Urine Occult Blood (NEGATIVE) Urine Nitrite (NEGATIVE) Urine Bilirubin (NEGATIVE) Urine Ictotest Urine Urobilinogen (<2.0) EU/dL Ur Leukocyte Esterase (NEGATIVE) Urine RBC (0-2/HPF) Urine WBC (0-5/HPF) Ur Epithelial Cells (NONE-FEW) Urine Bacteria (NEGATIVE) Shailesh Results Last 24 Hrs: Microbiology 01/16/18 13:25 Wound Culture - Final Abdomen - Incision Enterobacter Cloacae#2 Pseudomonas Aeruginosa Med Orders - Current: Current Medications Acetaminophen (Tylenol) 325 mg RECTAL Q4H PRN PRN Reason: Temperature Hydrocodone Bitart/Acetaminophen ([place]ath 325-5 Mg) 1 tab PO Q6H PRN PRN Reason: Pain (moderate 4-6) Last Admin: 01/20/18 07:58 Dose: 1 tab Albuterol/Ipratropium (Duoneb 3.0-0.5 Mg/3 Ml) 3 ml NEB Q4HRRT PRN PRN Reason: SOB/wheezing Last Admin: 01/18/18 22:48 Dose: 3 ml Artificial Tears (Refresh Plus 0.5%) 1 each EYEBOTH ASDIRECTED PRN PRN Reason: Dry Eyes Last Admin: 01/20/18 06:03 Dose: 1 drop Aspirin (Aspirin) 81 mg PO DAILY [facility] [place] Last Admin: 01/20/18 08:03 Dose: 81 mg Enoxaparin Sodium (Lovenox) 30 mg SUBCUT Q24H [facility] [place] Last Admin: 01/19/18 22:58 Dose: 30 mg Ertapenem 1 gm/ Sodium (Chloride) 50 mls @ 100 mls/hr IV Q24H [facility] [place] Morphine Sulfate (Morphine) 0 mg IVPUSH Q1H PRN PRN Reason: Pain (severe 7-10) Morphine Sulfate (Morphine) 0 mg IVPUSH Q1H PRN PRN Reason: Pain (severe 7-10) Ondansetron HCl (Zofran) 4 mg IVPUSH Q6H PRN PRN Reason: Nausea/Vomiting Pantoprazole Sodium (Protonix) 40 mg PO DAILY [facility] [place] Last Admin: 01/20/18 08:40 Dose: Not Given Simvastatin (Zocor) 20 mg PO BEDTIME [facility] [place] Last Admin: 01/19/18 20:17 Dose: 20 mg Discontinued Medications Albuterol/Ipratropium (Duoneb 3.0-0.5 Mg/3 Ml) Confirm Administered Dose 3 ml .ROUTE .STK-MED ONE Stop: 01/11/18 14:09 Last Admin: 01/11/18 14:33 Dose: Not Given Albuterol/Ipratropium (Duoneb 3.0-0.5 Mg/3 Ml) 3 ml NEB ONETIME ONE Stop: 01/11/18 14:25 Last Admin: 01/11/18 15:46 Dose: Not Given Aspirin (Aspirin) 325 mg PO ONETIME ONE Stop: 01/11/18 16:18 Last Admin: 01/11/18 16:58 Dose: 325 mg Aspirin (Aspirin) Confirm Administered Dose 325 mg .ROUTE .STK-MED ONE Stop: 01/11/18 16:58 Last Admin: 01/11/18 17:03 Dose: Not Given Bupivacaine HCl (Marcaine 0.5%) Confirm Administered Dose 120 ml .ROUTE .STK- MED ONE Stop: 01/09/18 13:42 Cefazolin Sodium (Ancef) Confirm Administered Dose 1 gm .ROUTE .STK-MED ONE Stop: 01/09/18 14:18 Digoxin (Lanoxin) 250 mcg IVPUSH ONETIME ONE Stop: 01/11/18 17:03 Last Admin: 01/11/18 17:24 Dose: 250 mcg Digoxin (Lanoxin) 250 mcg IVPUSH ONETIME ONE Stop: 01/15/18 19:05 Last Admin: 01/15/18 19:11 Dose: 250 mcg Digoxin (Lanoxin) 250 mcg IVPUSH ONETIME ONE Stop: 01/16/18 08:43 Last Admin: 01/16/18 08:51 Dose: 250 mcg Diltiazem HCl (Diltiazem) 10 mg IVPUSH ONETIME ONE Stop: 01/11/18 15:10 Last Admin: 01/11/18 15:56 Dose: 10 mg Fentanyl (Sublimaze) Confirm Administered Dose 100 mcg .ROUTE .STK-MED ONE Stop: 01/09/18 12:47 Fentanyl (Sublimaze) Confirm Administered Dose 100 mcg .ROUTE .STK-MED ONE Stop: 01/09/18 13:29 Furosemide (Lasix) 20 mg IVPUSH NOW ONE Stop: 01/11/18 21:51 Last Admin: 01/11/18 22:14 Dose: 20 mg Furosemide (Lasix) 40 mg IVPUSH NOW ONE Stop: 01/12/18 02:21 Last Admin: 01/12/18 02:41 Dose: 40 mg Furosemide (Lasix) 20 mg IVPUSH Q8H [facility] [place] Stop: 01/13/18 09:01 Last Admin: 01/13/18 08:06 Dose: 20 mg Furosemide (Lasix) 20 mg IVPUSH NOW ONE Stop: 01/13/18 19:49 Last Admin: 01/13/18 19:55 Dose: Not Given Furosemide (Lasix) 20 mg IVPUSH NOW ONE Stop: 01/14/18 08:56 Last Admin: 01/14/18 09:14 Dose: 20 mg Furosemide (Lasix) 20 mg PO BIDDIURETIC [facility] [place] Last Admin: 01/18/18 07:27 Dose: 20 mg Hydromorphone HCl (Dilaudid) Confirm Administered Dose 2 mg .ROUTE .STK-MED ONE Stop: 01/09/18 13:32 Lactated Ringer's (Ringers, Lactated) 1,000 mls @ 125 mls/hr IV ASDIRECTED [facility] [place] Last Infusion: 01/10/18 01:55 Dose: Infused Hetastarch/Sodium Chloride (Hetastarch 6% In Normal Saline) Confirm Administered Dose 500 mls @ as directed .ROUTE .STK-MED ONE Stop: 01/09/18 14:24 Acetaminophen (Ofirmev) Confirm Administered Dose 100 mls @ as directed IV .STK- MED ONE Stop: 01/09/18 14:53 Cefoxitin Sodium 1 gm/ Premix 50 mls @ 100 mls/hr IV Q6H [facility] [place] Stop: 01/10/18 09:59 Last Admin: 01/10/18 09:17 Dose: 100 mls/hr Lactated Ringer's (Ringers, Lactated) 1,000 mls @ 125 mls/hr IV ASDIRECTED [facility] Last Infusion: 01/11/18 18:00 Dose: Infused Lactated Ringer's (Ringers, Lactated) 1,000 mls @ 625 mls/hr IV ASDIRECTED [facility] Lactated Ringer's (Ringers, Lactated) 500 mls @ 500 mls/hr IV .BOLUS ONE Stop: 01/10/18 02:45 Last Admin: 01/10/18 02:01 Dose: 500 mls/hr Lactated Ringer's (Ringers, Lactated) 500 mls @ 500 mls/hr IV BOLUS [facility] Stop: 01/10/18 04:45 Lactated Ringer's (Ringers, Lactated) 500 mls @ 500 mls/hr IV .BOLUS [facility] Stop: 01/10/18 05:01 Last Admin: 01/10/18 03:45 Dose: 500 mls/hr Lactated Ringer's (Ringers, Lactated) 1,000 mls @ 75 mls/hr IV ASDIRECTED [facility] Lactated Ringer's (Ringers, Lactated) 1,000 mls @ 50 mls/hr IV ASDIRECTED [facility] Diltiazem HCl 125 mg/ Sodium (Chloride) 125 mls @ 5 mls/hr IV ASDIRECTED [facility]; Protocol Last Titration: 01/12/18 15:45 Dose: 0 mg/hr, 0 mls/hr Magnesium Sulfate 2 gm/ Premix 50 mls @ 50 mls/hr IV ONETIME ONE Stop: 01/11/18 17:18 Last Admin: 01/11/18 16:39 Dose: 50 mls/hr Cefepime HCl 1 gm/ Premix 50 mls @ 100 mls/hr IV Q8H [facility] [place] Last Admin: 01/12/18 18:09 Dose: 100 mls/hr Vancomycin HCl 1 gm/ Sodium (Chloride) 250 mls @ 250 mls/hr IV Q24H [facility] Last Admin: 01/12/18 19:34 Dose: 250 mls/hr Cefepime HCl 1 gm/ Premix 50 mls @ 100 mls/hr IV Q8H [facility] [place] Last Admin: 01/13/18 01:25 Dose: 100 mls/hr Vancomycin HCl 1 gm/ Sodium (Chloride) 250 mls @ 250 mls/hr IV Q24H [facility] [place] Last Admin: 01/14/18 20:56 Dose: Not Given Cefepime HCl 2 gm/ Premix 50 mls @ 100 mls/hr IV Q24H [facility] [place] Last Admin: 01/14/18 13:06 Dose: 100 mls/hr Vancomycin HCl 1.5 gm/ Sodium (Chloride) 500 mls @ 333.333 mls/hr IV Q24H [facility] [place] Last Admin: 01/14/18 21:17 Dose: 333.333 mls/hr Meropenem 1 gm/ Sodium (Chloride) 100 mls @ 200 mls/hr IV Q8H [facility] [place] Last Admin: 01/19/18 12:55 Dose: Not Given Ertapenem 1 gm/ Sodium (Chloride) 50 mls @ 100 mls/hr IV Q24H [facility] [place] Last Admin: 01/19/18 13:01 Dose: 100 mls/hr Lorazepam (Ativan) 0.5 mg IVPUSH ONETIME ONE Stop: 01/09/18 20:19 Last Admin: 01/09/18 20:36 Dose: Not Given Metoclopramide HCl (Reglan) 10 mg IV Q6H [facility] [place] Last Admin: 01/12/18 18:05 Dose: 10 mg Metoclopramide HCl (Reglan) 10 mg IV Q6H [facility] [place] Last Admin: 01/20/18 06:03 Dose: 10 mg Metoprolol Tartrate (Lopressor) 25 mg PO Q12H [facility] [place] Last Admin: 01/14/18 00:37 Dose: 25 mg Metoprolol Tartrate (Lopressor) 25 mg PO Q12H [facility] [place] Last Admin: 01/14/18 12:01 Dose: 25 mg Metoprolol Tartrate (Lopressor) 25 mg PO Q12H [facility] [place] Last Admin: 01/15/18 08:00 Dose: 25 mg Metoprolol Tartrate (Lopressor) 25 mg PO ONETIME ONE Stop: 01/15/18 09:19 Last Admin: 01/15/18 09:25 Dose: 25 mg Metoprolol Tartrate (Lopressor) 50 mg PO Q12H [facility] [place] Last Admin: 01/15/18 20:05 Dose: 50 mg Metoprolol Tartrate (Lopressor) 50 mg PO BIDMEALS [facility] [place] Last Admin: 01/18/18 11:03 Dose: Not Given Metoprolol Tartrate (Lopressor) 5 mg IVPUSH ONETIME ONE Stop: 01/16/18 18:47 Last Admin: 01/16/18 19:04 Dose: 5 mg Midazolam HCl (Versed 1 Mg/Ml) Confirm Administered Dose 2 mg .ROUTE .STK-MED ONE Stop: 01/09/18 12:47 Morphine Sulfate (Morphine Focuser 30 Mg In 30 Ml) 30 mg IV SEECOMMENT [facility] [place] Morphine Sulfate (Morphine Focuser 30 Mg In 30 Ml) 30 mg IV ASDIRECTED [facility] [place]; Protocol Last Admin: 01/09/18 21:09 Dose: 30 mg Ondansetron HCl (Zofran) Confirm Administered Dose 4 mg .ROUTE .STK-MED ONE Stop: 01/09/18 12:47 Pantoprazole Sodium (Protonix Iv) 40 mg IVPUSH DAILY [facility] [place] Last Admin: 01/15/18 08:02 Dose: 40 mg Propofol (Diprivan 20 Ml) Confirm Administered Dose 400 mg .ROUTE .STK-MED ONE Stop: 01/09/18 12:47 Rocuronium [place] (Zemuron) Confirm Administered Dose 100 mg .ROUTE .STK-MED ONE Stop: 01/09/18 13:28 Sugammadex Sodium (Bridion) Confirm Administered Dose 200 mg .ROUTE .STK-MED ONE Stop: 01/09/18 14:53 Vancomycin HCl (Pharmacy To Dose - Vancomycin) 1 dose .XX ASDIRECTED [facility] - Exam Wound/Incisions: Drainage (still some purulent drainage. No odor.), Erythema Improving Quality Assessment: Central Line/PICC (getting a PICC line today), DVT Prophylaxis. No: Urine Catheter General: Alert, Oriented, Cooperative, No Acute Distress HEENT: Pupils Equal, Pupils Reactive, EOMI. No: Scleral Icterus Neck: Supple Lungs: Clear to Auscultation, Normal Respiratory Effort Cardiovascular: Regular Rate, Regular Rhythm, No Murmurs. No: Tachycardia GI/Abdominal Exam: Normal Bowel Sounds, Soft, No Distention, Tender (incisional) . No: Guarding, Rigid, Rebound, Hernia, Mass Extremities: Normal Inspection, Normal Range of Motion, Non-Tender, No Pedal Edema, Normal Capillary Refill Skin: Warm, Dry, Intact Neurological: No New Focal Deficit Psy/Mental Status: Alert, Normal Affect, Normal Mood. No: Anxious, Depressed - Problem List & Annotations (1) Large bowel perforation SNOMED Code(s): 108565556 Code(s): K63.1 - PERFORATION OF INTESTINE (NONTRAUMATIC) Status: Acute Priority: High Current Visit: Yes (2) Atrial fibrillation SNOMED Code(s): 45330423 Code(s): I48.91 - UNSPECIFIED ATRIAL FIBRILLATION Status: Acute Priority : Medium Current Visit: Yes Qualifiers: Atrial fibrillation type: paroxysmal Qualified Code(s): I48.0 - Paroxysmal atrial fibrillation (3) Abscess of postoperative wound of abdominal wall SNOMED Code(s): 871641443 Code(s): T81.4XXA - INFECTION FOLLOWING A PROCEDURE, INITIAL ENCOUNTER Status: Acute Priority: High Current Visit: Yes Qualifiers: Encounter type: subsequent encounter Qualified Code(s): T81.4XXD - Infection following a procedure, subsequent encounter - Problem List Review Problem List Initiated/Reviewed/Updated: Yes - My Orders Last 24 Hours: Active Orders 24 hr Category Date Time Status PICC Line Insertion [CR] Routine Exams 01/20/18 14:37 Ordered UA W/MICROSCOPIC [URIN] Routine Lab 01/19/18 09:30 Ordered Carboxymethylcellulose Sodium [Refresh Plus 0.5%] Med 01/19/18 11:03 Active 1 each EYEBOTH ASDIRECTED PRN Ertapenem [INVanz] 1 gm Med 01/20/18 15:00 Active Sodium Chloride 0.9% [Normal Saline] 50 ml IV Q24H Medication Orders Acetaminophen (Tylenol) 325 mg RECTAL Q4H PRN PRN Reason: Temperature Hydrocodone Bitart/Acetaminophen ([place]ath 325-5 Mg) 1 tab PO Q6H PRN PRN Reason: Pain (moderate 4-6) Last Admin: 01/20/18 07:58 Dose: 1 tab Admin: 01/19/18 23:00 Dose: 1 tab Admin: 01/19/18 15:36 Dose: 1 tab Admin: 01/19/18 07:40 Dose: 1 tab Admin: 01/18/18 21:20 Dose: 1 tab Admin: 01/18/18 13:42 Dose: 1 tab Admin: 01/18/18 07:26 Dose: 1 tab Admin: 01/17/18 21:54 Dose: 1 tab Admin: 01/17/18 15:40 Dose: 1 tab Admin: 01/17/18 09:35 Dose: 1 tab Admin: 01/16/18 21:54 Dose: 1 tab Admin: 01/16/18 13:14 Dose: 1 tab Admin: 01/16/18 07:30 Dose: 1 tab Admin: 01/15/18 23:40 Dose: 1 tab Admin: 01/15/18 16:33 Dose: 1 tab Admin: 01/15/18 08:03 Dose: 1 tab Admin: 01/14/18 17:00 Dose: 1 tab Admin: 01/14/18 09:52 Dose: 1 tab Albuterol/Ipratropium (Duoneb 3.0-0.5 Mg/3 Ml) 3 ml NEB Q4HRRT PRN PRN Reason: SOB/wheezing Last Admin: 01/18/18 22:48 Dose: 3 ml Admin: 01/17/18 19:39 Dose: 3 ml Admin: 01/16/18 17:45 Dose: 3 ml Admin: 01/16/18 12:09 Dose: 3 ml Admin: 01/15/18 08:16 Dose: 3 ml Admin: 01/13/18 13:59 Dose: 3 ml Admin: 01/12/18 17:55 Dose: 3 ml Artificial Tears (Refresh Plus 0.5%) 1 each EYEBOTH ASDIRECTED PRN PRN Reason: Dry Eyes Last Admin: 01/20/18 06:03 Dose: 1 drop Admin: 01/19/18 13:03 Dose: 1 drop Aspirin (Aspirin) 81 mg PO DAILY [facility] [place] Last Admin: 01/20/18 08:03 Dose: 81 mg Admin: 01/19/18 09:53 Dose: 81 mg Admin: 01/18/18 08:33 Dose: 81 mg Admin: 01/17/18 09:33 Dose: 81 mg Admin: 01/16/18 08:24 Dose: 81 mg Admin: 01/15/18 13:01 Dose: 81 mg Enoxaparin Sodium (Lovenox) 30 mg SUBCUT Q24H [facility] [place] Last Admin: 01/19/18 22:58 Dose: 30 mg Admin: 01/18/18 21:09 Dose: 30 mg Admin: 01/17/18 21:00 Dose: 30 mg Admin: 01/16/18 21:47 Dose: 30 mg Admin: 01/15/18 21:18 Dose: 30 mg Admin: 01/14/18 21:16 Dose: 30 mg Admin: 01/13/18 21:15 Dose: 30 mg Admin: 01/12/18 22:58 Dose: 30 mg Admin: 01/11/18 22:58 Dose: 30 mg Ertapenem 1 gm/ Sodium (Chloride) 50 mls @ 100 mls/hr IV Q24H [facility] [place] Morphine Sulfate (Morphine) 0 mg IVPUSH Q1H PRN PRN Reason: Pain (severe 7-10) Morphine Sulfate (Morphine) 0 mg IVPUSH Q1H PRN PRN Reason: Pain (severe 7-10) Ondansetron HCl (Zofran) 4 mg IVPUSH Q6H PRN PRN Reason: Nausea/Vomiting Pantoprazole Sodium (Protonix) 40 mg PO DAILY [facility] [place] Last Admin: 01/20/18 08:40 Dose: Admin: 01/20/18 08:02 Dose: 40 mg Admin: 01/19/18 09:53 Dose: 40 mg Admin: 01/18/18 08:32 Dose: 40 mg Admin: 01/17/18 09:33 Dose: 40 mg Admin: 01/16/18 08:52 Dose: 40 mg Simvastatin (Zocor) 20 mg PO BEDTIME [facility] [place] Last Admin: 01/19/18 20:17 Dose: 20 mg Admin: 01/18/18 21:08 Dose: 20 mg - Assessment Assessment (Free Text/Narrative):: Patient is showing slow improvement. Still having drainage from lower aspect of incision. Appetite slowly improving. Passing gas and having small BMs. Needs to work on diet and increasing protein in diet. - Plan Plan (Free Text/Narrative):: PICC line today. Will work with family on dressing changes. Will need Home Health involvement and arrange for outpatient antibiotics and dressing changes.
[2018-01-20] MEDS ORDERED: Meropenem 1 GM in Sodium Chloride 0.9% 100 ML IV SCH (11:00)
--- NOTE | 2018-01-20 11:31 | PCM.CONSN ---
- General Info Date of Service: 01/20/18 Subjective Update: patient is stable, still in sinus rhythm, abdominal discomfort is improving no signs of worsening infection. - Patient Data Vitals - Most Recent: Last Vital Signs Temp 37 C 01/20/18 08:00 Pulse 68 01/20/18 04:00 Resp 18 01/20/18 08:00 BP 102/36 L 01/20/18 08:00 Pulse Ox 96 01/20/18 08:00 Weight - Most Recent: 76.8 kg I&O - Last 24 Hours: Intake & Output 01/19/18 01/20/18 01/20/18 22:59 06:59 14:59 Intake Total 725 400 120 Output Total 900 300 200 Balance -175 100 -80 Lab Results Last 24 Hours: Laboratory Results - last 24 hr 01/20/18 01/20/18 01/20/18 Range/Units 05:15 05:15 05:15 WBC 13.13 H (4.0-11.0) K/uL RBC 2.89 L (4.30-5.90) M/uL Hgb 9.0 L (12.0-16.0) g/dL Hct 26.8 L (36.0-46.0) % MCV 92.7 (80.0-98.0) fL MCH 31.1 (27.0-32.0) pg MCHC 33.6 (31.0-37.0) g/dL RDW Std Deviation 50.3 (28.0-62.0) fl RDW Coeff of Nilo 15 (11.0-15.0) % Plt Count 333 (150-400) K/uL MPV 9.20 (7.40-12.00) fL Nucleated RBC % 0.0 /100WBC Nucleated RBCs # 0 K/uL INR 1.00 Sodium 139 (136-145) mmol/L Potassium 3.9 (3.5-5.1) mmol/L Chloride 104 (98-107) mmol/L Carbon Dioxide 30.3 (21.0-32.0) mmol/L BUN 40 H (7.0-18.0) mg/dL Creatinine 1.3 H (0.6-1.0) mg/dL Est Cr Clr Drug Dosing 27.35 mL/min Estimated GFR (MDRD) 39.7 ml/min Glucose 101 (74-106) mg/dL Calcium 8.0 L (8.5-10.1) mg/dL Shailesh Results Last 24 Hours: Microbiology 01/16/18 13:25 Wound Culture - Final Abdomen - Incision Enterobacter Cloacae#2 Pseudomonas Aeruginosa Med Orders - Current: Current Medications Acetaminophen (Tylenol) 325 mg RECTAL Q4H PRN PRN Reason: Temperature Hydrocodone Bitart/Acetaminophen (Kent 325-5 Mg) 1 tab PO Q6H PRN PRN Reason: Pain (moderate 4-6) Last Admin: 01/20/18 07:58 Dose: 1 tab Albuterol/Ipratropium (Duoneb 3.0-0.5 Mg/3 Ml) 3 ml NEB Q4HRRT PRN PRN Reason: SOB/wheezing Last Admin: 01/18/18 22:48 Dose: 3 ml Artificial Tears (Refresh Plus 0.5%) 1 each EYEBOTH ASDIRECTED PRN PRN Reason: Dry Eyes Last Admin: 01/20/18 06:03 Dose: 1 drop Aspirin (Aspirin) 81 mg PO DAILY [facility] Last Admin: 01/20/18 08:03 Dose: 81 mg Enoxaparin Sodium (Lovenox) 30 mg SUBCUT Q24H [facility] Last Admin: 01/19/18 22:58 Dose: 30 mg Meropenem 1 gm/ Sodium (Chloride) 100 mls @ 200 mls/hr IV Q8H [facility] Morphine Sulfate (Morphine) 0 mg IVPUSH Q1H PRN PRN Reason: Pain (severe 7-10) Morphine Sulfate (Morphine) 0 mg IVPUSH Q1H PRN PRN Reason: Pain (severe 7-10) Ondansetron HCl (Zofran) 4 mg IVPUSH Q6H PRN PRN Reason: Nausea/Vomiting Pantoprazole Sodium (Protonix) 40 mg PO DAILY [facility] Last Admin: 01/20/18 08:40 Dose: Not Given Simvastatin (Zocor) 20 mg PO BEDTIME [facility] Last Admin: 01/19/18 20:17 Dose: 20 mg Discontinued Medications Albuterol/Ipratropium (Duoneb 3.0-0.5 Mg/3 Ml) Confirm Administered Dose 3 ml .ROUTE .STK-MED ONE Stop: 01/11/18 14:09 Last Admin: 01/11/18 14:33 Dose: Not Given Albuterol/Ipratropium (Duoneb 3.0-0.5 Mg/3 Ml) 3 ml NEB ONETIME ONE Stop: 01/11/18 14:25 Last Admin: 01/11/18 15:46 Dose: Not Given Aspirin (Aspirin) 325 mg PO ONETIME ONE Stop: 01/11/18 16:18 Last Admin: 01/11/18 16:58 Dose: 325 mg Aspirin (Aspirin) Confirm Administered Dose 325 mg .ROUTE .STK-MED ONE Stop: 01/11/18 16:58 Last Admin: 01/11/18 17:03 Dose: Not Given Bupivacaine HCl (Marcaine 0.5%) Confirm Administered Dose 120 ml .ROUTE .STK- MED ONE Stop: 01/09/18 13:42 Cefazolin Sodium (Ancef) Confirm Administered Dose 1 gm .ROUTE .STK-MED ONE Stop: 01/09/18 14:18 Digoxin (Lanoxin) 250 mcg IVPUSH ONETIME ONE Stop: 01/11/18 17:03 Last Admin: 01/11/18 17:24 Dose: 250 mcg Digoxin (Lanoxin) 250 mcg IVPUSH ONETIME ONE Stop: 01/15/18 19:05 Last Admin: 01/15/18 19:11 Dose: 250 mcg Digoxin (Lanoxin) 250 mcg IVPUSH ONETIME ONE Stop: 01/16/18 08:43 Last Admin: 01/16/18 08:51 Dose: 250 mcg Diltiazem HCl (Diltiazem) 10 mg IVPUSH ONETIME ONE Stop: 01/11/18 15:10 Last Admin: 01/11/18 15:56 Dose: 10 mg Fentanyl (Sublimaze) Confirm Administered Dose 100 mcg .ROUTE .STK-MED ONE Stop: 01/09/18 12:47 Fentanyl (Sublimaze) Confirm Administered Dose 100 mcg .ROUTE .STK-MED ONE Stop: 01/09/18 13:29 Furosemide (Lasix) 20 mg IVPUSH NOW ONE Stop: 01/11/18 21:51 Last Admin: 01/11/18 22:14 Dose: 20 mg Furosemide (Lasix) 40 mg IVPUSH NOW ONE Stop: 01/12/18 02:21 Last Admin: 01/12/18 02:41 Dose: 40 mg Furosemide (Lasix) 20 mg IVPUSH Q8H [facility] Stop: 01/13/18 09:01 Last Admin: 01/13/18 08:06 Dose: 20 mg Furosemide (Lasix) 20 mg IVPUSH NOW ONE Stop: 01/13/18 19:49 Last Admin: 01/13/18 19:55 Dose: Not Given Furosemide (Lasix) 20 mg IVPUSH NOW ONE Stop: 01/14/18 08:56 Last Admin: 01/14/18 09:14 Dose: 20 mg Furosemide (Lasix) 20 mg PO BIDDIURETIC [facility] Last Admin: 01/18/18 07:27 Dose: 20 mg Hydromorphone HCl (Dilaudid) Confirm Administered Dose 2 mg .ROUTE .STK-MED ONE Stop: 01/09/18 13:32 Lactated Ringer's (Ringers, Lactated) 1,000 mls @ 125 mls/hr IV ASDIRECTED [facility] Last Infusion: 01/10/18 01:55 Dose: Infused Hetastarch/Sodium Chloride (Hetastarch 6% In Normal Saline) Confirm Administered Dose 500 mls @ as directed .ROUTE .STK-MED ONE Stop: 01/09/18 14:24 Acetaminophen (Ofirmev) Confirm Administered Dose 100 mls @ as directed IV .STK- MED ONE Stop: 01/09/18 14:53 Cefoxitin Sodium 1 gm/ Premix 50 mls @ 100 mls/hr IV Q6H [facility] Stop: 01/10/18 09:59 Last Admin: 01/10/18 09:17 Dose: 100 mls/hr Lactated Ringer's (Ringers, Lactated) 1,000 mls @ 125 mls/hr IV ASDIRECTED [facility] Last Infusion: 01/11/18 18:00 Dose: Infused Lactated Ringer's (Ringers, Lactated) 1,000 mls @ 625 mls/hr IV ASDIRECTED [facility] Lactated Ringer's (Ringers, Lactated) 500 mls @ 500 mls/hr IV .BOLUS ONE Stop: 01/10/18 02:45 Last Admin: 01/10/18 02:01 Dose: 500 mls/hr Lactated Ringer's (Ringers, Lactated) 500 mls @ 500 mls/hr IV BOLUS [facility] Stop: 01/10/18 04:45 Lactated Ringer's (Ringers, Lactated) 500 mls @ 500 mls/hr IV .BOLUS [facility] Stop: 01/10/18 05:01 Last Admin: 01/10/18 03:45 Dose: 500 mls/hr Lactated Ringer's (Ringers, Lactated) 1,000 mls @ 75 mls/hr IV ASDIRECTED [facility] Lactated Ringer's (Ringers, Lactated) 1,000 mls @ 50 mls/hr IV ASDIRECTED [facility] Diltiazem HCl 125 mg/ Sodium (Chloride) 125 mls @ 5 mls/hr IV ASDIRECTED [facility]; Protocol Last Titration: 01/12/18 15:45 Dose: 0 mg/hr, 0 mls/hr Magnesium Sulfate 2 gm/ Premix 50 mls @ 50 mls/hr IV ONETIME ONE Stop: 01/11/18 17:18 Last Admin: 01/11/18 16:39 Dose: 50 mls/hr Cefepime HCl 1 gm/ Premix 50 mls @ 100 mls/hr IV Q8H [facility] Last Admin: 01/12/18 18:09 Dose: 100 mls/hr Vancomycin HCl 1 gm/ Sodium (Chloride) 250 mls @ 250 mls/hr IV Q24H [facility] Last Admin: 01/12/18 19:34 Dose: 250 mls/hr Cefepime HCl 1 gm/ Premix 50 mls @ 100 mls/hr IV Q8H [facility] Last Admin: 01/13/18 01:25 Dose: 100 mls/hr Vancomycin HCl 1 gm/ Sodium (Chloride) 250 mls @ 250 mls/hr IV Q24H [facility] Last Admin: 01/14/18 20:56 Dose: Not Given Cefepime HCl 2 gm/ Premix 50 mls @ 100 mls/hr IV Q24H [facility] Last Admin: 01/14/18 13:06 Dose: 100 mls/hr Vancomycin HCl 1.5 gm/ Sodium (Chloride) 500 mls @ 333.333 mls/hr IV Q24H [facility] Last Admin: 01/14/18 21:17 Dose: 333.333 mls/hr Meropenem 1 gm/ Sodium (Chloride) 100 mls @ 200 mls/hr IV Q8H [facility] Last Admin: 01/19/18 12:55 Dose: Not Given Ertapenem 1 gm/ Sodium (Chloride) 50 mls @ 100 mls/hr IV Q24H [facility] Last Admin: 01/19/18 13:01 Dose: 100 mls/hr Ertapenem 1 gm/ Sodium (Chloride) 50 mls @ 100 mls/hr IV Q24H [facility] Meropenem 1 gm/ Sodium (Chloride) 100 mls @ 200 mls/hr IV Q8H [facility] Lorazepam (Ativan) 0.5 mg IVPUSH ONETIME ONE Stop: 01/09/18 20:19 Last Admin: 01/09/18 20:36 Dose: Not Given Metoclopramide HCl (Reglan) 10 mg IV Q6H [facility] Last Admin: 01/12/18 18:05 Dose: 10 mg Metoclopramide HCl (Reglan) 10 mg IV Q6H [facility] Last Admin: 01/20/18 06:03 Dose: 10 mg Metoprolol Tartrate (Lopressor) 25 mg PO Q12H [facility] Last Admin: 01/14/18 00:37 Dose: 25 mg Metoprolol Tartrate (Lopressor) 25 mg PO Q12H [facility] Last Admin: 01/14/18 12:01 Dose: 25 mg Metoprolol Tartrate (Lopressor) 25 mg PO Q12H [facility] Last Admin: 01/15/18 08:00 Dose: 25 mg Metoprolol Tartrate (Lopressor) 25 mg PO ONETIME ONE Stop: 01/15/18 09:19 Last Admin: 01/15/18 09:25 Dose: 25 mg Metoprolol Tartrate (Lopressor) 50 mg PO Q12H [facility] Last Admin: 01/15/18 20:05 Dose: 50 mg Metoprolol Tartrate (Lopressor) 50 mg PO BIDMEALS [facility] Last Admin: 01/18/18 11:03 Dose: Not Given Metoprolol Tartrate (Lopressor) 5 mg IVPUSH ONETIME ONE Stop: 01/16/18 18:47 Last Admin: 01/16/18 19:04 Dose: 5 mg Midazolam HCl (Versed 1 Mg/Ml) Confirm Administered Dose 2 mg .ROUTE .STK-MED ONE Stop: 01/09/18 12:47 Morphine Sulfate (Morphine [employer] 30 Mg In 30 Ml) 30 mg IV SEECOMMENT [facility] Morphine Sulfate (Morphine [employer] 30 Mg In 30 Ml) 30 mg IV ASDIRECTED [facility]; Protocol Last Admin: 01/09/18 21:09 Dose: 30 mg Ondansetron HCl (Zofran) Confirm Administered Dose 4 mg .ROUTE .STK-MED ONE Stop: 01/09/18 12:47 Pantoprazole Sodium (Protonix Iv) 40 mg IVPUSH DAILY [facility] Last Admin: 01/15/18 08:02 Dose: 40 mg Propofol (Diprivan 20 Ml) Confirm Administered Dose 400 mg .ROUTE .STK-MED ONE Stop: 01/09/18 12:47 Rocuronium [place] (Zemuron) Confirm Administered Dose 100 mg .ROUTE .STK-MED ONE Stop: 01/09/18 13:28 Sugammadex Sodium (Bridion) Confirm Administered Dose 200 mg .ROUTE .STK-MED ONE Stop: 01/09/18 14:53 Vancomycin HCl (Pharmacy To Dose - Vancomycin) 1 dose .XX ASDIRECTED [facility]ERTO CARLOS - Exam Quality Assessment: Supplemental Oxygen General: Alert, Oriented, Cooperative Lungs: Clear to Auscultation, Normal Respiratory Effort Cardiovascular: Regular Rate, Regular Rhythm GI/Abdominal Exam: Tender Extremities: Normal Inspection Consult PN Assessment/Plan Procedures: Procedures ASSAY THYROID STIM HORMONE (01/18/14) COMPLETE CBC W/AUTO DIFF WBC (01/18/14) COMPREHEN METABOLIC PANEL (01/18/14) EMERGENCY DEPT VISIT (10/20/15) LIPID PANEL (01/18/14) OFFICE/OUTPATIENT VISIT EST (01/18/14) OT EVALUATION (12/04/15) OT RE-EVALUATION (12/19/15) ROUTINE VENIPUNCTURE (01/18/14) THERAPEUTIC EXERCISES (12/19/15) URINALYSIS AUTO W/SCOPE (01/18/14) X-RAY EXAM OF WRIST (12/28/15) (1) Abscess of postoperative wound of abdominal wall SNOMED Code(s): 077611064 Code(s): T81.4XXA - INFECTION FOLLOWING A PROCEDURE, INITIAL ENCOUNTER Priority: High Current Visit: Yes Qualifiers: Encounter type: subsequent encounter Qualified Code(s): T81.4XXD - Infection following a procedure, subsequent encounter (2) Atrial fibrillation SNOMED Code(s): 31951927 Code(s): I48.91 - UNSPECIFIED ATRIAL FIBRILLATION Priority: Medium Current Visit: Yes Qualifiers: Atrial fibrillation type: paroxysmal Qualified Code(s): I48.0 - Paroxysmal atrial fibrillation (3) Large bowel perforation SNOMED Code(s): 151603090 Code(s): K63.1 - PERFORATION OF INTESTINE (NONTRAUMATIC) Priority: High Current Visit: Yes Problem List Initiated/Reviewed/Updated: Yes My Orders Last 24 Hours: My Active Orders 01/19/18 11:03 Carboxymethylcellulose Sodium [Refresh Plus 0.5%] 1 each EYEBOTH ASDIRECTED PRN 01/20/18 12:00 Meropenem [Merrem] 1 gm Sodium Chloride 0.9% [Normal Saline] 100 ml IV Q8H Plan: 77-year-old female admitted under Gen. surgery for intestinal perforation for which we have been consulted for assessment of her atrial fibrillation medical management. -Patient continues to be in normal sinus rhythm, no further medical intervention required at this point in time - patient's wound culture has come back and she is growing Pseudomonas as well as Enterobacter unfortunately she does have multiple antibiotic allergies including fluoroquinolones and sulfa medication, as such based upon her M.I.C. sensitivities nd given that the source of infection is a surgical site atient was initially started on ertapenem, however it was determined that ertapenem does not have good Pseudomonas coverage and we shall not be switching her over to meropenem 1 g IV every 8 hours -leukocytosis remains unchanged -Patient to get a PICC line today -Shall continue to follow the patient and give recommendations as needed.
[2018-01-20] MEDS: Meropenem 1 GM in Sodium Chloride 0.9% 100 ML IV SCH ×2 (12:21→20:24)
--- NOTE | 2018-01-20 14:14 | ECHO ---
EXAM DATE: 01/09/18 PATIENT'S AGE: 77 The echocardiogram report can be seen in this patient's EMR (Electronic Medical Record) in the Reports section. The report has also been scanned into PACs. MIGUEL ANGEL
[2018-01-20] MEDS ORDERED: Ertapenem 1 GM in Sodium Chloride 0.9% 50 ML IV SCH (15:00)
--- NOTE | 2018-01-20 17:06 | CR ---
EXAMINATION: Fluoro and ultrasound guided left-sided PICC line placement. HISTORY: poor peripheral access. TECHNIQUE/FINDINGS: After written informed consent was obtained from the patient using ultrasound an d Fluoro guidance under aseptic conditions utilizing 1% lidocaine as local anesthesia left basilic ve in was accessed and 5 [place] PICC catheter was deployed with its tip in the distal superior vena cava . The catheter flushes and withdraws blood well. The catheter is flushed with the diluted heparin. T he catheter secured well. IMPRESSION: Successful Fluoro and ultrasound guided PICC line placement.
[2018-01-20] MEDS: Simvastatin 20 MG Tab PO SCH (20:20)
[2018-01-20] MEDS: Enoxaparin 30 MG/0.3 ML Syringe SUBCUT SCH (22:25)
[2018-01-21] MEDS: Meropenem 1 GM in Sodium Chloride 0.9% 100 ML IV SCH (04:44)
[2018-01-21] MEDS: Acetaminophen/HYDROcodone 325-5 MG Tab PO PRN ×2 (07:43→16:24)
[2018-01-21] MEDS: Pantoprazole 40 MG Tab.CR PO SCH (08:00)
[2018-01-21] MEDS: Aspirin 81 MG Tab.Chew PO SCH (08:00)
--- NOTE | 2018-01-21 09:59 | PCM.CONSN ---
- General Info Date of Service: 01/21/18 Subjective Update: Stable, not acute changes. Would like to go home today. - Patient Data Vitals - Most Recent: Last Vital Signs Temp 37.1 C 01/21/18 07:50 Pulse 65 01/21/18 04:00 Resp 18 01/21/18 07:50 BP 112/37 L 01/21/18 07:50 Pulse Ox 95 01/21/18 07:50 Weight - Most Recent: 76.8 kg I&O - Last 24 Hours: Intake & Output 01/20/18 01/21/18 01/21/18 22:59 06:59 14:59 Intake Total 220 250 Output Total 600 300 200 Balance -380 -50 -200 Lab Results Last 24 Hours: Laboratory Results - last 24 hr 01/21/18 01/21/18 Range/Units 06:03 06:03 WBC 11.98 H (4.0-11.0) K/uL RBC 3.19 L (4.30-5.90) M/uL Hgb 9.7 L (12.0-16.0) g/dL Hct 29.8 L (36.0-46.0) % MCV 93.4 (80.0-98.0) fL MCH 30.4 (27.0-32.0) pg MCHC 32.6 (31.0-37.0) g/dL RDW Std Deviation 51.2 (28.0-62.0) fl RDW Coeff of Nilo 15 (11.0-15.0) % Plt Count 380 (150-400) K/uL MPV 9.30 (7.40-12.00) fL Neut % (Auto) 74.5 (48.0-80.0) % Lymph % (Auto) 10.1 L (16.0-40.0) % [place] % (Auto) 13.5 (0.0-15.0) % Eos % (Auto) 1.6 (0.0-7.0) % Baso % (Auto) 0.3 (0.0-1.5) % Neut # (Auto) 8.9 H (1.4-5.7) K/uL Lymph # (Auto) 1.2 (0.6-2.4) K/uL [place] # (Auto) 1.6 H (0.0-0.8) K/uL Eos # (Auto) 0.2 (0.0-0.7) K/uL Baso # (Auto) 0.0 (0.0-0.1) K/uL Nucleated RBC % 0.0 /100WBC Nucleated RBCs # 0 K/uL Sodium 138 (136-145) mmol/L Potassium 4.9 (3.5-5.1) mmol/L Chloride 103 (98-107) mmol/L Carbon Dioxide 31.9 (21.0-32.0) mmol/L BUN 35 H (7.0-18.0) mg/dL Creatinine 1.2 H (0.6-1.0) mg/dL Est Cr Clr Drug Dosing 29.63 mL/min Estimated GFR (MDRD) 43.6 ml/min Glucose 107 H (74-106) mg/dL Calcium 8.2 L (8.5-10.1) mg/dL Med Orders - Current: Current Medications Acetaminophen (Tylenol) 325 mg RECTAL Q4H PRN PRN Reason: Temperature Hydrocodone Bitart/Acetaminophen ([place] 325-5 Mg) 1 tab PO Q6H PRN PRN Reason: Pain (moderate 4-6) Last Admin: 01/21/18 07:43 Dose: 1 tab Albuterol/Ipratropium (Duoneb 3.0-0.5 Mg/3 Ml) 3 ml NEB Q4HRRT PRN PRN Reason: SOB/wheezing Last Admin: 01/18/18 22:48 Dose: 3 ml Artificial Tears (Refresh Plus 0.5%) 1 each EYEBOTH ASDIRECTED PRN PRN Reason: Dry Eyes Last Admin: 01/20/18 06:03 Dose: 1 drop Aspirin (Aspirin) 81 mg PO DAILY [facility] Last Admin: 01/21/18 08:00 Dose: 81 mg Enoxaparin Sodium (Lovenox) 30 mg SUBCUT Q24H [facility] Last Admin: 01/20/18 22:25 Dose: 30 mg Meropenem 1 gm/ Sodium (Chloride) 100 mls @ 200 mls/hr IV Q12H [facility] Morphine Sulfate (Morphine) 0 mg IVPUSH Q1H PRN PRN Reason: Pain (severe 7-10) Morphine Sulfate (Morphine) 0 mg IVPUSH Q1H PRN PRN Reason: Pain (severe 7-10) Ondansetron HCl (Zofran) 4 mg IVPUSH Q6H PRN PRN Reason: Nausea/Vomiting Pantoprazole Sodium (Protonix) 40 mg PO DAILY [facility] Last Admin: 01/21/18 08:00 Dose: 40 mg Simvastatin (Zocor) 20 mg PO BEDTIME [facility] Last Admin: 01/20/18 20:20 Dose: 20 mg Discontinued Medications Albuterol/Ipratropium (Duoneb 3.0-0.5 Mg/3 Ml) Confirm Administered Dose 3 ml .ROUTE .STK-MED ONE Stop: 01/11/18 14:09 Last Admin: 01/11/18 14:33 Dose: Not Given Albuterol/Ipratropium (Duoneb 3.0-0.5 Mg/3 Ml) 3 ml NEB ONETIME ONE Stop: 01/11/18 14:25 Last Admin: 01/11/18 15:46 Dose: Not Given Aspirin (Aspirin) 325 mg PO ONETIME ONE Stop: 01/11/18 16:18 Last Admin: 01/11/18 16:58 Dose: 325 mg Aspirin (Aspirin) Confirm Administered Dose 325 mg .ROUTE .STK-MED ONE Stop: 01/11/18 16:58 Last Admin: 01/11/18 17:03 Dose: Not Given Bupivacaine HCl (Marcaine 0.5%) Confirm Administered Dose 120 ml .ROUTE .STK- MED ONE Stop: 01/09/18 13:42 Cefazolin Sodium (Ancef) Confirm Administered Dose 1 gm .ROUTE .STK-MED ONE Stop: 01/09/18 14:18 Digoxin (Lanoxin) 250 mcg IVPUSH ONETIME ONE Stop: 01/11/18 17:03 Last Admin: 01/11/18 17:24 Dose: 250 mcg Digoxin (Lanoxin) 250 mcg IVPUSH ONETIME ONE Stop: 01/15/18 19:05 Last Admin: 01/15/18 19:11 Dose: 250 mcg Digoxin (Lanoxin) 250 mcg IVPUSH ONETIME ONE Stop: 01/16/18 08:43 Last Admin: 01/16/18 08:51 Dose: 250 mcg Diltiazem HCl (Diltiazem) 10 mg IVPUSH ONETIME ONE Stop: 01/11/18 15:10 Last Admin: 01/11/18 15:56 Dose: 10 mg Fentanyl (Sublimaze) Confirm Administered Dose 100 mcg .ROUTE .STK-MED ONE Stop: 01/09/18 12:47 Fentanyl (Sublimaze) Confirm Administered Dose 100 mcg .ROUTE .STK-MED ONE Stop: 01/09/18 13:29 Furosemide (Lasix) 20 mg IVPUSH NOW ONE Stop: 01/11/18 21:51 Last Admin: 01/11/18 22:14 Dose: 20 mg Furosemide (Lasix) 40 mg IVPUSH NOW ONE Stop: 01/12/18 02:21 Last Admin: 01/12/18 02:41 Dose: 40 mg Furosemide (Lasix) 20 mg IVPUSH Q8H [facility] Stop: 01/13/18 09:01 Last Admin: 01/13/18 08:06 Dose: 20 mg Furosemide (Lasix) 20 mg IVPUSH NOW ONE Stop: 01/13/18 19:49 Last Admin: 01/13/18 19:55 Dose: Not Given Furosemide (Lasix) 20 mg IVPUSH NOW ONE Stop: 01/14/18 08:56 Last Admin: 01/14/18 09:14 Dose: 20 mg Furosemide (Lasix) 20 mg PO BIDDIURETIC [facility] Last Admin: 01/18/18 07:27 Dose: 20 mg Hydromorphone HCl (Dilaudid) Confirm Administered Dose 2 mg .ROUTE .STK-MED ONE Stop: 01/09/18 13:32 Lactated Ringer's (Ringers, Lactated) 1,000 mls @ 125 mls/hr IV ASDIRECTED [facility] Last Infusion: 01/10/18 01:55 Dose: Infused Hetastarch/Sodium Chloride (Hetastarch 6% In Normal Saline) Confirm Administered Dose 500 mls @ as directed .ROUTE .STK-MED ONE Stop: 01/09/18 14:24 Acetaminophen (Ofirmev) Confirm Administered Dose 100 mls @ as directed IV .STK- MED ONE Stop: 01/09/18 14:53 Cefoxitin Sodium 1 gm/ Premix 50 mls @ 100 mls/hr IV Q6H [facility] Stop: 01/10/18 09:59 Last Admin: 01/10/18 09:17 Dose: 100 mls/hr Lactated Ringer's (Ringers, Lactated) 1,000 mls @ 125 mls/hr IV ASDIRECTED [facility] Last Infusion: 01/11/18 18:00 Dose: Infused Lactated Ringer's (Ringers, Lactated) 1,000 mls @ 625 mls/hr IV ASDIRECTED [facility] Lactated Ringer's (Ringers, Lactated) 500 mls @ 500 mls/hr IV .BOLUS ONE Stop: 01/10/18 02:45 Last Admin: 01/10/18 02:01 Dose: 500 mls/hr Lactated Ringer's (Ringers, Lactated) 500 mls @ 500 mls/hr IV BOLUS [facility] Stop: 01/10/18 04:45 Lactated Ringer's (Ringers, Lactated) 500 mls @ 500 mls/hr IV .BOLUS [facility] Stop: 01/10/18 05:01 Last Admin: 01/10/18 03:45 Dose: 500 mls/hr Lactated Ringer's (Ringers, Lactated) 1,000 mls @ 75 mls/hr IV ASDIRECTED [facility] Lactated Ringer's (Ringers, Lactated) 1,000 mls @ 50 mls/hr IV ASDIRECTED [facility] Diltiazem HCl 125 mg/ Sodium (Chloride) 125 mls @ 5 mls/hr IV ASDIRECTED [facility]; Protocol Last Titration: 01/12/18 15:45 Dose: 0 mg/hr, 0 mls/hr Magnesium Sulfate 2 gm/ Premix 50 mls @ 50 mls/hr IV ONETIME ONE Stop: 01/11/18 17:18 Last Admin: 01/11/18 16:39 Dose: 50 mls/hr Cefepime HCl 1 gm/ Premix 50 mls @ 100 mls/hr IV Q8H [facility] Last Admin: 01/12/18 18:09 Dose: 100 mls/hr Vancomycin HCl 1 gm/ Sodium (Chloride) 250 mls @ 250 mls/hr IV Q24H [facility] Last Admin: 01/12/18 19:34 Dose: 250 mls/hr Cefepime HCl 1 gm/ Premix 50 mls @ 100 mls/hr IV Q8H [facility] Last Admin: 01/13/18 01:25 Dose: 100 mls/hr Vancomycin HCl 1 gm/ Sodium (Chloride) 250 mls @ 250 mls/hr IV Q24H [facility] Last Admin: 01/14/18 20:56 Dose: Not Given Cefepime HCl 2 gm/ Premix 50 mls @ 100 mls/hr IV Q24H [facility] Last Admin: 01/14/18 13:06 Dose: 100 mls/hr Vancomycin HCl 1.5 gm/ Sodium (Chloride) 500 mls @ 333.333 mls/hr IV Q24H [facility] Last Admin: 01/14/18 21:17 Dose: 333.333 mls/hr Meropenem 1 gm/ Sodium (Chloride) 100 mls @ 200 mls/hr IV Q8H [facility] Last Admin: 01/19/18 12:55 Dose: Not Given Ertapenem 1 gm/ Sodium (Chloride) 50 mls @ 100 mls/hr IV Q24H [facility] Last Admin: 01/19/18 13:01 Dose: 100 mls/hr Ertapenem 1 gm/ Sodium (Chloride) 50 mls @ 100 mls/hr IV Q24H [facility] Meropenem 1 gm/ Sodium (Chloride) 100 mls @ 200 mls/hr IV Q8H [facility] Meropenem 1 gm/ Sodium (Chloride) 100 mls @ 200 mls/hr IV Q8H [facility] Last Admin: 01/21/18 04:44 Dose: 200 mls/hr Lorazepam (Ativan) 0.5 mg IVPUSH ONETIME ONE Stop: 01/09/18 20:19 Last Admin: 01/09/18 20:36 Dose: Not Given Metoclopramide HCl (Reglan) 10 mg IV Q6H [facility] Last Admin: 01/12/18 18:05 Dose: 10 mg Metoclopramide HCl (Reglan) 10 mg IV Q6H [facility] Last Admin: 01/20/18 06:03 Dose: 10 mg Metoprolol Tartrate (Lopressor) 25 mg PO Q12H [facility] Last Admin: 01/14/18 00:37 Dose: 25 mg Metoprolol Tartrate (Lopressor) 25 mg PO Q12H [facility] Last Admin: 01/14/18 12:01 Dose: 25 mg Metoprolol Tartrate (Lopressor) 25 mg PO Q12H [facility] Last Admin: 01/15/18 08:00 Dose: 25 mg Metoprolol Tartrate (Lopressor) 25 mg PO ONETIME ONE Stop: 01/15/18 09:19 Last Admin: 01/15/18 09:25 Dose: 25 mg Metoprolol Tartrate (Lopressor) 50 mg PO Q12H [facility] Last Admin: 01/15/18 20:05 Dose: 50 mg Metoprolol Tartrate (Lopressor) 50 mg PO BIDMEALS [facility] Last Admin: 01/18/18 11:03 Dose: Not Given Metoprolol Tartrate (Lopressor) 5 mg IVPUSH ONETIME ONE Stop: 01/16/18 18:47 Last Admin: 01/16/18 19:04 Dose: 5 mg Midazolam HCl (Versed 1 Mg/Ml) Confirm Administered Dose 2 mg .ROUTE .STK-MED ONE Stop: 01/09/18 12:47 Morphine Sulfate (Morphine [employer] 30 Mg In 30 Ml) 30 mg IV SEECOMMENT [facility] Morphine Sulfate (Morphine [employer] Instructor 30 Mg In 30 Ml) 30 mg IV ASDIRECTED [facility]; Protocol Last Admin: 01/09/18 21:09 Dose: 30 mg Ondansetron HCl (Zofran) Confirm Administered Dose 4 mg .ROUTE .STK-MED ONE Stop: 01/09/18 12:47 Pantoprazole Sodium (Protonix Iv) 40 mg IVPUSH DAILY [facility] Last Admin: 01/15/18 08:02 Dose: 40 mg Propofol (Diprivan 20 Ml) Confirm Administered Dose 400 mg .ROUTE .STK-MED ONE Stop: 01/09/18 12:47 Rocuronium [place] (Zemuron) Confirm Administered Dose 100 mg .ROUTE .STK-MED ONE Stop: 01/09/18 13:28 Sugammadex Sodium (Bridion) Confirm Administered Dose 200 mg .ROUTE .STK-MED ONE Stop: 01/09/18 14:53 Vancomycin HCl (Pharmacy To Dose - Vancomycin) 1 dose .XX ASDIRECTED [facility] - Exam General: Alert, Oriented, Cooperative Lungs: Clear to Auscultation, Normal Respiratory Effort Cardiovascular: Regular Rate, Regular Rhythm Extremities: Normal Inspection, Normal Range of Motion Consult PN Assessment/Plan Procedures: Procedures ASSAY THYROID STIM HORMONE (01/18/14) COMPLETE CBC W/AUTO DIFF WBC (01/18/14) COMPREHEN METABOLIC PANEL (01/18/14) EMERGENCY DEPT VISIT (10/20/15) LIPID PANEL (01/18/14) OFFICE/OUTPATIENT VISIT EST (01/18/14) OT EVALUATION (12/04/15) OT RE-EVALUATION (12/19/15) ROUTINE VENIPUNCTURE (01/18/14) THERAPEUTIC EXERCISES (12/19/15) URINALYSIS AUTO W/SCOPE (01/18/14) X-RAY EXAM OF WRIST (12/28/15) (1) Abscess of postoperative wound of abdominal wall SNOMED Code(s): 417516563 Code(s): T81.4XXA - INFECTION FOLLOWING A PROCEDURE, INITIAL ENCOUNTER Priority: High Current Visit: Yes Qualifiers: Encounter type: subsequent encounter Qualified Code(s): T81.4XXD - Infection following a procedure, subsequent encounter (2) Atrial fibrillation SNOMED Code(s): 91112072 Code(s): I48.91 - UNSPECIFIED ATRIAL FIBRILLATION Priority: Medium Current Visit: Yes Qualifiers: Atrial fibrillation type: paroxysmal Qualified Code(s): I48.0 - Paroxysmal atrial fibrillation (3) Large bowel perforation SNOMED Code(s): 948890313 Code(s): K63.1 - PERFORATION OF INTESTINE (NONTRAUMATIC) Priority: High Current Visit: Yes Problem List Initiated/Reviewed/Updated: Yes My Orders Last 24 Hours: My Active Orders 01/21/18 08:05 Discontinue Telemetry Monitoring [Cardiac Monitoring Discontinue] [RC] Click to Edit 01/21/18 15:00 Meropenem [Merrem] 1 gm Sodium Chloride 0.9% [Normal Saline] 100 ml IV Q12H Plan: 77-year-old female admitted under Gen. surgery for intestinal perforation for which we have been consulted for assessment of her atrial fibrillation medical management. -Patient continues to be in normal sinus rhythm, no further medical intervention required at this point in time - patient's wound culture has come back and she is growing Pseudomonas as well as Enterobacter unfortunately she does have multiple antibiotic allergies including fluoroquinolones and sulfa medication, as such based upon her M.I.C. sensitivities nd given that the source of infection is a surgical site atient was initially started on ertapenem, however it was determined that ertapenem does not have good Pseudomonas coverage and Patient was placed on Meropenem 1 G Q8hr. However due to need for renal dosing, Meropenem is now changed to Q12hr with same doseage. -leukocytosis trending downwards. -Patient Has gotten her Picc Line. Anticipate D/c today evening.
--- NOTE | 2018-01-21 13:15 | PCM.DCSUM1 ---
Discharge Summary - Hospital Course Free Text/Narrative:: Patient is a 77 y/o female who presented on 01/09 for colonoscopy secondary to a personal history of colon polyps. During her colonoscopy she suffered a perforation of her large intestine. She was promptly take to the operating room where she underwent resection of the injured bowel and a primary anastomosis. Her postoperative course was complicated initially by the development of atrial fibrillation. She subsequently developed a postop wound infection requiring the wound to be opened at the bedside and packed open. Cultures at that time grew an Enterobacteriae and a Pseudomonas. Both organisms are sensitive to Meropenem and she has been started on that. The surgical clips were removed on 01/20 and the upper portion of the wound also opened up. Her convalescence has been slow but she has shown steady improvement. She is tolerating a po soft diet, passing gas and having bowel movements. She will be discharged today to return for BID dressings changes and Meropenem 1 GM IV BID for another 9 days. A PICC line was placed by Dr. Charles yesterday. HPI Initial Comments: 77 y/o who presented for outpatient elective colonoscopy for a personal history of colon polyps. Colonoscopy was complicated by perforation of the rectosigmoid. Diagnosis: Stroke: No - Discharge Data Discharge Date: 01/21/18 Discharge Disposition: Home, Self-Care 01 Condition: Fair - Discharge Diagnosis/Problem(s) (1) Large bowel perforation SNOMED Code(s): 558371584 ICD Code: K63.1 - PERFORATION OF INTESTINE (NONTRAUMATIC) Status: Acute Priority: High Current Visit: Yes (2) Atrial fibrillation SNOMED Code(s): 52088960 ICD Code: I48.91 - UNSPECIFIED ATRIAL FIBRILLATION Status: Acute Priority : Medium Current Visit: Yes Qualifiers: Atrial fibrillation type: paroxysmal Qualified Code(s): I48.0 - Paroxysmal atrial fibrillation (3) Abscess of postoperative wound of abdominal wall SNOMED Code(s): 073134227 ICD Code: T81.4XXA - INFECTION FOLLOWING A PROCEDURE, INITIAL ENCOUNTER Status: Acute Priority: High Current Visit: Yes Qualifiers: Encounter type: subsequent encounter Qualified Code(s): T81.4XXD - Infection following a procedure, subsequent encounter - Patient Summary/Data Operative Procedure(s) Performed: Colonoscopy. Repair of iatrogenic colon perforation Consults: Consultations 01/11/18 14:22 Consult to Physician [CONS] Routine 01/14/18 08:09 Consult to Seed Pelleter [CONS] Routine - Patient Instructions Diet: Usual Diet as Tolerated Activity: As Tolerated, No Lifting Over 25 Pounds (for 6 weeks) Driving: Do Not Drive Showering/Bathing: May Shower Wound/Incision Care: Keep Operative Site/Wound Site Clean and Dry Notify Provider of: Fever, Increased Pain, Drainage Other/Special Instructions: See Dr. Smith on 01/27. Rx for [place] 5/325 sent electronically. May filler picker at your pharmacy later today. - Discharge Plan *PRESCRIPTION DRUG MONITORING PROGRAM REVIEWED*: Not Applicable *COPY OF PRESCRIPTION DRUG MONITORING REPORT IN PATIENT ESCOBAR: Not Applicable Prescriptions/Med Rec: Hydrocodone/Acetaminophen [Hydrocodon-Acetaminophen 5-325] 1 each PO Q6HR PRN 5 Days #20 tablet PRN Reason: Pain (Moderate 4-6) Home Medications: Home Meds Clopidogrel [Plavix] 75 mg PO DAILY 10/20/15 [History] Simvastatin [Zocor] 20 mg PO BEDTIME 10/20/15 [History] Aspirin [Adult Low Dose Aspirin EC] 81 mg PO DAILY 01/02/18 [History] Losartan/Hydrochlorothiazide [Losartan-HCTZ 50-12.5 MG] 1 tab PO DAILY 01/02/18 [History] Hydrocodone/Acetaminophen [Hydrocodon-Acetaminophen 5-325] 1 each PO Q6HR PRN 5 Days #20 tablet 01/21/18 [Rx] Patient Handouts: Exploratory Laparotomy, Adult, Care After, Atrial Fibrillation, [id number], Open Colectomy, Preventing Cerebrovascular Disease Referrals: [facility] [Outside] Luis Smith MD [Physician] - 01/27/18 3:00 pm Reinaldo Earl MD [Physician] - Beto Falcon MD [Primary Care Provider] - - General Info Date of Service: 01/21/18 Admission Dx/Problem (Free Text: Iatrogenic perforation of the colon. Functional Status: Reports: Pain Controlled, Tolerating Diet, Ambulating. Denies: New Symptoms - Review of Systems General: Reports: Weakness. Denies: Fever, Fatigue, Malaise HEENT: Reports: No Symptoms Pulmonary: Denies: Shortness of Breath Cardiovascular: Denies: Chest Pain Gastrointestinal: Reports: Abdominal Pain (Incisional), Flatus. Denies: Constipation, Diarrhea, Nausea, Vomiting Genitourinary: Denies: Dysuria, Frequency, Burning, Pain Musculoskeletal: Reports: No Symptoms Skin: Denies: Jaundice, Mottled Neurological: Reports: No Symptoms Psychiatric: Reports: No Symptoms - Patient Data Vitals - Most Recent: Last Vital Signs Temp 98.1 F 01/21/18 12:00 Pulse 67 01/21/18 12:00 Resp 18 01/21/18 12:00 BP 121/40 L 01/21/18 12:00 Pulse Ox 92 L 01/21/18 12:00 Weight - Most Recent: 169 lb 5.04 oz I&O - Last 24 hours: Intake & Output 01/21/18 01/21/18 01/21/18 03:59 11:59 19:59 Intake Total 100 490 Output Total 300 750 Balance -200 -260 Lab Results - Last 24 hrs: Laboratory Results - last 24 hr 01/21/18 01/21/18 Range/Units 06:03 06:03 WBC 11.98 H (4.0-11.0) K/uL RBC 3.19 L (4.30-5.90) M/uL Hgb 9.7 L (12.0-16.0) g/dL Hct 29.8 L (36.0-46.0) % MCV 93.4 (80.0-98.0) fL MCH 30.4 (27.0-32.0) pg MCHC 32.6 (31.0-37.0) g/dL RDW Std Deviation 51.2 (28.0-62.0) fl RDW Coeff of Nilo 15 (11.0-15.0) % Plt Count 380 (150-400) K/uL MPV 9.30 (7.40-12.00) fL Neut % (Auto) 74.5 (48.0-80.0) % Lymph % (Auto) 10.1 L (16.0-40.0) % [place] % (Auto) 13.5 (0.0-15.0) % Eos % (Auto) 1.6 (0.0-7.0) % Baso % (Auto) 0.3 (0.0-1.5) % Neut # (Auto) 8.9 H (1.4-5.7) K/uL Lymph # (Auto) 1.2 (0.6-2.4) K/uL [place] # (Auto) 1.6 H (0.0-0.8) K/uL Eos # (Auto) 0.2 (0.0-0.7) K/uL Baso # (Auto) 0.0 (0.0-0.1) K/uL Nucleated RBC % 0.0 /100WBC Nucleated RBCs # 0 K/uL Sodium 138 (136-145) mmol/L Potassium 4.9 (3.5-5.1) mmol/L Chloride 103 (98-107) mmol/L Carbon Dioxide 31.9 (21.0-32.0) mmol/L BUN 35 H (7.0-18.0) mg/dL Creatinine 1.2 H (0.6-1.0) mg/dL Est Cr Clr Drug Dosing 29.63 mL/min Estimated GFR (MDRD) 43.6 ml/min Glucose 107 H (74-106) mg/dL Calcium 8.2 L (8.5-10.1) mg/dL Med Orders - Current: Current Medications Acetaminophen (Tylenol) 325 mg RECTAL Q4H PRN PRN Reason: Temperature Hydrocodone Bitart/Acetaminophen ([place] 325-5 Mg) 1 tab PO Q6H PRN PRN Reason: Pain (moderate 4-6) Last Admin: 01/21/18 07:43 Dose: 1 tab Albuterol/Ipratropium (Duoneb 3.0-0.5 Mg/3 Ml) 3 ml NEB Q4HRRT PRN PRN Reason: SOB/wheezing Last Admin: 01/18/18 22:48 Dose: 3 ml Artificial Tears (Refresh Plus 0.5%) 1 each EYEBOTH ASDIRECTED PRN PRN Reason: Dry Eyes Last Admin: 01/20/18 06:03 Dose: 1 drop Aspirin (Aspirin) 81 mg PO DAILY [facility] Last Admin: 01/21/18 08:00 Dose: 81 mg Enoxaparin Sodium (Lovenox) 30 mg SUBCUT Q24H [facility] Last Admin: 01/20/18 22:25 Dose: 30 mg Meropenem 1 gm/ Sodium (Chloride) 100 mls @ 200 mls/hr IV Q12H [facility] CARL[facility] Morphine Sulfate (Morphine) 0 mg IVPUSH Q1H PRN PRN Reason: Pain (severe 7-10) Morphine Sulfate (Morphine) 0 mg IVPUSH Q1H PRN PRN Reason: Pain (severe 7-10) Ondansetron HCl (Zofran) 4 mg IVPUSH Q6H PRN PRN Reason: Nausea/Vomiting Pantoprazole Sodium (Protonix) 40 mg PO DAILY [facility] Last Admin: 01/21/18 08:00 Dose: 40 mg Simvastatin (Zocor) 20 mg PO BEDTIME [facility] Last Admin: 01/20/18 20:20 Dose: 20 mg Discontinued Medications Albuterol/Ipratropium (Duoneb 3.0-0.5 Mg/3 Ml) Confirm Administered Dose 3 ml .ROUTE .STK-MED ONE Stop: 01/11/18 14:09 Last Admin: 01/11/18 14:33 Dose: Not Given Albuterol/Ipratropium (Duoneb 3.0-0.5 Mg/3 Ml) 3 ml NEB ONETIME ONE Stop: 01/11/18 14:25 Last Admin: 01/11/18 15:46 Dose: Not Given Aspirin (Aspirin) 325 mg PO ONETIME ONE Stop: 01/11/18 16:18 Last Admin: 01/11/18 16:58 Dose: 325 mg Aspirin (Aspirin) Confirm Administered Dose 325 mg .ROUTE .STK-MED ONE Stop: 01/11/18 16:58 Last Admin: 01/11/18 17:03 Dose: Not Given Bupivacaine HCl (Marcaine 0.5%) Confirm Administered Dose 120 ml .ROUTE .STK- MED ONE Stop: 01/09/18 13:42 Cefazolin Sodium (Ancef) Confirm Administered Dose 1 gm .ROUTE .STK-MED ONE Stop: 01/09/18 14:18 Digoxin (Lanoxin) 250 mcg IVPUSH ONETIME ONE Stop: 01/11/18 17:03 Last Admin: 01/11/18 17:24 Dose: 250 mcg Digoxin (Lanoxin) 250 mcg IVPUSH ONETIME ONE Stop: 01/15/18 19:05 Last Admin: 01/15/18 19:11 Dose: 250 mcg Digoxin (Lanoxin) 250 mcg IVPUSH ONETIME ONE Stop: 01/16/18 08:43 Last Admin: 01/16/18 08:51 Dose: 250 mcg Diltiazem HCl (Diltiazem) 10 mg IVPUSH ONETIME ONE Stop: 01/11/18 15:10 Last Admin: 01/11/18 15:56 Dose: 10 mg Fentanyl (Sublimaze) Confirm Administered Dose 100 mcg .ROUTE .STK-MED ONE Stop: 01/09/18 12:47 Fentanyl (Sublimaze) Confirm Administered Dose 100 mcg .ROUTE .STK-MED ONE Stop: 01/09/18 13:29 Furosemide (Lasix) 20 mg IVPUSH NOW ONE Stop: 01/11/18 21:51 Last Admin: 01/11/18 22:14 Dose: 20 mg Furosemide (Lasix) 40 mg IVPUSH NOW ONE Stop: 01/12/18 02:21 Last Admin: 01/12/18 02:41 Dose: 40 mg Furosemide (Lasix) 20 mg IVPUSH Q8H [facility] Stop: 01/13/18 09:01 Last Admin: 01/13/18 08:06 Dose: 20 mg Furosemide (Lasix) 20 mg IVPUSH NOW ONE Stop: 01/13/18 19:49 Last Admin: 01/13/18 19:55 Dose: Not Given Furosemide (Lasix) 20 mg IVPUSH NOW ONE Stop: 01/14/18 08:56 Last Admin: 01/14/18 09:14 Dose: 20 mg Furosemide (Lasix) 20 mg PO BIDDIURETIC [facility] Last Admin: 01/18/18 07:27 Dose: 20 mg Hydromorphone HCl (Dilaudid) Confirm Administered Dose 2 mg .ROUTE .STK-MED ONE Stop: 01/09/18 13:32 Lactated Ringer's (Ringers, Lactated) 1,000 mls @ 125 mls/hr IV ASDIRECTED [facility] Last Infusion: 01/10/18 01:55 Dose: Infused Hetastarch/Sodium Chloride (Hetastarch 6% In Normal Saline) Confirm Administered Dose 500 mls @ as directed .ROUTE .STK-MED ONE Stop: 01/09/18 14:24 Acetaminophen (Ofirmev) Confirm Administered Dose 100 mls @ as directed IV .STK- MED ONE Stop: 01/09/18 14:53 Cefoxitin Sodium 1 gm/ Premix 50 mls @ 100 mls/hr IV Q6H [facility] Stop: 09/01/18 09:59 Last Admin: 01/10/18 09:17 Dose: 100 mls/hr Lactated Ringer's (Ringers, Lactated) 1,000 mls @ 125 mls/hr IV ASDIRECTED [facility] Last Infusion: 01/11/18 18:00 Dose: Infused Lactated Ringer's (Ringers, Lactated) 1,000 mls @ 625 mls/hr IV ASDIRECTED [facility]ERT[facility] CARLOS Lactated Ringer's (Ringers, Lactated) 500 mls @ 500 mls/hr IV .BOLUS ONE Stop: 01/10/18 02:45 Last Admin: 01/10/18 02:01 Dose: 500 mls/hr Lactated Ringer's (Ringers, Lactated) 500 mls @ 500 mls/hr IV BOLUS [facility] Stop: 01/10/18 04:45 Lactated Ringer's (Ringers, Lactated) 500 mls @ 500 mls/hr IV .BOLUS [facility] Stop: 01/10/18 05:01 Last Admin: 01/10/18 03:45 Dose: 500 mls/hr Lactated Ringer's (Ringers, Lactated) 1,000 mls @ 75 mls/hr IV ASDIRECTED [facility] Lactated Ringer's (Ringers, Lactated) 1,000 mls @ 50 mls/hr IV ASDIRECTED [facility] CARL[facility] Diltiazem HCl 125 mg/ Sodium (Chloride) 125 mls @ 5 mls/hr IV ASDIRECTED [facility]ERTO CARLOS; Protocol Last Titration: 01/12/18 15:45 Dose: 0 mg/hr, 0 mls/hr Magnesium Sulfate 2 gm/ Premix 50 mls @ 50 mls/hr IV ONETIME ONE Stop: 01/11/18 17:18 Last Admin: 01/11/18 16:39 Dose: 50 mls/hr Cefepime HCl 1 gm/ Premix 50 mls @ 100 mls/hr IV Q8H [facility] Last Admin: 01/12/18 18:09 Dose: 100 mls/hr Vancomycin HCl 1 gm/ Sodium (Chloride) 250 mls @ 250 mls/hr IV Q24H [facility] Last Admin: 01/12/18 19:34 Dose: 250 mls/hr Cefepime HCl 1 gm/ Premix 50 mls @ 100 mls/hr IV Q8H [facility] Last Admin: 01/13/18 01:25 Dose: 100 mls/hr Vancomycin HCl 1 gm/ Sodium (Chloride) 250 mls @ 250 mls/hr IV Q24H [facility] Last Admin: 01/14/18 20:56 Dose: Not Given Cefepime HCl 2 gm/ Premix 50 mls @ 100 mls/hr IV Q24H [facility] Last Admin: 01/14/18 13:06 Dose: 100 mls/hr Vancomycin HCl 1.5 gm/ Sodium (Chloride) 500 mls @ 333.333 mls/hr IV Q24H [facility] Last Admin: 01/14/18 21:17 Dose: 333.333 mls/hr Meropenem 1 gm/ Sodium (Chloride) 100 mls @ 200 mls/hr IV Q8H [facility] Last Admin: 01/19/18 12:55 Dose: Not Given Ertapenem 1 gm/ Sodium (Chloride) 50 mls @ 100 mls/hr IV Q24H [facility] Last Admin: 01/19/18 13:01 Dose: 100 mls/hr Ertapenem 1 gm/ Sodium (Chloride) 50 mls @ 100 mls/hr IV Q24H [facility] Meropenem 1 gm/ Sodium (Chloride) 100 mls @ 200 mls/hr IV Q8H [facility] Meropenem 1 gm/ Sodium (Chloride) 100 mls @ 200 mls/hr IV Q8H [facility] Last Admin: 01/21/18 04:44 Dose: 200 mls/hr Lorazepam (Ativan) 0.5 mg IVPUSH ONETIME ONE Stop: 01/09/18 20:19 Last Admin: 01/09/18 20:36 Dose: Not Given Metoclopramide HCl (Reglan) 10 mg IV Q6H [facility] Last Admin: 01/12/18 18:05 Dose: 10 mg Metoclopramide HCl (Reglan) 10 mg IV Q6H [facility] Last Admin: 01/20/18 06:03 Dose: 10 mg Metoprolol Tartrate (Lopressor) 25 mg PO Q12H [facility] Last Admin: 01/14/18 00:37 Dose: 25 mg Metoprolol Tartrate (Lopressor) 25 mg PO Q12H [facility] Last Admin: 01/14/18 12:01 Dose: 25 mg Metoprolol Tartrate (Lopressor) 25 mg PO Q12H [facility] Last Admin: 01/15/18 08:00 Dose: 25 mg Metoprolol Tartrate (Lopressor) 25 mg PO ONETIME ONE Stop: 01/15/18 09:19 Last Admin: 01/15/18 09:25 Dose: 25 mg Metoprolol Tartrate (Lopressor) 50 mg PO Q12H [facility] Last Admin: 01/15/18 20:05 Dose: 50 mg Metoprolol Tartrate (Lopressor) 50 mg PO BIDMEALS [facility] Last Admin: 01/18/18 11:03 Dose: Not Given Metoprolol Tartrate (Lopressor) 5 mg IVPUSH ONETIME ONE Stop: 01/16/18 18:47 Last Admin: 01/16/18 19:04 Dose: 5 mg Midazolam HCl (Versed 1 Mg/Ml) Confirm Administered Dose 2 mg .ROUTE .STK-MED ONE Stop: 01/09/18 12:47 Morphine Sulfate (Morphine [employer] 30 Mg In 30 Ml) 30 mg IV SEECOMMENT [facility] Morphine Sulfate (Morphine [employer]or 30 Mg In 30 Ml) 30 mg IV ASDIRECTED [facility]; Protocol Last Admin: 01/09/18 21:09 Dose: 30 mg Ondansetron HCl (Zofran) Confirm Administered Dose 4 mg .ROUTE .STK-MED ONE Stop: 01/09/18 12:47 Pantoprazole Sodium (Protonix Iv) 40 mg IVPUSH DAILY [facility] Last Admin: 01/15/18 08:02 Dose: 40 mg Propofol (Diprivan 20 Ml) Confirm Administered Dose 400 mg .ROUTE .STK-MED ONE Stop: 01/09/18 12:47 Rocuronium [place] (Zemuron) Confirm Administered Dose 100 mg .ROUTE .STK-MED ONE Stop: 01/09/18 13:28 Sugammadex Sodium (Bridion) Confirm Administered Dose 200 mg .ROUTE .STK-MED ONE Stop: 01/09/18 14:53 Vancomycin HCl (Pharmacy To Dose - Vancomycin) 1 dose .XX ASDIRECTED ROBERTO CARLOS - Exam Quality Assessment: Reports: DVT Prophylaxis. Denies: Urine Catheter, Skin Breakdown General: Reports: Alert, Oriented, Cooperative, No Acute Distress HEENT: Reports: Pupils Equal, Pupils Reactive. Denies: Scleral Icterus Neck: Reports: Supple, Trachea Midline Lungs: Reports: Clear to Auscultation, Normal Respiratory Effort. Denies: Crackles, Rales Cardiovascular: Reports: Regular Rate, Regular Rhythm, No Murmurs GI/Abdominal Exam: Normal Bowel Sounds, Soft, Non-Tender, No Distention. No: Guarding, Rigid, Rebound (Female) Exam: Normal External Exam, Normal Speculum Exam, Normal Bimanual Exam Rectal (Female) Exam: Deferred Back Exam: Reports: Normal Inspection Extremities: Normal Inspection, No Pedal Edema Skin: Reports: Warm, Dry Wound/Incisions: Reports: Drainage, Erythema Improving, Other (The wound was opened at the bedside secondary to a wound infection. It is being packed open and slowly cleaning up. There is less drainage today.) Psy/Mental Status: Reports: Alert, Normal Affect, Normal Mood Discharge Operative/Procedures - Procedures Performed CL Indication: other (PICC line for antibiotics) I&D Site: Midline abdominal incision Operations/Procedure Comment: Exploratory laparotomy with rectosigmoid resection and primary anastomosis following endoscopic colon perforation.
[2018-01-21] MEDS ORDERED: Meropenem 1 GM in Sodium Chloride 0.9% 100 ML IV SCH (15:00)
[2018-01-21 16:07] VITALS: BP 140/38
== END 2018-01-21 19:30 | disposition home or self-care (01) | DRG 907 ==
LOC: MW.SDS 10:56 → MW.ICU 16:10 → MW.MS 01-20 13:21 → MW.ICU 01-20 13:21 → MW.MS 01-20 13:29 → MW.ICU 01-20 13:36
PROVIDERS: ADMIT Surgery; ATTEND Surgery
PROC: 0DJD8ZZ Inspection of Lower Intestinal Tract, Via Natural or Artificial Opening Endoscopic (ICD-10-PCS; principal; 2018-01-09)
PROC: 0DBN0ZZ Excision of Sigmoid Colon, Open Approach (ICD-10-PCS; 2018-01-09)
PROC: 02HV33Z Insertion of Infusion Device into Superior Vena Cava, Percutaneous Approach (ICD-10-PCS; 2018-01-20)
DX: K91.71 Accidental puncture and laceration of a digestive system organ or structure during a digestive system procedure (principal); Z86.010 Personal history of colon polyps; J18.9 Pneumonia, unspecified organism; K57.30 Diverticulosis of large intestine without perforation or abscess without bleeding; T81.4XXA Infection following a procedure, initial encounter; I48.91 Unspecified atrial fibrillation; B96.5 Pseudomonas (aeruginosa) (mallei) (pseudomallei) as the cause of diseases classified elsewhere; B96.89 Other specified bacterial agents as the cause of diseases classified elsewhere; D72.829 Elevated white blood cell count, unspecified; I10 Essential (primary) hypertension; E78.5 Hyperlipidemia, unspecified; Z79.01 Long term (current) use of anticoagulants; Z88.1 Allergy status to other antibiotic agents; Z88.2 Allergy status to sulfonamides; Z88.8 Allergy status to other drugs, medicaments and biological substances; Z79.899 Other long term (current) drug therapy; Z79.82 Long term (current) use of aspirin; Z87.891 Personal history of nicotine dependence
CPT/HCPCS: 45378; J0131; J0690; J1170; J2250; J2405; J2704; J3010 ×2; J3490 ×2; J7120; 00840; 36410; 36415; 36569; 71045; 71045-26; 76937; 76937-26; 77001; 77001-26; 80048; 80053; 80202; 81001; 82803; 83605; 83735; 84439; 84443; 84484; 85007; 85025; 85027; 85610; 87040; 87070; 87077; 87186; 88305; 93005; 93306; 93970; 93970-26; 94640; A9270-GY; C9113; J0692; J0694; J1160; J1335; J1650; J1940; J2185; J2274; J2765; J3370; J3475; J7030; J7040; J7050; J7620-GY

== ENCOUNTER 2019-08-19 06:31 | Day surgery (SDC) | payer MEDICARE, OTHER ==
[2019-08-19] MEDS ORDERED: fentaNYL 100 MCG/2 ML SDV ONE (07:07)
[2019-08-19] MEDS ORDERED: Propofol 200 MG/20 ML SDV ONE ×2 (07:07→07:12)
[2019-08-19] MEDS ORDERED: Midazolam 1 MG/ML 2 ML SDV ONE (07:07)
[2019-08-19] MEDS ORDERED: Sodium Chloride 0.9% 20 ML ONE (07:14)
[2019-08-19] MEDS ORDERED: ePHEDrine 50 MG/ML SDV ONE (07:14)
--- NOTE | 2019-08-19 07:19 | PCM.PREANE ---
Preanesthetic Assessment - Anesthesia/Transfusion/Family Hx Anesthesia History: Prior Anesthesia Without Reaction Family History of Anesthesia Reaction: No Transfusion History: No Prior Transfusion(s) Intubation History: Unknown - Review of Systems General: No Symptoms Pulmonary: No Symptoms Cardiovascular: No Symptoms Gastrointestinal: No Symptoms Neurological: No Symptoms Other: Reports: None - Physical Assessment Height: 5 ft 1 in Weight: 73.028 kg ASA Class: 3 Mental Status: Alert & Oriented x3 Airway Class: Mallampati = 2 Dentition: Reports: Dentures (upper and lower) Thyro-Mental Finger Breadths: 3 (large cyst on anterir neck) Mouth Opening Finger Breadths: 2 ROM/Head Extension: Limited/Partial Lungs: Clear to Auscultation, Normal Respiratory Effort Cardiovascular: Regular Rate, Regular Rhythm, Murmurs - Allergies Allergies/Adverse Reactions: Allergies Allergy/AdvReac Type Severity Reaction Status Date / Time amoxicillin trihydrate Allergy Rash Verified 08/13/19 15:35 [From Augmentin] ciprofloxacin [From Cipro] Allergy Shortness Verified 08/13/19 15:35 of Breath ciprofloxacin HCl Allergy Shortness Verified 08/13/19 15:35 [From Cipro] of Breath montelukast [From Singulair] Allergy Cough Verified 08/13/19 15:35 potassium clavulanate Allergy Rash Verified 08/13/19 15:35 [From Augmentin] Sulfa (Sulfonamide Allergy Rash Verified 08/13/19 15:35 Antibiotics) - Blood Blood Available: No - Anesthesia Plan Pre-Op Medication Ordered: None - Acknowledgements Anesthesia Type Planned: MAC (general anesthesia back-up plan) Pt an Appropriate Candidate for the Planned Anesthesia: Yes Alternatives and Risks of Anesthesia Discussed w Pt/Guardian: Yes Pt/Guardian Understands and Agrees with Anesthesia Plan: Yes PreAnesthesia Questionnaire HEENT History: Reports: Cataract Other HEENT History: wears glasses, has upper and lower dentures Cardiovascular History: Reports: Afib (short episode in 2018 after colonoscopy) , High Cholesterol, Hypertension, PVD (stent in rt. arm 7-8 years ago) Respiratory History: Reports: Other (See Below) (rt. lung cancer- needs port-a- cath for chemo therapy, received radiation therapy) Gastrointestinal History: Reports: Colon Polyp, Diverticulosis SEATING CAPTAIN History: Reports: None Musculoskeletal History: Reports: Arthritis, Fracture, Gout Other Musculoskeletal History: hx of fx right wrist Neurological History: Reports: None Psychiatric History: Reports: None Endocrine/Metabolic History: Reports: Obesity/BMI 30+ (BMI 30.4) Hematologic History: Reports: Anticoagulation Therapy Immunologic History: Reports: None Oncologic (Cancer) History: Reports: Cervix, Lung (rt. lung cancer at present time) Dermatologic History: Reports: None - Infectious Disease History Infectious Disease History: Reports: Chicken Pox - Past Surgical History Head Surgeries/Procedures: Reports: None HEENT Surgical History: Reports: Cataract Surgery, Tonsillectomy Cardiovascular Surgical History: Reports: Vascular Surgery, Other (See Below) Other Cardiovascular Surgeries/Procedures: stent in right upper arm, PICC line placed and removed GI Surgical History: Reports: Colonoscopy, Colostomy (for perforated colon during colonoscopy- reversed), Other (See Below) Other GI Surgeries/Procedures: Colonoscopy with perforation- Colectomy with colostomy- colostomy reversal Female Surgical History: Reports: Hysterectomy Oncologic Surgical History: Reports: Other (See Below) Other Oncologic Surgeries/Procedures: Hysterectomy - SUBSTANCE USE Smoking Status *Q: Former Smoker Tobacco Use Within Last Twelve Months: No Recreational Drug Use History: No - HOME MEDS Home Medications: Home Meds Clopidogrel [Plavix] 75 mg PO DAILY 10/20/15 [History] Simvastatin [Zocor] 20 mg PO BEDTIME 10/20/15 [History] Aspirin [Adult Low Dose Aspirin EC] 81 mg PO DAILY 01/02/18 [History] Losartan Potassium 50 mg PO QAM 08/13/19 [History] hydroCHLOROthiazide [Hydrochlorothiazide] 12.5 mg PO QAM 08/13/19 [History] traMADol [Ultram] 50 mg PO ASDIRECTED PRN 08/13/19 [History] - CURRENT (IN HOUSE) MEDS Current Meds: Current Medications Discontinued Medications Fentanyl (Sublimaze) Confirm Administered Dose 100 mcg .ROUTE .STK-MED ONE Stop: 08/19/19 07:08 Midazolam HCl (Versed 1 Mg/Ml) Confirm Administered Dose 2 mg .ROUTE .STK-MED ONE Stop: 08/19/19 07:08 Propofol (Diprivan 20 Ml) Confirm Administered Dose 200 mg .ROUTE .STK-MED ONE Stop: 08/19/19 07:08
[2019-08-19] MEDS ORDERED: Succinylcholine/Sod PF 100 MG/5 ML SYRINGE IV ONE (07:26)
[2019-08-19] MEDS ORDERED: Rocuronium 100 MG/10 ML Syringe ONE (07:26)
[2019-08-19] MEDS ORDERED: Bupivacaine 0.5% 10 ML SDV ONE (07:33)
[2019-08-19] MEDS ORDERED: Heparin Sodium 100 Units/ML 3 ML Syringe ONE (07:34)
[2019-08-19] MEDS ORDERED: Iopamidol 200-M 10 ML vial ITHECAL ONE (07:34)
[2019-08-19] MEDS ORDERED: Sodium Chloride 0.9% 10 ML Syringe FLUSH PRN (07:38)
[2019-08-19] MEDS ORDERED: Octyl 2-Cyanoacrylate 1 Tube ONE (07:38)
[2019-08-19] MEDS ORDERED: Sodium Chloride 0.9% 10 ML SDV IV PRN (07:38)
[2019-08-19] MEDS ORDERED: Sodium Chloride 0.9% 2.5 ML Syringe FLUSH PRN (07:38)
[2019-08-19] MEDS ORDERED: Clindamycin Phosphate in D5W 600 MG in Premix Bag 1 BAG IV ONE ×2 (07:39)
[2019-08-19] MEDS ORDERED: Lactated Ringers 1,000 ML IV SCH (07:45)
[2019-08-19 07:58] LABS: POTASSIUM,K 4.2 mmol/L (3.5-5.1)
--- NOTE | 2019-08-19 09:30 | PCM.OPNOTE ---
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
--- NOTE | 2019-08-19 09:31 | CR ---
Chest: Portable view of the chest was obtained. Comparison: Prior chest x-ray of 06/24/19. Increased density within the right upper chest is seen. This is an interval change from previous chest x-ray. Lungs otherwise are clear. Heart is prominent in size but probably accentuated portable technique. Right jugular line is seen with tip lying within the superior vena cava. Bony structures are osteopenic. Impression: 1. Right jugular line. Tip lies within the superior vena cava. 2. Increased density within the right upper chest. Differential includes pneumonia as well as aspiration. Diagnostic code #3 This report was dictated in MDT
--- NOTE | 2019-08-19 10:07 | PCM.POSTAN ---
POST ANESTHESIA ASSESSMENT - MENTAL STATUS Mental Status: Alert, Oriented - VITAL SIGNS Vital Signs: Last Vital Signs Temp 35.9 C L 08/19/19 09:08 Pulse 79 08/19/19 09:23 Resp 15 08/19/19 09:23 BP 133/52 L 08/19/19 09:23 Pulse Ox 95 08/19/19 09:23 - RESPIRATORY Respiratory Status: Respiratory Rate WNL, Airway Patent, O2 Saturation Stable - CARDIOVASCULAR CV Status: Pulse Rate WNL, Blood Pressure Stable - GASTROINTESTINAL GI Status: No Symptoms - PAIN Pain Score: 0 - POST OP HYDRATION Hydration Status: Adequate & Stable - OBSERVATIONS Free Text/Narrative:: No anesthesia problems
--- NOTE | 2019-08-19 10:08 | PCM48HPAN ---
Post Anesthesia Note - EVALUATION WITHIN 48HRS OF ANESTHETIC Vital Signs in Normal Range: Yes Patient Participated in Evaluation: Yes Respiratory Function Stable: Yes Airway Patent: Yes Cardiovascular Function Stable: Yes Hydration Status Stable: Yes Pain Control Satisfactory: Yes Nausea and Vomiting Control Satisfactory: Yes Mental Status Recovered: Yes Vital Signs: Last Vital Signs Temp 35.9 C L 08/19/19 09:08 Pulse 79 08/19/19 09:23 Resp 15 08/19/19 09:23 BP 133/52 L 08/19/19 09:23 Pulse Ox 95 08/19/19 09:23 - COMMENTS/OBSERVATIONS Free Text/Narrative:: No anesthesia problems
[2019-08-19] MEDS ORDERED: Acetaminophen/HYDROcodone 325-5 MG Tab PO ONE (10:21)
[2019-08-19 10:47] VITALS: BP 140/60; PULSE 70
--- NOTE | 2019-08-19 11:38 | CR ---
Chest: 2 fluoroscopic spot views were obtained of the upper right chest utilizing C-arm device. Comparison: Prior chest x-ray of 05/28/19. Study shows placement of right-sided infusion catheter. Fluoroscopy time not given at time of dictation. Impression: 1. Procedural study as noted above. Diagnostic code #2 Study was dictated in MDT
--- NOTE | 2019-08-19 13:26 | OR ---
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 PROCEDURE PERFORMED: Right internal jugular Port-A-Cath placement. PRIMARY SURGEON: Diane Velasquez MD. ANESTHESIA: General endotracheal anesthesia. FLUIDS: 600 mL of crystalloid. ESTIMATED BLOOD LOSS: 10 mL. FINDINGS: Right internal jugular Port-A-Cath placement. COMPLICATIONS: None. INDICATIONS: The patient is a 78-year-old female who was recently diagnosed with right upper lobe lung cancer. She will be undergoing chemotherapy and needs a port. The patient and I discussed the procedure, expected perioperative course, and risks. She verbalized understanding and wishes to proceed. PROCEDURE IN DETAIL: The patient was brought into the OR and placed on the OR table in supine position. A time-out was completed verifying the patient's name, age, date of , allergies, and procedure to be performed. General endotracheal anesthesia was induced. An ultrasound was used to verify the vascular anatomy of the right side of the neck. The right internal jugular vein and right carotid artery were noted. A photograph of this was taken and printed. The patient had both arms tucked and a shoulder roll placed under her shoulder taking great care to support her neck. The neck and chest were prepped and draped in usual standard fashion. The patient was placed in Trendelenburg position. I reverified the vascular anatomy of the right side of the neck with a sterile ultrasound probe. I then anesthetized the area over this with a 1:1 mixture of 0.5% Marcaine plain and 1% lidocaine plain. I anesthetized the anterior chest wall site as well as the tubing tract with the same mixture. Using ultrasound guidance, I guided a needle into the right internal jugular vein. A guidewire was placed down this. I attempted to slide the guidewire in, however, there was some resistance. I tried adjusting the guidewire, but was still meeting resistance, so the guidewire and needle were pulled out. Pressure was held at the neck. I then used an ultrasound to reverify the vascular anatomy of my neck and again placed the needle into the right internal jugular vein. A good return of venous blood was noted. At this time, I placed a guidewire down the needle and into the vein, it passed without any resistance. The needle was removed and the guidewire was secured to the drapes. Fluoroscopy was brought in and verified placement of the guidewire into the vena cava. I then turned my attention to the right side of the chest. A 3 cm incision was made using a 15 blade. Cautery was then used to dissect down to the level of subcutaneous fat and create a pocket in the chest wall in which to place the Port-A-Cath device. A tunneling device was then used to tunnel the catheter tubing from the chest wall site up to the neck insertion site. Once the catheter tubing was in place, I placed a vascular sheath and dilator over the guidewire. Using fluoroscopic guidance, I dilated my vascular tract. The dilator and guidewire were removed leaving the vascular sheath in place. The catheter tubing was then placed down the vascular sheath into the vena cava. The vascular sheath was then peeled away and removed. Fluoroscopy was then used to guide the catheter tubing into the superior vena cava. An x-ray was taken of the catheter tip within the chest as well as extending up into the neck. The catheter tubing was aspirated and a good return of venous blood was noted. It was then flushed with injectable saline. The catheter tubing was then trimmed at approximately 25 cm and placed onto the Port-A-Cath device. The port was then placed into the chest wall pocket and secured in 3 areas to the chest wall using interrupted 2-0 Prolene sutures. The Port-A-Cath was then accessed with a Mcginnis needle. A good return of venous blood was noted. It was then locked with 3 mL of heparinized saline. The chest wall site was then closed with layers of interrupted 3-0 Vicryl suture. The skin was closed with a running 4-0 Monocryl stitch. The incision site on the right side of the neck was so small that I had difficulty placing a suture. Instead, it was closed using Dermabond. Dermabond was placed over my chest wall site as well. Sterile dressings were applied. The patient tolerated the procedure well and was transferred to the PACU in stable condition. All counts were complete and correct at the end of the case. A chest x-ray was taken in PACU and no immediate complications were noted. TRES TANG /[id number] MIGUEL ANGEL
== END 2019-08-19 10:30 | disposition home or self-care (01) ==
LOC: MW.SDS 06:31
PROVIDERS: ATTEND Surgery
DX: C34.11 Malignant neoplasm of upper lobe, right bronchus or lung (principal); R22.0 Localized swelling, mass and lump, head; I10 Essential (primary) hypertension; E78.5 Hyperlipidemia, unspecified; E78.00 Pure hypercholesterolemia, unspecified; I48.91 Unspecified atrial fibrillation; E66.9 Obesity, unspecified; Z88.2 Allergy status to sulfonamides; Z88.1 Allergy status to other antibiotic agents; Z88.8 Allergy status to other drugs, medicaments and biological substances; Z79.899 Other long term (current) drug therapy; Z87.891 Personal history of nicotine dependence; Z79.02 Long term (current) use of antithrombotics/antiplatelets; Z68.30 Body mass index [BMI] 30.0-30.9, adult
CPT/HCPCS: 36415; 71045; 71045-26; 76000; 76000-26; 80053; 85025; A9270-GY; C1788; J0330; J1642; J2001; J2250; J2704; J3010; J3490; J7120; Q9966